=== PATIENT | male | born 1935 | race Caucasian/White ===

== ENCOUNTER 2017-03-07 18:37 | Inpatient (IN) | payer MEDICAID, MEDICARE ==
[2017-03-07 18:38] VITALS: BMI 26.1
--- NOTE | 2017-03-07 19:14 | C.PDOC ---
History Of Present Illness Patient presents to the ED with complaints of sharp, stabbing abdominal pain that began last night. Patient has a history of chronic constipation. Patient denies any other complaints at this time. Time Seen by Provider: 03/07/17 19:14 Chief Complaint (Nursing): Abdominal Pain History Per: Patient History/Exam Limitations: no limitations Onset/Duration Of Symptoms: Hrs Current Symptoms Are (Timing): Still Present Severity: Mild Pain Scale Rating Of: 4 Quality Of Discomfort: Sharp, Stabbing Associated Symptoms: denies: Fever, Chills, Nausea Past Medical History Reviewed: Historical Data, Nursing Documentation, Vital Signs Vital Signs: Last Vital Signs Temp 97.8 F 03/07/17 18:42 Pulse 76 03/07/17 18:42 Resp 20 03/07/17 18:42 BP 120/71 03/07/17 18:42 Pulse Ox 96 03/07/17 20:17 - Medical History PMH: Arthritis, Asthma, Benign Prostatic Hyperplasia, CAD, CHF, COPD, Diabetes, Emphysema, Gall Bladder Disease, Hiatal Hernia, HTN, Hypercholesterolemia, Hyperlipidemia, Pneumonia, Sleep Apnea, Chronic Pain (Left chest/abdomen) Surgical History: Cholecystectomy (open cholecystectomy with CBD exploration 2012), Coronary Stent, Hernia Repair Denies: Appendectomy, Pacemaker - [facility] Procedures ANESTH INJECT SYMP NERVE (05/12/13) C & S-INTEGUMENT (08/27/14) CENTRAL VENOUS CATHETER PLACEMENT WITH GUIDANCE (07/18/15) CHOLECYSTECTOMY (10/16/13) CLOSED ENDOSCOPIC BIOPSY OF LARGE INTESTINE (09/01/13) CLOSED [PERCUTANEOUS] [NEEDLE] BIOPSY OF LUNG (06/21/13) COMMON DUCT EXPLORATION (10/16/13) CONTINUOUS INVASIVE MECHANICAL VENTILATION <96 CONSEC HRS (11/05/14) CORONAR ARTERIOGR-2 CATH (09/05/02) CYSTOSCOPY NEC (07/14/13) DX ULTRASOUND-DIGESTIVE (08/21/12) ENDOSCOPIC BRONCHIAL BX (07/28/13) ENTERAL INFUSION OF CONCENTRATED NUT. SUBSTANCES (11/05/14) ESOPHAGOGASTRODUODENOSCOPY [EGD] W/CLOSED BIOPSY (10/06/13) EXCISION OF STOMACH, ENDO, DIAGN (08/23/16) FLUOROSCOPY OF SUPERIOR VENA CAVA, GUIDANCE (07/13/16) GASTROTOMY (07/29/06) INFLUENZA VACCINATION (11/05/14) INJECT/INFUSE ELECTROLYT (05/29/14) INJECT/INFUSE NEC (01/29/15) INSERT ENDOTRACHEAL TUBE (11/05/14) INSERT INTERCOSTAL CATH (09/01/13) INSERTION OF INFUSION DEV INTO R INNOM VEIN, PERC APPROACH (10/05/15) INSERTION OF INFUSION DEV INTO SUP VENA CAVA, PERC APPROACH (08/23/16) INTRODUCE OF OTH THERAP SUBST INTO RESP TRACT, VIA OPENING (12/18/16) INTRODUCE OTH ANTI-INFECT IN CENTRAL VEIN, PERC (10/05/15) LEFT HEART CARDIAC CATH (09/05/02) LT HEART ANGIOCARDIOGRAM (09/05/02) MAGNETIC RESONANCE IMAGING OF SPINAL CANAL (10/16/13) NEBULIZER THERAPY (09/12/14) NON-INVASIVE MECHANICAL VENTILATION (07/14/13) OTH LYSIS-PERITONEAL ADHES (10/16/13) OTHER ENDOSCOPY OF SM INTEST (10/12/14) OTHER SKIN & SUBQ I D (04/30/14) PACKED CELL TRANSFUSION (10/30/13) PANCREAT SPHINCTEROPLAS (10/16/13) PART GASTREC W JEJ ANAST (07/29/06) PERCUTAN NEEDLE BIOPSY OF PROSTATE (09/01/13) REPAIR OF INTESTINE NEC (10/16/13) SM-TO-SM BOWEL ANASTOM (07/29/06) THORACOSCOPIC LOBECTOMY OF LUNG (07/28/13) TRANSURETHRAL PROSTATECTOMY ([place]) (07/14/13) URETHRAL DILATION (09/01/13) VACCINATION NEC (11/05/14) VENOUS CATHETERIZATION NEC (11/05/14) Family History: States: Unknown Family Hx - Social History Hx Tobacco Use: Yes Hx Alcohol Use: No Hx Substance Use: No - Immunization History Hx Tetanus Toxoid Vaccination: Yes Hx Influenza Vaccination: Yes Hx Pneumococcal Vaccination: Yes Review Of Systems Constitutional: Negative for: Fever, Chills, Sweats Cardiovascular: Negative for: Chest Pain Respiratory: Negative for: Cough, Shortness of Breath Gastrointestinal: Positive for: Abdominal Pain. Negative for: Nausea Genitourinary: Negative for: Dysuria Musculoskeletal: Negative for: Back Pain Skin: Negative for: Rash, Lesions, Jaundice Neurological: Negative for: Weakness Psych: Negative for: Anxiety Physical Exam - Physical Exam Appears: Non-toxic Skin: Warm, Dry Oral Mucosa: Moist Neck: Normal ROM, Supple Chest: Symmetrical Cardiovascular: Rhythm Regular Respiratory: No Accessory Muscle Use, No Rales, No Rhonchi, No Stridor, No Wheezing Gastrointestinal/Abdominal: Bowel Sounds (decreased bowel sounds ), Soft, No Tenderness, Distention, No Guarding, No Rebound, Other (small umbillical surgical wound with small amount of drainage, treated with wet to dry dressing ) Back: No CVA Tenderness Extremity: Normal ROM, No Tenderness Extremity: Bilateral: Atraumatic, Normal Color And Temperature Neurological/Psych: Oriented x3, Normal Speech, Normal Cognition Gait: Steady ED Course And Treatment - Laboratory Results Result Diagrams: 03/07/17 19:46 03/07/17 19:46 O2 Sat by Pulse Oximetry: 96 Pulse Ox Interpretation: Normal Progress Note: blood work, ivf, Disposition Discussed With : Harriet Trujillo Comment: accepted the pt on his service and took over the care at 9:30 PM Doctor Will See Patient In The: Hospital Counseled Patient/Family Regarding: Studies Performed, Diagnosis - Disposition Disposition: HOSPITALIZED Disposition Time: 19:14 Condition: FAIR - Clinical Impression Clinical Impression: Abdominal bloating, Abdominal distension, Constipation, Nausea - Scribe Statement The provider has reviewed the documentation as recorded by the Scribe Shantel Savage All medical record entries made by the Scribe were at my direction and personally dictated by me. I have reviewed the chart and agree that the record accurately reflects my personal performance of the history, physical exam, medical decision making, and the department course for this patient. I have also personally directed, reviewed, and agree with the discharge instructions and disposition. Decision To Admit - Pt Status Changed To: Hospital Disposition Of: Inpatient - Admit Certification Admit to Inpatient:: After my assessment, the patient will require hospitalization for at least two midnights. This is because of the severity of symptoms shown, intensity of services needed, and/or the medical risk in this patient being treated as an outpatient. - InPatient: Physician Admission Certification:: After my assessment, the patient will require hospitalization for at least two midnights. This is because of the severity of symptoms shown, intensity of services needed, and/or the medical risk in this patient being treated as an outpatient. - . Bed Request Type: Regular Admitting Physician: Harriet Trujillo Patient Diagnosis: Abdominal bloating, Abdominal distension, Constipation, Nausea
[2017-03-07] MEDS ORDERED: Sodium Chloride 0.9% 1,000 ML IV ONE (19:16)
[2017-03-07 19:50] LABS: BASO % 0.7 % (0.0-2.0); EOS # 0.1 K/uL (0.0-0.7); EOS % 0.9 % (0.0-4.0); HEMATOCRIT 35.7 % (35.0-51.0); LYMPH # 1.5 K/uL (1.0-4.3); LYMPH % 21.1 % (20.0-40.0); MEAN CELL VOLUME 84.5 fL (80.0-94.0); MEAN CORPUSCULAR HEMOGLOBIN 26.9 pg (27.0-31.0); MEAN CORPUSCULAR HGB CONC 31.8 g/dL (33.0-37.0); MEAN PLATELET VOLUME 11.6 fL (7.2-11.7); MONO # 0.3 K/uL (0.0-0.8); MONO % 3.9 % (0.0-10.0); RED CELL DISTRIBUTION WIDTH 14.8 % (11.5-14.5)
[2017-03-07] MEDS ORDERED: Morphine 4 MG/ML VIAL ONE (19:53)
[2017-03-07 20:00] LABS: CHLORIDE 106 mmol/L (98-107); POTASSIUM 4.8 mmol/L (3.6-5.2); SODIUM 141 mmol/L (132-148)
[2017-03-07 20:02] LABS: BILIRUBIN,TOTAL 0.7 mg/dL (0.2-1.3); GFR AFRICAN-AMERICAN > 60
[2017-03-07 20:03] LABS: ALB/GLOB RATIO 1.3 (1.0-2.1); ALKALINE PHOSPHATASE 166 U/L (38-126); ALT/SGPT 12 U/L (21-72); AST/SGOT 16 U/L (17-59); BLOOD UREA NITROGEN 17 mg/dL (9-20); CALCIUM 8.7 mg/dl (8.6-10.4); CARBON DIOXIDE 21 mmol/L (22-30); GLUCOSE,RANDOM 119 mg/dL (75-110)
[2017-03-07 20:05] LABS: INR 1.1
[2017-03-07] MEDS: Dextrose 5%/0.45% NS 1,000 ML IV SCH (22:40)
[2017-03-08] MEDS: Albuterol-Ipratrop 3 mg / 0.5 (3 ml) UD INH SCH ×3 (07:19→20:39)
[2017-03-08] MEDS ORDERED: POLYETHYLENE GLYCOL 3350 17 GM/Dose PACKET PO ONE ×4 (08:53→22:33)
[2017-03-08] MEDS: Dextrose 5%/0.45% NS 1,000 ML IV SCH ×2 (09:05→18:55)
--- NOTE | 2017-03-08 09:48 | RAD ---
PROCEDURE: Radiographs of the chest and abdomen (obstructive series) HISTORY: Abdominal pain COMPARISON: CT abdomen and pelvis from 10/02/2016. TECHNIQUE: AP radiograph of the chest, with upright and supine radiographs of the abdomen. FINDINGS: CHEST: Lungs: The lungs are clear. Cardiovascular: Normal size heart. No pulmonary vascular congestion. Pleura: No pleural fluid. No pneumothorax. Other findings: There is an old fracture deformity in the left posterior the 6th rib. There are multiple surgical clips in the left perihilar region. ABDOMEN AND PELVIS: Bowel: There are gas-filled small bowel loops. There is no evidence of bowel dilatation. Free air: None. Bones: Unremarkable. Other findings: There are multiple surgical clips in the abdominal wall. IMPRESSION: Nonobstructive bowel-gas pattern.
[2017-03-08] MEDS ORDERED: HONEY TP SCH (10:00)
--- NOTE | 2017-03-08 11:02 | CP.PCM.PN ---
Subjective - Date & Time of Evaluation Date of Evaluation: 03/08/17 Time of Evaluation: 08:10 - Subjective Subjective: Medicine Note- Dr. Trujillo's service Patient was seen and examined at bedside. Patient reports he is having some abdominal pain, as well as right shoulder pain going down to his abdomen. No events overnight, per nursing. Objective - Vital Signs/Intake and Output Vital Signs (last 24 hours): Temp Pulse Resp BP Pulse Ox 98.0 F 65 20 149/70 98 03/08/17 07:20 03/08/17 07:20 03/08/17 07:20 03/08/17 07:20 03/08/17 07:20 - Medications Medications: Current Medications Albuterol/Ipratropium (Duoneb 3 Mg/0.5 Mg (3 Ml) Ud) 3 ml INH RQ6 [facility] Last Admin: 03/08/17 07:19 Dose: 3 ml Carvedilol (Coreg) 3.125 mg PO BID [facility] Last Admin: 03/08/17 09:56 Dose: 3.125 mg Clopidogrel Bisulfate (Plavix) 75 mg PO DAILY [facility] Last Admin: 03/08/17 09:56 Dose: 75 mg Docusate Sodium (Colace) 100 mg PO TID [facility] Last Admin: 03/08/17 09:56 Dose: 100 mg Famotidine (Pepcid) 20 mg IVP Q12 [facility] Last Admin: 03/08/17 10:45 Dose: 20 mg Heparin Sodium (Porcine) (Heparin) 5,000 units SC Q12 [facility] Last Admin: 03/08/17 09:56 Dose: 5,000 units Hydromorphone HCl (Dilaudid) 2 mg IVP Q4H PRN PRN Reason: Pain, moderate (4-7) Last Admin: 03/08/17 09:56 Dose: 2 mg Dextrose/Sodium Chloride (Dextrose 5%/0.45% Ns 1000 Ml) 1,000 mls @ 100 mls/hr IV .Q10H [facility] Last Admin: 03/08/17 09:05 Dose: Not Given Megestrol Acetate (Megace) 40 mg PO DAILY [facility] Last Admin: 03/08/17 09:56 Dose: 40 mg Metformin HCl (Glucophage) 500 mg PO BIDCC [facility] Last Admin: 03/08/17 10:45 Dose: 500 mg Rosuvastatin Calcium (Crestor) 5 mg PO HS [facility] Zolpidem Tartrate (Ambien) 5 mg PO HS [facility] - Labs Labs: PT 12.5 SECONDS (9.7-12.2) H 03/07/17 19:46 INR 1.1 03/07/17 19:46 APTT 55 SECONDS (21-34) H 03/07/17 19:46 - Constitutional Appears: Non-toxic, No Acute Distress - Head Exam Head Exam: ATRAUMATIC, NORMAL INSPECTION, NORMOCEPHALIC - Eye Exam Pupil Exam: NORMAL ACCOMODATION, PERRL - ENT Exam ENT Exam: Mucous Membranes Moist - Respiratory Exam Respiratory Exam: Clear to Ausculation Bilateral, NORMAL BREATHING PATTERN. absent: Prolonged Expiratory Phase, Rales, Rhonchi, Wheezes - Cardiovascular Exam Cardiovascular Exam: REGULAR RHYTHM, +S1, +S2 - GI/Abdominal Exam GI & Abdominal Exam: Soft, Tenderness (tender at wound site), Normal Bowel Sounds. absent: Diminished Bowel Sounds, Hypoactive Bowel Sounds Additional comments: abdominal wound still draining pus - Extremities Exam Extremities Exam: Normal Capillary Refill, Normal Inspection - Neurological Exam Neurological Exam: Alert, Awake, Oriented x3 - Psychiatric Exam Psychiatric exam: Normal Affect, Normal Mood - Skin Skin Exam: Dry, Intact, Normal Color, Warm Assessment and Plan - Assessment and Plan (Free Text) Assessment: (1) Abdominal Pain Assessment & Plan: Obstructive series- 03/07/17- nonobstructive bowel-gas pattern Dilaudid 2mg IVP Q4h Given dose of Miralax 17gm PO once Colace 100mg PO TID Lipase 465 (2) Anxiety Assessment & Plan: Xanax 0.5mg PO Q6h PRN Status: Acute (3) Constipation Assessment & Plan: Colace 100mg PO TID Status: Acute (4) CAD (coronary artery disease) Assessment & Plan: s/p 2 stents continue Plavix 75mg PO Daily continue Asa 81mg PO Daily Crestor 10mg PO HS Coreg 3.125mg PO BID Status: Chronic (5) COPD (chronic obstructive pulmonary disease) Assessment & Plan: Advair 250/50mcg INH Q12h Duoneb Q6h PRN Status: Chronic (6) Insomnia Assessment & Plan: Ambien 5mg PO HS Status: Acute (7) Prophylactic measure Assessment & Plan: Heparin 5000U SC Q12h Protonix 40mg PO Da
[2017-03-08 17:04] LABS: RBC URINE < 1 /hpf (0-3); URINE BILIRUBIN NEGATIVE (NEGATIVE); URINE BLOOD NEGATIVE (NEGATIVE); URINE COLOR Yellow (YELLOW); URINE GLUCOSE (UA) NORMAL (Normal); URINE KETONE NEGATIVE (NEGATIVE); URINE LEUKOCYTE ESTERASE NEG Leu/uL (Negative); URINE PROTEIN NEGATIVE (NEGATIVE); URINE UROBILINOGEN NORMAL mg/dL (0.2-1.0); WBC URINE < 1 /hpf (0-5)
[2017-03-09] MEDS: Albuterol-Ipratrop 3 mg / 0.5 (3 ml) UD INH SCH ×4 (01:10→19:41)
[2017-03-09 03:10] VITALS: RESP 20
[2017-03-09] MEDS: Dextrose 5%/0.45% NS 1,000 ML IV SCH ×2 (05:30→17:06)
[2017-03-09 08:26] LABS: BASO % 0.8 % (0.0-2.0); EOS # 0.1 K/uL (0.0-0.7); EOS % 2.4 % (0.0-4.0); LYMPH # 1.8 K/uL (1.0-4.3); MEAN CELL VOLUME 83.9 fL (80.0-94.0); MEAN PLATELET VOLUME 10.9 fL (7.2-11.7); MONO # 0.4 K/uL (0.0-0.8); WHITE BLOOD COUNT 5.6 K/uL (4.8-10.8)
[2017-03-09 08:32] LABS: CHLORIDE 108 mmol/L (98-107); SODIUM 143 mmol/L (132-148)
[2017-03-09 08:35] LABS: ALB/GLOB RATIO 1.3 (1.0-2.1); ALKALINE PHOSPHATASE 133 U/L (38-126); ALT/SGPT 12 U/L (21-72); AST/SGOT 15 U/L (17-59); BILIRUBIN,TOTAL 0.3 mg/dL (0.2-1.3); BLOOD UREA NITROGEN 13 mg/dL (9-20); CARBON DIOXIDE 22 mmol/L (22-30); GFR AFRICAN-AMERICAN > 60; GLUCOSE,RANDOM 130 mg/dL (75-110); TOTAL PROTEIN 6.3 g/dL (6.3-8.3)
[2017-03-09 08:36] LABS: CALCIUM 8.4 mg/dl (8.6-10.4)
[2017-03-09 08:45] LABS: HEMATOCRIT 33.2 % (35.0-51.0); LYMPH % 32.7 % (20.0-40.0); MEAN CORPUSCULAR HEMOGLOBIN 26.9 pg (27.0-31.0); MEAN CORPUSCULAR HGB CONC 32.1 g/dL (33.0-37.0); MONO % 7.2 % (0.0-10.0); NRBC % 0.2 % (0.0-2.0); RED CELL DISTRIBUTION WIDTH 15.1 % (11.5-14.5)
--- NOTE | 2017-03-09 10:10 | CP.PCM.PN ---
Subjective - Date & Time of Evaluation Date of Evaluation: 03/09/17 Time of Evaluation: 07:15 - Subjective Subjective: Medicine Note- Dr. Trujillo's service Patient was seen and examined at bedside. Patient reports he still has pain at the wound site. He says he is tolerating some PO, had a sandwich yesterday. He expresses some distress in regards to causing his family problems because of his abdominal wound and chronic pain. No events overnight. Objective - Vital Signs/Intake and Output Vital Signs (last 24 hours): Temp Pulse Resp BP Pulse Ox 98.0 F 71 20 126/57 L 98 03/09/17 08:09 03/09/17 08:09 03/09/17 08:09 03/09/17 08:09 03/09/17 08:09 Intake and Output: 03/09/17 03/09/17 06:59 18:59 Intake Total 900 Balance 900 - Medications Medications: Current Medications Albuterol/Ipratropium (Duoneb 3 Mg/0.5 Mg (3 Ml) Ud) 3 ml INH RQ6 [facility] Last Admin: 03/09/17 07:41 Dose: 3 ml Carvedilol (Coreg) 3.125 mg PO BID [facility] Last Admin: 03/09/17 10:01 Dose: 3.125 mg Clopidogrel Bisulfate (Plavix) 75 mg PO DAILY [facility] Last Admin: 03/09/17 10:02 Dose: 75 mg Docusate Sodium (Colace) 100 mg PO TID [facility] Last Admin: 03/09/17 10:01 Dose: 100 mg Famotidine (Pepcid) 20 mg PO BID [facility] Last Admin: 03/09/17 10:01 Dose: 20 mg Heparin Sodium (Porcine) (Heparin) 5,000 units SC Q12 [facility] Last Admin: 03/09/17 10:01 Dose: 5,000 units Hydromorphone HCl (Dilaudid) 2 mg IVP Q4H PRN PRN Reason: Pain, severe (8-10) Last Admin: 03/09/17 05:22 Dose: 2 mg Dextrose/Sodium Chloride (Dextrose 5%/0.45% Ns 1000 Ml) 1,000 mls @ 100 mls/hr IV .Q10H [facility] Last Admin: 03/09/17 05:30 Dose: 100 mls/hr Megestrol Acetate (Megace) 40 mg PO DAILY [facility] Last Admin: 03/09/17 10:01 Dose: 40 mg Metformin HCl (Glucophage) 500 mg PO BIDCC [facility] Last Admin: 03/09/17 08:41 Dose: 500 mg Rosuvastatin Calcium (Crestor) 5 mg PO HS [facility] Last Admin: 03/08/17 22:26 Dose: 5 mg Zolpidem Tartrate (Ambien) 5 mg PO [facility] Last Admin: 03/08/17 22:26 Dose: 5 mg - Labs Labs: 03/09/17 08:12 03/09/17 08:12 PT 12.5 SECONDS (9.7-12.2) H 03/07/17 19:46 INR 1.1 03/07/17 19:46 APTT 55 SECONDS (21-34) H 03/07/17 19:46 - Constitutional Appears: Non-toxic, No Acute Distress - Head Exam Head Exam: ATRAUMATIC, NORMAL INSPECTION, NORMOCEPHALIC - Eye Exam Pupil Exam: NORMAL ACCOMODATION, PERRL - Respiratory Exam Respiratory Exam: Clear to Ausculation Bilateral, NORMAL BREATHING PATTERN. absent: Prolonged Expiratory Phase, Rales, Rhonchi, Wheezes - Cardiovascular Exam Cardiovascular Exam: REGULAR RHYTHM, +S1, +S2 - GI/Abdominal Exam GI & Abdominal Exam: Soft, Tenderness, Normal Bowel Sounds. absent: Diminished Bowel Sounds Additional comments: abdominal wound still has purulent drainage - Extremities Exam Extremities Exam: Normal Capillary Refill, Normal Inspection - Neurological Exam Neurological Exam: Alert, Awake, Oriented x3 - Psychiatric Exam Psychiatric exam: Normal Affect, Normal Mood - Skin Skin Exam: Dry, Intact, Normal Color, Warm Assessment and Plan - Assessment and Plan (Free Text) Assessment: (1) Abdominal Pain Assessment & Plan: Obstructive series- 03/07/17- nonobstructive bowel-gas pattern Dilaudid 2mg IVP Q4h Given dose of Miralax 17gm PO once Colace 100mg PO TID Lipase 465, repeat Lipase 29 (2) Anxiety Assessment & Plan: Xanax 0.5mg PO Q6h PRN Status: Acute (3) Constipation Assessment & Plan: Colace 100mg PO TID Status: Acute (4) CAD (coronary artery disease) Assessment & Plan: s/p 2 stents continue Plavix 75mg PO Daily continue Asa 81mg PO Daily Crestor 10mg PO HS Coreg 3.125mg PO BID Status: Chronic (5) COPD (chronic obstructive pulmonary disease) Assessment & Plan: Advair 250/50mcg INH Q12h Duoneb Q6h PRN Status: Chronic (6) Insomnia Assessment & Plan: Ambien 5mg PO HS Status: Acute (7) Prophylactic measure Assessment & Plan: Heparin 5000U SC Q12h Protonix 40mg PO
[2017-03-10] MEDS: Dextrose 5%/0.45% NS 1,000 ML IV SCH ×2 (00:55→02:04)
[2017-03-10] MEDS: Albuterol-Ipratrop 3 mg / 0.5 (3 ml) UD INH SCH ×3 (01:20→13:15)
[2017-03-10 08:07] LABS: BASO # 0.1 K/uL (0.0-0.2); BASO % 0.8 % (0.0-2.0); EOS # 0.2 K/uL (0.0-0.7); EOS % 2.2 % (0.0-4.0); LYMPH # 1.8 K/uL (1.0-4.3); LYMPH % 27.2 % (20.0-40.0); MEAN CELL VOLUME 83.7 fL (80.0-94.0); MEAN CORPUSCULAR HEMOGLOBIN 27.2 pg (27.0-31.0); MEAN CORPUSCULAR HGB CONC 32.5 g/dL (33.0-37.0); MEAN PLATELET VOLUME 10.6 fL (7.2-11.7); MONO # 0.4 K/uL (0.0-0.8); MONO % 6.1 % (0.0-10.0); RED CELL DISTRIBUTION WIDTH 15.1 % (11.5-14.5); WHITE BLOOD COUNT 6.8 K/uL (4.8-10.8)
[2017-03-10 08:21] LABS: CHLORIDE 106 mmol/L (98-107)
[2017-03-10 08:22] LABS: POTASSIUM 4.2 mmol/L (3.6-5.2); SODIUM 143 mmol/L (132-148)
[2017-03-10 08:24] LABS: GFR AFRICAN-AMERICAN > 60
[2017-03-10 08:25] LABS: ALB/GLOB RATIO 1.3 (1.0-2.1); ALKALINE PHOSPHATASE 150 U/L (38-126); ALT/SGPT 14 U/L (21-72); AST/SGOT 16 U/L (17-59); BILIRUBIN,TOTAL 0.3 mg/dL (0.2-1.3); BLOOD UREA NITROGEN 11 mg/dL (9-20); CALCIUM 8.8 mg/dl (8.6-10.4); CARBON DIOXIDE 23 mmol/L (22-30); GLUCOSE,RANDOM 134 mg/dL (75-110); TOTAL PROTEIN 6.8 g/dL (6.3-8.3)
--- NOTE | 2017-03-10 08:49 | CP.PCM.PN ---
Subjective - Date & Time of Evaluation Date of Evaluation: 03/10/17 Time of Evaluation: 09:15 - Subjective Subjective: Medicine Note- Dr. Trujillo's service Patient was seen and examined at bedside. Patient reports he still has pain at the wound site. He says he had a small bowel movement yesterday, requests medication for constipation. No events overnight. Objective - Vital Signs/Intake and Output Vital Signs (last 24 hours): Temp Pulse Resp BP Pulse Ox 97.5 F L 82 20 138/69 99 03/10/17 00:00 03/10/17 00:00 03/10/17 00:00 03/10/17 00:00 03/10/17 00:00 Intake and Output: 03/10/17 03/10/17 06:59 18:59 Intake Total 920 Balance 920 - Medications Medications: Current Medications Albuterol/Ipratropium (Duoneb 3 Mg/0.5 Mg (3 Ml) Ud) 3 ml INH RQ6 [facility] Last Admin: 03/10/17 07:25 Dose: 3 ml Carvedilol (Coreg) 3.125 mg PO BID [facility] Last Admin: 03/09/17 18:04 Dose: 3.125 mg Clopidogrel Bisulfate (Plavix) 75 mg PO DAILY [facility] Last Admin: 03/09/17 10:02 Dose: 75 mg Docusate Sodium (Colace) 100 mg PO TID [facility] Last Admin: 03/09/17 18:04 Dose: 100 mg Famotidine (Pepcid) 20 mg PO BID [facility] Last Admin: 03/09/17 18:04 Dose: 20 mg Heparin Sodium (Porcine) (Heparin) 5,000 units SC Q12 [facility] Last Admin: 03/09/17 22:00 Dose: 5,000 units Hydromorphone HCl (Dilaudid) 2 mg IVP Q4H PRN PRN Reason: Pain, severe (8-10) Last Admin: 03/10/17 06:05 Dose: 2 mg Dextrose/Sodium Chloride (Dextrose 5%/0.45% Ns 1000 Ml) 1,000 mls @ 100 mls/hr IV .Q10H [facility] Last Admin: 03/10/17 02:04 Dose: 100 mls/hr Megestrol Acetate (Megace) 40 mg PO DAILY [facility] Last Admin: 03/09/17 10:01 Dose: 40 mg [facility] Last Admin: 03/09/17 17:02 Dose: 500 mg Rosuvastatin Calcium (Crestor) 5 mg PO [facility] Last Admin: 03/09/17 22:00 Dose: 5 mg Zolpidem Tartrate (Ambien) 5 mg PO [facility] Last Admin: 03/09/17 22:00 Dose: 5 mg - Labs Labs: 03/10/17 07:57 03/10/17 07:57 PT 12.5 SECONDS (9.7-12.2) H 03/07/17 19:46 INR 1.1 03/07/17 19:46 APTT 55 SECONDS (21-34) H 03/07/17 19:46 - Constitutional Appears: Non-toxic, No Acute Distress - Head Exam Head Exam: ATRAUMATIC, NORMAL INSPECTION, NORMOCEPHALIC - Eye Exam Pupil Exam: NORMAL ACCOMODATION, PERRL - ENT Exam ENT Exam: Mucous Membranes Moist - Respiratory Exam Respiratory Exam: Clear to Ausculation Bilateral, NORMAL BREATHING PATTERN. absent: Prolonged Expiratory Phase, Rales, Rhonchi, Wheezes - Cardiovascular Exam Cardiovascular Exam: REGULAR RHYTHM, +S1, +S2 - GI/Abdominal Exam GI & Abdominal Exam: Soft, Tenderness, Normal Bowel Sounds. absent: Diminished Bowel Sounds, Hypoactive Bowel Sounds Additional comments: purulent drainage from mid abdominal surgical site - Extremities Exam Extremities Exam: Normal Capillary Refill, Normal Inspection - Neurological Exam Neurological Exam: Alert, Awake, Oriented x3 - Psychiatric Exam Psychiatric exam: Normal Affect, Normal Mood - Skin Skin Exam: Dry, Intact, Normal Color, Warm Assessment and Plan - Assessment and Plan (Free Text) Assessment: (1) Abdominal Pain Assessment & Plan: Obstructive series- 03/07/17- nonobstructive bowel-gas pattern Dilaudid 2mg IVP Q4h Given dose of Lactulose 20mg once Colace 100mg PO TID Lipase 465, repeat Lipase 29 (2) Anxiety Assessment & Plan: Xanax 0.5mg PO Q6h PRN Status: Acute (3) Constipation Assessment & Plan: Colace 100mg PO TID Status: Acute (4) CAD (coronary artery disease) Assessment & Plan: s/p 2 stents continue Plavix 75mg PO Daily continue Asa 81mg PO Daily Crestor 10mg PO HS Coreg 3.125mg PO BID Status: Chronic (5) COPD (chronic obstructive pulmonary disease) Assessment & Plan: Advair 250/50mcg INH Q12h Duoneb Q6h PRN Status: Chronic (6) Insomnia Assessment & Plan: Ambien 5mg PO HS Status: Acute (7) Prophylactic measure Assessment & Plan: Heparin 5000U SC Q12h Protonix 40mg PO All medical management as per Dr. Trujillo Patient is to be discharged home today, as per Dr. Trujillo.
[2017-03-10 09:41] VITALS: BP 142/74; PULSE 69; TEMP 98.4; O2SAT 98
--- NOTE | 2017-03-17 06:59 | DS ---
The patient admitted to the hospital with chief complaint of abdominal pain, severe; nonhealing wound . The patient ____. Abdominal hernia with multiple ____. The patient started on IV antibiotic, natty n management, surgical consult. The patient discharged to be followed as outpatient and ____ abdomin al wound. Harriet Scherer MD cc: [id number] TT: 03/16/2017 12:21:41 tn
--- NOTE | 2017-04-12 08:24 | HP ---
The patient came to the hospital with abdominal pain, weakness, fatigue. The patient has history of chronic nonhealing wound, abdominal hernia. PHYSICAL EXAMINATION: GENERAL: The patient is awake, alert, oriented. VITAL SIGNS: Temperature 98, pulse ____. HEENT: Within normal limits. NECK: Supple. CHEST: Symmetrical. HEART: Regular. ABDOMEN: Soft. EXTREMITIES: No edema. ASSESSMENT: The patient for nonhealing wound, chronic abdominal pain. The patient to get bedrest, I V antibiotics, supportive care. Harriet Scherer MD cc: [id number] TT: 04/10/2017 08:32:12 jn
== END 2017-03-10 13:30 | disposition home or self-care (01) | DRG 452 ==
LOC: C.ER 18:37 → C.9E 21:46 → C.5T 23:23
PROVIDERS: ADMIT Internal Medicine Pulmonary Disease; ATTEND Internal Medicine Pulmonary Disease
DX: T81.89XA Other complications of procedures, not elsewhere classified, initial encounter (principal); J44.9 Chronic obstructive pulmonary disease, unspecified; K59.09 Other constipation; K46.9 Unspecified abdominal hernia without obstruction or gangrene; F41.9 Anxiety disorder, unspecified; G89.29 Other chronic pain; I25.10 Atherosclerotic heart disease of native coronary artery without angina pectoris; M25.511 Pain in right shoulder; Z95.5 Presence of coronary angioplasty implant and graft; G47.00 Insomnia, unspecified; J45.909 Unspecified asthma, uncomplicated; I10 Essential (primary) hypertension; Z63.9 Problem related to primary support group, unspecified

== ENCOUNTER 2017-05-21 09:48 | Emergency (ER) | payer MEDICARE, MEDICAID ==
[2017-05-21 09:49] VITALS: BMI 26.1
[2017-05-21 09:58] VITALS: TEMP 98.2; O2SAT 98
[2017-05-21] MEDS ORDERED: Sodium Chloride 0.9% 1,000 ML IV ONE (10:52)
--- NOTE | 2017-05-21 10:56 | C.PDOC ---
History Of Present Illness 82 y/o male presents to the ED with complaints of abdominal pain and constipation x5 days. Patient with chronic wound on abdomen. Patient is poor historian. Denies nausea, vomiting, fever, hematuria, or any other complaints. Pt denies taking any pain medication today. Time Seen by Provider: 05/21/17 10:40 Chief Complaint (Nursing): Abdominal Pain History Per: Patient History/Exam Limitations: other (poor historian) Onset/Duration Of Symptoms: Days Current Symptoms Are (Timing): Still Present Severity: Moderate Location Of Pain/Discomfort: Diffuse Radiation Of Pain To:: None Quality Of Discomfort: "Pain" Associated Symptoms: Constipation. denies: Fever, Chills, Nausea, Vomiting, Diarrhea, Urinary Symptoms Exacerbating Factors: None Alleviating Factors: None Recent travel outside of the [place]: No Past Medical History Reviewed: Historical Data, Nursing Documentation, Vital Signs Vital Signs: Last Vital Signs Temp 98.2 F 05/21/17 09:56 Pulse 69 05/21/17 11:55 Resp 18 05/21/17 13:00 BP 116/51 L 05/21/17 11:55 Pulse Ox 98 05/21/17 13:25 - Medical History PMH: Arthritis, Asthma, Benign Prostatic Hyperplasia, CAD, CHF, COPD, Diabetes, Emphysema, Gall Bladder Disease, Hiatal Hernia, HTN, Hypercholesterolemia, Hyperlipidemia, Pneumonia, Sleep Apnea, Chronic Pain (Left chest/abdomen) Surgical History: Cholecystectomy (open cholecystectomy with CBD exploration 2012), Coronary Stent, Hernia Repair - [facility] Procedures ANESTH INJECT SYMP NERVE (05/12/13) C & S-INTEGUMENT (08/27/14) CENTRAL VENOUS CATHETER PLACEMENT WITH GUIDANCE (07/18/15) CHOLECYSTECTOMY (10/16/13) CLOSED ENDOSCOPIC BIOPSY OF LARGE INTESTINE (09/01/13) CLOSED [PERCUTANEOUS] [NEEDLE] BIOPSY OF LUNG (06/21/13) COMMON DUCT EXPLORATION (10/16/13) CONTINUOUS INVASIVE MECHANICAL VENTILATION <96 CONSEC HRS (11/05/14) CORONAR ARTERIOGR-2 CATH (09/05/02) CYSTOSCOPY NEC (07/14/13) DX ULTRASOUND-DIGESTIVE (08/21/12) ENDOSCOPIC BRONCHIAL BX (07/28/13) ENTERAL INFUSION OF CONCENTRATED NUT. SUBSTANCES (11/05/14) ESOPHAGOGASTRODUODENOSCOPY [EGD] W/CLOSED BIOPSY (10/06/13) EXCISION OF STOMACH, ENDO, DIAGN (08/23/16) FLUOROSCOPY OF SUPERIOR VENA CAVA, GUIDANCE (07/13/16) GASTROTOMY (07/29/06) INFLUENZA VACCINATION (11/05/14) INJECT/INFUSE ELECTROLYT (05/29/14) INJECT/INFUSE NEC (01/29/15) INSERT ENDOTRACHEAL TUBE (11/05/14) INSERT INTERCOSTAL CATH (09/01/13) INSERTION OF INFUSION DEV INTO R INNOM VEIN, PERC APPROACH (10/05/15) INSERTION OF INFUSION DEV INTO SUP VENA CAVA, PERC APPROACH (08/23/16) INTRODUCE OF OTH THERAP SUBST INTO RESP TRACT, VIA OPENING (12/18/16) INTRODUCE OTH ANTI-INFECT IN CENTRAL VEIN, PERC (10/05/15) LEFT HEART CARDIAC CATH (09/05/02) LT HEART ANGIOCARDIOGRAM (09/05/02) MAGNETIC RESONANCE IMAGING OF SPINAL CANAL (10/16/13) NEBULIZER THERAPY (09/12/14) NON-INVASIVE MECHANICAL VENTILATION (07/14/13) OTH LYSIS-PERITONEAL ADHES (10/16/13) OTHER ENDOSCOPY OF SM INTEST (10/12/14) OTHER SKIN & SUBQ I D (04/30/14) PACKED CELL TRANSFUSION (10/30/13) PANCREAT SPHINCTEROPLAS (10/16/13) PART GASTREC W JEJ ANAST (07/29/06) PERCUTAN NEEDLE BIOPSY OF PROSTATE (09/01/13) REPAIR OF INTESTINE NEC (10/16/13) SM-TO-SM BOWEL ANASTOM (07/29/06) THORACOSCOPIC LOBECTOMY OF LUNG (07/28/13) TRANSURETHRAL PROSTATECTOMY ([place]) (07/14/13) URETHRAL DILATION (09/01/13) VACCINATION NEC (11/05/14) VENOUS CATHETERIZATION NEC (11/05/14) Family History: States: Unknown Family Hx - Social History Hx Tobacco Use: Yes Hx Alcohol Use: No Hx Substance Use: No - Immunization History Hx Tetanus Toxoid Vaccination: Yes Hx Influenza Vaccination: Yes Hx Pneumococcal Vaccination: Yes Review Of Systems Constitutional: Negative for: Fever, Chills Cardiovascular: Negative for: Chest Pain Gastrointestinal: Positive for: Abdominal Pain, Constipation. Negative for: Nausea, Vomiting, Diarrhea Genitourinary: Negative for: Dysuria, Hematuria Physical Exam - Physical Exam Appears: Non-toxic, No Acute Distress Skin: Warm, Dry, No Rash Head: Atraumatic, Normacephalic Eye(s): bilateral: Normal Inspection Neck: Normal, Normal ROM, Supple Chest: Symmetrical Cardiovascular: Rhythm Regular, No Murmur Respiratory: Normal Breath Sounds, No Rales, No Rhonchi, No Wheezing Gastrointestinal/Abdominal: Soft, Tenderness (diffuse, nonfocal), No Guarding, No Rebound, Other (surgical scars to abdomen. 2 chronic epigastric small wounds , pink, no purulent discharge or foul odor) Extremity: Normal ROM, No Pedal Edema Neurological/Psych: Oriented x3, Normal Speech ED Course And Treatment - Laboratory Results Result Diagrams: 05/21/17 11:30 05/21/17 11:30 Lab Interpretation: No Acute Changes ECG: Interpreted By Me, Viewed By Me ECG Rhythm: 1st Degree HB ECG Interpretation: No Acute Changes Interpretation Of ECst degree AV block, no changes from 12/18/16 Rate From EC (BPM) O2 Sat by Pulse Oximetry: 98 (room air) Pulse Ox Interpretation: Normal - Physician Consult Information Time Consulting Physician Contacted: 12:30 Physician Contacted: Harriet Trujillo Outcome Of Conversation: Discussed lab and xray findings. He states patient can be discharged and follow up in his office. Medical Decision Making Medical Decision Making: Plan: * EKG * labs * UA * IV fluids * XR obstructive series Xray No acute cardiopulmonary disease. Postop changes left irma thorax with mild volume loss left irma thorax and slight mediastinal shift from left-to- right. There is mild compensatory hyperinflation right lung. No evidence of abdominal obstruction however findings consistent constipation. Findings also suggest prior hernia repair. Clinic correlation recommended. Labs no acute changes from priors spoke with Dr Trujillo, agrees patient for discharge, patient to follow up in office. Disposition Counseled Patient/Family Regarding: Diagnosis, Need For Followup, Rx Given - Disposition Referrals: Harriet Trujillo MD [Staff Provider] - Disposition: HOME/ ROUTINE Disposition Time: 12:37 Condition: STABLE Additional Instructions: Please follow up with your doctor Ronnie in his office in few days Take medications as prescribed to help with constipation and pain medicine as needed Prescriptions: Docusate [Colace] 100 mg PO TID #30 cap Magnesium Citrate [Citrate of Mag] 300 ml PO ONCE #1 bottle oxyCODONE/Acetaminophen [Percocet 5/325 mg Tab] 1 tab PO Q8 #14 tab Instructions: Constipation (DC) - POA Present On Arrival: None - Clinical Impression Clinical Impression: Constipation, Abdominal pain - PA / APPLIANCE SERVICER / Resident Statement MD/DO has reviewed & agrees with the documentation as recorded. - Scribe Statement The provider has reviewed the documentation as recorded by the Brandon Sanchez All medical record entries made by the Parminderibanabel were at my direction and personally dictated by me. I have reviewed the chart and agree that the record accurately reflects my personal performance of the history, physical exam, medical decision making, and the department course for this patient. I have also personally directed, reviewed, and agree with the discharge instructions and disposition.
[2017-05-21 11:35] LABS: BASO % 0.7 % (0.0-2.0); EOS # 0.2 K/uL (0.0-0.7); EOS % 2.5 % (0.0-4.0); HEMATOCRIT 33.7 % (35.0-51.0); LYMPH # 1.9 K/uL (1.0-4.3); LYMPH % 28.1 % (20.0-40.0); MEAN CELL VOLUME 82.2 fL (80.0-94.0); MEAN CORPUSCULAR HEMOGLOBIN 26.2 pg (27.0-31.0); MEAN CORPUSCULAR HGB CONC 31.8 g/dL (33.0-37.0); MEAN PLATELET VOLUME 10.9 fL (7.2-11.7); MONO # 0.4 K/uL (0.0-0.8); MONO % 5.9 % (0.0-10.0); WHITE BLOOD COUNT 6.9 K/uL (4.8-10.8)
[2017-05-21] MEDS ORDERED: Sodium Chloride 0.9% 1,000 ML ONE (11:40)
[2017-05-21] MEDS ORDERED: Morphine 4 MG/ML VIAL ONE (11:40)
[2017-05-21 12:05] LABS: CHLORIDE 107 mmol/L (98-107)
[2017-05-21 12:06] LABS: POTASSIUM 4.7 mmol/L (3.6-5.2); SODIUM 142 mmol/L (132-148)
[2017-05-21 12:09] LABS: ALB/GLOB RATIO 1.2 (1.0-2.1); ALKALINE PHOSPHATASE 133 U/L (38-126); ALT/SGPT 12 U/L (21-72); AST/SGOT 20 U/L (17-59); BILIRUBIN,TOTAL 0.6 mg/dL (0.2-1.3); BLOOD UREA NITROGEN 22 mg/dL (9-20); CALCIUM 8.8 mg/dl (8.6-10.4); CARBON DIOXIDE 23 mmol/L (22-30); GFR AFRICAN-AMERICAN > 60; GLUCOSE,RANDOM 126 mg/dL (75-110); TOTAL PROTEIN 7.2 g/dL (6.3-8.3)
--- NOTE | 2017-05-21 12:10 | RAD ---
PROCEDURE: Radiographs of the chest and abdomen (obstructive series) HISTORY: abd pain COMPARISON: Comparison made with prior obstructive series dated 03/07/[address] scan abdomen pelvis 10/05/2016. TECHNIQUE: AP radiograph of the chest, with upright and supine radiographs of the abdomen. FINDINGS: CHEST: Postoperative changes again seen in the left irma thorax with multiple metallic clips left hilar -suprahilar region under thoracotomy and/or old healed fracture deformity of the left posterolateral 6th rib. There is volume loss left hemithorax with slight shift of the mediastinum from right to left and hyperinflation of the right lung likely compensatory. Suspect minor bibasilar atelectasis. ABDOMEN AND PELVIS: No evidence of free intraperitoneal air seen under the diaphragmatic surfaces. Multiple small rounded springlike densities overlying the abdomen upper pelvis consistent prior hernia repair. Large amount of stool seen throughout the colon consistent constipation well metallic ring-like densities seen over the abdomen and upper pelvis consistent with prior hernia repair clinical correlation recommended. No evidence to suggest acute mechanical bowel obstruction There is a localized dextroscoliosis centered at the thoracolumbar junction. Multilevel degenerative spondylosis of the thoracic and lumbar spine. IMPRESSION: No acute cardiopulmonary disease. Postop changes left irma thorax with mild volume loss left irma thorax and slight mediastinal shift from [id number]. There is mild compensatory hyperinflation right lung. No evidence of abdominal obstruction however findings consistent constipation. Findings also suggest prior hernia repair. Clinic correlation recommended.
[2017-05-21 12:16] VITALS: BP 116/51; PULSE 69
[2017-05-21 12:32] LABS: RBC URINE 1 /hpf (0-3); URINE BILIRUBIN NEGATIVE (NEGATIVE); URINE BLOOD NEGATIVE (NEGATIVE); URINE COLOR Yellow (YELLOW); URINE GLUCOSE (UA) NORMAL (Normal); URINE KETONE TRACE mg/dL (NEGATIVE); URINE LEUKOCYTE ESTERASE TRACE Leu/uL (Negative); URINE PROTEIN NEGATIVE (NEGATIVE); WBC URINE 1 /hpf (0-5)
[2017-05-21 13:16] VITALS: RESP 18
--- NOTE | 2017-05-24 14:10 | CARD ---
APPROVED REPORT EKG Measurement Heart [id number] <Conclusion> Sinus rhythm with 1st degree AV block Right bundle branch block Left anterior fascicular block Bifascicular block Left ventricular hypertrophy with repolarization abnormality Cannot rule out Septal infarct, age undetermined Abnormal ECG
== END 2017-05-21 13:16 | disposition home or self-care (01) ==
LOC: C.ER 09:48
DX: K59.00 Constipation, unspecified (principal); R10.9 Unspecified abdominal pain
CPT/HCPCS: 74022; 80053; 81001; 83690; 85025; 96374; 99285; J2270; J7040

== ENCOUNTER 2017-07-06 09:32 | Emergency (ER) | payer MEDICARE, MEDICAID ==
[2017-07-06 09:42] VITALS: BMI 25.4
[2017-07-06 09:48] VITALS: O2SAT 96
--- NOTE | 2017-07-06 10:32 | C.PDOC ---
History Of Present Illness 82 y/o M s/p abdominal hernia surgery 5 years ago with infected mesh p/w abdominal pain at surgical site x 5 days. Patient states he has had this pain many times before since the surgery and is on oxycontin at home but was instructed by his PMD to come to the ER should he have worsening pain. He also notes a purulent discharge from the site, which he states he has had intermittently since the surgery. He has discussed a repeat operation for his infected mesh but has been advised that a repeat surgery would be very dangerous for him. He reports subjective fever last night. Denies vomiting, diarrhea, dysuria. PMD Sharmaine/Ronnie Time Seen by Provider: 07/06/17 10:16 Chief Complaint (Nursing): Abdominal Pain Past Medical History Vital Signs: Last Vital Signs Temp 99 F 07/06/17 09:42 Pulse 96 H 07/06/17 09:42 Resp 20 07/06/17 09:42 BP 122/74 07/06/17 09:42 Pulse Ox 96 07/06/17 10:48 - Medical History PMH: Arthritis, Asthma, Benign Prostatic Hyperplasia, CAD, CHF, COPD, Diabetes, Emphysema, Gall Bladder Disease, Hiatal Hernia, HTN, Hypercholesterolemia, Hyperlipidemia, Pneumonia, Sleep Apnea, Chronic Pain (Left chest/abdomen) Denies: Anemia, Anxiety, Bipolar Disorder, Bronchitis, Cardia Arrhythmia, Crohn's Disease, Dementia, Depression, Diverticulitis, Fibromyalgia, Fractures, Gastrointestinal Ulcer, HIV, Hyperthyroidism, Hypothyroidism, Kidney Stones, Migraine, Mitral Valve Prolapse, Osteoporosis, Pancreatitis, Paranoia, Parkinson 's Disease, Peripheral Edema, Post Traumatic Stress Disorder, Chronic Kidney Disease, Schizophrenia, Seizures, Sickle Cell Disease, Sexually Transmitted Disease, TIA Surgical History: Cholecystectomy (open cholecystectomy with CBD exploration 2012), Coronary Stent, Hernia Repair Denies: Appendectomy, Pacemaker - [facility] Procedures ANESTH INJECT SYMP NERVE (05/12/13) C & S-INTEGUMENT (08/27/14) CENTRAL VENOUS CATHETER PLACEMENT WITH GUIDANCE (07/18/15) CHOLECYSTECTOMY (10/16/13) CLOSED ENDOSCOPIC BIOPSY OF LARGE INTESTINE (09/01/13) CLOSED [PERCUTANEOUS] [NEEDLE] BIOPSY OF LUNG (06/21/13) COMMON DUCT EXPLORATION (10/16/13) CONTINUOUS INVASIVE MECHANICAL VENTILATION <96 CONSEC HRS (11/05/14) CORONAR ARTERIOGR-2 CATH (09/05/02) CYSTOSCOPY NEC (07/14/13) DX ULTRASOUND-DIGESTIVE (08/21/12) ENDOSCOPIC BRONCHIAL BX (07/28/13) ENTERAL INFUSION OF CONCENTRATED NUT. SUBSTANCES (11/05/14) ESOPHAGOGASTRODUODENOSCOPY [EGD] W/CLOSED BIOPSY (10/06/13) EXCISION OF STOMACH, ENDO, DIAGN (08/23/16) FLUOROSCOPY OF SUPERIOR VENA CAVA, GUIDANCE (07/13/16) GASTROTOMY (07/29/06) INFLUENZA VACCINATION (11/05/14) INJECT/INFUSE ELECTROLYT (05/29/14) INJECT/INFUSE NEC (01/29/15) INSERT ENDOTRACHEAL TUBE (11/05/14) INSERT INTERCOSTAL CATH (09/01/13) INSERTION OF INFUSION DEV INTO R INNOM VEIN, PERC APPROACH (10/05/15) INSERTION OF INFUSION DEV INTO SUP VENA CAVA, PERC APPROACH (08/23/16) INTRODUCE OF OTH THERAP SUBST INTO RESP TRACT, VIA OPENING (12/18/16) INTRODUCE OTH ANTI-INFECT IN CENTRAL VEIN, PERC (10/05/15) LEFT HEART CARDIAC CATH (09/05/02) LT HEART ANGIOCARDIOGRAM (09/05/02) MAGNETIC RESONANCE IMAGING OF SPINAL CANAL (10/16/13) NEBULIZER THERAPY (09/12/14) NON-INVASIVE MECHANICAL VENTILATION (07/14/13) OTH LYSIS-PERITONEAL ADHES (10/16/13) OTHER ENDOSCOPY OF SM INTEST (10/12/14) OTHER SKIN & SUBQ I D (04/30/14) PACKED CELL TRANSFUSION (10/30/13) PANCREAT SPHINCTEROPLAS (10/16/13) PART GASTREC W JEJ ANAST (07/29/06) PERCUTAN NEEDLE BIOPSY OF PROSTATE (09/01/13) REPAIR OF INTESTINE NEC (10/16/13) SM-TO-SM BOWEL ANASTOM (07/29/06) THORACOSCOPIC LOBECTOMY OF LUNG (07/28/13) TRANSURETHRAL PROSTATECTOMY ([place]IP) (07/14/13) URETHRAL DILATION (09/01/13) VACCINATION NEC (11/05/14) VENOUS CATHETERIZATION NEC (11/05/14) Family History: States: Unknown Family Hx - Social History Hx Tobacco Use: Yes Hx Alcohol Use: No Hx Substance Use: No - Immunization History Hx Tetanus Toxoid Vaccination: Yes Hx Influenza Vaccination: Yes Hx Pneumococcal Vaccination: Yes Review Of Systems Except As Marked, All Systems Reviewed And Found Negative. Cardiovascular: Negative for: Chest Pain Respiratory: Negative for: Shortness of Breath Physical Exam - Physical Exam Additional Physical Exam Comments: Constitutional: No acute distress. Head: Normocephalic. Atraumatic. Eyes: PERRL. ENT: Moist mucous membranes. Neck: Supple. Cardiovascular: Regular rate. Radial pulse 2+ bilaterally. Chest: No tenderness. Respiratory: Clear to auscultation bilaterally. GI:Epigastric abdominal wound, open with purulent discharge. Abdomen soft, nontender, nondistended Back: No CVA tenderness. Musculoskeletal: No tenderness or swelling of extremities. Skin: No rash. Neurologic: Alert, no focal deficit. . ED Course And Treatment - Laboratory Results Result Diagrams: 07/06/17 11:31 07/06/17 11:31 O2 Sat by Pulse Oximetry: 96 (RA) Pulse Ox Interpretation: Normal Medical Decision Making Medical Decision Making: Labs unremarkable, no leukocytosis. Vitals normal. Discussed case with Dr. Trujillo who recommends discharge, f/u in office. Return to ER for worsening pain , vomiting, dyspnea, fever, increased discharge. Disposition Discussed With .: Harriet Trujillo - Disposition Referrals: Armando Schmid MD [Staff Provider] - Disposition: HOME/ ROUTINE Disposition Time: 12:11 Condition: STABLE Instructions: Surgical Site Infections (ED) Forms: [facility] (French) - Clinical Impression Clinical Impression: Chronic abdominal pain, Chronic abdominal wound infection - PA / NITROGLYCERIN SUPERVISOR / Resident Statement MD/DO has examined the patient and agrees with the treatment plan. - Scribe Statement The provider has reviewed the documentation as recorded by the Parminderibanabel Johnson All medical record entries made by the Parminderibanabel were at my direction and personally dictated by me. I have reviewed the chart and agree that the record accurately reflects my personal performance of the history, physical exam, medical decision making, and the department course for this patient. I have also personally directed, reviewed, and agree with the discharge instructions and disposition.
[2017-07-06] MEDS ORDERED: Morphine 4 MG/ML VIAL ONE (11:40)
[2017-07-06 11:44] LABS: BASO % 0.4 % (0.0-2.0); EOS # 0.1 K/uL (0.0-0.7); EOS % 0.8 % (0.0-4.0); HEMATOCRIT 32.8 % (35.0-51.0); LYMPH # 1.7 K/uL (1.0-4.3); LYMPH % 23.9 % (20.0-40.0); MEAN CELL VOLUME 83.4 fL (80.0-94.0); MEAN CORPUSCULAR HGB CONC 32.4 g/dL (33.0-37.0); MEAN PLATELET VOLUME 10.6 fL (7.2-11.7); MONO # 0.4 K/uL (0.0-0.8); MONO % 6.1 % (0.0-10.0); RED CELL DISTRIBUTION WIDTH 16.1 % (11.5-14.5)
[2017-07-06 11:51] LABS: CHLORIDE 103 mmol/L (98-107)
[2017-07-06 11:52] LABS: INR 1.1; SODIUM 140 mmol/L (132-148)
[2017-07-06 11:53] LABS: POTASSIUM 4.1 mmol/L (3.6-5.2)
[2017-07-06 11:55] LABS: ALB/GLOB RATIO 1.3 (1.0-2.1); ALKALINE PHOSPHATASE 155 U/L (38-126); ALT/SGPT 31 U/L (21-72); AST/SGOT 14 U/L (17-59); BILIRUBIN,TOTAL 0.5 mg/dL (0.2-1.3); BLOOD UREA NITROGEN 17 mg/dL (9-20); CARBON DIOXIDE 24 mmol/L (22-30); GFR AFRICAN-AMERICAN > 60; GLUCOSE,RANDOM 153 mg/dL (75-110)
[2017-07-06 11:56] LABS: CALCIUM 8.9 mg/dl (8.6-10.4)
[2017-07-06 12:53] VITALS: BP 111/79; PULSE 80; RESP 16; TEMP 98.9
== END 2017-07-06 12:53 | disposition home or self-care (01) ==
LOC: C.ER 09:32
DX: T81.4XXD Infection following a procedure, subsequent encounter (principal); S31.102D Unspecified open wound of abdominal wall, epigastric region without penetration into peritoneal cavity, subsequent encounter; B95.61 Methicillin susceptible Staphylococcus aureus infection as the cause of diseases classified elsewhere; Y83.8 Other surgical procedures as the cause of abnormal reaction of the patient, or of later complication, without mention of misadventure at the time of the procedure; G89.29 Other chronic pain
CPT/HCPCS: 80053; 85025; 85610; 85730; 86850; 86870; 86900; 87040; 87070; 96374; 99285; J2270

== ENCOUNTER 2018-01-06 19:19 | Observation (INO) | payer MEDICARE, MEDICAID ==
[2018-01-06 19:19] VITALS: BMI 26.1
[2018-01-06] MEDS ORDERED: Morphine 4 MG/ML VIAL IV ONE (21:10)
--- NOTE | 2018-01-06 21:11 | C.PDOC ---
History Of Present Illness 82 year old male presents to the ED c/o epigastric pain for the past 4 days. Patient reports he had ventral hernia repair as well as cholecystectomy that was done 4 years ago, and the surgical openings has not closed. Patient also reports he has lung CA surgery. Patient states he has regular bowel movements. Patient denies fever, nausea, vomit, diarrhea. Chief Complaint (Nursing): Abdominal Pain History Per: Patient History/Exam Limitations: no limitations Onset/Duration Of Symptoms: Days Current Symptoms Are (Timing): Still Present Location Of Pain/Discomfort: Epigastric Radiation Of Pain To:: None Quality Of Discomfort: "Pain" Associated Symptoms: Loss Of Appetite. denies: Fever, Nausea, Vomiting, Diarrhea Exacerbating Factors: None Alleviating Factors: None Recent travel outside of the [place]: No Additional History Per: Patient Past Medical History Reviewed: Historical Data, Nursing Documentation, Vital Signs Vital Signs: Last Vital Signs Temp 97.8 F 01/07/18 00:30 Pulse 68 01/07/18 00:30 Resp 20 01/07/18 00:30 BP 143/70 01/07/18 00:30 Pulse Ox 97 01/07/18 00:47 - Medical History PMH: Arthritis, Asthma, Benign Prostatic Hyperplasia, CAD, CHF, COPD, Diabetes, Emphysema, Gall Bladder Disease, Hiatal Hernia, HTN, Hypercholesterolemia, Hyperlipidemia, Pneumonia, Sleep Apnea, Chronic Pain (Left chest/abdomen) Denies: Anemia, Anxiety, Bipolar Disorder, Bronchitis, Cardia Arrhythmia, Crohn's Disease, Dementia, Depression, Diverticulitis, Fibromyalgia, Fractures, Gastrointestinal Ulcer, HIV, Hyperthyroidism, Hypothyroidism, Kidney Stones, Migraine, Mitral Valve Prolapse, Osteoporosis, Pancreatitis, Paranoia, Parkinson 's Disease, Peripheral Edema, Post Traumatic Stress Disorder, Chronic Kidney Disease, Schizophrenia, Seizures, Sickle Cell Disease, Sexually Transmitted Disease, TIA Surgical History: Cholecystectomy (open cholecystectomy with CBD exploration 2012), Coronary Stent, Hernia Repair Denies: Appendectomy, Pacemaker - [facility] Procedures ANESTH INJECT SYMP NERVE (05/12/13) C & S-INTEGUMENT (08/27/14) CENTRAL VENOUS CATHETER PLACEMENT WITH GUIDANCE (07/18/15) CHOLECYSTECTOMY (10/16/13) CLOSED ENDOSCOPIC BIOPSY OF LARGE INTESTINE (09/01/13) CLOSED [PERCUTANEOUS] [NEEDLE] BIOPSY OF LUNG (06/21/13) COMMON DUCT EXPLORATION (10/16/13) CONTINUOUS INVASIVE MECHANICAL VENTILATION <96 CONSEC HRS (11/05/14) CORONAR ARTERIOGR-2 CATH (09/05/02) CYSTOSCOPY NEC (07/14/13) DX ULTRASOUND-DIGESTIVE (08/21/12) ENDOSCOPIC BRONCHIAL BX (07/28/13) ENTERAL INFUSION OF CONCENTRATED NUT. SUBSTANCES (11/05/14) ESOPHAGOGASTRODUODENOSCOPY [EGD] W/CLOSED BIOPSY (10/06/13) EXCISION OF STOMACH, ENDO, DIAGN (08/23/16) FLUOROSCOPY OF SUPERIOR VENA CAVA, GUIDANCE (07/13/16) GASTROTOMY (07/29/06) INFLUENZA VACCINATION (11/05/14) INJECT/INFUSE ELECTROLYT (05/29/14) INJECT/INFUSE NEC (01/29/15) INSERT ENDOTRACHEAL TUBE (11/05/14) INSERT INTERCOSTAL CATH (09/01/13) INSERTION OF INFUSION DEV INTO R INNOM VEIN, PERC APPROACH (10/05/15) INSERTION OF INFUSION DEV INTO SUP VENA CAVA, PERC APPROACH (08/23/16) INTRODUCE OF OTH THERAP SUBST INTO RESP TRACT, VIA OPENING (12/18/16) INTRODUCE OTH ANTI-INFECT IN CENTRAL VEIN, PERC (10/05/15) LEFT HEART CARDIAC CATH (09/05/02) LT HEART ANGIOCARDIOGRAM (09/05/02) MAGNETIC RESONANCE IMAGING OF SPINAL CANAL (10/16/13) NEBULIZER THERAPY (09/12/14) NON-INVASIVE MECHANICAL VENTILATION (07/14/13) OTH LYSIS-PERITONEAL ADHES (10/16/13) OTHER ENDOSCOPY OF SM INTEST (10/12/14) OTHER SKIN & SUBQ I D (04/30/14) PACKED CELL TRANSFUSION (10/30/13) PANCREAT SPHINCTEROPLAS (10/16/13) PART GASTREC W JEJ ANAST (07/29/06) PERCUTAN NEEDLE BIOPSY OF PROSTATE (09/01/13) REPAIR OF INTESTINE NEC (10/16/13) SM-TO-SM BOWEL ANASTOM (07/29/06) THORACOSCOPIC LOBECTOMY OF LUNG (07/28/13) TRANSURETHRAL PROSTATECTOMY ([place]) (07/14/13) URETHRAL DILATION (09/01/13) VACCINATION NEC (11/05/14) VENOUS CATHETERIZATION NEC (11/05/14) Family History: States: Unknown Family Hx - Social History Hx Tobacco Use: Yes Hx Alcohol Use: No Hx Substance Use: No - Immunization History Hx Tetanus Toxoid Vaccination: Yes Hx Influenza Vaccination: Yes Hx Pneumococcal Vaccination: Yes Review Of Systems Constitutional: Negative for: Fever, Chills Cardiovascular: Negative for: Chest Pain, Palpitations Respiratory: Negative for: Cough, Shortness of Breath Gastrointestinal: Positive for: Abdominal Pain. Negative for: Nausea, Vomiting , Diarrhea, Constipation Genitourinary: Negative for: Dysuria Skin: Negative for: Rash Neurological: Negative for: Weakness, Numbness, Headache Physical Exam - Physical Exam Appears: Non-toxic, No Acute Distress Skin: Normal Color, Warm, Dry Head: Atraumatic, Normacephalic Eye(s): bilateral: Normal Inspection Nose: No Discharge, No Deformity Oral Mucosa: Moist Neck: Normal ROM, Supple Chest: Symmetrical Cardiovascular: Rhythm Regular, No Murmur Respiratory: Wheezing (B/L expiratory ) Gastrointestinal/Abdominal: Soft, Tenderness (diffuse epigastric), Distention, No Guarding, No Rebound, Other (chronic ulcer surgical scar, previous laparotomy healed scar, tympanic to percussion ) Extremity: Normal ROM, No Tenderness, No Deformity, No Swelling Neurological/Psych: Oriented x3, Normal Speech, Normal Cognition Gait: Steady ED Course And Treatment - Laboratory Results Result Diagrams: 01/06/18 21:18 01/06/18 21:18 O2 Sat by Pulse Oximetry: 97 (On RA) Pulse Ox Interpretation: Normal - CT Scan/US CT abd/pelvis Other Rad Studies (CT/US): Read By Radiologist, Radiology Report Reviewed CT/US Interpretation: Addendum created by Derek Rae MD on 01/06/2018 11:28 PM Eastern Time ([place] & [place]). Spleen: Mildly enlarged, stable. Initial Report created on 01/06/2018 11:15 PM Eastern Time ([place] & [place]). EXAM: CT Abdomen and Pelvis With Intravenous Contrast. CLINICAL HISTORY: 82 years old, male; Pain; Abdominal pain; Generalized; Additional info: Abd pain. TECHNIQUE: Axial computed tomography images of the abdomen and pelvis with intravenous contrast. All CT. scans at this facility use one or more dose reduction techniques, viz.: automated exposure control;. ma/kV adjustment per patient size (including targeted exams where dose is matched to indication; i.e. head) ; or iterative reconstruction technique. Coronal and sagittal reformatted images were created and reviewed. CONTRAST: 100 mL of visipaque 320 administered intravenously. COMPARISON: CT - ABD PELVIS PO CONTRAST ONLY 12-03 21:27. FINDINGS: Limitations: Motion artifact - mild. Lower thorax: Mild cardiomegaly. Minimal atelectasis/scarring.ABDOMEN: Liver: Small calcification. Gallbladder and bile ducts: Air within biliary tree, present on previous examination. Cholecystectomy. No significant ductal dilation. Pancreas: No ductal dilation. No mass. Spleen: No splenomegaly. Adrenals: 1.9 x 1.0 x 1.3 cm lesion within RIGHT adrenal gland, indeterminate by CT criteria but. stable. Kidneys and ureters: Probable LEFT renal cyst. No hydronephrosis. Stomach and bowel: Postsurgical changes of stomach. Postsurgical changes of small bowel. Probable underdistention of sigmoid colon/ rectum. No definite mural thickening. Few minimally. distended loops of small bowel, likely ileus. Appendix: Borderline enlarged appendix, 6-7 mm in diameter. No definite associated inflammatory. stranding. PELVIS: Bladder: Unremarkable. Reproductive: Unremarkable as visualized. ABDOMEN and PELVIS: Intraperitoneal space: No significant fluid collection. No free air. Bones/ joints: Mild degenerative changes of spine. No acute fracture. Soft tissues: Postsurgical changes of anterior abdominal wall. Vasculature: Moderate atherosclerotic disease. Mild ectasia of infrarenal aorta, up to 2.7 cm. Lymph nodes: No pathologically enlarged lymph nodes. IMPRESSION:1. Borderline enlarged distal appendix. No definite inflammation. Clinical correlation is needed. 2. Adrenal lesion, stable. No follow-up is necessary. 3. Incidental/ non-acute findings are described above. Medical Decision Making Medical Decision Making: Impression: Abdominal pain Plan: * CT abd/pelvis * Labs * Morphine 4 mg IV * UA Disposition - Disposition Disposition: HOSPITALIZED Disposition Time: 04:15 Condition: GOOD - Clinical Impression Clinical Impression: Abdominal discomfort, Abdominal pain - Scribe Statement The provider has reviewed the documentation as recorded by the Scribe Reji Simmons All medical record entries made by the Scribe were at my direction and personally dictated by me. I have reviewed the chart and agree that the record accurately reflects my personal performance of the history, physical exam, medical decision making, and the department course for this patient. I have also personally directed, reviewed, and agree with the discharge instructions and disposition.
[2018-01-06] MEDS ORDERED: Morphine 4 MG/ML VIAL ONE (21:14)
[2018-01-06 21:23] LABS: BASO % 0.7 % (0.0-2.0); EOS # 0.2 K/uL (0.0-0.7); EOS % 2.8 % (0.0-4.0); LYMPH # 1.6 K/uL (1.0-4.3); LYMPH % 24.9 % (20.0-40.0); MEAN CELL VOLUME 83.5 fL (80.0-94.0); MEAN CORPUSCULAR HEMOGLOBIN 27.3 pg (27.0-31.0); MEAN CORPUSCULAR HGB CONC 32.7 g/dL (33.0-37.0); MEAN PLATELET VOLUME 10.4 fL (7.2-11.7); MONO # 0.6 K/uL (0.0-0.8); MONO % 8.9 % (0.0-10.0); NEUT # 4.1 K/uL (1.8-7.0); NEUT % 62.7 % (50.0-75.0); RBC 4.03 Mil/uL (4.40-5.90); RED CELL DISTRIBUTION WIDTH 16.8 % (11.5-14.5); WHITE BLOOD COUNT 6.5 K/uL (4.8-10.8)
[2018-01-06 21:30] LABS: SQUAMOUS EPITHIAL 1 /hpf (0-5); URINE BILIRUBIN NEGATIVE (NEGATIVE); URINE BLOOD NEGATIVE (NEGATIVE); URINE CLARITY Clear (Clear); URINE COLOR Yellow (YELLOW); URINE GLUCOSE (UA) NORMAL (Normal); URINE LEUKOCYTE ESTERASE NEG Leu/uL (Negative); URINE NITRATE NEGATIVE (NEGATIVE); URINE PROTEIN NEGATIVE (NEGATIVE)
[2018-01-06] MEDS ORDERED: Iodixanol 320 MG/ML 100 ML BOTTLE IV ONE (21:30)
[2018-01-06 21:32] LABS: PROTHROMBIN TIME 11.6 SECONDS (9.7-12.2)
[2018-01-06 21:37] LABS: ALB/GLOB RATIO 1.1 (1.0-2.1); CALCIUM 8.7 mg/dl (8.6-10.4)
--- NOTE | 2018-01-06 23:15 | CT ---
EXAM: CT Abdomen and Pelvis With Intravenous Contrast CLINICAL HISTORY: 82 years old, male; Pain; Abdominal pain; Generalized; Additional info: Abd pain TECHNIQUE: Axial computed tomography images of the abdomen and pelvis with intravenous contrast. All CT scans at this facility use one or more dose reduction techniques, viz.: automated exposure control; ma/kV adjustment per patient size (including targeted exams where dose is matched to indication; i.e. head); or iterative reconstruction technique. Coronal and sagittal reformatted images were created and reviewed. CONTRAST: 100 mL of visipaque 320 administered intravenously. COMPARISON: CT - ABD PELVIS PO CONTRAST ONLY 2015-12-03 21:27 FINDINGS: Limitations: Motion artifact - mild. Lower thorax: Mild cardiomegaly. Minimal atelectasis/scarring. ABDOMEN: Liver: Small calcification. Gallbladder and bile ducts: Air within biliary tree, present on previous examination. Cholecystectomy. No significant ductal dilation. Pancreas: No ductal dilation. No mass. Spleen: No splenomegaly. Adrenals: 1.9 x 1.0 x 1.3 cm lesion within RIGHT adrenal gland, indeterminate by CT criteria but stable. Kidneys and ureters: Probable LEFT renal cyst. No hydronephrosis. Stomach and bowel: Postsurgical changes of stomach. Postsurgical changes of small bowel. Probable underdistention of sigmoid colon/rectum. No definite mural thickening. Few minimally distended loops of small bowel, likely ileus. Appendix: Borderline enlarged appendix, 6-7 mm in diameter. No definite associated inflammatory stranding. PELVIS: Bladder: Unremarkable. Reproductive: Unremarkable as visualized. ABDOMEN and PELVIS: Intraperitoneal space: No significant fluid collection. No free air. Bones/joints: Mild degenerative changes of spine. No acute fracture. Soft tissues: Postsurgical changes of anterior abdominal wall. Vasculature: Moderate atherosclerotic disease. Mild ectasia of infrarenal aorta, up to 2.7 cm. Lymph nodes: No pathologically enlarged lymph nodes. IMPRESSION: 1. Borderline enlarged distal appendix. No definite inflammation. Clinical correlation is needed. 2. Adrenal lesion, stable. No follow-up is necessary. 3. Incidental/non-acute findings are described above.
[2018-01-07] MEDS ORDERED: Sodium Chloride 0.9% 1,000 ML IV SCH (04:00)
[2018-01-07] MEDS ORDERED: Morphine 4 MG/ML VIAL ONE (04:07)
[2018-01-07] MEDS ORDERED: Morphine 4 MG/ML VIAL IM PRN (04:30)
--- NOTE | 2018-01-07 06:43 | CP.PCM.CON ---
History of Present Illness - History of Present Illness History of Present Illness: General Surgery Dr. Andrews 82 y/o M w/ PMHx of DM2, HLD, CAD, dementia presents to the ED c/o abd pain. Pt states pain has been constant x4yrs. Pain is currently unchanged from baseline, but pt states he has not had a check up in a while and wants to make sure he's not ill. Pt admits to continuous abd pain since he had his gallbladder removed 4yrs ago. Pt admits to taking Percocet and Oxycodone daily for pain. Pt reports chronic constipation and occasional rectal pain w/ BM. Pt denies F/C, N/V, diarrhea, CP, SOB. Pt has had multiple ED visits and hospital admissions for abd pain both at [facility] and [facility]. PMHx: see above, CHF, HTN, asthma, chronic abdominal wound infection, lung CA Meds: reviewed in chart NKDA PSHx: open cholecystectomy, ventral hernia repair with mesh, cardiac stent x2, left lung lobectomy SHx: former tobacco use, denies EtOH and drug use FHx: noncontributory Review of Systems - Review of Systems All systems: reviewed and no additional remarkable complaints except (see HPI) - Constitutional Constitutional: Headache (chronic) Past Patient History - Infectious Disease Hx of Infectious Diseases: None - Tetanus Immunizations Tetanus Immunization: Unknown - Past Medical History & Family History Past Medical History?: Yes - Past Social History Smoking Status: Light Smoker < 10 Cigarettes Daily - CARDIAC Hx Cardia Arrhythmia: No Hx Congestive Heart Failure: Yes Hx Hypercholesterolemia: Yes Hx Hypertension: Yes Hx Mitral Valve Prolapse: No Hx Pacemaker: No Hx Peripheral Edema: No - PULMONARY Hx Asthma: Yes Hx Bronchitis: No Hx Chronic Obstructive Pulmonary Disease (COPD): Yes Hx Emphysema: Yes Hx Pneumonia: Yes Hx Sleep Apnea: Yes - NEUROLOGICAL Hx Dementia: No Hx Migraine: No Hx Parkinson's Disease: No Hx Seizures: No Hx Transient Ischemic Attacks (TIA): No - HEENT Hx HEENT Problems: No Hx Blind: No Hx Cataracts: No Hx Deafness: No Hx Difficulty Chewing: No Hx Epistaxis: No Hx Glaucoma: No Hx Macular Degeneration: No - RENAL Hx Chronic Kidney Disease: No Hx Kidney Stones: No - ENDOCRINE/METABOLIC Hx Hyperthyroidism: No Hx Hypothyroidism: No - HEMATOLOGICAL/ONCOLOGICAL Hx Anemia: No Hx Human Immunodeficiency Virus (HIV): No Hx Sickle Cell Disease: No - INTEGUMENTARY Hx Dermatological Problems: No Hx Basil Cell: No Hx Eczema: No Hx Melanoma: No Hx Psoriasis: No Hx Squamous Cell: No - MUSCULOSKELETAL/RHEUMATOLOGICAL Hx Arthritis: Yes Hx Fractures: No Hx Osteoporosis: No - GASTROINTESTINAL Hx Crohn's Disease: No Hx Diverticulitis: No Hx Gall Bladder Disease: Yes Hx Pancreatitis: No - GENITOURINARY/GYNECOLOGICAL Hx Sexually Transmitted Disorders: No - PSYCHIATRIC Hx Anxiety: No Hx Bipolar Disorder: No Hx Depression: No Hx Paranoia: No Hx Post Traumatic Stress Disorder: No Hx Schizophrenia: No Hx Substance Use: No - SURGICAL HISTORY Hx Appendectomy: No Hx Cholecystectomy: Yes (open cholecystectomy with CBD exploration 2012) Hx Coronary Stent: Yes - ANESTHESIA Hx Anesthesia: Yes Hx Anesthesia Reactions: No Hx Malignant Hyperthermia: No Meds Allergies/Adverse Reactions: Allergies Allergy/AdvReac Type Severity Reaction Status Date / Time No Known Allergies Allergy Verified 08/24/17 11:58 - Medications Medications: Current Medications Docusate Sodium (Colace) 100 mg PO TID [facility] Last Admin: 01/07/18 05:37 Dose: 100 mg Sodium Chloride (Sodium Chloride 0.9%) 1,000 mls @ 100 mls/hr IV .Q10H [facility] Last Admin: 01/07/18 04:02 Dose: 100 mls/hr Morphine Sulfate (Morphine) 2 mg IM Q4 PRN PRN Reason: Pain, Mild (1-3) Physical Exam - Constitutional Appears: Non-toxic, No Acute Distress - Head Exam Head Exam: NORMAL INSPECTION - Eye Exam Eye Exam: Normal appearance - ENT Exam ENT Exam: Mucous Membranes Moist - Respiratory Exam Respiratory Exam: NORMAL BREATHING PATTERN. absent: Accessory Muscle Use, Respiratory Distress - GI/Abdominal Exam GI & Abdominal Exam: Soft. absent: Distended, Rebound, Tenderness Additional comments: open wound sub xyphoid w/ fibrinous exudate; no odor 3 small bullae surrounding open wound mesh palpable through skin - Extremities Exam Extremities exam: Positive for: normal inspection - Neurological Exam Neurological exam: Alert - Psychiatric Exam Psychiatric exam: Normal Affect, Normal Mood - Skin Skin Exam: Dry, Warm Results - Vital Signs Recent Vital Signs: Last Vital Signs Temp 97.8 F 01/07/18 00:30 Pulse 81 01/07/18 04:44 Resp 20 01/07/18 04:44 BP 141/70 02/16/18 04:44 Pulse Ox 98 01/07/18 04:44 - Labs Result Diagrams: 01/06/18 21:18 01/06/18 21:18 Labs: Laboratory Results - last 24 hr 01/06/18 01/06/18 01/06/18 21:18 21:18 21:18 WBC 6.5 RBC 4.03 L Hgb 11.0 L Hct 33.7 L MCV 83.5 MCH 27.3 MCHC 32.7 L RDW 16.8 H Plt Count 157 MPV 10.4 Neut % (Auto) 62.7 Lymph % (Auto) 24.9 Bradford % (Auto) 8.9 Eos % (Auto) 2.8 Baso % (Auto) 0.7 Neut # (Auto) 4.1 Lymph # (Auto) 1.6 Bradford # (Auto) 0.6 Eos # (Auto) 0.2 Baso # (Auto) 0.0 PT 11.6 INR 1.0 APTT 46 H Sodium Potassium Chloride Carbon Dioxide Anion Gap BUN Creatinine Est GFR ( Amer) Est GFR (Non-Af Amer) Random Glucose Calcium Total Bilirubin AST ALT Alkaline Phosphatase Total Protein Albumin Globulin Albumin/Globulin Ratio Lipase Urine Color Yellow Urine Clarity Clear Urine pH 5.0 Ur Specific Eagle 1.020 Urine Protein Negative Urine Glucose (UA) Normal Urine Ketones Negative Urine Blood Negative Urine Nitrate Negative Urine Bilirubin Negative Urine Urobilinogen 2.0 Ur Leukocyte Esterase Neg Urine WBC (Auto) 1 Urine RBC (Auto) 1 Ur Squamous Epith Cells 1 01/06/18 21:18 WBC RBC Hgb Hct MCV MCH MCHC RDW Plt Count MPV Neut % (Auto) Lymph % (Auto) Bradford % (Auto) Eos % (Auto) Baso % (Auto) Neut # (Auto) Lymph # (Auto) Bradford # (Auto) Eos # (Auto) Baso # (Auto) PT INR APTT Sodium 141 Potassium 4.5 Chloride 106 Carbon Dioxide 24 Anion Gap 16 BUN 27 H Creatinine 1.4 Est GFR ( Amer) 59 Est GFR (Non-Af Amer) 48 Random Glucose 97 Calcium 8.7 Total Bilirubin 0.5 AST 23 ALT 20 L D Alkaline Phosphatase 135 H Total Protein 7.5 Albumin 4.0 Globulin 3.5 Albumin/Globulin Ratio 1.1 Lipase 23 Urine Color Urine Clarity Urine pH Ur Specific Eagle Urine Protein Urine Glucose (UA) Urine Ketones Urine Blood Urine Nitrate Urine Bilirubin Urine Urobilinogen Ur Leukocyte Esterase Urine WBC (Auto) Urine RBC (Auto) Ur Squamous Epith Cells - Imaging and Cardiology CT scan - abdomen Status: Image reviewed by me, Report reviewed by me Abd Xray Status: Image reviewed by me, Report reviewed by me Assessment & Plan - Assessment and Plan (Free Text) Assessment: 82 y/o M w/ chronic abd pain, chronic abd wound, and opioid-induced constipation - stool softeners - monitor bowel fxn - pain management --> avoid opioids if possible - f/u wound Cx - GI/DVT PPx - encourage OOb to chair/Amb Will discuss w/ Dr. Darryl Cadet DO PGY2
[2018-01-07 08:14] VITALS: TEMP 98.4
--- NOTE | 2018-01-07 08:52 | RAD ---
PROCEDURE: Radiographs of the chest and abdomen (obstructive series) HISTORY: abd pain COMPARISON: No prior. TECHNIQUE: AP radiograph of the chest, with upright and supine radiographs of the abdomen. FINDINGS: CHEST: Lungs: Clear. Cardiovascular: Mild cardiomegaly. Elevation of left hilum likely due to left upper lobe volume loss. Numerous surgical clips indicate likely prior partial pneumonectomy. No congestive change. Pleura: No pleural fluid. No pneumothorax. Other findings: None. ABDOMEN AND PELVIS: Bowel: Unremarkable bowel gas pattern. No evidence of mechanical obstruction. Free air: None. Bones: Unremarkable. Other findings: Ventral abdominal mesh noted. IMPRESSION: No evidence of bowel obstruction. No acute infiltrate.
[2018-01-07 09:09] VITALS: BP 120/70; PULSE 69; RESP 16; O2SAT 96
[2018-01-07] MEDS ORDERED: Magnesium Citrate Oral SOL (300 ml) PO ONE ×2 (09:11→10:30)
--- NOTE | 2018-01-07 09:39 | CP.PCM.PN ---
Subjective - Date & Time of Evaluation Date of Evaluation: 01/07/18 Time of Evaluation: 07:40 - Subjective Subjective: PGY2 Medicine Note - Dr. Blaise Campoverde Patient seen and examined at bedside. He presented to the ED this morning with complaints of abd pain. He reports that since his hernia repair in 2012, he has experienced recurrent abdominal ulcers that would not fully heal. He came in because he noticed purulent discharge from his abdominal wounds (multiple ED visits at [facility] / [place] with similar complaints). Currently he reports mild tenderness surrounding the abdominal wounds. He also reports that his toenails are curling over his anterior toes and causing mild pain. Denies f/c, chest pain , n/v, d/c, or any additional complaints. ---- Patient is stable for discharge home per Dr. Blaise Campoverde. Patient should resume all medications as outlined in this document. Additionally, patient should take the new medications listed below (scripts provided). 1. Please make an appointment and follow up with your Primary Doctor within one week of discharge. He will review the results of your abdominal wound culture. 2. Please make an appointment with your network security engineer to address your Toe-nail overgrowth. 3. Please take Debrox ear drops in both ears, as instructed for your impacted ear wax. Patient should return to ED immediately if symptoms return or worsen. Instructions discussed with patient who understood and agreed. Newly prescribed medications: Debrox 1ml AU BID #1 bottle Cephalexin 500mg PO Q6H #28 Bactrim DS 800mg/160mg 1 tab PO BID #14 Objective - Vital Signs/Intake and Output Vital Signs (last 24 hours): Temp Pulse Resp BP Pulse Ox 98.4 F 69 16 120/70 96 01/07/18 07:20 01/07/18 09:06 01/07/18 09:06 01/07/18 09:06 01/07/18 09:06 - Medications Medications: Current Medications Bisacodyl (Dulcolax) 10 mg CO TID PRN PRN Reason: Constipation Docusate Sodium (Colace) 100 mg PO TID [facility] Last Admin: 01/07/18 05:37 Dose: 100 mg Enoxaparin Sodium (Lovenox) 40 mg SC DAILY [facility] Sodium Chloride (Sodium Chloride 0.9%) 1,000 mls @ 100 mls/hr IV .Q10H [facility] Last Admin: 01/07/18 04:02 Dose: 100 mls/hr Morphine Sulfate (Morphine) 2 mg IM Q4 PRN PRN Reason: Pain, Mild (1-3) - Labs Labs: 01/06/18 21:18 01/06/18 21:18 PT 11.6 SECONDS (9.7-12.2) 01/06/18 21:18 INR 1.0 01/06/18 21:18 APTT 46 SECONDS (21-34) H 01/06/18 21:18 - Additional Findings Additional findings: - Constitutional Appears: Non-toxic, No Acute Distress - Head Exam Head Exam: NORMAL INSPECTION - Eye Exam Eye Exam: Normal appearance - ENT Exam ENT Exam: Mucous Membranes Moist - Note: impacted cerumen b/l - Respiratory Exam Respiratory Exam: NORMAL BREATHING PATTERN. absent: Accessory Muscle Use, Respiratory Distress - GI/Abdominal Exam GI & Abdominal Exam: Soft. absent: Distended, Rebound, Tenderness Additional comments: Wound at sub xyphoid w/ fibrinous exudate (open wound); 3 small bullae surrounding wound; mesh is palpable through skin - Extremities Exam Extremities exam: Positive for: normal inspection note- toe nails curling over anterior toes. toe nails have not pierced the skin. - Neurological Exam Neurological exam: Alert - Psychiatric Exam Psychiatric exam: Normal Affect, Normal Mood - Skin Skin Exam: Dry, Warm Assessment and Plan - Assessment and Plan (Free Text) Assessment: Abdominal Wound Surgery consult, Dr. Andrews, f/u recs f/u wound culture encourage oob to chair Constipation Likely Secondary to opioid use Colace 100mg PO TID [facility] Dulcolax 10mg CO TID PRN NS 0.9 100cc/hr Heart healthy diet CAD (coronary artery disease) s/p 2 stents continue Plavix 75mg PO Daily continue Asa 81mg PO Daily Crestor 5mg PO HS Coreg 3.125mg PO BID Hx COPD (chronic obstructive pulmonary disease) Duoneb Q6h [facility] Patient does not currently take Advair 250/50mcg INH Q12h Insomnia Ambien 5mg PO HS Diabetes Metformin 500mg PO BID Prophylactic measure Lovenox 40mg SC qD Protonix 40mg PO Case discussed with attending - all management per Dr. Blaise Campoverde.
[2018-01-07] MEDS ORDERED: Pneumococcal 23-Valent Vaccine IM ONE (09:47)
[2018-01-07] MEDS ORDERED: Enoxaparin 40 mg Syringe SC SCH (10:00)
[2018-01-07] MEDS ORDERED: Albuterol-Ipratrop 3 mg / 0.5 (3 ml) UD INH PRN (11:09)
--- NOTE | 2018-01-07 11:12 | RAD ---
PROCEDURE: CHEST RADIOGRAPH, 1 VIEW HISTORY: wheezing COMPARISON: Chest radiograph dated 10/02/2016. FINDINGS: LUNGS: Left perihilar surgical clips redemonstrated. No focal consolidation PLEURA: Stable elevation of the left hemidiaphragm. No pneumothorax or pleural fluid seen. CARDIOVASCULAR: Atherosclerotic aortic calcifications. Cardiomediastinal silhouette unchanged. OSSEOUS STRUCTURES: Unchanged. VISUALIZED UPPER ABDOMEN: Normal. OTHER FINDINGS: None. IMPRESSION: No active disease.
[2018-01-07] MEDS ORDERED: Albuterol-Ipratrop 3 mg / 0.5 (3 ml) UD INH SCH (14:00)
[2018-01-07] MEDS ORDERED: Influenza Vaccine 60 mcg/0.5 mL SYR (4YR UP) IM ONE (15:08)
== END 2018-01-07 16:00 | disposition home or self-care (01) ==
LOC: C.ER 19:19 → C.9E 01-07 00:16 → C.5S 01-07 05:27
PROVIDERS: ADMIT Internal Medicine Nephrology; ATTEND Internal Medicine Nephrology
DX: T81.89XS Other complications of procedures, not elsewhere classified, sequela (principal); K59.03 Drug induced constipation; T40.2X5A Adverse effect of other opioids, initial encounter; G89.29 Other chronic pain; R10.13 Epigastric pain; Z85.118 Personal history of other malignant neoplasm of bronchus and lung; J43.9 Emphysema, unspecified; I50.9 Heart failure, unspecified; I11.0 Hypertensive heart disease with heart failure; I25.10 Atherosclerotic heart disease of native coronary artery without angina pectoris; G47.30 Sleep apnea, unspecified; E78.00 Pure hypercholesterolemia, unspecified; E11.9 Type 2 diabetes mellitus without complications; M19.90 Unspecified osteoarthritis, unspecified site; Z95.5 Presence of coronary angioplasty implant and graft; F03.90 Unspecified dementia, unspecified severity, without behavioral disturbance, psychotic disturbance, mood disturbance, and anxiety; Z79.891 Long term (current) use of opiate analgesic; Z87.891 Personal history of nicotine dependence; G47.00 Insomnia, unspecified; Z23 Encounter for immunization
CPT/HCPCS: 36415; 71045; 74022; 74177; 80053; 81001; 82948; 83690; 85025; 85610; 85730; 87070; 87181; 90674; 94640; 96372; 96374; 96375; 99285; G0008; G0378; J1650; J1885; J2270; J7040; Q9967

== ENCOUNTER 2018-03-14 11:54 | Observation (INO) | payer MEDICARE, MEDICAID ==
[2018-03-14 12:22] VITALS: BMI 27.3
[2018-03-14 13:27] LABS: BASO % 0.6 % (0.0-2.0); EOS # 0.1 K/uL (0.0-0.7); EOS % 0.9 % (0.0-4.0); HEMOGLOBIN 10.9 g/dL (12.0-18.0); LYMPH # 1.4 K/uL (1.0-4.3); MEAN CELL VOLUME 84.6 fL (80.0-94.0); MEAN CORPUSCULAR HEMOGLOBIN 27.9 pg (27.0-31.0); MEAN PLATELET VOLUME 10.5 fL (7.2-11.7); MONO # 0.3 K/uL (0.0-0.8); NEUT # 5.3 K/uL (1.8-7.0); NEUT % 74.5 % (50.0-75.0); NRBC % 0.1 % (0.0-2.0); RBC 3.91 Mil/uL (4.40-5.90); RED CELL DISTRIBUTION WIDTH 14.9 % (11.5-14.5); WHITE BLOOD COUNT 7.1 K/uL (4.8-10.8)
[2018-03-14 13:35] LABS: INR 1.2; PROTHROMBIN TIME 13.2 SECONDS (9.7-12.2)
--- NOTE | 2018-03-14 13:38 | RAD ---
HISTORY: COMPARISON: 01/07/2018 TECHNIQUE: Chest PA and lateral FINDINGS: LINES AND TUBES: None. LUNG AND PLEURA: The right lung is well inflated and clear. Are postsurgical changes in the left lung with low lung volume and multiple surgical clips in the hilum. HEART AND MEDIASTINUM: The heart is not enlarged. Atherosclerotic aortic arch calcifications are present. The hilar and mediastinal contours are within normal limits. SKELETAL STRUCTURES: There are old fracture deformities/ postsurgical changes in the left lateral ribs. VISUALIZED UPPER ABDOMEN: Normal. OTHER FINDINGS: There is chronic elevation of the left. IMPRESSION: No active pulmonary disease. Postsurgical changes in the left lung.
[2018-03-14 13:40] LABS: ALB/GLOB RATIO 1.2 (1.0-2.1); ALBUMIN 4.1 g/dL (3.5-5.0); ALT/SGPT 14 U/L (21-72); AST/SGOT 22 U/L (17-59); BLOOD UREA NITROGEN 20 mg/dL (9-20); CALCIUM 8.4 mg/dl (8.6-10.4); GFR AFRICAN-AMERICAN > 60; GFR NON-AFRICAN AMERICAN 53
[2018-03-14 13:47] LABS: B-TYPE NATRIURETIC PEPTIDE 1600 pg/mL (0-900)
--- NOTE | 2018-03-14 13:48 | C.PDOC ---
History Of Present Illness 83 y/o male, w/PMHx of lung cancer (2014), presents to the ER complaining of left sided chest pain which has been present for the past 1 week. Patient describes the pain as sharp. Patient denies having cough and SOB. Of note, patient is not currently undergoing chemotherapy or radiation. Time Seen by Provider: 03/14/18 12:49 Chief Complaint (Nursing): Chest Pain History Per: Patient History/Exam Limitations: no limitations Onset/Duration Of Symptoms: Days Current Symptoms Are (Timing): Still Present Severity: Moderate Quality: Sharp Past Medical History Reviewed: Historical Data, Nursing Documentation, Vital Signs Vital Signs: Last Vital Signs Temp 98.5 F 03/14/18 12:10 Pulse 64 03/14/18 17:57 Resp 20 03/14/18 17:57 BP 136/54 L 03/14/18 17:57 Pulse Ox 97 03/14/18 18:24 - Medical History PMH: Arthritis, Asthma, Benign Prostatic Hyperplasia, CAD, CHF, COPD, Diabetes, Emphysema, Gall Bladder Disease, Hiatal Hernia, HTN, Hypercholesterolemia, Hyperlipidemia, Pneumonia, Sleep Apnea, Chronic Pain (Left chest/abdomen) Denies: Anemia, Anxiety, Bipolar Disorder, Bronchitis, Cardia Arrhythmia, Crohn's Disease, Dementia, Depression, Diverticulitis, Fibromyalgia, Fractures, Gastrointestinal Ulcer, HIV, Hyperthyroidism, Hypothyroidism, Kidney Stones, Migraine, Mitral Valve Prolapse, Osteoporosis, Pancreatitis, Paranoia, Parkinson 's Disease, Peripheral Edema, Post Traumatic Stress Disorder, Chronic Kidney Disease, Schizophrenia, Seizures, Sickle Cell Disease, Sexually Transmitted Disease, TIA Surgical History: Cholecystectomy (open cholecystectomy with CBD exploration 2012), Coronary Stent, Hernia Repair Denies: Appendectomy, Pacemaker - [facility] Procedures ANESTH INJECT SYMP NERVE (05/12/13) C & S-INTEGUMENT (08/27/14) CENTRAL VENOUS CATHETER PLACEMENT WITH GUIDANCE (07/18/15) CHOLECYSTECTOMY (10/16/13) CLOSED ENDOSCOPIC BIOPSY OF LARGE INTESTINE (09/01/13) CLOSED [PERCUTANEOUS] [NEEDLE] BIOPSY OF LUNG (06/21/13) COMMON DUCT EXPLORATION (10/16/13) CONTINUOUS INVASIVE MECHANICAL VENTILATION <96 CONSEC HRS (11/05/14) CORONAR ARTERIOGR-2 CATH (09/05/02) CYSTOSCOPY NEC (07/14/13) DX ULTRASOUND-DIGESTIVE (08/21/12) ENDOSCOPIC BRONCHIAL BX (07/28/13) ENTERAL INFUSION OF CONCENTRATED NUT. SUBSTANCES (11/05/14) ESOPHAGOGASTRODUODENOSCOPY [EGD] W/CLOSED BIOPSY (10/06/13) EXCISION OF STOMACH, ENDO, DIAGN (08/23/16) FLUOROSCOPY OF SUPERIOR VENA CAVA, GUIDANCE (07/13/16) GASTROTOMY (07/29/06) INFLUENZA VACCINATION (11/05/14) INJECT/INFUSE ELECTROLYT (05/29/14) INJECT/INFUSE NEC (01/29/15) INSERT ENDOTRACHEAL TUBE (11/05/14) INSERT INTERCOSTAL CATH (09/01/13) INSERTION OF INFUSION DEV INTO R INNOM VEIN, PERC APPROACH (10/05/15) INSERTION OF INFUSION DEV INTO SUP VENA CAVA, PERC APPROACH (08/23/16) INTRODUCE OF OTH THERAP SUBST INTO RESP TRACT, VIA OPENING (12/18/16) INTRODUCE OTH ANTI-INFECT IN CENTRAL VEIN, PERC (10/05/15) LEFT HEART CARDIAC CATH (09/05/02) LT HEART ANGIOCARDIOGRAM (09/05/02) MAGNETIC RESONANCE IMAGING OF SPINAL CANAL (10/16/13) NEBULIZER THERAPY (09/12/14) NON-INVASIVE MECHANICAL VENTILATION (07/14/13) OTH LYSIS-PERITONEAL ADHES (10/16/13) OTHER ENDOSCOPY OF SM INTEST (10/12/14) OTHER SKIN & SUBQ I D (04/30/14) PACKED CELL TRANSFUSION (10/30/13) PANCREAT SPHINCTEROPLAS (10/16/13) PART GASTREC W JEJ ANAST (07/29/06) PERCUTAN NEEDLE BIOPSY OF PROSTATE (09/01/13) REPAIR OF INTESTINE NEC (10/16/13) SM-TO-SM BOWEL ANASTOM (07/29/06) THORACOSCOPIC LOBECTOMY OF LUNG (07/28/13) TRANSURETHRAL PROSTATECTOMY ([place]) (07/14/13) URETHRAL DILATION (09/01/13) VACCINATION NEC (11/05/14) VENOUS CATHETERIZATION NEC (11/05/14) Family History: States: No Known Family Hx - Social History Hx Tobacco Use: Yes Hx Alcohol Use: No Hx Substance Use: No - Immunization History Hx Tetanus Toxoid Vaccination: Yes Hx Influenza Vaccination: Yes Hx Pneumococcal Vaccination: Yes Review Of Systems Except As Marked, All Systems Reviewed And Found Negative. Cardiovascular: Positive for: Chest Pain Physical Exam - Physical Exam Appears: Non-toxic, No Acute Distress Skin: Normal Color, Warm, Dry Head: Atraumatic, Normacephalic Eye(s): bilateral: Normal Inspection Nose: Normal Oral Mucosa: Moist Neck: Supple Chest: Symmetrical Cardiovascular: Rhythm Regular Respiratory: Normal Breath Sounds, No Rales, No Rhonchi, No Wheezing Gastrointestinal/Abdominal: Normal Exam, Soft, No Tenderness, Other ((+) chronic abdominal wound present with drainage. ) Neurological/Psych: Oriented x3, Normal Speech ED Course And Treatment - Laboratory Results Result Diagrams: 03/14/18 13:16 03/14/18 13:16 ECG: Interpreted By Me, Viewed By Me ECG Rhythm: Sinus Rhythm Interpretation Of ECG: NSR with 1st degree AV Block, LVH, poor R wave progression, incomplete LBBB, and non -specific T -wave changes diffusely Rate From EC O2 Sat by Pulse Oximetry: 97 (RA) Pulse Ox Interpretation: Normal - Other Rad CXR X-Ray: Viewed By Me, Read By Radiologist Interpretation: HISTORY: COMPARISON: 01/07/2018. TECHNIQUE: Chest PA and lateral. FINDINGS: LINES AND TUBES: None. LUNG AND PLEURA: The right lung is well inflated and clear. Are postsurgical changes in the left lung with low lung volume and multiple surgical clips in the hilum. HEART AND MEDIASTINUM: The heart is not enlarged. Atherosclerotic aortic arch calcifications are present. The hilar and mediastinal contours are within normal limits. SKELETAL STRUCTURES: There are old fracture deformities/ postsurgical changes in the left lateral ribs. VISUALIZED UPPER ABDOMEN: Normal. OTHER FINDINGS: There is chronic elevation of the left. IMPRESSION: No active pulmonary disease. Postsurgical changes in the left lung. Medical Decision Making Medical Decision Making: Assessment: Atypical Chest Pain Plan: --Labs --CXR Updates: Case discussed with who is covering for Dr. Carol Garnett. has accepted admission. Patient has been admitted to telemetry observation for chest pain. Disposition Discussed With : Harriet Trujillo Counseled Patient/Family Regarding: Studies Performed, Diagnosis - Disposition Disposition: HOSPITALIZED Disposition Time: 16:55 Condition: FAIR - Clinical Impression Clinical Impression: Chest pain, Wound, open, abdominal wall, anterior - Scribe Statement The provider has reviewed the documentation as recorded by the Parminderibe Glo Conway Provider Attestation: All medical record entries made by the Scribe were at my direction and personally dictated by me. I have reviewed the chart and agree that the record accurately reflects my personal performance of the history, physical exam, medical decision making, and the department course for this patient. I have also personally directed, reviewed, and agree with the discharge instructions and disposition.
[2018-03-14] MEDS ORDERED: Oxycodone/Acetaminophen 5/325 mg Tab PO STA ×2 (14:41→19:18)
[2018-03-14] MEDS ORDERED: Oxycodone/Acetaminophen 5/325 mg Tab ONE ×2 (14:44→19:12)
[2018-03-14] MEDS ORDERED: Iodixanol 320 MG/ML 100 ML BOTTLE IV ONE (15:02)
--- NOTE | 2018-03-14 16:30 | CT ---
PROCEDURE: CT Chest with contrast (Pulmonary Angiogram) HISTORY: chest pain COMPARISON: 01/17/2013 TECHNIQUE: Axial computed tomography images were obtained of the chest in the pulmonary arterial phase of enhancement. Coronal and sagittal reformatted images were created and reviewed. Intravenous contrast dose: 150 mL Visipaque 320 Radiation dose: Total exam DLP = 562.97 mGy-cm. This CT exam was performed using one or more of the following dose reduction techniques: Automated exposure control, adjustment of the mA and/or kV according to patient size, and/or use of iterative reconstruction technique. FINDINGS: PULMONARY ARTERIES: Unremarkable. No pulmonary embolism. AORTA: No acute findings. No thoracic aortic aneurysm. LUNGS: Scattered small parenchymal and pleural-based nodules bilaterally, greatest 5 mm. No followup required. No infiltrate. Status post left upper lobectomy. PLEURAL SPACES: Pleural based fluid collection in the left upper lobe anteriorly, roughly 1.6 x 5.7 x 6.4 cm. Likely postoperative seroma. No pleural effusion. No pneumothorax. HEART: Cardiomegaly. LYMPH NODES: No lymphadenopathy. BONES, CHEST WALL: Minimal anterior wedge compression deformity of the T10, T11 and T12 vertebrae. Evidence of old left thoracotomy with postoperative deformity of the left and 6th ribs. OTHER FINDINGS: Mild intrahepatic biliary air, likely related to prior cholecystectomy and possible ampulla ostomy. Small hepatic calcification consistent with old granulomatous disease. Evidence of prior partial gastrectomy. IMPRESSION: No evidence of pulmonary embolism. Left upper lobectomy. Postoperative pleural-based fluid collection along left upper anterior chest wall. Scattered small nodules requiring no follow-up. No infiltrate. Cardiomegaly.
[2018-03-15 01:03] VITALS: RESP 20; TEMP 98
[2018-03-15] MEDS: Oxycodone/Acetaminophen 5/325 mg Tab PO PRN ×2 (02:44→09:26)
--- NOTE | 2018-03-15 07:19 | CP.PCM.PN ---
Subjective - Date & Time of Evaluation Date of Evaluation: 03/15/18 Time of Evaluation: 07:35 - Subjective Subjective: PGY 2 Medicine Progress Note- Dr. Trujillo's service 83 year old male with past medical history significant for diabetes mellitus, hyperlipidemia, coronary artery disease, lung cancer, chronic abdominal wound and arthritis presents with complaints of left sided chest pain and shoulder pain which he had been experiencing for the past seven days. Patient states that the pain radiated to his shoulder region intermittently. He states that he took medicine for the pain relief. He was not able to clearly indicate which medication that was. Patient states that he is still experiencing the left sided shoulder pain. He specifically denies chest pain, palpitations, dyspnea, headaches or paresthesias at this time. (History was supplemented with prior hospital records) PMHx- as noted above PSHx: open cholecystectomy, ventral hernia repair with mesh, cardiac stent x2, left lung lobectomy, left axillary procedure Fam Hx: noncontributory Meds: Percocet, Metformin, Ambien, Colace, Plavix, Coreg, Debrox, Duonebs Social Hx: former tobacco use, denies EtOH and drug use Allergies- NKDA Objective - Vital Signs/Intake and Output Vital Signs (last 24 hours): Temp Pulse Resp BP Pulse Ox 98.0 F 64 20 130/71 97 03/14/18 23:55 03/14/18 23:55 03/14/18 23:55 03/14/18 23:55 03/15/18 04:07 Intake and Output: 03/15/18 03/15/18 06:59 18:59 Intake Total 100 Balance 100 - Medications Medications: Current Medications Aspirin (Aspirin Chewable) 81 mg PO DAILY [facility] Bacitracin (Bacitracin) 1 ea TOP BID [facility] Clopidogrel Bisulfate (Plavix) 75 mg PO DAILY [facility] Oxycodone/Acetaminophen (Percocet 5/325 Mg Tab) 2 tab PO Q4H PRN PRN Reason: Pain, severe (8-10) Stop: 03/17/18 19:14 Last Admin: 03/15/18 02:44 Dose: 2 tab - Labs Labs: 03/14/18 13:16 03/14/18 13:16 PT 13.2 SECONDS (9.7-12.2) H 03/14/18 13:16 INR 1.2 03/14/18 13:16 APTT 42 SECONDS (21-34) H 03/14/18 13:16 - Constitutional Appears: Non-toxic, No Acute Distress - Head Exam Head Exam: ATRAUMATIC, NORMAL INSPECTION - Eye Exam Eye Exam: EOMI, Normal appearance, PERRL Pupil Exam: NORMAL ACCOMODATION - ENT Exam ENT Exam: Mucous Membranes Moist - Neck Exam Neck Exam: Full ROM - Respiratory Exam Respiratory Exam: NORMAL BREATHING PATTERN - Cardiovascular Exam Cardiovascular Exam: REGULAR RHYTHM, +S1, +S2 Additional comments: no tenderness - GI/Abdominal Exam GI & Abdominal Exam: Soft, Normal Bowel Sounds. absent: Tenderness Additional comments: abdominal wound- dressed- clean, dry, intact Wound has some purulent discharge- non erythematous. chronic - Extremities Exam Extremities Exam: Full ROM, Pedal Edema (1+ pitting edema) - Back Exam Back Exam: Full ROM, NORMAL INSPECTION - Neurological Exam Neurological Exam: Alert, Awake, Oriented x3 - Psychiatric Exam Psychiatric exam: Normal Affect, Normal Mood - Skin Skin Exam: Dry, Normal Color, Warm Assessment and Plan (1) Chest pain Assessment & Plan: D-Dimer Elevated Chest CT negative for PE EKG does not demonstrate new changes when compared to EKG from 2016 F/U Echo Hold Patient's beta bruno at this time due to low HR MARBIN 1 and 2 negative. [employer], Dr. Crabtree consulted- Recommendations for conservative medical therapy given history of comorbidities Status: Acute (2) CAD (coronary artery disease) Assessment & Plan: History of prior stent placement On Plavix daily Cont to monitor EKG does not demonstrate new changes when compared to EKG from 2016 Echo -F/U report Status: Chronic (3) Diabetes mellitus Assessment & Plan: Accuchecks Last Hgb A 1c was 7.1 in 2016 F/u repeat Hgb a1c Insulin sliding scale at this time. Status: Chronic (4) Hyperkalemia Assessment & Plan: F/U repeat CMP from this morning. Repeat level within normal parameters. Will monitor Status: Acute (5) Arthritis Assessment & Plan: Home medicine Percocet for pain control PRN PT recommendations - Patient stable for home Status: Chronic (6) Wound, open, abdominal wall, anterior Assessment & Plan: Chronic Continue to care for and dress Patient to follow up with primary medical doctor Status: Acute (7) Prophylactic measure Assessment & Plan: SCDs Heparin SC Q12 GI Prophylaxis not currently indicated Dispo: To go home. Patient's acute clinical presentation resolved. Patient has no new underlying changes in EKG . Patient to follow up with [employer]r within the next two weeks. DC Instructions Patient to follow up with primary Medical Doctor within the next week. Patient to follow up with [employer]r within the next two weeks for continuing care. Patient to resume home medications. If symptoms return, go to the emergency room. Instructions explained to patient who is aware. Discussed with attending. Management and planning per attending. Status: Acute
[2018-03-15 07:59] VITALS: BP 144/70; O2SAT 96
[2018-03-15] MEDS ORDERED: Perflutren Lipid Microsphere 1.5 ML SUS IV ONE (08:49)
[2018-03-15] MEDS ORDERED: Bacitracin 500 Units/gm Oint Foilpak UD TOP SCH (10:00)
--- NOTE | 2018-03-15 10:14 | CP.PCM.CON ---
Past Patient History - Infectious Disease Hx of Infectious Diseases: None - Tetanus Immunizations Tetanus Immunization: Unknown - Past Medical History & Family History Past Medical History?: Yes - Past Social History Smoking Status: Never Smoked - CARDIAC Hx Cardia Arrhythmia: No Hx Congestive Heart Failure: Yes Hx Hypercholesterolemia: Yes Hx Hypertension: Yes Hx Mitral Valve Prolapse: No Hx Pacemaker: No Hx Peripheral Edema: No - PULMONARY Hx Asthma: Yes Hx Bronchitis: No Hx Chronic Obstructive Pulmonary Disease (COPD): Yes Hx Emphysema: Yes Hx Pneumonia: Yes Hx Sleep Apnea: Yes - NEUROLOGICAL Hx Dementia: No Hx Migraine: No Hx Parkinson's Disease: No Hx Seizures: No Hx Transient Ischemic Attacks (TIA): No - HEENT Hx HEENT Problems: No Hx Blind: No Hx Cataracts: No Hx Deafness: No Hx Difficulty Chewing: No Hx Epistaxis: No Hx Glaucoma: No Hx Macular Degeneration: No - RENAL Hx Chronic Kidney Disease: No Hx Kidney Stones: No - ENDOCRINE/METABOLIC Hx Hyperthyroidism: No Hx Hypothyroidism: No - HEMATOLOGICAL/ONCOLOGICAL Hx Anemia: No Hx Human Immunodeficiency Virus (HIV): No Hx Sickle Cell Disease: No - INTEGUMENTARY Hx Dermatological Problems: No Hx Basil Cell: No Hx Eczema: No Hx Melanoma: No Hx Psoriasis: No Hx Squamous Cell: No - MUSCULOSKELETAL/RHEUMATOLOGICAL Hx Arthritis: Yes Hx Fractures: No Hx Osteoporosis: No - GASTROINTESTINAL Hx Crohn's Disease: No Hx Diverticulitis: No Hx Gall Bladder Disease: Yes Hx Pancreatitis: No - GENITOURINARY/GYNECOLOGICAL Hx Sexually Transmitted Disorders: No - PSYCHIATRIC Hx Anxiety: No Hx Bipolar Disorder: No Hx Depression: No Hx Paranoia: No Hx Post Traumatic Stress Disorder: No Hx Schizophrenia: No Hx Substance Use: No - SURGICAL HISTORY Hx Appendectomy: No Hx Cholecystectomy: Yes (open cholecystectomy with CBD exploration 2012) Hx Coronary Stent: Yes - ANESTHESIA Hx Anesthesia: Yes Hx Anesthesia Reactions: No Hx Malignant Hyperthermia: No Meds Allergies/Adverse Reactions: Allergies Allergy/AdvReac Type Severity Reaction Status Date / Time No Known Allergies Allergy Verified 08/24/17 11:58 - Medications Medications: Current Medications Aspirin (Aspirin Chewable) 81 mg PO DAILY [facility] Last Admin: 03/15/18 09:25 Dose: 81 mg Bacitracin (Bacitracin) 1 ea TOP BID [facility] Last Admin: 03/15/18 09:25 Dose: 1 ea Clopidogrel Bisulfate (Plavix) 75 mg PO DAILY [facility] Last Admin: 03/15/18 09:25 Dose: 75 mg Heparin Sodium (Porcine) (Heparin) 5,000 units SC Q12 [facility] Last Admin: 03/15/18 09:25 Dose: 5,000 units Insulin Aspart (Novolog) 0 unit SC ACHS [facility] PRN Reason: Protocol Oxycodone/Acetaminophen (Percocet 5/325 Mg Tab) 2 tab PO Q4H PRN PRN Reason: Pain, severe (8-10) Stop: 03/17/18 19:14 Last Admin: 03/15/18 09:26 Dose: 2 tab Results - Vital Signs Recent Vital Signs: Last Vital Signs Temp 98.0 F 03/15/18 07:40 Pulse 64 03/15/18 08:00 Resp 20 03/15/18 07:40 BP 144/70 03/15/18 07:40 Pulse Ox 96 03/15/18 07:40 - Labs Result Diagrams: 03/14/18 13:16 03/14/18 13:16 Labs: Laboratory Results - last 24 hr 03/14/18 03/14/18 03/14/18 13:16 13:16 13:16 WBC 7.1 RBC 3.91 L Hgb 10.9 L Hct 33.1 L MCV 84.6 MCH 27.9 MCHC 33.0 RDW 14.9 H Plt Count 163 MPV 10.5 Neut % (Auto) 74.5 Lymph % (Auto) 20.0 [place] % (Auto) 4.0 Eos % (Auto) 0.9 Baso % (Auto) 0.6 Neut # (Auto) 5.3 Lymph # (Auto) 1.4 [place] # (Auto) 0.3 Eos # (Auto) 0.1 Baso # (Auto) 0.0 PT 13.2 H INR 1.2 APTT 42 H D-Dimer, Quantitative 674 H Sodium 141 Potassium 5.4 H Chloride 103 Carbon Dioxide 23 Anion Gap 20 BUN 20 Creatinine 1.3 Est GFR ( Amer) > 60 Est GFR (Non-Af Amer) 53 Random Glucose 167 H Calcium 8.4 L Total Bilirubin 0.5 AST 22 ALT 14 L D Alkaline Phosphatase 172 H D Troponin I < 0.0120 NT-Pro-B Natriuret Pep 1600 H Total Protein 7.6 Albumin 4.1 Globulin 3.4 Albumin/Globulin Ratio 1.2
--- NOTE | 2018-03-15 10:14 | CP.PCM.CON ---
History of Present Illness - History of Present Illness History of Present Illness: patient seen/examined. echo reviewed. Mild anterior wall motion abnormality. Likely has underlying CAD as evidenced by EKG. no active angina. recommend conservative medical therapy given multiple comorbidities. Past Patient History - Infectious Disease Hx of Infectious Diseases: None - Tetanus Immunizations Tetanus Immunization: Unknown - Past Medical History & Family History Past Medical History?: Yes - Past Social History Smoking Status: Never Smoked - CARDIAC Hx Cardia Arrhythmia: No Hx Congestive Heart Failure: Yes Hx Hypercholesterolemia: Yes Hx Hypertension: Yes Hx Mitral Valve Prolapse: No Hx Pacemaker: No Hx Peripheral Edema: No - PULMONARY Hx Asthma: Yes Hx Bronchitis: No Hx Chronic Obstructive Pulmonary Disease (COPD): Yes Hx Emphysema: Yes Hx Pneumonia: Yes Hx Sleep Apnea: Yes - NEUROLOGICAL Hx Dementia: No Hx Migraine: No Hx Parkinson's Disease: No Hx Seizures: No Hx Transient Ischemic Attacks (TIA): No - HEENT Hx HEENT Problems: No Hx Blind: No Hx Cataracts: No Hx Deafness: No Hx Difficulty Chewing: No Hx Epistaxis: No Hx Glaucoma: No Hx Macular Degeneration: No - RENAL Hx Chronic Kidney Disease: No Hx Kidney Stones: No - ENDOCRINE/METABOLIC Hx Hyperthyroidism: No Hx Hypothyroidism: No - HEMATOLOGICAL/ONCOLOGICAL Hx Anemia: No Hx Human Immunodeficiency Virus (HIV): No Hx Sickle Cell Disease: No - INTEGUMENTARY Hx Dermatological Problems: No Hx Basil Cell: No Hx Eczema: No Hx Melanoma: No Hx Psoriasis: No Hx Squamous Cell: No - MUSCULOSKELETAL/RHEUMATOLOGICAL Hx Arthritis: Yes Hx Fractures: No Hx Osteoporosis: No - GASTROINTESTINAL Hx Crohn's Disease: No Hx Diverticulitis: No Hx Gall Bladder Disease: Yes Hx Pancreatitis: No - GENITOURINARY/GYNECOLOGICAL Hx Sexually Transmitted Disorders: No - PSYCHIATRIC Hx Anxiety: No Hx Bipolar Disorder: No Hx Depression: No Hx Paranoia: No Hx Post Traumatic Stress Disorder: No Hx Schizophrenia: No Hx Substance Use: No - SURGICAL HISTORY Hx Appendectomy: No Hx Cholecystectomy: Yes (open cholecystectomy with CBD exploration 2012) Hx Coronary Stent: Yes - ANESTHESIA Hx Anesthesia: Yes Hx Anesthesia Reactions: No Hx Malignant Hyperthermia: No Meds Allergies/Adverse Reactions: Allergies Allergy/AdvReac Type Severity Reaction Status Date / Time No Known Allergies Allergy Verified 08/24/17 11:58 - Medications Medications: Current Medications Aspirin (Aspirin Chewable) 81 mg PO DAILY [facility] Last Admin: 03/15/18 09:25 Dose: 81 mg Bacitracin (Bacitracin) 1 ea TOP BID [facility] Last Admin: 03/15/18 09:25 Dose: 1 ea Clopidogrel Bisulfate (Plavix) 75 mg PO DAILY [facility] Last Admin: 03/15/18 09:25 Dose: 75 mg Heparin Sodium (Porcine) (Heparin) 5,000 units SC Q12 [facility] Last Admin: 03/15/18 09:25 Dose: 5,000 units Insulin Aspart (Novolog) 0 unit SC ACHS [facility] PRN Reason: Protocol Oxycodone/Acetaminophen (Percocet 5/325 Mg Tab) 2 tab PO Q4H PRN PRN Reason: Pain, severe (8-10) Stop: 03/17/18 19:14 Last Admin: 03/15/18 09:26 Dose: 2 tab Results - Vital Signs Recent Vital Signs: Last Vital Signs Temp 98.0 F 03/15/18 07:40 Pulse 64 03/15/18 08:00 Resp 20 03/15/18 07:40 BP 144/70 03/15/18 07:40 Pulse Ox 96 03/15/18 07:40 - Labs Result Diagrams: 03/14/18 13:16 03/14/18 13:16 Labs: Laboratory Results - last 24 hr 03/14/18 03/14/18 03/14/18 13:16 13:16 13:16 WBC 7.1 RBC 3.91 L Hgb 10.9 L Hct 33.1 L MCV 84.6 MCH 27.9 MCHC 33.0 RDW 14.9 H Plt Count 163 MPV 10.5 Neut % (Auto) 74.5 Lymph % (Auto) 20.0 [place] % (Auto) 4.0 Eos % (Auto) 0.9 Baso % (Auto) 0.6 Neut # (Auto) 5.3 Lymph # (Auto) 1.4 [place] # (Auto) 0.3 Eos # (Auto) 0.1 Baso # (Auto) 0.0 PT 13.2 H INR 1.2 APTT 42 H D-Dimer, Quantitative 674 H Sodium 141 Potassium 5.4 H Chloride 103 Carbon Dioxide 23 Anion Gap 20 BUN 20 Creatinine 1.3 Est GFR ( Amer) > 60 Est GFR (Non-Af Amer) 53 Random Glucose 167 H Calcium 8.4 L Total Bilirubin 0.5 AST 22 ALT 14 L D Alkaline Phosphatase 172 H D Troponin I < 0.0120 NT-Pro-B Natriuret Pep 1600 H Total Protein 7.6 Albumin 4.1 Globulin 3.4 Albumin/Globulin Ratio 1.2
[2018-03-15] MEDS ORDERED: (Novolog) Insulin Aspart, Recombinant 100 u/ml 10 ml vial SC SCH ×2 (11:30)
[2018-03-15 11:52] LABS: BASO % 0.4 % (0.0-2.0); EOS # 0.1 K/uL (0.0-0.7); LYMPH # 1.1 K/uL (1.0-4.3); LYMPH % 19.7 % (20.0-40.0); MEAN CELL VOLUME 84.4 fL (80.0-94.0); MEAN CORPUSCULAR HEMOGLOBIN 27.8 pg (27.0-31.0); MEAN PLATELET VOLUME 10.8 fL (7.2-11.7); MONO # 0.3 K/uL (0.0-0.8); MONO % 4.9 % (0.0-10.0); NEUT # 4.3 K/uL (1.8-7.0); NRBC % 0.1 % (0.0-2.0); RBC 3.96 Mil/uL (4.40-5.90); RED CELL DISTRIBUTION WIDTH 14.7 % (11.5-14.5); WHITE BLOOD COUNT 5.8 K/uL (4.8-10.8)
[2018-03-15 12:06] LABS: ALB/GLOB RATIO 1.1 (1.0-2.1); ALBUMIN 3.9 g/dL (3.5-5.0); ALT/SGPT 13 U/L (21-72); AST/SGOT 23 U/L (17-59); BLOOD UREA NITROGEN 20 mg/dL (9-20); CALCIUM 8.4 mg/dl (8.6-10.4); GFR AFRICAN-AMERICAN > 60; GFR NON-AFRICAN AMERICAN > 60; HDL CHOLESTEROL 29 mg/dL (30-70)
[2018-03-15 12:17] LABS: CK-MB 1.03 ng/mL (0.0-3.38); LDL CHOLESTEROL 50 mg/dL (0-129)
[2018-03-15 14:22] VITALS: PULSE 84
--- NOTE | 2018-03-15 21:39 | CARD ---
APPROVED REPORT EXAM: Two-dimensional echocardiogram with contrast. Other Information Quality : GoodRhythm : INDICATION Dyspnea Cardiac Disease: CAD COPD Echo Enhancing Agent Indication: Rule out thrombus Agent/Amount Used: Definity 2D DIMENSIONS IVSd1.2 (0.7-1.1cm)LVDd4.2 (3.9-5.9cm) PWd1.2 (0.7-1.1cm)LVDs3.3 (2.5-4.0cm) FS (%) 20.0 %LVEF (%)41.3 (>50%) M-Mode DIMENSIONS Left Atrium (MM)4.25 (2.5-4.0cm)Aortic Root4.01 (2.2-3.7cm) Aortic Cusp Exc.1.97 (1.5-2.0cm) Aortic Valve AI P 1/2 [id number] Mitral Valve MV E Kwcbzhqk07.8cm/sMV A Swilyaek87.5cm/sE/A ratio0.9 TDI E/Lateral E'0.0E/Medial E'0.0 Tricuspid Valve TR Peak [id number]/sTR Peak Gr.27mmHg LEFT VENTRICLE The left ventricle is normal size. There is mild concentric left ventricular hypertrophy. The left ventricular function is mildly reduced. The left ventricular ejection fraction is about 45%. The apical septal. apicial and inferoapcia hearn are akinetic. Transmitral Doppler flow pattern is Grade I-abnormal relaxation pattern. No left ventricle thrombus noted on this study. There is no ventricular septal defect visualized. There is no left ventricular aneurysm. There is no mass noted in the left ventricle. RIGHT VENTRICLE The right ventricle is normal size. There is normal right ventricular wall thickness. The right ventricular systolic function is normal. ATRIA The left atrium size is normal. The right atrium size is normal. The interatrial septum is intact with no evidence for an atrial septal defect. AORTIC VALVE The aortic valve is normal in structure and function. Mild aortic regurgitation is present. There is no aortic valvular stenosis. There is no aortic valvular vegetation. MITRAL VALVE The mitral valve is normal in structure and function. There is no evidence of mitral valve prolapse. There is no mitral valve stenosis. There is mild mitral valve regurgitation noted. TRICUSPID VALVE The tricuspid valve is normal in structure and function. There is no tricuspid valve regurgitation noted. There is mild tricuspid valve prolapse or vegetation. There is no tricuspid valve stenosis. PULMONIC VALVE The pulmonary valve is normal in structure and function. There is no pulmonic valvular regurgitation. There is no pulmonic valvular stenosis. GREAT VESSELS The aortic root is normal in size. The ascending aorta is normal in size. The pulmonary artery is normal. The IVC is normal in size and collapses >50% with inspiration. PERICARDIAL EFFUSION The pericardium appears normal. There is no pleural effusion. <Conclusion> IV contrast. Mildy reduced overall LV systolic function. The apical septal. apicial and inferoapical hearn are akinetic. There is mild concentric left ventricular hypertrophy. The apical septal. apicial and inferoapcia hearn are akinetic. Mild aortic regurgitation.
--- NOTE | 2018-03-15 21:54 | CARD ---
APPROVED REPORT EKG Measurement Heart [id number] [id number] <Conclusion> Sinus rhythm with 1st degree AV block Left axis deviation RSR' or QR pattern in V1 suggests right ventricular conduction delay Left ventricular hypertrophy with QRS widening and repolarization abnormality Inferior infarct, age undetermined Anterolateral infarct, age undetermined Abnormal ECG
--- NOTE | 2018-03-16 07:47 | HP ---
HISTORY OF PRESENT ILLNESS: The patient is admitted to the hospital with chief complaint of abdominal pain, chest pain. Chest pain is typical. The patient has a long history of a septic abdominal wound. The patient came to the hospital and advised admission. The patient takes Percocet, aspirin. PHYSICAL EXAMINATION: GENERAL: The patient is awake, alert, and oriented. VITAL SIGNS: Temperature 98, pulse 90. HEENT: Within normal limits. NECK: Supple. CHEST: Symmetrical. HEART: Regular. ABDOMEN: Soft. EXTREMITIES: No edema. IMPRESSION: The patient suffers from chest pain. The patient is advised supportive care. Harriet Trujillo MD
--- NOTE | 2018-03-16 23:59 | CARD ---
APPROVED REPORT EKG Measurement Heart [id number] <Conclusion> Sinus rhythm with 1st degree AV block Left axis deviation Left ventricular hypertrophy with QRS widening Inferior infarct, age undetermined Possible Anterolateral infarct, age undetermined Abnormal ECG
== END 2018-03-15 14:14 | disposition home or self-care (01) ==
LOC: C.ER 11:54 → C.9E 16:54 → C.6T 19:07
PROVIDERS: ADMIT Internal Medicine Pulmonary Disease; ATTEND Internal Medicine Pulmonary Disease
DX: I25.10 Atherosclerotic heart disease of native coronary artery without angina pectoris (principal); E11.9 Type 2 diabetes mellitus without complications; E78.00 Pure hypercholesterolemia, unspecified; I11.0 Hypertensive heart disease with heart failure; I50.9 Heart failure, unspecified; G47.30 Sleep apnea, unspecified; N40.0 Benign prostatic hyperplasia without lower urinary tract symptoms; Z85.118 Personal history of other malignant neoplasm of bronchus and lung; J44.9 Chronic obstructive pulmonary disease, unspecified; F17.200 Nicotine dependence, unspecified, uncomplicated; Z95.5 Presence of coronary angioplasty implant and graft; E87.5 Hyperkalemia; M19.90 Unspecified osteoarthritis, unspecified site; Z79.4 Long term (current) use of insulin; S31.109A Unspecified open wound of abdominal wall, unspecified quadrant without penetration into peritoneal cavity, initial encounter; X58.XXXA Exposure to other specified factors, initial encounter
CPT/HCPCS: 36415; 71046; 71275; 80053; 80061; 83036; 83880; 84484; 85025; 85378; 85610; 85730; 87070; 93005; 93306; 97116; 97162; 99285; G0378; G8978; G8979; J1644; Q9967

== ENCOUNTER 2018-05-14 12:25 | Inpatient (IN) | payer MEDICARE, MEDICAID ==
[2018-05-14 12:25] VITALS: BMI 27.3
[2018-05-14 13:03] LABS: BASO % 0.6 % (0.0-2.0); EOS # 0.2 K/uL (0.0-0.7); EOS % 2.2 % (0.0-4.0); HEMOGLOBIN 11.2 g/dL (12.0-18.0); LYMPH # 2.4 K/uL (1.0-4.3); LYMPH % 30.2 % (20.0-40.0); MEAN CELL VOLUME 84.8 fL (80.0-94.0); MEAN CORPUSCULAR HEMOGLOBIN 27.9 pg (27.0-31.0); MEAN CORPUSCULAR HGB CONC 32.9 g/dL (33.0-37.0); MEAN PLATELET VOLUME 10.9 fL (7.2-11.7); MONO # 0.5 K/uL (0.0-0.8); MONO % 6.2 % (0.0-10.0); NEUT # 4.9 K/uL (1.8-7.0); NEUT % 60.8 % (50.0-75.0); RBC 4.03 Mil/uL (4.40-5.90); RED CELL DISTRIBUTION WIDTH 15.2 % (11.5-14.5)
[2018-05-14] MEDS ORDERED: Glucagon Recombinant 1 mg Inj IV STA (13:05)
[2018-05-14] MEDS ORDERED: Glucagon Recombinant 1 mg Inj ONE (13:08)
--- NOTE | 2018-05-14 13:11 | C.PDOC ---
History Of Present Illness 83 y/o male, whose PMH includes CAD, CHF, COPD, diabetes, lung cancer, gall bladder disease, HTN, hypercholesterolemia, and hyperlipidemia, who presents to the emergency department complaining of shortness of breath since this morning. Patient denies chest pain, headache, fever, chills, cough, back pain, nausea, vomiting, diarrhea, abdominal pain, lower extremity pain/swelling, recent travel , recent surgery, recent prolonged immobilization, hematochezia, melena, dizziness or lightheadedness. Time Seen by Provider: 05/14/18 12:40 Chief Complaint (Nursing): Shortness Of Breath History Per: Patient History/Exam Limitations: no limitations Onset/Duration Of Symptoms: Hrs Current Symptoms Are (Timing): Still Present Current Respiratory Medications: None Associated Symptoms: denies: Chest Pain, Dizziness Recent travel outside of the [place]: No Past Medical History Reviewed: Historical Data, Nursing Documentation, Vital Signs Vital Signs: Last Vital Signs Temp 97.9 F 05/15/18 12:00 Pulse 68 05/15/18 17:04 Resp 16 05/15/18 17:04 BP 112/55 L 05/15/18 17:04 Pulse Ox 97 05/15/18 17:04 - Medical History PMH: Arthritis, Asthma, Benign Prostatic Hyperplasia, CAD, CHF, COPD, Diabetes, Emphysema, Gall Bladder Disease, Hiatal Hernia, HTN, Hypercholesterolemia, Hyperlipidemia, Pneumonia, Sleep Apnea, Chronic Pain (Left chest/abdomen) Denies: Anemia, Anxiety, Bipolar Disorder, Bronchitis, Cardia Arrhythmia, Crohn's Disease, Dementia, Depression, Diverticulitis, Fibromyalgia, Fractures, Gastrointestinal Ulcer, HIV, Hyperthyroidism, Hypothyroidism, Kidney Stones, Migraine, Mitral Valve Prolapse, Osteoporosis, Pancreatitis, Paranoia, Parkinson 's Disease, Peripheral Edema, Post Traumatic Stress Disorder, Chronic Kidney Disease, Schizophrenia, Seizures, Sickle Cell Disease, Sexually Transmitted Disease, TIA Surgical History: Cholecystectomy (open cholecystectomy with CBD exploration 2012), Coronary Stent, Hernia Repair Denies: Appendectomy, Pacemaker - [facility] Procedures ANESTH INJECT SYMP NERVE (05/12/13) C & S-INTEGUMENT (08/27/14) CENTRAL VENOUS CATHETER PLACEMENT WITH GUIDANCE (07/18/15) CHOLECYSTECTOMY (10/16/13) CLOSED ENDOSCOPIC BIOPSY OF LARGE INTESTINE (09/01/13) CLOSED [PERCUTANEOUS] [NEEDLE] BIOPSY OF LUNG (06/21/13) COMMON DUCT EXPLORATION (10/16/13) CONTINUOUS INVASIVE MECHANICAL VENTILATION <96 CONSEC HRS (11/05/14) CORONAR ARTERIOGR-2 CATH (09/05/02) CYSTOSCOPY NEC (07/14/13) DX ULTRASOUND-DIGESTIVE (08/21/12) ENDOSCOPIC BRONCHIAL BX (07/28/13) ENTERAL INFUSION OF CONCENTRATED NUT. SUBSTANCES (11/05/14) ESOPHAGOGASTRODUODENOSCOPY [EGD] W/CLOSED BIOPSY (10/06/13) EXCISION OF STOMACH, ENDO, DIAGN (08/23/16) FLUOROSCOPY OF SUPERIOR VENA CAVA, GUIDANCE (07/13/16) GASTROTOMY (07/29/06) INFLUENZA VACCINATION (11/05/14) INJECT/INFUSE ELECTROLYT (05/29/14) INJECT/INFUSE NEC (01/29/15) INSERT ENDOTRACHEAL TUBE (11/05/14) INSERT INTERCOSTAL CATH (09/01/13) INSERTION OF INFUSION DEV INTO R INNOM VEIN, PERC APPROACH (10/05/15) INSERTION OF INFUSION DEV INTO SUP VENA CAVA, PERC APPROACH (08/23/16) INTRODUCE OF OTH THERAP SUBST INTO RESP TRACT, VIA OPENING (12/18/16) INTRODUCE OTH ANTI-INFECT IN CENTRAL VEIN, PERC (10/05/15) LEFT HEART CARDIAC CATH (09/05/02) LT HEART ANGIOCARDIOGRAM (09/05/02) MAGNETIC RESONANCE IMAGING OF SPINAL CANAL (10/16/13) NEBULIZER THERAPY (09/12/14) NON-INVASIVE MECHANICAL VENTILATION (07/14/13) OTH LYSIS-PERITONEAL ADHES (10/16/13) OTHER ENDOSCOPY OF SM INTEST (10/12/14) OTHER SKIN & SUBQ I D (04/30/14) PACKED CELL TRANSFUSION (10/30/13) PANCREAT SPHINCTEROPLAS (10/16/13) PART GASTREC W JEJ ANAST (07/29/06) PERCUTAN NEEDLE BIOPSY OF PROSTATE (09/01/13) REPAIR OF INTESTINE NEC (10/16/13) SM-TO-SM BOWEL ANASTOM (07/29/06) THORACOSCOPIC LOBECTOMY OF LUNG (07/28/13) TRANSURETHRAL PROSTATECTOMY ([place]) (07/14/13) URETHRAL DILATION (09/01/13) VACCINATION NEC (11/05/14) VENOUS CATHETERIZATION NEC (11/05/14) Family History: States: Unknown Family Hx - Social History Hx Tobacco Use: Yes Hx Alcohol Use: No Hx Substance Use: No - Immunization History Hx Tetanus Toxoid Vaccination: Yes Hx Influenza Vaccination: Yes Hx Pneumococcal Vaccination: Yes Review Of Systems Constitutional: Negative for: Fever Cardiovascular: Negative for: Chest Pain Respiratory: Positive for: Shortness of Breath Gastrointestinal: Negative for: Vomiting, Abdominal Pain Genitourinary: Negative for: Dysuria, Frequency Skin: Negative for: Rash Neurological: Negative for: Numbness Physical Exam - Physical Exam Appears: Well, Non-toxic, No Acute Distress Skin: Normal Color, Warm, Dry Head: Atraumatic, Normacephalic Eye(s): bilateral: Normal Inspection, PERRL, EOMI Cardiovascular: Rhythm Regular, No Murmur Respiratory: Normal Breath Sounds, No Decreased Breath Sounds, No Rales, No Rhonchi, No Wheezing Gastrointestinal/Abdominal: Normal Exam, Bowel Sounds (active), Soft, No Tenderness, No Mass, No Distention, No Guarding, No Rebound Rectal: Other (healed wound on epigastric region from cholecystectomy ) Extremity: Normal ROM Neurological/Psych: Oriented x3, Normal Speech, Normal Motor ED Course And Treatment - Laboratory Results Result Diagrams: 05/15/18 06:41 05/15/18 06:35 ECG: Interpreted By Me ECG Rhythm: 3rd Degree HB O2 Sat by Pulse Oximetry: 2 Pulse Ox Interpretation: Abnormal Medical Decision Making Medical Decision Making: Impression: 83 y/o male with healed wound on epigastric region from cholecystectomy c/o shortness of breath Plan: -- EKG -- CXR -- Labs -- Atropine and Glucagon -- Reassess and disposition Progress Notes: On ordered EKG, it shows 3rd degree AV block. Case discussed with Dr. Franco, cardiology, who referred patient to Dr. Campoverde, ICU for pacemaker. Currently at bedside and patient will be admitted to ICU. Disposition - Disposition Disposition: HOSPITALIZED Disposition Time: 13:16 Condition: SERIOUS - Clinical Impression Clinical Impression: AV block, 3rd degree, Dyspnea - Scribe Statement The provider has reviewed the documentation as recorded by the Scribe Scribe Attestation: Karlee Hammer MD Scribe Attestation: All medical record entries made by the Scribe were at my direction and personally dictated by me. I have reviewed the chart and agree that the record accurately reflects my personal performance of the history, physical exam, medical decision making, and the department course for this patient. I have also personally directed, reviewed, and agree with the discharge instructions and disposition. Decision To Admit - Pt Status Changed To: Hospital Disposition Of: Inpatient - Admit Certification Admit to Inpatient:: After my assessment, the patient will require hospitalization for at least two midnights. This is because of the severity of symptoms shown, intensity of services needed, and/or the medical risk in this patient being treated as an outpatient. - InPatient: Physician Admission Certification: I certify that this patient requires 2 or more midnights of care for the following reason:: After my assessment, the patient will require hospitalization for at least two midnights. This is because of the severity of symptoms shown, intensity of services needed, and/or the medical risk in this patient being treated as an outpatient. - . Bed Request Type: ICU Patient Diagnosis: AV block, 3rd degree
[2018-05-14 13:13] LABS: INR 1.1; PROTHROMBIN TIME 12.1 SECONDS (9.7-12.2)
[2018-05-14 13:43] LABS: ALB/GLOB RATIO 1.3 (1.0-2.1); ALBUMIN 4.2 g/dL (3.5-5.0); ALT/SGPT 25 U/L (21-72); AST/SGOT 22 U/L (17-59); BLOOD UREA NITROGEN 24 mg/dL (9-20); CALCIUM 8.6 mg/dl (8.6-10.4); GFR AFRICAN-AMERICAN 47; GFR NON-AFRICAN AMERICAN 39
[2018-05-14] MEDS ORDERED: Sodium Chloride 0.9% 1,000 ML IV ONE (13:54)
[2018-05-14 13:57] LABS: CK-MB 1.33 ng/mL (0.0-3.38)
--- NOTE | 2018-05-14 15:19 | PCM.PROC ---
Procedures Attestation:: I certify that I have explained the specified Operation(s) or Procedure(s), risks, benefits and reasonable alternatives to the Patient and/or other person responsible. The opportunity was given to ask questions and all questions answered - Central Line Placement Right Internal Jugular Aseptic technique was employed throughout the procedure: Full sterile barriers ( mask, hair cover, sterile gown, sterile gloves), Full body sterile drape, Chloraprep Antiseptic: 30 second prep for IJ or SC sites CVP Time Out Performed: Yes Pt. Placed on Pulse Ox Monitor: Yes Central Line Prep: Chlorhexidine-Alcohol Combination Local Anesthesia Used: Lidocaine 1% Amount of Anesthesia Used (mls): 5 Ultrasound Used for Placement: Yes Central Line Lumen Inserted: single Central Line Length: 16 cm Post Procedure: Sutured in Place, Good Blood Return, All Ports Aspirated, Flushed, Capped, Sterile Dressing Applied Secured by: Suture Post procedure dressing: Clear vapor permeable, Chlorhexidine disc (Biopatch) Post Procedure X-Ray: Yes Patient Tolerated Procedure: Well Immediate Complications: None Additional Comments: Right internal jugular venous sheath (5 paraguayan) placed under ultrasound guidance. Venous blood return from all ports. Pacing wire: after placement of venous sheath, 5 paraguayan pacing wire inserted . At 15 cm baloon inflated and pacing wire advanced to 35 cm at which point capture obtained. balloon deflated. Patient's BP imporved to 130s systolic and HR remained at 80.
--- NOTE | 2018-05-14 15:22 | CP.PCM.CON ---
History of Present Illness - History of Present Illness History of Present Illness: 83 y/o male with pmx CAD, CHF, COPD, diabetes, lung cancer, gall bladder disease , HTN, hypercholesterolemia, and hyperlipidemia, recent abdominal surgery at [facility] presents to [facility] with c/o shortness x 1 day. Patient denies chest pain, headache, fever, chills, cough, back pain, nausea, vomiting, diarrhea, abdominal pain, lower extremity pain/swelling, recent travel , recent surgery, recent prolonged immobilization, hematochezia, melena, dizziness or lightheadedness. Pmx as aboe Psurg: history as above allergies: denies social history: h/o smoking Review of Systems - Review of Systems Review of Systems: as per HPI Past Patient History - Infectious Disease Hx of Infectious Diseases: None - Tetanus Immunizations Tetanus Immunization: Unknown - Past Medical History & Family History Past Medical History?: Yes - Past Social History Smoking Status: Former Smoker - CARDIAC Hx Cardia Arrhythmia: No Hx Congestive Heart Failure: Yes Hx Hypercholesterolemia: Yes Hx Hypertension: Yes Hx Mitral Valve Prolapse: No Hx Pacemaker: No Hx Peripheral Edema: No - PULMONARY Hx Asthma: Yes Hx Bronchitis: No Hx Chronic Obstructive Pulmonary Disease (COPD): Yes Hx Emphysema: Yes Hx Pneumonia: Yes Hx Sleep Apnea: Yes - NEUROLOGICAL Hx Dementia: No Hx Migraine: No Hx Parkinson's Disease: No Hx Seizures: No Hx Transient Ischemic Attacks (TIA): No - HEENT Hx HEENT Problems: No Hx Blind: No Hx Cataracts: No Hx Deafness: No Hx Difficulty Chewing: No Hx Epistaxis: No Hx Glaucoma: No Hx Macular Degeneration: No - RENAL Hx Chronic Kidney Disease: No Hx Kidney Stones: No - ENDOCRINE/METABOLIC Hx Hyperthyroidism: No Hx Hypothyroidism: No - HEMATOLOGICAL/ONCOLOGICAL Hx Anemia: No Hx Human Immunodeficiency Virus (HIV): No Hx Sickle Cell Disease: No - INTEGUMENTARY Hx Dermatological Problems: No Hx Basil Cell: No Hx Eczema: No Hx Melanoma: No Hx Psoriasis: No Hx Squamous Cell: No - MUSCULOSKELETAL/RHEUMATOLOGICAL Hx Arthritis: Yes Hx Fractures: No Hx Osteoporosis: No - GASTROINTESTINAL Hx Crohn's Disease: No Hx Diverticulitis: No Hx Gall Bladder Disease: Yes Hx Pancreatitis: No - GENITOURINARY/GYNECOLOGICAL Hx Sexually Transmitted Disorders: No - PSYCHIATRIC Hx Anxiety: No Hx Bipolar Disorder: No Hx Depression: No Hx Paranoia: No Hx Post Traumatic Stress Disorder: No Hx Schizophrenia: No Hx Substance Use: No - SURGICAL HISTORY Hx Appendectomy: No Hx Cholecystectomy: Yes (open cholecystectomy with CBD exploration 2012) Hx Coronary Stent: Yes - ANESTHESIA Hx Anesthesia: Yes Hx Anesthesia Reactions: No Hx Malignant Hyperthermia: No Meds Allergies/Adverse Reactions: Allergies Allergy/AdvReac Type Severity Reaction Status Date / Time No Known Allergies Allergy Verified 08/24/17 11:58 - Medications Medications: Current Medications Lactated Ringer's (Lactated Ringer's) 1,000 mls @ 50 mls/hr IV .Q20H [facility] Physical Exam - Head Exam Head Exam: ATRAUMATIC Additional comments: right sided facial droop - Eye Exam Eye Exam: EOMI, Normal appearance Pupil Exam: NORMAL ACCOMODATION - ENT Exam ENT Exam: Mucous Membranes Moist - Neck Exam Neck exam: Positive for: Normal Inspection Additional comments: no jvd - Respiratory Exam Respiratory Exam: Clear to Auscultation Bilateral, NORMAL BREATHING PATTERN - Cardiovascular Exam Cardiovascular Exam: Bradycardia, +S1, +S2, Systolic Murmur - GI/Abdominal Exam GI & Abdominal Exam: Normal Bowel Sounds, Soft Additional comments: scarring multiple - Neurological Exam Neurological exam: Alert, Oriented x3 - Skin Skin Exam: Normal Color Results - Vital Signs Recent Vital Signs: Last Vital Signs Temp 97.8 F 05/14/18 12:34 Pulse 80 05/14/18 13:45 Resp 18 05/14/18 13:45 BP 95/54 L 05/14/18 13:45 Pulse Ox 99 05/14/18 13:45 - Labs Result Diagrams: 05/14/18 13:00 05/14/18 13:00 Labs: Laboratory Results - last 24 hr 05/14/18 05/14/18 05/14/18 12:37 13:00 13:00 WBC 8.0 RBC 4.03 L Hgb 11.2 L Hct 34.2 L MCV 84.8 MCH 27.9 MCHC 32.9 L RDW 15.2 H Plt Count 198 MPV 10.9 Neut % (Auto) 60.8 Lymph % (Auto) 30.2 [place] % (Auto) 6.2 Eos % (Auto) 2.2 Baso % (Auto) 0.6 Neut # (Auto) 4.9 Lymph # (Auto) 2.4 [place] # (Auto) 0.5 Eos # (Auto) 0.2 Baso # (Auto) 0.0 PT 12.1 INR 1.1 APTT 50 H D-Dimer, Quantitative 661 H Sodium Potassium Chloride Carbon Dioxide Anion Gap BUN Creatinine Est GFR ( Amer) Est GFR (Non-Af Amer) POC Glucose (mg/dL) 310 H Random Glucose Calcium Total Bilirubin AST ALT Alkaline Phosphatase Total Creatine Kinase CK-MB (Mass) Troponin I Total Protein Albumin Globulin Albumin/Globulin Ratio TSH 3rd Generation Blood Type Antibody Screen Antibody Identification 05/14/18 05/14/18 13:00 13:45 WBC RBC Hgb Hct MCV MCH MCHC RDW Plt Count MPV Neut % (Auto) Lymph % (Auto) [place] % (Auto) Eos % (Auto) Baso % (Auto) Neut # (Auto) Lymph # (Auto) [place] # (Auto) Eos # (Auto) Baso # (Auto) PT INR APTT D-Dimer, Quantitative Sodium 141 Potassium 4.6 Chloride 108 H Carbon Dioxide 20 L Anion Gap 18 BUN 24 H Creatinine 1.7 H Est GFR ( Amer) 47 Est GFR (Non-Af Amer) 39 POC Glucose (mg/dL) Random Glucose 288 H Calcium 8.6 Total Bilirubin 0.4 AST 22 ALT 25 Alkaline Phosphatase 161 H Total Creatine Kinase 103 CK-MB (Mass) 1.33 Troponin I < 0.0120 Total Protein 7.3 Albumin 4.2 Globulin 3.1 Albumin/Globulin Ratio 1.3 TSH 3rd Generation 2.31 Blood Type A NEGATIVE Antibody Screen Positive Antibody Identification Anti K Assessment & Plan - Assessment and Plan (Free Text) Assessment: -SOB 2nd Heart block and poor CI: emergent trancutaneous pacing wire placed, obtain TSH, RPR and EPS consult -h/o CAD: will benfit from asa, statin, no avnoblocker, ro ACS, check topr q8hrs -NPO -JOSE: check UA/US abdomen/avoid nephrotoxic drugs, nephrology eval -dvt ppx heparin SQ -PUD ppx protonix. Patient remains hemodynamically stable while being paced. Ep to placement of PPM. cc time 45 minutes, excluding any time spent on procedures. - Date & Time Date: 05/14/18 Time: 15:27
[2018-05-14] MEDS ORDERED: Lactated Ringer's 1,000 ML IV SCH (15:30)
[2018-05-14] MEDS ORDERED: (Novolog) Insulin Aspart, Recombinant 100 u/ml 10 ml vial SC SCH (15:45)
--- NOTE | 2018-05-14 16:29 | US ---
HISTORY: JOSE COMPARISON: None. TECHNIQUE: Grayscale imaging was performed. FINDINGS: LIVER: Measures 20.0 cm. There is diffuse increased echogenicity of the liver parenchyma. No mass. No intrahepatic bile duct dilatation. GALLBLADDER: Surgically absent. There is air in the biliary tract near asha hepatis which is likely post surgical in etiology. COMMON BILE DUCT: Measures 7.0 mm. No stones. No dilatation. PANCREAS: Unremarkable as visualized. No mass. No ductal dilatation. RIGHT KIDNEY: Measures 11.0cm. Normal echogenicity. No calculus, mass, or hydronephrosis. LEFT KIDNEY: Measures 9.8cm. Normal echogenicity. No calculus, mass, or hydronephrosis. There is a 1.5 x 1.5 x 1.7 cm cyst in the upper pole. SPLEEN: Enlarged and measures 14.7 cm. No mass. AORTA: No aneurysmal dilatation. IVC: Unremarkable. OTHER FINDINGS: None. IMPRESSION: Mild hepatomegaly. Diffuse increased echogenicity in the liver may reflect hepatic steatosis however parenchymal infectious/ inflammatory etiologies cannot be entirely excluded. Clinical and laboratory correlation is advised. Mild splenomegaly.
[2018-05-14] MEDS ORDERED: DOPamine 400mg/250ml D5W 400 MG/250 ML BAG IV PRN ×2 (16:38→17:26)
--- NOTE | 2018-05-14 17:15 | RAD ---
HISTORY: Shortness of breath COMPARISON: 03/14/2018. FINDINGS: LUNGS: The right lung is hyperinflated. No focal consolidation. There are stable postsurgical changes in the left lung with low lung volume. There are multiple surgical clips in the left hilum. PLEURA: No significant pleural effusion identified, no pneumothorax apparent. CARDIOVASCULAR: The cardiomediastinal silhouette is stable. OSSEOUS STRUCTURES: Stable. VISUALIZED UPPER ABDOMEN: Normal. OTHER FINDINGS: There is chronic elevation of the left. IMPRESSION: No acute findings. Stable postsurgical changes in the left lung
[2018-05-14] MEDS: Lactated Ringer's 1,000 ML IV SCH (17:30)
[2018-05-14] MEDS ORDERED: Magnesium Citrate Oral SOL (300 ml) PO ONE (19:32)
[2018-05-14 20:47] LABS: BARBITURATES, UR NEGATIVE (NEGATIVE); PHENCYCLIDINE, UR NEGATIVE (NEGATIVE)
[2018-05-14 20:57] LABS: SQUAMOUS EPITHIAL < 1 /hpf (0-5); URINE BACTERIA RARE (<OCC); URINE BILIRUBIN NEGATIVE (NEGATIVE); URINE BLOOD NEGATIVE (NEGATIVE); URINE CLARITY Clear (Clear); URINE COLOR Yellow (YELLOW); URINE GLUCOSE (UA) NORMAL (Normal); URINE LEUKOCYTE ESTERASE NEG Leu/uL (Negative); URINE PROTEIN 1+ mg/dL (NEGATIVE); URINE UROBILINOGEN NORMAL mg/dL (0.2-1.0)
[2018-05-14] MEDS: Piperacill/Tazo 3.375gm in Dex 3.375 GM/50 ML BAG IVPB SCH (21:12)
[2018-05-14 21:16] LABS: BENZODIAZEPINES, UR POSITIVE (NEGATIVE); OPIATES, UR POSITIVE (NEGATIVE)
--- NOTE | 2018-05-14 22:07 | CP.PCM.CON ---
History of Present Illness - History of Present Illness History of Present Illness: Reason For Consultation: Heart Block 83 y/o male, whose PMH includes CAD, CHF, COPD, diabetes, lung cancer, gall bladder disease, HTN, hypercholesterolemia, and hyperlipidemia, who presents to the emergency department complaining of shortness of breath since this morning. Patient denies chest pain, headache, fever, chills, cough, back pain, nausea, vomiting, diarrhea, abdominal pain, lower extremity pain/swelling, recent travel , recent surgery, recent prolonged immobilization, hematochezia, melena, dizziness or lightheadedness. Chief Complaint (Nursing): Shortness Of Breath History Per: Patient History/Exam Limitations: no limitations Onset/Duration Of Symptoms: Hrs Current Symptoms Are (Timing): Still Present Current Respiratory Medications: None Associated Symptoms: denies: Chest Pain, Dizziness Recent travel outside of the [place]: No Past Medical History Reviewed: Historical Data, Nursing Documentation, Vital Signs Vital Signs: Last Vital Signs Temp 97.8 F 05/14/18 12:34 Pulse 33 L 05/14/18 12:34 Resp 20 05/14/18 12:52 BP Pulse Ox 2 L 05/14/18 13:20 - Medical History PMH: Arthritis, Asthma, Benign Prostatic Hyperplasia, CAD, CHF, COPD, Diabetes, Emphysema, Gall Bladder Disease, Hiatal Hernia, HTN, Hypercholesterolemia, Hyperlipidemia, Pneumonia, Sleep Apnea, Chronic Pain (Left chest/abdomen) Denies: Anemia, Anxiety, Bipolar Disorder, Bronchitis, Cardia Arrhythmia, Crohn's Disease, Dementia, Depression, Diverticulitis, Fibromyalgia, Fractures, Gastrointestinal Ulcer, HIV, Hyperthyroidism, Hypothyroidism, Kidney Stones, Migraine, Mitral Valve Prolapse, Osteoporosis, Pancreatitis, Paranoia, Parkinson 's Disease, Peripheral Edema, Post Traumatic Stress Disorder, Chronic Kidney Disease, Schizophrenia, Seizures, Sickle Cell Disease, Sexually Transmitted Disease, TIA Surgical History: Cholecystectomy (open cholecystectomy with CBD exploration 2012), Coronary Stent, Hernia Repair Denies: Appendectomy, Pacemaker - [facility] Procedures ANESTH INJECT SYMP NERVE (05/12/13) C & S-INTEGUMENT (08/27/14) CENTRAL VENOUS CATHETER PLACEMENT WITH GUIDANCE (07/18/15) CHOLECYSTECTOMY (10/16/13) CLOSED ENDOSCOPIC BIOPSY OF LARGE INTESTINE (09/01/13) CLOSED [PERCUTANEOUS] [NEEDLE] BIOPSY OF LUNG (06/21/13) COMMON DUCT EXPLORATION (10/16/13) CONTINUOUS INVASIVE MECHANICAL VENTILATION <96 CONSEC HRS (11/05/14) CORONAR ARTERIOGR-2 CATH (09/05/02) CYSTOSCOPY NEC (07/14/13) DX ULTRASOUND-DIGESTIVE (08/21/12) ENDOSCOPIC BRONCHIAL BX (07/28/13) ENTERAL INFUSION OF CONCENTRATED NUT. SUBSTANCES (11/05/14) ESOPHAGOGASTRODUODENOSCOPY [EGD] W/CLOSED BIOPSY (10/06/13) EXCISION OF STOMACH, ENDO, DIAGN (08/23/16) FLUOROSCOPY OF SUPERIOR VENA CAVA, GUIDANCE (07/13/16) GASTROTOMY (07/29/06) INFLUENZA VACCINATION (11/05/14) INJECT/INFUSE ELECTROLYT (05/29/14) INJECT/INFUSE NEC (01/29/15) INSERT ENDOTRACHEAL TUBE (11/05/14) INSERT INTERCOSTAL CATH (09/01/13) INSERTION OF INFUSION DEV INTO R INNOM VEIN, PERC APPROACH (10/05/15) INSERTION OF INFUSION DEV INTO SUP VENA CAVA, PERC APPROACH (08/23/16) INTRODUCE OF OTH THERAP SUBST INTO RESP TRACT, VIA OPENING (12/18/16) INTRODUCE OTH ANTI-INFECT IN CENTRAL VEIN, PERC (10/05/15) LEFT HEART CARDIAC CATH (09/05/02) LT HEART ANGIOCARDIOGRAM (09/05/02) MAGNETIC RESONANCE IMAGING OF SPINAL CANAL (10/16/13) NEBULIZER THERAPY (09/12/14) NON-INVASIVE MECHANICAL VENTILATION (07/14/13) OTH LYSIS-PERITONEAL ADHES (10/16/13) OTHER ENDOSCOPY OF SM INTEST (10/12/14) OTHER SKIN & SUBQ I D (04/30/14) PACKED CELL TRANSFUSION (10/30/13) PANCREAT SPHINCTEROPLAS (10/16/13) PART GASTREC W JEJ ANAST (07/29/06) PERCUTAN NEEDLE BIOPSY OF PROSTATE (09/01/13) REPAIR OF INTESTINE NEC (10/16/13) SM-TO-SM BOWEL ANASTOM (07/29/06) THORACOSCOPIC LOBECTOMY OF LUNG (07/28/13) TRANSURETHRAL PROSTATECTOMY ([place]) (07/14/13) URETHRAL DILATION (09/01/13) VACCINATION NEC (11/05/14) VENOUS CATHETERIZATION NEC (11/05/14) Family History: States: Unknown Family Hx - Social History Hx Tobacco Use: Yes Hx Alcohol Use: No Hx Substance Use: No - Immunization History Hx Tetanus Toxoid Vaccination: Yes Hx Influenza Vaccination: Yes Hx Pneumococcal Vaccination: Yes Review Of Systems Constitutional: Negative for: Fever Cardiovascular: Negative for: Chest Pain Respiratory: Positive for: Shortness of Breath Gastrointestinal: Negative for: Vomiting, Abdominal Pain Genitourinary: Negative for: Dysuria, Frequency Skin: Negative for: Rash Neurological: Negative for: Numbness Physical Exam - Physical Exam Appears: Well, Non-toxic, No Acute Distress Skin: Normal Color, Warm, Dry Head: Atraumatic, Normacephalic Eye(s): bilateral: Normal Inspection, PERRL, EOMI Cardiovascular: Rhythm Regular, No Murmur Respiratory: Normal Breath Sounds, No Decreased Breath Sounds, No Rales, No Rhonchi, No Wheezing Gastrointestinal/Abdominal: Normal Exam, Bowel Sounds (active), Soft, No Tenderness, No Mass, No Distention, No Guarding, No Rebound Rectal: Other (healed wound on epigastric region from cholecystectomy ) Extremity: Normal ROM Neurological/Psych: Oriented x3, Normal Speech, Normal Motor Past Patient History - Infectious Disease Hx of Infectious Diseases: None - Tetanus Immunizations Tetanus Immunization: Unknown - Past Medical History & Family History Past Medical History?: Yes - Past Social History Smoking Status: Former Smoker - CARDIAC Hx Cardia Arrhythmia: No Hx Congestive Heart Failure: Yes Hx Hypercholesterolemia: Yes Hx Hypertension: Yes Hx Mitral Valve Prolapse: No Hx Pacemaker: No Hx Peripheral Edema: No - PULMONARY Hx Asthma: Yes Hx Bronchitis: No Hx Chronic Obstructive Pulmonary Disease (COPD): Yes Hx Emphysema: Yes Hx Pneumonia: Yes Hx Sleep Apnea: Yes - NEUROLOGICAL Hx Dementia: No Hx Migraine: No Hx Parkinson's Disease: No Hx Seizures: No Hx Transient Ischemic Attacks (TIA): No - HEENT Hx HEENT Problems: No Hx Blind: No Hx Cataracts: No Hx Deafness: No Hx Difficulty Chewing: No Hx Epistaxis: No Hx Glaucoma: No Hx Macular Degeneration: No - RENAL Hx Chronic Kidney Disease: No Hx Kidney Stones: No - ENDOCRINE/METABOLIC Hx Hyperthyroidism: No Hx Hypothyroidism: No - HEMATOLOGICAL/ONCOLOGICAL Hx Anemia: No Hx Human Immunodeficiency Virus (HIV): No Hx Sickle Cell Disease: No - INTEGUMENTARY Hx Dermatological Problems: No Hx Basil Cell: No Hx Eczema: No Hx Melanoma: No Hx Psoriasis: No Hx Squamous Cell: No - MUSCULOSKELETAL/RHEUMATOLOGICAL Hx Arthritis: Yes Hx Fractures: No Hx Osteoporosis: No - GASTROINTESTINAL Hx Crohn's Disease: No Hx Diverticulitis: No Hx Gall Bladder Disease: Yes Hx Pancreatitis: No - GENITOURINARY/GYNECOLOGICAL Hx Sexually Transmitted Disorders: No - PSYCHIATRIC Hx Anxiety: No Hx Bipolar Disorder: No Hx Depression: No Hx Paranoia: No Hx Post Traumatic Stress Disorder: No Hx Schizophrenia: No Hx Substance Use: No - SURGICAL HISTORY Hx Appendectomy: No Hx Cholecystectomy: Yes (open cholecystectomy with CBD exploration 2012) Hx Coronary Stent: Yes - ANESTHESIA Hx Anesthesia: Yes Hx Anesthesia Reactions: No Hx Malignant Hyperthermia: No Meds Allergies/Adverse Reactions: Allergies Allergy/AdvReac Type Severity Reaction Status Date / Time No Known Allergies Allergy Verified 08/24/17 11:58 - Medications Medications: Current Medications Aspirin (Aspirin Chewable) 81 mg PO DAILY [facility] Bisacodyl (Dulcolax) 10 mg [place] HS PRN PRN Reason: Constipation Last Admin: 05/14/18 18:30 Dose: 10 mg Clopidogrel Bisulfate (Plavix) 75 mg PO DAILY [facility] Docusate Sodium (Colace) 100 mg PO TID [facility] Last Admin: 05/14/18 17:47 Dose: 100 mg Heparin Sodium (Porcine) (Heparin) 5,000 units SC Q12 [facility] Dopamine HCl/Dextrose (Dopamine 400mg/250ml D5w) 400 mg in 250 mls @ 6.124 mls/ hr IV .Q24H PRN; Protocol; 2 MCG/KG/MIN PRN Reason: Titrate to keep SBP above 100 Last Titration: 05/14/18 17:46 Dose: 6 mcg/kg/min, 18.371 mls/hr Lactated Ringer's (Lactated Ringer's) 1,000 mls @ 80 mls/hr IV .[id number] [facility] Last Admin: 05/14/18 17:30 Dose: 80 mls/hr Piperacillin Sod/Tazobactam Sod (Zosyn 3.375 Gm Iv Premix) 3.375 gm in 50 mls @ 100 mls/hr IVPB Q8H [facility] PRN Reason: Protocol Insulin Aspart (Novolog) 1 unit SC ACHS [facility] PRN Reason: Protocol Lactulose (Enulose) 20 gm PO HS PRN PRN Reason: Constipation Last Admin: 05/14/18 17:28 Dose: 20 gm Lorazepam (Ativan) 1 mg IVP Q6H PRN PRN Reason: Anxiety Metoclopramide HCl (Reglan) 10 mg IVP Q8H PRN PRN Reason: Nausea/Vomiting Oxycodone HCl (Oxycodone Immediate Release Tab) 30 mg PO Q4H PRN PRN Reason: Pain, severe (8-10) Sennosides (Senokot Tab) 8.6 mg PO DAILY [facility] Results - Vital Signs Recent Vital Signs: Last Vital Signs Temp 97.7 F 05/14/18 14:30 Pulse 81 05/14/18 19:47 Resp 10 L 05/14/18 19:47 BP 78/48 L 05/14/18 19:47 Pulse Ox 100 05/14/18 19:13 - Labs Result Diagrams: 05/14/18 13:00 05/14/18 13:00 Labs: Laboratory Results - last 24 hr 05/14/18 05/14/18 05/14/18 12:37 13:00 13:00 WBC 8.0 RBC 4.03 L Hgb 11.2 L Hct 34.2 L MCV 84.8 MCH 27.9 MCHC 32.9 L RDW 15.2 H Plt Count 198 MPV 10.9 Neut % (Auto) 60.8 Lymph % (Auto) 30.2 Quay % (Auto) 6.2 Eos % (Auto) 2.2 Baso % (Auto) 0.6 Neut # (Auto) 4.9 Lymph # (Auto) 2.4 Quay # (Auto) 0.5 Eos # (Auto) 0.2 Baso # (Auto) 0.0 PT 12.1 INR 1.1 APTT 50 H D-Dimer, Quantitative 661 H Sodium Potassium Chloride Carbon Dioxide Anion Gap BUN Creatinine Est GFR ( Amer) Est GFR (Non-Af Amer) POC Glucose (mg/dL) 310 H Random Glucose Lactic Acid Calcium Total Bilirubin AST ALT Alkaline Phosphatase Total Creatine Kinase CK-MB (Mass) Troponin I NT-Pro-B Natriuret Pep Total Protein Albumin Globulin Albumin/Globulin Ratio TSH 3rd Generation Urine Color Urine Clarity Urine pH Ur Specific [place] Urine Protein Urine Glucose (UA) Urine Ketones Urine Blood Urine Nitrate Urine Bilirubin Urine Urobilinogen Ur Leukocyte Esterase Urine WBC (Auto) Urine RBC (Auto) Ur Squamous Epith Cells Urine Bacteria Urine Opiates Screen Urine Methadone Screen Ur Barbiturates Screen Ur Phencyclidine Scrn Ur Amphetamines Screen U Benzodiazepines Scrn U Oth Cocaine Metabols U Cannabinoids Screen RPR Blood Type Antibody Screen Antibody Identification 05/14/18 05/14/18 05/14/18 13:00 13:02 13:24 WBC RBC Hgb Hct MCV MCH MCHC RDW Plt Count MPV Neut % (Auto) Lymph % (Auto) Quay % (Auto) Eos % (Auto) Baso % (Auto) Neut # (Auto) Lymph # (Auto) [place]ay # (Auto) Eos # (Auto) Baso # (Auto) PT INR APTT D-Dimer, Quantitative Sodium 141 Potassium 4.6 Chloride 108 H Carbon Dioxide 20 L Anion Gap 18 BUN 24 H Creatinine 1.7 H Est GFR ( Amer) 47 Est GFR (Non-Af Amer) 39 POC Glucose (mg/dL) Random Glucose 288 H Lactic Acid Calcium 8.6 Total Bilirubin 0.4 AST 22 ALT 25 Alkaline Phosphatase 161 H Total Creatine Kinase 103 CK-MB (Mass) 1.33 Troponin I < 0.0120 NT-Pro-B Natriuret Pep 427 Total Protein 7.3 Albumin 4.2 Globulin 3.1 Albumin/Globulin Ratio 1.3 TSH 3rd Generation 2.31 Urine Color Urine Clarity Urine pH Ur Specific [place] Urine Protein Urine Glucose (UA) Urine Ketones Urine Blood Urine Nitrate Urine Bilirubin Urine Urobilinogen Ur Leukocyte Esterase Urine WBC (Auto) Urine RBC (Auto) Ur Squamous Epith Cells Urine Bacteria Urine Opiates Screen Urine Methadone Screen Ur Barbiturates Screen Ur Phencyclidine Scrn Ur Amphetamines Screen U Benzodiazepines Scrn U Oth Cocaine Metabols U Cannabinoids Screen RPR Nonreactive Blood Type Antibody Screen Antibody Identification 05/14/18 05/14/18 05/14/18 13:45 15:43 16:12 WBC RBC Hgb Hct MCV MCH MCHC RDW Plt Count MPV Neut % (Auto) Lymph % (Auto) Quay % (Auto) Eos % (Auto) Baso % (Auto) Neut # (Auto) Lymph # (Auto) Quay # (Auto) Eos # (Auto) Baso # (Auto) PT INR APTT D-Dimer, Quantitative Sodium Potassium Chloride Carbon Dioxide Anion Gap BUN Creatinine Est GFR ( Amer) Est GFR (Non-Af Amer) POC Glucose (mg/dL) 201 H Random Glucose Lactic Acid Calcium Total Bilirubin AST ALT Alkaline Phosphatase Total Creatine Kinase CK-MB (Mass) Troponin I 0.0170 NT-Pro-B Natriuret Pep Total Protein Albumin Globulin Albumin/Globulin Ratio TSH 3rd Generation Urine Color Urine Clarity Urine pH Ur Specific [place] Urine Protein Urine Glucose (UA) Urine Ketones Urine Blood Urine Nitrate Urine Bilirubin Urine Urobilinogen Ur Leukocyte Esterase Urine WBC (Auto) Urine RBC (Auto) Ur Squamous Epith Cells Urine Bacteria Urine Opiates Screen Urine Methadone Screen Ur Barbiturates Screen Ur Phencyclidine Scrn Ur Amphetamines Screen U Benzodiazepines Scrn U Oth Cocaine Metabols U Cannabinoids Screen RPR Blood Type A NEGATIVE Antibody Screen Positive Antibody Identification Anti K 05/14/18 05/14/18 05/14/18 17:45 20:23 20:23 WBC RBC Hgb Hct MCV MCH MCHC RDW Plt Count MPV Neut % (Auto) Lymph % (Auto) Quay % (Auto) Eos % (Auto) Baso % (Auto) Neut # (Auto) Lymph # (Auto) [place] # (Auto) Eos # (Auto) Baso # (Auto) PT INR APTT D-Dimer, Quantitative Sodium Potassium Chloride Carbon Dioxide Anion Gap BUN Creatinine Est GFR ( Amer) Est GFR (Non-Af Amer) POC Glucose (mg/dL) Random Glucose Lactic Acid 1.2 Calcium Total Bilirubin AST ALT Alkaline Phosphatase Total Creatine Kinase CK-MB (Mass) Troponin I NT-Pro-B Natriuret Pep Total Protein Albumin Globulin Albumin/Globulin Ratio TSH 3rd Generation Urine Color Yellow Urine Clarity Clear Urine pH 5.0 Ur Specific [place] 1.012 Urine Protein 1+ H Urine Glucose (UA) Normal Urine Ketones Negative Urine Blood Negative Urine Nitrate Negative Urine Bilirubin Negative Urine Urobilinogen Normal Ur Leukocyte Esterase Neg Urine WBC (Auto) 1 Urine RBC (Auto) 1 Ur Squamous Epith Cells < 1 Urine Bacteria Rare Urine Opiates Screen Positive H Urine Methadone Screen Negative Ur Barbiturates Screen Negative Ur Phencyclidine Scrn Negative Ur Amphetamines Screen Negative U Benzodiazepines Scrn Positive U Oth Cocaine Metabols Negative U Cannabinoids Screen Negative RPR Blood Type Antibody Screen Antibody Identification 05/14/18 21:06 WBC RBC Hgb Hct MCV MCH MCHC RDW Plt Count MPV Neut % (Auto) Lymph % (Auto) [place] % (Auto) Eos % (Auto) Baso % (Auto) Neut # (Auto) Lymph # (Auto) [place] # (Auto) Eos # (Auto) Baso # (Auto) PT INR APTT D-Dimer, Quantitative Sodium Potassium Chloride Carbon Dioxide Anion Gap BUN Creatinine Est GFR ( Amer) Est GFR (Non-Af Amer) POC Glucose (mg/dL) 171 H Random Glucose Lactic Acid Calcium Total Bilirubin AST ALT Alkaline Phosphatase Total Creatine Kinase CK-MB (Mass) Troponin I NT-Pro-B Natriuret Pep Total Protein Albumin Globulin Albumin/Globulin Ratio TSH 3rd Generation Urine Color Urine Clarity Urine pH Ur Specific [place] Urine Protein Urine Glucose (UA) Urine Ketones Urine Blood Urine Nitrate Urine Bilirubin Urine Urobilinogen Ur Leukocyte Esterase Urine WBC (Auto) Urine RBC (Auto) Ur Squamous Epith Cells Urine Bacteria Urine Opiates Screen Urine Methadone Screen Ur Barbiturates Screen Ur Phencyclidine Scrn Ur Amphetamines Screen U Benzodiazepines Scrn U Oth Cocaine Metabols U Cannabinoids Screen RPR Blood Type Antibody Screen Antibody Identification Assessment & Plan - Assessment and Plan (Free Text) Assessment: 83 Male admitted 3rd degree AV block TVP inserted by ICU attending For PPM on [facility] on Wednesday EP Consult: Dr. Flores Hypotension on Dopamine and IV fluid Acute on Chronic CKD Prior ECHO: EF 45% Hx of Lung Ca
[2018-05-14] MEDS: (Novolog) Insulin Aspart, Recombinant 100 u/ml 10 ml vial SC SCH (22:49)
[2018-05-15] MEDS: Piperacill/Tazo 3.375gm in Dex 3.375 GM/50 ML BAG IVPB SCH ×3 (04:45→20:45)
[2018-05-15 06:48] LABS: BASO % 0.4 % (0.0-2.0); EOS % 0.6 % (0.0-4.0); HEMOGLOBIN 11.8 g/dL (12.0-18.0); LYMPH # 1.9 K/uL (1.0-4.3); LYMPH % 23.2 % (20.0-40.0); MEAN CELL VOLUME 83.2 fL (80.0-94.0); MEAN CORPUSCULAR HEMOGLOBIN 27.4 pg (27.0-31.0); MEAN PLATELET VOLUME 10.6 fL (7.2-11.7); MONO # 0.4 K/uL (0.0-0.8); MONO % 5.1 % (0.0-10.0); NEUT # 5.9 K/uL (1.8-7.0); NEUT % 70.7 % (50.0-75.0); NRBC % 0.1 % (0.0-2.0); RBC 4.31 Mil/uL (4.40-5.90); RED CELL DISTRIBUTION WIDTH 14.9 % (11.5-14.5); WHITE BLOOD COUNT 8.3 K/uL (4.8-10.8)
[2018-05-15 07:20] LABS: ALB/GLOB RATIO 1.3 (1.0-2.1); ALT/SGPT 26 U/L (21-72); AST/SGOT 20 U/L (17-59); BLOOD UREA NITROGEN 24 mg/dL (9-20); CALCIUM 8.6 mg/dl (8.6-10.4); GFR AFRICAN-AMERICAN > 60; GFR NON-AFRICAN AMERICAN 58
[2018-05-15] MEDS: (Novolog) Insulin Aspart, Recombinant 100 u/ml 10 ml vial SC SCH ×4 (08:04→21:47)
[2018-05-15] MEDS: Lactated Ringer's 1,000 ML IV SCH ×3 (10:56→23:35)
[2018-05-15] MEDS ORDERED: Thrombin Topical 5,000 Int Units Spray Kit ONE (11:58)
--- NOTE | 2018-05-15 11:58 | CP.PCM.PN ---
Subjective - Date & Time of Evaluation Date of Evaluation: 05/15/18 Time of Evaluation: 11:56 - Subjective Subjective: PAtient had bowel movement overnight. PAtient denies any SOB, denies any chest pain, deneis any dizziness Objective - Vital Signs/Intake and Output Vital Signs (last 24 hours): Temp Pulse Resp BP Pulse Ox 97.4 F L 80 17 89/65 L 99 05/15/18 08:00 05/15/18 11:01 05/15/18 11:01 05/15/18 11:01 05/15/18 11:01 Intake and Output: 05/15/18 05/15/18 06:59 18:59 Intake Total 1697.3 240 Output Total 125 575 Balance 1572.3 -335 - Medications Medications: Current Medications Aspirin (Aspirin Chewable) 81 mg PO DAILY [facility] Bisacodyl (Dulcolax) 10 mg [place] HS PRN PRN Reason: Constipation Last Admin: 05/14/18 18:30 Dose: 10 mg Clopidogrel Bisulfate (Plavix) 75 mg PO DAILY [facility] Docusate Sodium (Colace) 100 mg PO TID [facility] Last Admin: 05/14/18 17:47 Dose: 100 mg Heparin Sodium (Porcine) (Heparin) 5,000 units SC Q12 [facility] Last Admin: 05/14/18 22:51 Dose: 5,000 units Dopamine HCl/Dextrose (Dopamine 400mg/250ml D5w) 400 mg in 250 mls @ 6.124 mls/ hr IV .Q24H PRN; Protocol; 2 MCG/KG/MIN PRN Reason: Titrate to keep SBP above 100 Last Titration: 05/15/18 06:00 Dose: Infused Lactated Ringer's (Lactated Ringer's) 1,000 mls @ 80 mls/hr IV .[id number] [facility] Last Admin: 05/15/18 10:56 Dose: 80 mls/hr Piperacillin Sod/Tazobactam Sod (Zosyn 3.375 Gm Iv Premix) 3.375 gm in 50 mls @ 100 mls/hr IVPB Q8H [facility] PRN Reason: Protocol Last Admin: 05/15/18 04:45 Dose: 100 mls/hr Insulin Aspart (Novolog) 1 unit SC ACHS [facility] PRN Reason: Protocol Last Admin: 05/15/18 08:04 Dose: 1 units Lactulose (Enulose) 20 gm PO HS PRN PRN Reason: Constipation Last Admin: 05/14/18 17:28 Dose: 20 gm Lorazepam (Ativan) 1 mg IVP Q6H PRN PRN Reason: Anxiety Last Admin: 05/15/18 08:01 Dose: 1 mg Metoclopramide HCl (Reglan) 10 mg IVP Q8H PRN PRN Reason: Nausea/Vomiting Oxycodone HCl (Oxycodone Immediate Release Tab) 30 mg PO Q4H PRN PRN Reason: Pain, severe (8-10) Sennosides (Senokot Tab) 8.6 mg PO DAILY [facility] - Labs Labs: 05/15/18 06:41 05/15/18 06:35 PT 12.1 SECONDS (9.7-12.2) 05/14/18 13:00 INR 1.1 05/14/18 13:00 APTT 50 SECONDS (21-34) H 05/14/18 13:00 - Constitutional Appears: Well, No Acute Distress - Head Exam Head Exam: ATRAUMATIC - Eye Exam Eye Exam: EOMI - ENT Exam ENT Exam: Mucous Membranes Moist - Neck Exam Neck Exam: Full ROM - Respiratory Exam Respiratory Exam: Clear to Ausculation Bilateral, NORMAL BREATHING PATTERN. absent: Rales, Rhonchi, Wheezes, Respiratory Distress, Stridor - Cardiovascular Exam Cardiovascular Exam: +S1, +S2, Murmur - GI/Abdominal Exam GI & Abdominal Exam: Normal Bowel Sounds - Neurological Exam Neurological Exam: Alert, Awake, Oriented x3 Assessment and Plan - Assessment and Plan (Free Text) Assessment: -SOB 2nd Heart block and poor CI: resolved with trancutaneous pacing, EP consult possible PPM today -h/o CAD:continue asa, statin, no avnoblocker, cardiology input appreciated -NPO -JOSE: resolved with IVF -dvt ppx heparin SQ -PUD ppx protonix. Patient remains hemodynamically stable while being paced.
[2018-05-15] MEDS ORDERED: Bacitracin 50,000 UNIT in Sodium Chloride 0.9% Irrig 1,000 ML IR SCH (12:00)
--- NOTE | 2018-05-15 12:17 | CP.PCM.CON ---
History of Present Illness - History of Present Illness History of Present Illness: Re: Complete heart block Chart imaging telemetry reviewed Patient/family interviewed and examined 83 year old admitted with shortness of breath and a complete heart block. A temporary trans-venous pacemaker was implanted. He denied syncope chest pain palpitations; he does have an extensive cardiac history and follows up with physicians in [facility] review: abdominal pain for the last 3 years following a cholecystectomy Exam Afebrile Normal venous pressures Pacemaker trans-venous in the right Internal Jugular: unremarkable ?PMI Soft heart sounds; no murmurs Abdomen: soft: midline dressing; wound clean; no exudate Ext: no edema DP +=+ EKG: sinus, complete heart block Tele: sinus, paced rhythm with Labs: reviewed Past Patient History - Infectious Disease Hx of Infectious Diseases: None - Tetanus Immunizations Tetanus Immunization: Unknown - Past Medical History & Family History Past Medical History?: Yes - Past Social History Smoking Status: Former Smoker - CARDIAC Hx Cardia Arrhythmia: No Hx Congestive Heart Failure: Yes Hx Hypercholesterolemia: Yes Hx Hypertension: Yes Hx Mitral Valve Prolapse: No Hx Pacemaker: No Hx Peripheral Edema: No - PULMONARY Hx Asthma: Yes Hx Bronchitis: No Hx Chronic Obstructive Pulmonary Disease (COPD): Yes Hx Emphysema: Yes Hx Pneumonia: Yes Hx Sleep Apnea: Yes - NEUROLOGICAL Hx Dementia: No Hx Migraine: No Hx Parkinson's Disease: No Hx Seizures: No Hx Transient Ischemic Attacks (TIA): No - HEENT Hx HEENT Problems: No Hx Blind: No Hx Cataracts: No Hx Deafness: No Hx Difficulty Chewing: No Hx Epistaxis: No Hx Glaucoma: No Hx Macular Degeneration: No - RENAL Hx Chronic Kidney Disease: No Hx Kidney Stones: No - ENDOCRINE/METABOLIC Hx Hyperthyroidism: No Hx Hypothyroidism: No - HEMATOLOGICAL/ONCOLOGICAL Hx Anemia: No Hx Human Immunodeficiency Virus (HIV): No Hx Sickle Cell Disease: No - INTEGUMENTARY Hx Dermatological Problems: No Hx Basil Cell: No Hx Eczema: No Hx Melanoma: No Hx Psoriasis: No Hx Squamous Cell: No - MUSCULOSKELETAL/RHEUMATOLOGICAL Hx Arthritis: Yes Hx Fractures: No Hx Osteoporosis: No - GASTROINTESTINAL Hx Crohn's Disease: No Hx Diverticulitis: No Hx Gall Bladder Disease: Yes Hx Pancreatitis: No - GENITOURINARY/GYNECOLOGICAL Hx Sexually Transmitted Disorders: No - PSYCHIATRIC Hx Anxiety: No Hx Bipolar Disorder: No Hx Depression: No Hx Paranoia: No Hx Post Traumatic Stress Disorder: No Hx Schizophrenia: No Hx Substance Use: No - SURGICAL HISTORY Hx Appendectomy: No Hx Cholecystectomy: Yes (open cholecystectomy with CBD exploration 2012) Hx Coronary Stent: Yes - ANESTHESIA Hx Anesthesia: Yes Hx Anesthesia Reactions: No Hx Malignant Hyperthermia: No Meds Allergies/Adverse Reactions: Allergies Allergy/AdvReac Type Severity Reaction Status Date / Time No Known Allergies Allergy Verified 08/24/17 11:58 - Medications Medications: Current Medications Aspirin (Aspirin Chewable) 81 mg PO DAILY [facility] Bisacodyl (Dulcolax) 10 mg GA HS PRN PRN Reason: Constipation Last Admin: 05/14/18 18:30 Dose: 10 mg Clopidogrel Bisulfate (Plavix) 75 mg PO DAILY [facility] Docusate Sodium (Colace) 100 mg PO TID [facility] Last Admin: 05/15/18 11:58 Dose: Not Given Heparin Sodium (Porcine) (Heparin) 5,000 units SC Q12 [facility] Last Admin: 05/15/18 12:00 Dose: Not Given Dopamine HCl/Dextrose (Dopamine 400mg/250ml D5w) 400 mg in 250 mls @ 6.124 mls/ hr IV .Q24H PRN; Protocol; 2 MCG/KG/MIN PRN Reason: Titrate to keep SBP above 100 Last Titration: 05/15/18 06:00 Dose: Infused Lactated Ringer's (Lactated Ringer's) 1,000 mls @ 80 mls/hr IV .[id number] [facility] Last Admin: 05/15/18 10:56 Dose: 80 mls/hr Piperacillin Sod/Tazobactam Sod (Zosyn 3.375 Gm Iv Premix) 3.375 gm in 50 mls @ 100 mls/hr IVPB Q8H [facility] PRN Reason: Protocol Last Admin: 05/15/18 11:55 Dose: 100 mls/hr Bacitracin 50,000 unit/ Sodium (Chloride) 1,000 mls @ 1,000 mls/hr IR .Q1H [facility] PRN Reason: Protocol Stop: 05/15/18 12:59 Insulin Aspart (Novolog) 1 unit SC ACHS [facility] PRN Reason: Protocol Last Admin: 05/15/18 11:57 Dose: Not Given Lactulose (Enulose) 20 gm PO HS PRN PRN Reason: Constipation Last Admin: 05/14/18 17:28 Dose: 20 gm Lorazepam (Ativan) 1 mg IVP Q6H PRN PRN Reason: Anxiety Last Admin: 05/15/18 08:01 Dose: 1 mg Metoclopramide HCl (Reglan) 10 mg IVP Q8H PRN PRN Reason: Nausea/Vomiting Oxycodone HCl (Oxycodone Immediate Release Tab) 30 mg PO Q4H PRN PRN Reason: Pain, severe (8-10) Sennosides (Senokot Tab) 8.6 mg PO DAILY [facility] Results - Vital Signs Recent Vital Signs: Last Vital Signs Temp 97.4 F L 05/15/18 08:00 Pulse 80 05/15/18 11:01 Resp 17 05/15/18 11:01 BP 89/65 L 05/15/18 11:01 Pulse Ox 99 05/15/18 11:01 - Labs Result Diagrams: 05/15/18 06:41 05/15/18 06:35 Labs: Laboratory Results - last 24 hr 05/14/18 05/14/18 05/14/18 12:37 13:00 13:00 WBC 8.0 RBC 4.03 L Hgb 11.2 L Hct 34.2 L MCV 84.8 MCH 27.9 MCHC 32.9 L RDW 15.2 H Plt Count 198 MPV 10.9 Neut % (Auto) 60.8 Lymph % (Auto) 30.2 Crane % (Auto) 6.2 Eos % (Auto) 2.2 Baso % (Auto) 0.6 Neut # (Auto) 4.9 Lymph # (Auto) 2.4 Crane # (Auto) 0.5 Eos # (Auto) 0.2 Baso # (Auto) 0.0 PT 12.1 INR 1.1 APTT 50 H D-Dimer, Quantitative 661 H Sodium Potassium Chloride Carbon Dioxide Anion Gap BUN Creatinine Est GFR ( Amer) Est GFR (Non-Af Amer) POC Glucose (mg/dL) 310 H Random Glucose Lactic Acid Calcium Phosphorus Magnesium Total Bilirubin AST ALT Alkaline Phosphatase Total Creatine Kinase CK-MB (Mass) Troponin I NT-Pro-B Natriuret Pep Total Protein Albumin Globulin Albumin/Globulin Ratio TSH 3rd Generation Urine Color Urine Clarity Urine pH Ur Specific [place] Urine Protein Urine Glucose (UA) Urine Ketones Urine Blood Urine Nitrate Urine Bilirubin Urine Urobilinogen Ur Leukocyte Esterase Urine WBC (Auto) Urine RBC (Auto) Ur Squamous Epith Cells Urine Bacteria Urine Opiates Screen Urine Methadone Screen Ur Barbiturates Screen Ur Phencyclidine Scrn Ur Amphetamines Screen U Benzodiazepines Scrn U Oth Cocaine Metabols U Cannabinoids Screen RPR Blood Type Antibody Screen Antibody Identification 05/14/18 05/14/18 05/14/18 13:00 13:02 13:24 WBC RBC Hgb Hct MCV MCH MCHC RDW Plt Count MPV Neut % (Auto) Lymph % (Auto) Crane % (Auto) Eos % (Auto) Baso % (Auto) Neut # (Auto) Lymph # (Auto) Crane # (Auto) Eos # (Auto) Baso # (Auto) PT INR APTT D-Dimer, Quantitative Sodium 141 Potassium 4.6 Chloride 108 H Carbon Dioxide 20 L Anion Gap 18 BUN 24 H Creatinine 1.7 H Est GFR ( Amer) 47 Est GFR (Non-Af Amer) 39 POC Glucose (mg/dL) Random Glucose 288 H Lactic Acid Calcium 8.6 Phosphorus Magnesium Total Bilirubin 0.4 AST 22 ALT 25 Alkaline Phosphatase 161 H Total Creatine Kinase 103 CK-MB (Mass) 1.33 Troponin I < 0.0120 NT-Pro-B Natriuret Pep 427 Total Protein 7.3 Albumin 4.2 Globulin 3.1 Albumin/Globulin Ratio 1.3 TSH 3rd Generation 2.31 Urine Color Urine Clarity Urine pH Ur Specific [place] Urine Protein Urine Glucose (UA) Urine Ketones Urine Blood Urine Nitrate Urine Bilirubin Urine Urobilinogen Ur Leukocyte Esterase Urine WBC (Auto) Urine RBC (Auto) Ur Squamous Epith Cells Urine Bacteria Urine Opiates Screen Urine Methadone Screen Ur Barbiturates Screen Ur Phencyclidine Scrn Ur Amphetamines Screen U Benzodiazepines Scrn U Oth Cocaine Metabols U Cannabinoids Screen RPR Nonreactive Blood Type Antibody Screen Antibody Identification 05/14/18 05/14/18 05/14/18 13:45 15:43 16:12 WBC RBC Hgb Hct MCV MCH MCHC RDW Plt Count MPV Neut % (Auto) Lymph % (Auto) Crane % (Auto) Eos % (Auto) Baso % (Auto) Neut # (Auto) Lymph # (Auto) Crane # (Auto) Eos # (Auto) Baso # (Auto) PT INR APTT D-Dimer, Quantitative Sodium Potassium Chloride Carbon Dioxide Anion Gap BUN Creatinine Est GFR ( Amer) Est GFR (Non-Af Amer) POC Glucose (mg/dL) 201 H Random Glucose Lactic Acid Calcium Phosphorus Magnesium Total Bilirubin AST ALT Alkaline Phosphatase Total Creatine Kinase CK-MB (Mass) Troponin I 0.0170 NT-Pro-B Natriuret Pep Total Protein Albumin Globulin Albumin/Globulin Ratio TSH 3rd Generation Urine Color Urine Clarity Urine pH Ur Specific [place] Urine Protein Urine Glucose (UA) Urine Ketones Urine Blood Urine Nitrate Urine Bilirubin Urine Urobilinogen Ur Leukocyte Esterase Urine WBC (Auto) Urine RBC (Auto) Ur Squamous Epith Cells Urine Bacteria Urine Opiates Screen Urine Methadone Screen Ur Barbiturates Screen Ur Phencyclidine Scrn Ur Amphetamines Screen U Benzodiazepines Scrn U Oth Cocaine Metabols U Cannabinoids Screen RPR Blood Type A NEGATIVE Antibody Screen Positive Antibody Identification Anti K 05/14/18 05/14/18 05/14/18 17:45 20:23 20:23 WBC RBC Hgb Hct MCV MCH MCHC RDW Plt Count MPV Neut % (Auto) Lymph % (Auto) Crane % (Auto) Eos % (Auto) Baso % (Auto) Neut # (Auto) Lymph # (Auto) Crane # (Auto) Eos # (Auto) Baso # (Auto) PT INR APTT D-Dimer, Quantitative Sodium Potassium Chloride Carbon Dioxide Anion Gap BUN Creatinine Est GFR ( Amer) Est GFR (Non-Af Amer) POC Glucose (mg/dL) Random Glucose Lactic Acid 1.2 Calcium Phosphorus Magnesium Total Bilirubin AST ALT Alkaline Phosphatase Total Creatine Kinase CK-MB (Mass) Troponin I NT-Pro-B Natriuret Pep Total Protein Albumin Globulin Albumin/Globulin Ratio TSH 3rd Generation Urine Color Yellow Urine Clarity Clear Urine pH 5.0 Ur Specific [place] 1.012 Urine Protein 1+ H Urine Glucose (UA) Normal Urine Ketones Negative Urine Blood Negative Urine Nitrate Negative Urine Bilirubin Negative Urine Urobilinogen Normal Ur Leukocyte Esterase Neg Urine WBC (Auto) 1 Urine RBC (Auto) 1 Ur Squamous Epith Cells < 1 Urine Bacteria Rare Urine Opiates Screen Positive H Urine Methadone Screen Negative Ur Barbiturates Screen Negative Ur Phencyclidine Scrn Negative Ur Amphetamines Screen Negative U Benzodiazepines Scrn Positive U Oth Cocaine Metabols Negative U Cannabinoids Screen Negative RPR Blood Type Antibody Screen Antibody Identification 05/14/18 05/15/18 05/15/18 21:06 06:35 06:35 WBC RBC Hgb Hct MCV MCH MCHC RDW Plt Count MPV Neut % (Auto) Lymph % (Auto) Crane % (Auto) Eos % (Auto) Baso % (Auto) Neut # (Auto) Lymph # (Auto) Crane # (Auto) Eos # (Auto) Baso # (Auto) PT INR APTT D-Dimer, Quantitative Sodium Potassium Chloride Carbon Dioxide Anion Gap BUN Creatinine Est GFR ( Amer) Est GFR (Non-Af Amer) POC Glucose (mg/dL) 171 H Random Glucose Lactic Acid 1.8 Calcium Phosphorus Magnesium Total Bilirubin AST ALT Alkaline Phosphatase Total Creatine Kinase CK-MB (Mass) Troponin I 0.0490 NT-Pro-B Natriuret Pep Total Protein Albumin Globulin Albumin/Globulin Ratio TSH 3rd Generation Urine Color Urine Clarity Urine pH Ur Specific [place] Urine Protein Urine Glucose (UA) Urine Ketones Urine Blood Urine Nitrate Urine Bilirubin Urine Urobilinogen Ur Leukocyte Esterase Urine WBC (Auto) Urine RBC (Auto) Ur Squamous Epith Cells Urine Bacteria Urine Opiates Screen Urine Methadone Screen Ur Barbiturates Screen Ur Phencyclidine Scrn Ur Amphetamines Screen U Benzodiazepines Scrn U Oth Cocaine Metabols U Cannabinoids Screen RPR Blood Type Antibody Screen Antibody Identification 05/15/18 05/15/18 05/15/18 06:35 06:41 07:26 WBC 8.3 RBC 4.31 L Hgb 11.8 L Hct 35.9 MCV 83.2 MCH 27.4 MCHC 33.0 RDW 14.9 H Plt Count 165 MPV 10.6 Neut % (Auto) 70.7 Lymph % (Auto) 23.2 Crane % (Auto) 5.1 Eos % (Auto) 0.6 Baso % (Auto) 0.4 Neut # (Auto) 5.9 Lymph # (Auto) 1.9 Crane # (Auto) 0.4 Eos # (Auto) 0.0 Baso # (Auto) 0.0 PT INR APTT D-Dimer, Quantitative Sodium 145 Potassium 5.0 Chloride 107 Carbon Dioxide 26 Anion Gap 17 BUN 24 H Creatinine 1.2 Est GFR ( Amer) > 60 Est GFR (Non-Af Amer) 58 POC Glucose (mg/dL) 179 H Random Glucose 187 H Lactic Acid Calcium 8.6 Phosphorus 3.0 Magnesium 2.5 H Total Bilirubin 0.6 AST 20 ALT 26 Alkaline Phosphatase 150 H Total Creatine Kinase CK-MB (Mass) Troponin I NT-Pro-B Natriuret Pep Total Protein 6.9 Albumin 4.0 Globulin 2.9 Albumin/Globulin Ratio 1.3 TSH 3rd Generation Urine Color Urine Clarity Urine pH Ur Specific [place] Urine Protein Urine Glucose (UA) Urine Ketones Urine Blood Urine Nitrate Urine Bilirubin Urine Urobilinogen Ur Leukocyte Esterase Urine WBC (Auto) Urine RBC (Auto) Ur Squamous Epith Cells Urine Bacteria Urine Opiates Screen Urine Methadone Screen Ur Barbiturates Screen Ur Phencyclidine Scrn Ur Amphetamines Screen U Benzodiazepines Scrn U Oth Cocaine Metabols U Cannabinoids Screen RPR Blood Type Antibody Screen Antibody Identification 05/15/18 11:12 WBC RBC Hgb Hct MCV MCH MCHC RDW Plt Count MPV Neut % (Auto) Lymph % (Auto) Crane % (Auto) Eos % (Auto) Baso % (Auto) Neut # (Auto) Lymph # (Auto) Crane # (Auto) Eos # (Auto) Baso # (Auto) PT INR APTT D-Dimer, Quantitative Sodium Potassium Chloride Carbon Dioxide Anion Gap BUN Creatinine Est GFR ( Amer) Est GFR (Non-Af Amer) POC Glucose (mg/dL) 165 H Random Glucose Lactic Acid Calcium Phosphorus Magnesium Total Bilirubin AST ALT Alkaline Phosphatase Total Creatine Kinase CK-MB (Mass) Troponin I NT-Pro-B Natriuret Pep Total Protein Albumin Globulin Albumin/Globulin Ratio TSH 3rd Generation Urine Color Urine Clarity Urine pH Ur Specific [place] Urine Protein Urine Glucose (UA) Urine Ketones Urine Blood Urine Nitrate Urine Bilirubin Urine Urobilinogen Ur Leukocyte Esterase Urine WBC (Auto) Urine RBC (Auto) Ur Squamous Epith Cells Urine Bacteria Urine Opiates Screen Urine Methadone Screen Ur Barbiturates Screen Ur Phencyclidine Scrn Ur Amphetamines Screen U Benzodiazepines Scrn U Oth Cocaine Metabols U Cannabinoids Screen RPR Blood Type Antibody Screen Antibody Identification Assessment & Plan - Assessment and Plan (Free Text) Assessment: Mr. Milian has a complete heart block persistent for the last 24 hours on the background of multiple vascular risk factors and established vascular disease He is a candidate for a permanent pacemaker; options prognosis procedures and risks were discussed with the patient and his family; they verbalized understanding and assented The abdominal wound is a concern; however is chronic and there are no signs of active infection Plan: Permanent pacemaker implant
[2018-05-15] MEDS ORDERED: Lidocaine Hydrochloride 20 ML INJ ONE (12:18)
[2018-05-15] MEDS ORDERED: HEPARIN-NS 5,000 UNITS/500 ML 5,000 UNIT/500 ML BAG IV ONE (12:25)
[2018-05-15] MEDS ORDERED: Midazolam 2 MG/2 ML VIAL ONE (13:05)
[2018-05-15] MEDS ORDERED: Iohexol 240 (50 ml) ONE (13:24)
--- NOTE | 2018-05-15 14:52 | PCM.OP ---
Operative Report - Operative Report Date of Surgery/Procedure: 05/15/18 Time of Surgery/Procedure: 14:50 Surgeon: maggi ALFONSO Anesthesia/Sedation: MAC Pre-Operative Diagnosis: Complete heart block Post-Operative Diagnosis: Complete heart block Indication for Surgery: Complete heart block Operative Findings: Complete heart block with back up pacing via a transvenous pacemaker Procedure/Operation Description: The patient was brought to the OR after informed consent; oxygen saturation rhythm blood pressure were continuously monitored; Defibrillator pads were placed.Iv antibiotics were administred. The left pectoral region was cleansed and prepped in the usual fashion; next the left subclavian vein was accessed twice under fluorsocopy and two six faroese sheaths were placed. Next a 3 cm incision was made 3 cm inferior to the left clavicel over the pectoral muscle; next a pocket was created and hemostasis was ensured. A 52 cm pacing lead was then introduced and situated on the right ventricular apex and screwed in; pace sense parameters were acceptable and stable; the sheath was peeled. A 45 cm pacing lead was then introduced and situated on the right atrial appendage and screwed in; pace sense parameters were acceptable and stable; the sheath was peeled. Next the leads were sutured to the pectoral muscle; the pocket was cleansed witThe pocket was flushed with antibiotics. The new pacemaker generator was then introduced in the field connected to the pacing leads and placed in the pocket; pace sense parameters were unchanged and acceptable; next the pocket was closed in layers. The pocket was closed in layers with 2 O vicryl and skn stples; telfa and dresing was applied; a sling was placed and the patient sent back to his room in a stable condition with orders for antibiotics x 3 doses. and a chest X-ray. The temporary transvenous pacemaker was removed under fluoroscopy and the sheath then discontinued with transient local pressure Estimated Blood Loss: 5 cc Complications: None Discharge & Condition: Stable
[2018-05-15] MEDS: oxyCODONE 30 mg Immediate Release Tab PO PRN (19:31)
--- NOTE | 2018-05-15 21:57 | CP.PCM.PN ---
Subjective - Date & Time of Evaluation Date of Evaluation: 05/15/18 Time of Evaluation: 19:00 - Subjective Subjective: Patient seen and evaluated S/P PPM Uneventful No cardiac issues at present Objective - Vital Signs/Intake and Output Vital Signs (last 24 hours): Temp Pulse Resp BP Pulse Ox 98.6 F 69 13 116/58 L 100 05/15/18 16:00 05/15/18 19:00 05/15/18 19:00 05/15/18 18:03 05/15/18 19:00 Intake and Output: 05/15/18 05/16/18 18:59 06:59 Intake Total 1390 290 Output Total 1250 450 Balance 140 -160 - Medications Medications: Current Medications Aspirin (Aspirin Chewable) 81 mg PO DAILY [facility] Last Admin: 05/15/18 10:00 Dose: Not Given Bisacodyl (Dulcolax) 10 mg HI HS PRN PRN Reason: Constipation Last Admin: 05/14/18 18:30 Dose: 10 mg Clopidogrel Bisulfate (Plavix) 75 mg PO DAILY [facility] Last Admin: 05/15/18 10:00 Dose: Not Given Docusate Sodium (Colace) 100 mg PO TID [facility] Last Admin: 05/15/18 17:22 Dose: 100 mg Heparin Sodium (Porcine) (Heparin) 5,000 units SC Q12 [facility] Last Admin: 05/15/18 21:35 Dose: 5,000 units Dopamine HCl/Dextrose (Dopamine 400mg/250ml D5w) 400 mg in 250 mls @ 6.124 mls/ hr IV .Q24H PRN; Protocol; 2 MCG/KG/MIN PRN Reason: Titrate to keep SBP above 100 Last Titration: 05/15/18 06:00 Dose: Infused Lactated Ringer's (Lactated Ringer's) 1,000 mls @ 80 mls/hr IV .[id number] [facility] Last Admin: 05/15/18 19:01 Dose: Not Given Piperacillin Sod/Tazobactam Sod (Zosyn 3.375 Gm Iv Premix) 3.375 gm in 50 mls @ 100 mls/hr IVPB Q8H [facility] PRN Reason: Protocol Last Admin: 05/15/18 20:45 Dose: 100 mls/hr Insulin Aspart (Novolog) 1 unit SC ACHS [facility] PRN Reason: Protocol Last Admin: 05/15/18 21:47 Dose: Not Given Lactulose (Enulose) 20 gm PO HS PRN PRN Reason: Constipation Last Admin: 05/14/18 17:28 Dose: 20 gm Lorazepam (Ativan) 1 mg IVP Q6H PRN PRN Reason: Anxiety Last Admin: 05/15/18 08:01 Dose: 1 mg Metoclopramide HCl (Reglan) 10 mg IVP Q8H PRN PRN Reason: Nausea/Vomiting Oxycodone HCl (Oxycodone Immediate Release Tab) 30 mg PO Q4H PRN PRN Reason: Pain, severe (8-10) Last Admin: 05/15/18 19:31 Dose: 30 mg Sennosides (Senokot Tab) 8.6 mg PO DAILY [facility] Last Admin: 05/15/18 10:00 Dose: Not Given - Labs Labs: 05/15/18 06:41 05/15/18 06:35 PT 12.1 SECONDS (9.7-12.2) 05/14/18 13:00 INR 1.1 05/14/18 13:00 APTT 50 SECONDS (21-34) H 05/14/18 13:00
[2018-05-16 00:42] VITALS: RESP 64
[2018-05-16] MEDS: oxyCODONE 30 mg Immediate Release Tab PO PRN ×2 (01:38→07:25)
[2018-05-16] MEDS: Piperacill/Tazo 3.375gm in Dex 3.375 GM/50 ML BAG IVPB SCH (04:45)
[2018-05-16 06:38] VITALS: TEMP 98.7; O2SAT 97
[2018-05-16] MEDS: (Novolog) Insulin Aspart, Recombinant 100 u/ml 10 ml vial SC SCH (07:30)
--- NOTE | 2018-05-16 08:58 | CP.PCM.PN ---
Subjective - Date & Time of Evaluation Date of Evaluation: 05/16/18 Time of Evaluation: 07:00 - Subjective Subjective: PGY 3 medicine progress note for Dr. Trujillo: Patient was seen and evaluated at bedside. Patient has no complaints at this time. No pain at the pacemaker insertion site. Patient denies chest pain, sob, palpitations, fever/chills. Stable for DC home. He is eating well and has had 3 bowel movements. Objective - Vital Signs/Intake and Output Vital Signs (last 24 hours): Temp Pulse Resp BP Pulse Ox 98.7 F 69 64 H 141/65 97 05/16/18 04:00 05/15/18 19:00 05/16/18 04:00 05/16/18 04:00 05/16/18 04:00 Intake and Output: 05/16/18 05/16/18 06:59 18:59 Intake Total 1010 Output Total 1350 Balance -340 - Medications Medications: Current Medications Aspirin (Aspirin Chewable) 81 mg PO DAILY [facility] Last Admin: 05/15/18 10:00 Dose: Not Given Bisacodyl (Dulcolax) 10 mg ID HS PRN PRN Reason: Constipation Last Admin: 05/14/18 18:30 Dose: 10 mg Clopidogrel Bisulfate (Plavix) 75 mg PO DAILY [facility] Last Admin: 05/15/18 10:00 Dose: Not Given Docusate Sodium (Colace) 100 mg PO TID [facility] Last Admin: 05/15/18 17:22 Dose: 100 mg Heparin Sodium (Porcine) (Heparin) 5,000 units SC Q12 [facility] Last Admin: 05/15/18 21:35 Dose: 5,000 units Dopamine HCl/Dextrose (Dopamine 400mg/250ml D5w) 400 mg in 250 mls @ 6.124 mls/ hr IV .Q24H PRN; Protocol; 2 MCG/KG/MIN PRN Reason: Titrate to keep SBP above 100 Last Titration: 05/15/18 06:00 Dose: Infused Lactated Ringer's (Lactated Ringer's) 1,000 mls @ 80 mls/hr IV .[id number] [facility] Last Admin: 05/15/18 23:35 Dose: 80 mls/hr Piperacillin Sod/Tazobactam Sod (Zosyn 3.375 Gm Iv Premix) 3.375 gm in 50 mls @ 100 mls/hr IVPB Q8H [facility] PRN Reason: Protocol Last Admin: 05/16/18 04:45 Dose: 100 mls/hr Insulin Aspart (Novolog) 1 unit SC ACHS [facility] PRN Reason: Protocol Last Admin: 05/15/18 21:47 Dose: Not Given Lactulose (Enulose) 20 gm PO HS PRN PRN Reason: Constipation Last Admin: 05/14/18 17:28 Dose: 20 gm Lorazepam (Ativan) 1 mg IVP Q6H PRN PRN Reason: Anxiety Last Admin: 05/15/18 21:58 Dose: 1 mg Metoclopramide HCl (Reglan) 10 mg IVP Q8H PRN PRN Reason: Nausea/Vomiting Oxycodone HCl (Oxycodone Immediate Release Tab) 30 mg PO Q4H PRN PRN Reason: Pain, severe (8-10) Last Admin: 05/16/18 07:25 Dose: 30 mg Sennosides (Senokot Tab) 8.6 mg PO DAILY [facility] Last Admin: 05/15/18 10:00 Dose: Not Given - Labs Labs: 05/15/18 06:41 05/15/18 06:35 PT 12.1 SECONDS (9.7-12.2) 05/14/18 13:00 INR 1.1 05/14/18 13:00 APTT 50 SECONDS (21-34) H 05/14/18 13:00 - Constitutional Appears: Non-toxic, No Acute Distress - Head Exam Head Exam: ATRAUMATIC, NORMAL INSPECTION - Eye Exam Eye Exam: Normal appearance - Respiratory Exam Respiratory Exam: Clear to Ausculation Bilateral, NORMAL BREATHING PATTERN - Cardiovascular Exam Cardiovascular Exam: REGULAR RHYTHM, +S1, +S2, Murmur Additional comments: pacemaker placement site, clean non tender, no erythema - GI/Abdominal Exam GI & Abdominal Exam: Soft, Normal Bowel Sounds. absent: Distended, Firm, Guarding, Tenderness Additional comments: abdominal wound dressing c/d/i - Back Exam Back Exam: NORMAL INSPECTION - Neurological Exam Neurological Exam: Alert, Awake, CN II-XII Intact, Normal Gait, Oriented x3 Neuro motor strength exam: Left Upper Extremity: 5, Right Upper Extremity: 5, Left Lower Extremity: 5, Right Lower Extremity: 5 - Psychiatric Exam Psychiatric exam: Normal Affect, Normal Mood Assessment and Plan - Assessment and Plan (Free Text) Assessment: Third degree heart block Pacemaker inserted 05/15/18 TVP inserted by ICU attending right after admission Cardiology consulted: Dr. Franco and Dr. Flores - rec appreciated Zosyn 3.375 gm IVPB Q8 hours Hypotension Improved Triple lumen was inserted Patient was on dopamine CAD (coronary artery disease) History of prior stent placement ASA 81mg PO daily Plavix 75mg PO daily Cont to monitor EKG does not demonstrate new changes when compared to EKG from 2016 Echo -F/U report Constipation Had 3 BM over the last 24 hours Dulcolax 10mg ID HS prn Colace 100mg PO TID Lactulose 20gm PO HS prn Senokot 8.6mh PO daily Diabetes mellitus Accuchecks Insulin sliding scale Reglan 10mg IVP Q 8 hours prn Arthritis Home medicine Percocet for pain control PRN PT recommendations - Patient stable for home Wound, open, abdominal wall, anterior Chronic Continue to care for and dress Patient to follow up with primary medical doctor On Zosyn Anxiety Ativan 1mg IVP Q6 hours prn CKD Stable Prophylactic measure SCDs Heparin SC Q12 GI Prophylaxis not currently indicated Patient is stable for discharge home. Patient is to follow up with his primary care Dr. Schmid within one week of discharge for post hospital care. He is to resume all of his home medications. Patient is also to follow up with Dr. Flores , cardiology, within one week of discharge for follow up of the pacemaker placement. All instructions explained to the patient and he agrees. All orders and medical management per Dr. Trujillo. Paige Cabello D.O. PGY3
[2018-05-16 10:09] LABS: BASO % 0.6 % (0.0-2.0); EOS # 0.1 K/uL (0.0-0.7); EOS % 0.8 % (0.0-4.0); HEMOGLOBIN 10.8 g/dL (12.0-18.0); LYMPH % 24.7 % (20.0-40.0); MEAN CELL VOLUME 82.9 fL (80.0-94.0); MEAN CORPUSCULAR HEMOGLOBIN 27.6 pg (27.0-31.0); MEAN CORPUSCULAR HGB CONC 33.3 g/dL (33.0-37.0); MONO # 0.4 K/uL (0.0-0.8); MONO % 5.1 % (0.0-10.0); NEUT # 5.5 K/uL (1.8-7.0); NEUT % 68.8 % (50.0-75.0); RBC 3.91 Mil/uL (4.40-5.90); RED CELL DISTRIBUTION WIDTH 15.1 % (11.5-14.5)
[2018-05-16 10:22] LABS: ALB/GLOB RATIO 1.3 (1.0-2.1); ALT/SGPT 22 U/L (21-72); AST/SGOT 24 U/L (17-59); BLOOD UREA NITROGEN 17 mg/dL (9-20); CALCIUM 8.8 mg/dl (8.6-10.4); GFR AFRICAN-AMERICAN > 60; GFR NON-AFRICAN AMERICAN 58
--- NOTE | 2018-05-16 10:44 | RAD ---
PROCEDURE: Intraoperative Fluoroscopy. HISTORY: THIRD DEGREE HEARTBLOCK FINDINGS: Fluoroscopic assistance was provided for pacemaker insertion. Please refer to the operative report from HARINDER Bolaños, , MD [facility].
[2018-05-16 11:38] VITALS: PULSE 64
[2018-05-16 11:40] VITALS: BP 143/73
--- NOTE | 2018-05-17 07:59 | HP ---
HISTORY OF PRESENT ILLNESS: Mr. Milian is an 83-year-old male, admitted to the hospital with a chief complaint of weakness, dizziness. The patient complete heart block, advised admission to the hospital. The patient has history of a abdominal hernia with chronic infection, history of chronic pain syndrome, and anxiety. PHYSICAL EXAMINATION: GENERAL: The patient is awake, alert, and oriented. VITAL SIGNS: Temperature 98, pulse of 56, blood pressure 120/80. HEENT: Within normal limits. NECK: Supple. CHEST: Symmetrical. HEART: Regular. ABDOMEN: Soft. EXTREMITIES: No edema. IMPRESSION: Patient suffers from complete heart block. The patient has pacemaker insertion. Harriet Trujillo MD
--- NOTE | 2018-05-17 10:38 | DS ---
The patient was seen in the hospital with dizziness, found to be complete heart block. The patient had pacemaker. No complications. Discharged to follow up as outpatient. Harriet Trujillo MD
== END 2018-05-16 12:45 | disposition home or self-care (01) | DRG 243 ==
LOC: C.ER 12:25 → C.9E 13:16 → C.9I 13:51
PROVIDERS: ADMIT Internal Medicine Pulmonary Disease; ATTEND Internal Medicine Pulmonary Disease
PROC: 5A1223Z Performance of Cardiac Pacing, Continuous (ICD-10-PCS; 2018-05-14)
PROC: 05HM33Z Insertion of Infusion Device into Right Internal Jugular Vein, Percutaneous Approach (ICD-10-PCS; 2018-05-14)
PROC: B543ZZA Ultrasonography of Right Jugular Veins, Guidance (ICD-10-PCS; 2018-05-14)
PROC: 02H63JZ Insertion of Pacemaker Lead into Right Atrium, Percutaneous Approach (ICD-10-PCS; 2018-05-15)
PROC: 02HK3JZ Insertion of Pacemaker Lead into Right Ventricle, Percutaneous Approach (ICD-10-PCS; 2018-05-15)
PROC: 0JH606Z Insertion of Pacemaker, Dual Chamber into Chest Subcutaneous Tissue and Fascia, Open Approach (ICD-10-PCS; principal; 2018-05-15 12:30)
DX: I44.2 Atrioventricular block, complete (principal); I13.0 Hypertensive heart and chronic kidney disease with heart failure and stage 1 through stage 4 chronic kidney disease, or unspecified chronic kidney disease; N17.9 Acute kidney failure, unspecified; E11.22 Type 2 diabetes mellitus with diabetic chronic kidney disease; E78.00 Pure hypercholesterolemia, unspecified; E78.5 Hyperlipidemia, unspecified; F41.9 Anxiety disorder, unspecified; G47.30 Sleep apnea, unspecified; G89.4 Chronic pain syndrome; I25.10 Atherosclerotic heart disease of native coronary artery without angina pectoris; I50.9 Heart failure, unspecified; J43.9 Emphysema, unspecified; K59.00 Constipation, unspecified; M19.90 Unspecified osteoarthritis, unspecified site; N18.9 Chronic kidney disease, unspecified; N40.0 Benign prostatic hyperplasia without lower urinary tract symptoms; Z79.82 Long term (current) use of aspirin; Z85.118 Personal history of other malignant neoplasm of bronchus and lung; Z87.01 Personal history of pneumonia (recurrent); Z87.891 Personal history of nicotine dependence; Z90.49 Acquired absence of other specified parts of digestive tract; Z95.5 Presence of coronary angioplasty implant and graft

== ENCOUNTER 2018-06-25 07:31 | Inpatient (IN) | payer MEDICARE, MEDICAID ==
[2018-06-25 07:31] VITALS: BMI 27.3
[2018-06-25] MEDS ORDERED: Aspirin 325 mg EC Tablets PO STA (07:52)
--- NOTE | 2018-06-25 07:57 | C.PDOC ---
History Of Present Illness 83 year old male with PMHx of heart disease and pace maker placement one month ago presents to the ED complaining of left sided chest pressure that began upon awakening this morning at 0600. Patient denies any nausea, SOB, weakness, or any other symptoms. Time Seen by Provider: 06/25/18 07:37 Chief Complaint (Nursing): Chest Pain History Per: Patient History/Exam Limitations: no limitations Onset/Duration Of Symptoms: Hrs Current Symptoms Are (Timing): Still Present Quality: Tightness Associated Symptoms: denies: Nausea, Dyspnea Past Medical History Reviewed: Historical Data, Nursing Documentation, Vital Signs Vital Signs: Last Vital Signs Temp 98.0 F 06/25/18 15:20 Pulse 74 06/25/18 15:20 Resp 20 06/25/18 15:20 BP 150/83 06/25/18 15:20 Pulse Ox 98 06/25/18 15:20 - Medical History PMH: Arthritis, Asthma, Benign Prostatic Hyperplasia, CAD, CHF, COPD, Diabetes, Emphysema, Gall Bladder Disease, Hiatal Hernia, HTN, Hypercholesterolemia, Hyperlipidemia, Pneumonia, Sleep Apnea, Chronic Pain (Left chest/abdomen) Denies: Anemia, Anxiety, Bipolar Disorder, Bronchitis, Cardia Arrhythmia, Crohn's Disease, Dementia, Depression, Diverticulitis, Fibromyalgia, Fractures, Gastrointestinal Ulcer, HIV, Hyperthyroidism, Hypothyroidism, Kidney Stones, Migraine, Mitral Valve Prolapse, Osteoporosis, Pancreatitis, Paranoia, Parkinson 's Disease, Peripheral Edema, Post Traumatic Stress Disorder, Chronic Kidney Disease, Schizophrenia, Seizures, Sickle Cell Disease, Sexually Transmitted Disease, TIA Surgical History: Cholecystectomy (open cholecystectomy with CBD exploration 2012), Coronary Stent, Hernia Repair Denies: Appendectomy, Pacemaker - [facility] Procedures ANESTH INJECT SYMP NERVE (05/12/13) C & S-INTEGUMENT (08/27/14) CENTRAL VENOUS CATHETER PLACEMENT WITH GUIDANCE (07/18/15) CHOLECYSTECTOMY (10/16/13) CLOSED ENDOSCOPIC BIOPSY OF LARGE INTESTINE (09/01/13) CLOSED [PERCUTANEOUS] [NEEDLE] BIOPSY OF LUNG (06/21/13) COMMON DUCT EXPLORATION (10/16/13) CONTINUOUS INVASIVE MECHANICAL VENTILATION <96 CONSEC HRS (11/05/14) CORONAR ARTERIOGR-2 CATH (09/05/02) CYSTOSCOPY NEC (07/14/13) DX ULTRASOUND-DIGESTIVE (09/30/12) ENDOSCOPIC BRONCHIAL BX (07/28/13) ENTERAL INFUSION OF CONCENTRATED NUT. SUBSTANCES (11/05/14) ESOPHAGOGASTRODUODENOSCOPY [EGD] W/CLOSED BIOPSY (10/06/13) EXCISION OF STOMACH, ENDO, DIAGN (08/23/16) FLUOROSCOPY OF SUPERIOR VENA CAVA, GUIDANCE (07/13/16) GASTROTOMY (07/29/06) INFLUENZA VACCINATION (11/05/14) INJECT/INFUSE ELECTROLYT (05/29/14) INJECT/INFUSE NEC (01/29/15) INSERT ENDOTRACHEAL TUBE (11/05/14) INSERT INFUSION DEV IN R INT JUGULAR VEIN, PERC (05/14/18) INSERT INTERCOSTAL CATH (09/01/13) INSERT PACE. DUAL CHARITY IN CHEST SUBCU/FASCIA, OPEN (05/14/18) INSERTION OF INFUSION DEV INTO R INNOM VEIN, PERC APPROACH (10/05/15) INSERTION OF INFUSION DEV INTO SUP VENA CAVA, PERC APPROACH (08/23/16) INSERTION OF PACEMAKER LEAD INTO R VENTRICLE, PERC APPROACH (05/14/18) INSERTION OF PACEMAKER LEAD INTO RIGHT ATRIUM, PERC APPROACH (05/14/18) INTRODUCE OF OTH THERAP SUBST INTO RESP TRACT, VIA OPENING (12/18/16) INTRODUCE OTH ANTI-INFECT IN CENTRAL VEIN, PERC (10/05/15) LEFT HEART CARDIAC CATH (09/05/02) LT HEART ANGIOCARDIOGRAM (09/05/02) MAGNETIC RESONANCE IMAGING OF SPINAL CANAL (10/16/13) NEBULIZER THERAPY (09/12/14) NON-INVASIVE MECHANICAL VENTILATION (07/14/13) OTH LYSIS-PERITONEAL ADHES (10/16/13) OTHER ENDOSCOPY OF SM INTEST (10/12/14) OTHER SKIN & SUBQ I D (04/30/14) PACKED CELL TRANSFUSION (10/30/13) PANCREAT SPHINCTEROPLAS (10/16/13) PART GASTREC W JEJ ANAST (07/29/06) PERCUTAN NEEDLE BIOPSY OF PROSTATE (09/01/13) PERFORMANCE OF CARDIAC PACING, CONTINUOUS (05/14/18) REPAIR OF INTESTINE NEC (10/16/13) SM-TO-SM BOWEL ANASTOM (07/29/06) THORACOSCOPIC LOBECTOMY OF LUNG (07/28/13) TRANSURETHRAL PROSTATECTOMY (TULIP) (08/23/13) ULTRASONOGRAPHY OF RIGHT JUGULAR VEINS, GUIDANCE (05/14/18) URETHRAL DILATION (09/01/13) VACCINATION NEC (11/05/14) VENOUS CATHETERIZATION NEC (11/05/14) Family History: States: No Known Family Hx - Social History Hx Tobacco Use: Yes Hx Alcohol Use: No Hx Substance Use: No - Immunization History Hx Tetanus Toxoid Vaccination: Yes Hx Influenza Vaccination: Yes Hx Pneumococcal Vaccination: Yes Review Of Systems Except As Marked, All Systems Reviewed And Found Negative. Cardiovascular: Positive for: Other (Chest pressure ) Physical Exam - Physical Exam Appears: Non-toxic, No Acute Distress Skin: Normal Color, Warm, Dry, No Rash Head: Atraumatic, Normacephalic Eye(s): bilateral: Normal Inspection Nose: Normal Oral Mucosa: Moist Chest: Symmetrical Cardiovascular: Rhythm Regular, Other (Pacemaker site clean, dry, intact ) Respiratory: Normal Breath Sounds, No Rales, No Rhonchi, No Wheezing Gastrointestinal/Abdominal: Soft, No Tenderness, Other (Chronic abdominal ulcer +MRSA ) Extremity: Normal ROM Extremity: Bilateral: Atraumatic, Normal Color And Temperature, Normal ROM Neurological/Psych: Oriented x3, Normal Speech Gait: Steady ED Course And Treatment - Laboratory Results Result Diagrams: 06/25/18 08:08 06/25/18 08:08 ECG: Interpreted By Me, Viewed By Me ECG Rhythm: V Paced Rate From EC O2 Sat by Pulse Oximetry: 97 - Other Rad CXR X-Ray: Viewed By Me, Read By Radiologist Interpretation: Accession No. : [id number]. Patient Name / ID : JAYDE LOCKE O / [id number]. Exam Date : 06/25/2018 07:51:52 ( Approved ). Study Comment : Sex / Age : M / 83Y. Creator : Chepe Groves MD. Dictator : Chepe Groves MD. Executive Assistant : Electrical Maintenance Mechanic : Chepe Groves MD. Approver2 : Report Date : 06/25/2018 09:47:11. My Comment : . Date of service: 06/25/2018. PROCEDURE: CHEST RADIOGRAPH, 1 VIEW. HISTORY: SOB. COMPARISON: Portable chest 05/14/2018. FINDINGS: Permanent cardiac pacer now endplates appearing bipolar with 2 leads entering into the region of the heart. Generator is noted at the left pectoralis region. LUNGS: Volume loss left hemithorax reiterated with postop changes again seen the left hilum. No acute infiltrate bilaterally. PLEURA: No pneumothorax or pleural fluid seen. CARDIOVASCULAR: Cardiomediastinal silhouette appears stable. No pulmonary vascular congestion. OSSEOUS STRUCTURES: No significant abnormalities. VISUALIZED UPPER ABDOMEN: Elevated left hemidiaphragm reiterated. OTHER FINDINGS: None. IMPRESSION: Postop changes left lung reiterated with volume loss and left hemidiaphragm elevation reiterated. No acute infiltrate pleural effusion or pneumothorax bilaterally. Medical Decision Making Medical Decision Making: Impression: Chest pain Plan - EKG - Labs - CXR - Aspirin 325mg PO discussed with Dr. Jessika Garnett and will admit to tele observation. Disposition Discussed With : Carol Garnett Doctor Will See Patient In The: Hospital Counseled Patient/Family Regarding: Studies Performed, Diagnosis - Disposition Disposition: HOSPITALIZED Disposition Time: 08:49 Condition: FAIR - POA Core Measure Indicators: Chest Pain - Clinical Impression Clinical Impression: Chest discomfort - Scribe Statement The provider has reviewed the documentation as recorded by the Scribe Hermelinda Talamantes All medical record entries made by the Parminderibe were at my direction and personally dictated by me. I have reviewed the chart and agree that the record accurately reflects my personal performance of the history, physical exam, medical decision making, and the department course for this patient. I have also personally directed, reviewed, and agree with the discharge instructions and disposition.
[2018-06-25 08:10] LABS: BASO # 0.1 K/uL (0.0-0.2); BASO % 0.7 % (0.0-2.0); EOS # 0.1 K/uL (0.0-0.7); EOS % 1.3 % (0.0-4.0); HEMOGLOBIN 10.7 g/dL (12.0-18.0); LYMPH # 1.1 K/uL (1.0-4.3); MEAN CELL VOLUME 84.5 fL (80.0-94.0); MEAN CORPUSCULAR HEMOGLOBIN 28.2 pg (27.0-31.0); MEAN CORPUSCULAR HGB CONC 33.4 g/dL (33.0-37.0); MEAN PLATELET VOLUME 9.9 fL (7.2-11.7); MONO # 0.4 K/uL (0.0-0.8); MONO % 5.1 % (0.0-10.0); NEUT # 5.5 K/uL (1.8-7.0); NEUT % 77.9 % (50.0-75.0); NRBC % 0.1 % (0.0-2.0); RBC 3.8 Mil/uL (4.40-5.90); RED CELL DISTRIBUTION WIDTH 15.4 % (11.5-14.5)
[2018-06-25 08:24] LABS: ALB/GLOB RATIO 1.5 (1.0-2.1); ALBUMIN 4.6 g/dL (3.5-5.0); CALCIUM 9.1 mg/dl (8.6-10.4); GFR AFRICAN-AMERICAN > 60; GFR NON-AFRICAN AMERICAN 58
[2018-06-25 08:26] LABS: ALT/SGPT 19 U/L (21-72); AST/SGOT 24 U/L (17-59); BLOOD UREA NITROGEN 20 mg/dL (9-20)
[2018-06-25 08:36] LABS: B-TYPE NATRIURETIC PEPTIDE 1440 pg/mL (0-900)
[2018-06-25] MEDS ORDERED: Aspirin 325 mg EC Tablets PO ONE (09:12)
[2018-06-25] MEDS ORDERED: Morphine 4 MG/ML VIAL IV STA (09:38)
--- NOTE | 2018-06-25 09:49 | RAD ---
Date of service: 06/25/2018 PROCEDURE: CHEST RADIOGRAPH, 1 VIEW HISTORY: SOB COMPARISON: Portable chest 05/14/2018. FINDINGS: Permanent cardiac pacer now endplates appearing bipolar with 2 leads entering into the region of the heart. Generator is noted at the left pectoralis region. LUNGS: Volume loss left hemithorax reiterated with postop changes again seen the left hilum. No acute infiltrate bilaterally. PLEURA: No pneumothorax or pleural fluid seen. CARDIOVASCULAR: Cardiomediastinal silhouette appears stable. No pulmonary vascular congestion. OSSEOUS STRUCTURES: No significant abnormalities. VISUALIZED UPPER ABDOMEN: Elevated left hemidiaphragm reiterated. OTHER FINDINGS: None. IMPRESSION: Postop changes left lung reiterated with volume loss and left hemidiaphragm elevation reiterated. No acute infiltrate pleural effusion or pneumothorax bilaterally.
--- NOTE | 2018-06-25 11:59 | CP.PCM.HP ---
History of Present Illness - History of Present Illness History of Present Illness: pt walke up felt l side chest pain pressure sob came to ed hx of cad chf Present on Admission - Present on Admission Any Indicators Present on Admission: No Review of Systems - Review of Systems Systems not reviewed;Unavailable: Acuity of Condition - Constitutional Constitutional: Fatigue, Sleep Apnea - EENT Eyes: As Per HPI Ears: As Per HPI Nose/Mouth/Throat: As Per HPI - Cardiovascular Cardiovascular: Chest Pain at Rest, Dyspnea - Respiratory Respiratory: Dyspnea, Dyspnea on Exertion - Gastrointestinal Gastrointestinal: Abdominal Pain, Constipation - Genitourinary Genitourinary: As Per HPI - Reproductive: Male Reproductive:Male: As Per HPI - Musculoskeletal Musculoskeletal: As Per HPI - Integumentary Integumentary: As Per HPI - Neurological Neurological: As Per HPI - Psychiatric Psychiatric: Anxiety - Endocrine Endocrine: As Per HPI - Hematologic/Lymphatic Hematologic: As Per HPI Past Patient History - Infectious Disease Hx of Infectious Diseases: None - Tetanus Immunizations Tetanus Immunization: Unknown - Past Medical History & Family History Past Medical History?: Yes - Past Social History Smoking Status: Former Smoker - CARDIAC Hx Cardia Arrhythmia: No Hx Congestive Heart Failure: Yes Hx Hypercholesterolemia: Yes Hx Hypertension: Yes Hx Mitral Valve Prolapse: No Hx Pacemaker: No Hx Peripheral Edema: No - PULMONARY Hx Asthma: Yes Hx Bronchitis: No Hx Chronic Obstructive Pulmonary Disease (COPD): Yes Hx Emphysema: Yes Hx Pneumonia: Yes Hx Sleep Apnea: Yes - NEUROLOGICAL Hx Dementia: No Hx Migraine: No Hx Parkinson's Disease: No Hx Seizures: No Hx Transient Ischemic Attacks (TIA): No - HEENT Hx HEENT Problems: No Hx Blind: No Hx Cataracts: No Hx Deafness: No Hx Difficulty Chewing: No Hx Epistaxis: No Hx Glaucoma: No Hx Macular Degeneration: No - RENAL Hx Chronic Kidney Disease: No Hx Kidney Stones: No - ENDOCRINE/METABOLIC Hx Hyperthyroidism: No Hx Hypothyroidism: No - HEMATOLOGICAL/ONCOLOGICAL Hx Anemia: No Hx Human Immunodeficiency Virus (HIV): No Hx Sickle Cell Disease: No - INTEGUMENTARY Hx Dermatological Problems: Yes Other/Comment: UPPER MID ABD WOUND - MRSA POSITIVE - MUSCULOSKELETAL/RHEUMATOLOGICAL Hx Arthritis: Yes Hx Fractures: No Hx Osteoporosis: No - GASTROINTESTINAL Hx Crohn's Disease: No Hx Diverticulitis: No Hx Gall Bladder Disease: Yes Hx Pancreatitis: No - GENITOURINARY/GYNECOLOGICAL Hx Sexually Transmitted Disorders: No - PSYCHIATRIC Hx Anxiety: No Hx Bipolar Disorder: No Hx Depression: No Hx Paranoia: No Hx Post Traumatic Stress Disorder: No Hx Schizophrenia: No Hx Substance Use: No - SURGICAL HISTORY Hx Appendectomy: No Hx Cholecystectomy: Yes (open cholecystectomy with CBD exploration 2012) Hx Coronary Stent: Yes - ANESTHESIA Hx Anesthesia: Yes Hx Anesthesia Reactions: No Hx Malignant Hyperthermia: No Meds Allergies/Adverse Reactions: Allergies Allergy/AdvReac Type Severity Reaction Status Date / Time No Known Allergies Allergy Verified 06/25/18 07:42 Physical Exam - Constitutional Appears: In Acute Distress - Head Exam Head Exam: NORMOCEPHALIC - Eye Exam Eye Exam: Normal appearance Pupil Exam: NORMAL ACCOMODATION - ENT Exam Additional comments: dec hearing - Neck Exam Neck exam: Positive for: Full Rom - Respiratory Exam Respiratory Exam: Decreased Breath Sounds - Cardiovascular Exam Cardiovascular Exam: REGULAR RHYTHM - GI/Abdominal Exam GI & Abdominal Exam: Tenderness Additional comments: infected abd wound - Rectal Exam Rectal Exam: Deferred - Exam Exam: NORMAL INSPECTION Results - Vital Signs Recent Vital Signs: Last Vital Signs Temp 98.7 F 06/25/18 11:00 Pulse 84 06/25/18 11:00 Resp 20 06/25/18 11:00 BP 156/64 H 06/25/18 11:00 Pulse Ox 97 06/25/18 11:36 - Labs Result Diagrams: 06/25/18 08:08 06/25/18 08:08 Labs: Laboratory Results - last 24 hr 06/25/18 06/25/18 08:08 08:08 WBC 7.0 RBC 3.80 L Hgb 10.7 L Hct 32.1 L MCV 84.5 MCH 28.2 MCHC 33.4 RDW 15.4 H Plt Count 157 MPV 9.9 Neut % (Auto) 77.9 H Lymph % (Auto) 15.0 L Davis % (Auto) 5.1 Eos % (Auto) 1.3 Baso % (Auto) 0.7 Neut # (Auto) 5.5 Lymph # (Auto) 1.1 Davis # (Auto) 0.4 Eos # (Auto) 0.1 Baso # (Auto) 0.1 Sodium 143 Potassium 5.3 H Chloride 108 H Carbon Dioxide 23 Anion Gap 18 BUN 20 Creatinine 1.2 Est GFR ( Amer) > 60 Est GFR (Non-Af Amer) 58 Random Glucose 177 H Calcium 9.1 Total Bilirubin 0.7 AST 24 ALT 19 L Alkaline Phosphatase 147 H Troponin I < 0.0120 NT-Pro-B Natriuret Pep 1440 H Total Protein 7.7 Albumin 4.6 Globulin 3.1 Albumin/Globulin Ratio 1.5 Assessment & Plan - Assessment and Plan (Free Text) Assessment: ac chest pain cad chf anexiety abd pain infected abd wound Plan: admit abd as per orders - Date & Time Date: 06/25/18 Time: 12:02
[2018-06-25] MEDS: Enoxaparin 40 mg Syringe SC SCH (13:23)
[2018-06-25] MEDS: oxyCODONE 30 mg Immediate Release Tab PO PRN (13:48)
--- NOTE | 2018-06-25 15:22 | CP.PCM.CON ---
History of Present Illness - History of Present Illness History of Present Illness: General surgery consult note for Dr. Marquez-Cathy Hassan, PGY-2 Pt S & E at bedside at 1319 83M w/PSH sig for ex-lap w/cholecystectomy w/IOC, CBD exploration w/ sphincteroplasty (2012/) consulted for infected abdominal wound (Chronic) . Pt reports onset of upper abdominal pain on day of admission. Pain is severe , radiates to right chest wall, constant. Pt reports recurrent episodes of abdominal pain ever since surgery in 2012. Is on chronic pain meds- 30mg of Oxycodone 3x daily. Pt reports decreased appetite due to pain, subjective fevers, neck pain (s/p pacemaker placement), Right ear pain. Denies N &V, chills, changes in bowel or bladder habits, other complaints. Per EMR- pt seen multiple times for the same. Pt reports seeing Dr. Marquez in the office approximatley 5 mos ago with recommendation for mesh removal- pt refused surgery at that time. PMH: CAD s/p stents, Hard of hearing, CHF, HLD, HTN, COPD, emphysema, hx PNA, OA , arthritis, complete heart block s/p PPM, gastritis, hiatal hernia, gastroparesis, diverticulosis, hx lung CA, hx urinary retention PSH: celiac plexus ablation (2012), VATS w/upper lobectomy (2012), ex-lap w/ cholecystectomy w/IOC, CBD exploration w/sphincteroplasty (2012), Billroth II, Pacemaker (2018) All: NKDA SH: Hx tobacco use, denies ETOH, denies illicit drug use Review of Systems - Review of Systems All systems: reviewed and no additional remarkable complaints except - Constitutional Constitutional: Fever. absent: Chills - EENT Eyes: absent: Change in Vision Ears: Ear Pain (Right). absent: Dizziness Nose/Mouth/Throat: Neck Pain (after pacemaker placed). absent: Sore Throat - Cardiovascular Cardiovascular: absent: Chest Pain, Palpitations - Respiratory Respiratory: absent: Cough - Gastrointestinal Gastrointestinal: Abdominal Pain. absent: Change in Bowel Habits, Constipation , Diarrhea, Hematemesis, Hematochezia, Nausea, Vomiting - Genitourinary Genitourinary: Difficulty Urinating (history of). absent: Change in Urinary Stream - Musculoskeletal Musculoskeletal: Neck Pain. absent: Back Pain - Integumentary Integumentary: Rash, Wounds (chronic epigastric) - Psychiatric Psychiatric: Change in Appetite (decreased) Past Patient History - Infectious Disease Hx of Infectious Diseases: None - Tetanus Immunizations Tetanus Immunization: Unknown - Past Medical History & Family History Past Medical History?: Yes - Past Social History Smoking Status: Former Smoker - CARDIAC Hx Cardia Arrhythmia: No Hx Congestive Heart Failure: Yes Hx Hypercholesterolemia: Yes Hx Hypertension: Yes Hx Mitral Valve Prolapse: No Hx Pacemaker: No Hx Peripheral Edema: No - PULMONARY Hx Asthma: Yes Hx Bronchitis: No Hx Chronic Obstructive Pulmonary Disease (COPD): Yes Hx Emphysema: Yes Hx Pneumonia: Yes Hx Sleep Apnea: Yes - NEUROLOGICAL Hx Dementia: No Hx Migraine: No Hx Parkinson's Disease: No Hx Seizures: No Hx Transient Ischemic Attacks (TIA): No - HEENT Hx HEENT Problems: No Hx Blind: No Hx Cataracts: No Hx Deafness: No Hx Difficulty Chewing: No Hx Epistaxis: No Hx Glaucoma: No Hx Macular Degeneration: No - RENAL Hx Chronic Kidney Disease: No Hx Kidney Stones: No - ENDOCRINE/METABOLIC Hx Hyperthyroidism: No Hx Hypothyroidism: No - HEMATOLOGICAL/ONCOLOGICAL Hx Anemia: No Hx Human Immunodeficiency Virus (HIV): No Hx Sickle Cell Disease: No - INTEGUMENTARY Hx Dermatological Problems: Yes Other/Comment: UPPER MID ABD WOUND - MRSA POSITIVE - MUSCULOSKELETAL/RHEUMATOLOGICAL Hx Falls: No - GASTROINTESTINAL Hx Crohn's Disease: No Hx Diverticulitis: No Hx Gall Bladder Disease: Yes Hx Pancreatitis: No - GENITOURINARY/GYNECOLOGICAL Hx Sexually Transmitted Disorders: No - PSYCHIATRIC Hx Anxiety: No Hx Bipolar Disorder: No Hx Depression: No Hx Paranoia: No Hx Post Traumatic Stress Disorder: No Hx Schizophrenia: No Hx Substance Use: No - SURGICAL HISTORY Hx Appendectomy: No Hx Cholecystectomy: Yes (open cholecystectomy with CBD exploration 2012) Hx Coronary Stent: Yes - ANESTHESIA Hx Anesthesia: Yes Hx Anesthesia Reactions: No Hx Malignant Hyperthermia: No Meds Allergies/Adverse Reactions: Allergies Allergy/AdvReac Type Severity Reaction Status Date / Time No Known Allergies Allergy Verified 06/25/18 07:42 - Medications Medications: Current Medications Alprazolam (Xanax) 0.5 mg PO TID PRN PRN Reason: Anxiety Aspirin (Ecotrin) 81 mg PO DAILY [facility] Enoxaparin Sodium (Lovenox) 40 mg SC DAILY [facility] Last Admin: 06/25/18 13:23 Dose: 40 mg Metformin HCl (Glucophage) 500 mg PO BIDCC [facility] Oxycodone HCl (Oxycodone Immediate Release Tab) 30 mg PO Q4 PRN PRN Reason: Pain, moderate (4-7) Last Admin: 06/25/18 13:48 Dose: 30 mg Rosuvastatin Calcium (Crestor) 10 mg PO HS SHADIA Zolpidem Tartrate (Ambien) 5 mg PO HS [facility] Physical Exam - Constitutional Appears: Non-toxic, No Acute Distress - Head Exam Head Exam: ATRAUMATIC, NORMAL INSPECTION, NORMOCEPHALIC - Eye Exam Eye Exam: EOMI, Normal appearance - ENT Exam ENT Exam: Mucous Membranes Moist, Normal Exam - Neck Exam Neck exam: Positive for: Full Rom, Normal Inspection - Respiratory Exam Respiratory Exam: Clear to Auscultation Bilateral, NORMAL BREATHING PATTERN. absent: Chest Wall Tenderness Additional comments: Pacemaker over left chest wall - Cardiovascular Exam Cardiovascular Exam: REGULAR RHYTHM, +S1, +S2 - GI/Abdominal Exam GI & Abdominal Exam: Guarding, Soft. absent: Distended, Firm, Hernia, Tenderness Additional comments: visible mesh with purulent drainage over epigastric area, minimal surrounding erythema, non tender to palpation - Extremities Exam Extremities exam: Positive for: normal inspection - Neurological Exam Neurological exam: Alert, CN II-XII Intact, Oriented x3 - Psychiatric Exam Psychiatric exam: Normal Affect, Normal Mood - Skin Skin Exam: Dry, Warm Results - Vital Signs Recent Vital Signs: Last Vital Signs Temp 98.7 F 06/25/18 11:00 Pulse 84 06/25/18 11:00 Resp 20 06/25/18 11:00 BP 156/64 H 06/25/18 11:00 Pulse Ox 97 06/25/18 11:36 - Labs Result Diagrams: 06/25/18 08:08 06/25/18 08:08 Labs: Laboratory Results - last 24 hr 06/25/18 06/25/18 06/25/18 08:08 08:08 12:15 WBC 7.0 RBC 3.80 L Hgb 10.7 L Hct 32.1 L MCV 84.5 MCH 28.2 MCHC 33.4 RDW 15.4 H Plt Count 157 MPV 9.9 Neut % (Auto) 77.9 H Lymph % (Auto) 15.0 L Crosby % (Auto) 5.1 Eos % (Auto) 1.3 Baso % (Auto) 0.7 Neut # (Auto) 5.5 Lymph # (Auto) 1.1 Crosby # (Auto) 0.4 Eos # (Auto) 0.1 Baso # (Auto) 0.1 Sodium 143 Potassium 5.3 H Chloride 108 H Carbon Dioxide 23 Anion Gap 18 BUN 20 Creatinine 1.2 Est GFR ( Amer) > 60 Est GFR (Non-Af Amer) 58 POC Glucose (mg/dL) 157 H Random Glucose 177 H Calcium 9.1 Total Bilirubin 0.7 AST 24 ALT 19 L Alkaline Phosphatase 147 H Troponin I < 0.0120 NT-Pro-B Natriuret Pep 1440 H Total Protein 7.7 Albumin 4.6 Globulin 3.1 Albumin/Globulin Ratio 1.5 Assessment & Plan - Assessment and Plan (Free Text) Assessment: 83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 Pt currently refusing, states he wants to speak with his prior to making any decisions Further mgmt as per primary team CHARY attending Sonya, PGY-2 - Date & Time Date: 06/25/18 Time: 15:42
[2018-06-25 18:05] LABS: CK-MB 1.11 ng/mL (0.0-3.38)
--- NOTE | 2018-06-25 21:52 | CP.PCM.CON ---
History of Present Illness - History of Present Illness History of Present Illness: 83 y/o male, whose PMH includes CAD, CHF, COPD, diabetes, lung cancer, gall bladder disease, HTN, hypercholesterolemia, and hyperlipidemia, who presents to the emergency department complaining chest pain and body pains - Medical History PMH: Arthritis, Asthma, Benign Prostatic Hyperplasia, CAD, CHF, COPD, Diabetes, Emphysema, Gall Bladder Disease, Hiatal Hernia, HTN, Hypercholesterolemia, Hyperlipidemia, Pneumonia, Sleep Apnea, Chronic Pain (Left chest/abdomen) Denies: Anemia, Anxiety, Bipolar Disorder, Bronchitis, Cardia Arrhythmia, Crohn's Disease, Dementia, Depression, Diverticulitis, Fibromyalgia, Fractures, Gastrointestinal Ulcer, HIV, Hyperthyroidism, Hypothyroidism, Kidney Stones, Migraine, Mitral Valve Prolapse, Osteoporosis, Pancreatitis, Paranoia, Parkinson 's Disease, Peripheral Edema, Post Traumatic Stress Disorder, Chronic Kidney Disease, Schizophrenia, Seizures, Sickle Cell Disease, Sexually Transmitted Disease, TIA Surgical History: Cholecystectomy (open cholecystectomy with CBD exploration 2012), Coronary Stent, Hernia Repair Denies: Appendectomy, Pacemaker - [facility] Procedures ANESTH INJECT SYMP NERVE (05/12/13) C & S-INTEGUMENT (08/27/14) CENTRAL VENOUS CATHETER PLACEMENT WITH GUIDANCE (07/18/15) CHOLECYSTECTOMY (10/16/13) CLOSED ENDOSCOPIC BIOPSY OF LARGE INTESTINE (09/01/13) CLOSED [PERCUTANEOUS] [NEEDLE] BIOPSY OF LUNG (06/21/13) COMMON DUCT EXPLORATION (10/16/13) CONTINUOUS INVASIVE MECHANICAL VENTILATION <96 CONSEC HRS (11/05/14) CORONAR ARTERIOGR-2 CATH (09/05/02) CYSTOSCOPY NEC (07/14/13) DX ULTRASOUND-DIGESTIVE (08/21/12) ENDOSCOPIC BRONCHIAL BX (07/28/13) ENTERAL INFUSION OF CONCENTRATED NUT. SUBSTANCES (11/05/14) ESOPHAGOGASTRODUODENOSCOPY [EGD] W/CLOSED BIOPSY (10/06/13) EXCISION OF STOMACH, ENDO, DIAGN (08/23/16) FLUOROSCOPY OF SUPERIOR VENA CAVA, GUIDANCE (07/13/16) GASTROTOMY (07/29/06) INFLUENZA VACCINATION (11/05/14) INJECT/INFUSE ELECTROLYT (05/29/14) INJECT/INFUSE NEC (01/29/15) INSERT ENDOTRACHEAL TUBE (11/05/14) INSERT INTERCOSTAL CATH (09/01/13) INSERTION OF INFUSION DEV INTO R INNOM VEIN, PERC APPROACH (10/05/15) INSERTION OF INFUSION DEV INTO SUP VENA CAVA, PERC APPROACH (08/23/16) INTRODUCE OF OTH THERAP SUBST INTO RESP TRACT, VIA OPENING (12/18/16) INTRODUCE OTH ANTI-INFECT IN CENTRAL VEIN, PERC (10/05/15) LEFT HEART CARDIAC CATH (09/05/02) LT HEART ANGIOCARDIOGRAM (09/05/02) MAGNETIC RESONANCE IMAGING OF SPINAL CANAL (10/16/13) NEBULIZER THERAPY (09/12/14) NON-INVASIVE MECHANICAL VENTILATION (07/14/13) OTH LYSIS-PERITONEAL ADHES (10/16/13) OTHER ENDOSCOPY OF SM INTEST (10/12/14) OTHER SKIN & SUBQ I D (04/30/14) PACKED CELL TRANSFUSION (10/30/13) PANCREAT SPHINCTEROPLAS (10/16/13) PART GASTREC W JEJ ANAST (07/29/06) PERCUTAN NEEDLE BIOPSY OF PROSTATE (09/01/13) REPAIR OF INTESTINE NEC (10/16/13) SM-TO-SM BOWEL ANASTOM (07/29/06) THORACOSCOPIC LOBECTOMY OF LUNG (07/28/13) TRANSURETHRAL PROSTATECTOMY ([place]) (07/14/13) URETHRAL DILATION (09/01/13) VACCINATION NEC (11/05/14) VENOUS CATHETERIZATION NEC (11/05/14) Family History: States: Unknown Family Hx - Social History Hx Tobacco Use: Yes Hx Alcohol Use: No Hx Substance Use: No - Immunization History Hx Tetanus Toxoid Vaccination: Yes Hx Influenza Vaccination: Yes Hx Pneumococcal Vaccination: Yes Review Of Systems Constitutional: Negative for: Fever Cardiovascular: Chest Pain Respiratory: negative for: Shortness of Breath Gastrointestinal: Negative for: Vomiting, Abdominal Pain Genitourinary: Negative for: Dysuria, Frequency Skin: Negative for: Rash Neurological: Negative for: Numbness Physical Exam - Physical Exam Appears: Well, Non-toxic, No Acute Distress Skin: Normal Color, Warm, Dry Head: Atraumatic, Normacephalic Eye(s): bilateral: Normal Inspection, PERRL, EOMI Cardiovascular: Rhythm Regular, No Murmur Respiratory: Normal Breath Sounds, No Decreased Breath Sounds, No Rales, No Rhonchi, No Wheezing Gastrointestinal/Abdominal: Normal Exam, Bowel Sounds (active), Soft, No Tenderness, No Mass, No Distention, No Guarding, No Rebound Rectal: Other (healed wound on epigastric region from cholecystectomy ) Extremity: Normal ROM Neurological/Psych: Oriented x3, Normal Speech, Normal Motor Past Patient History - Infectious Disease Hx of Infectious Diseases: None - Tetanus Immunizations Tetanus Immunization: Unknown - Past Medical History & Family History Past Medical History?: Yes - Past Social History Smoking Status: Former Smoker - CARDIAC Hx Cardia Arrhythmia: No Hx Congestive Heart Failure: Yes Hx Hypercholesterolemia: Yes Hx Hypertension: Yes Hx Mitral Valve Prolapse: No Hx Pacemaker: No Hx Peripheral Edema: No - PULMONARY Hx Asthma: Yes Hx Bronchitis: No Hx Chronic Obstructive Pulmonary Disease (COPD): Yes Hx Emphysema: Yes Hx Pneumonia: Yes Hx Sleep Apnea: Yes - NEUROLOGICAL Hx Dementia: No Hx Migraine: No Hx Parkinson's Disease: No Hx Seizures: No Hx Transient Ischemic Attacks (TIA): No - HEENT Hx HEENT Problems: No Hx Blind: No Hx Cataracts: No Hx Deafness: No Hx Difficulty Chewing: No Hx Epistaxis: No Hx Glaucoma: No Hx Macular Degeneration: No - RENAL Hx Chronic Kidney Disease: No Hx Kidney Stones: No - ENDOCRINE/METABOLIC Hx Hyperthyroidism: No Hx Hypothyroidism: No - HEMATOLOGICAL/ONCOLOGICAL Hx Anemia: No Hx Human Immunodeficiency Virus (HIV): No Hx Sickle Cell Disease: No - INTEGUMENTARY Hx Dermatological Problems: Yes Other/Comment: UPPER MID ABD WOUND - MRSA POSITIVE - MUSCULOSKELETAL/RHEUMATOLOGICAL Hx Arthritis: Yes Hx Fractures: No Hx Osteoporosis: No - GASTROINTESTINAL Hx Crohn's Disease: No Hx Diverticulitis: No Hx Gall Bladder Disease: Yes Hx Pancreatitis: No - GENITOURINARY/GYNECOLOGICAL Hx Sexually Transmitted Disorders: No - PSYCHIATRIC Hx Anxiety: No Hx Bipolar Disorder: No Hx Depression: No Hx Paranoia: No Hx Post Traumatic Stress Disorder: No Hx Schizophrenia: No Hx Substance Use: No - SURGICAL HISTORY Hx Appendectomy: No Hx Cholecystectomy: Yes (open cholecystectomy with CBD exploration 2012) Hx Coronary Stent: Yes - ANESTHESIA Hx Anesthesia: Yes Hx Anesthesia Reactions: No Hx Malignant Hyperthermia: No Meds Allergies/Adverse Reactions: Allergies Allergy/AdvReac Type Severity Reaction Status Date / Time No Known Allergies Allergy Verified 06/25/18 07:42 - Medications Medications: Current Medications Alprazolam (Xanax) 0.5 mg PO TID PRN PRN Reason: Anxiety Last Admin: 06/25/18 18:40 Dose: 0.5 mg Aspirin (Ecotrin) 81 mg PO DAILY [facility] Enoxaparin Sodium (Lovenox) 40 mg SC DAILY [facility] Last Admin: 06/25/18 13:23 Dose: 40 mg Metformin HCl (Glucophage) 500 mg PO BIDCC [facility] Last Admin: 06/25/18 17:48 Dose: 500 mg Oxycodone HCl (Oxycodone Immediate Release Tab) 30 mg PO Q4 PRN PRN Reason: Pain, moderate (4-7) Last Admin: 06/25/18 13:48 Dose: 30 mg Rosuvastatin Calcium (Crestor) 10 mg PO [facility] Last Admin: 06/25/18 21:26 Dose: 10 mg Zolpidem Tartrate (Ambien) 5 mg PO [facility] Last Admin: 06/25/18 21:26 Dose: 5 mg Results - Vital Signs Recent Vital Signs: Last Vital Signs Temp 98.0 F 06/25/18 15:20 Pulse 74 06/25/18 15:20 Resp 20 06/25/18 15:20 BP 150/83 06/25/18 15:20 Pulse Ox 97 06/25/18 18:32 - Labs Result Diagrams: 06/26/18 08:07 06/25/18 08:08 Labs: Laboratory Results - last 24 hr 06/25/18 06/25/18 06/25/18 08:08 08:08 12:15 WBC 7.0 RBC 3.80 L Hgb 10.7 L Hct 32.1 L MCV 84.5 MCH 28.2 MCHC 33.4 RDW 15.4 H Plt Count 157 MPV 9.9 Neut % (Auto) 77.9 H Lymph % (Auto) 15.0 L [place] % (Auto) 5.1 Eos % (Auto) 1.3 Baso % (Auto) 0.7 Neut # (Auto) 5.5 Lymph # (Auto) 1.1 [place] # (Auto) 0.4 Eos # (Auto) 0.1 Baso # (Auto) 0.1 Sodium 143 Potassium 5.3 H Chloride 108 H Carbon Dioxide 23 Anion Gap 18 BUN 20 Creatinine 1.2 Est GFR ( Amer) > 60 Est GFR (Non-Af Amer) 58 POC Glucose (mg/dL) 157 H Random Glucose 177 H Calcium 9.1 Total Bilirubin 0.7 AST 24 ALT 19 L Alkaline Phosphatase 147 H Total Creatine Kinase CK-MB (Mass) Troponin I < 0.0120 NT-Pro-B Natriuret Pep 1440 H Total Protein 7.7 Albumin 4.6 Globulin 3.1 Albumin/Globulin Ratio 1.5 06/25/18 06/25/18 15:42 17:16 WBC RBC Hgb Hct MCV MCH MCHC RDW Plt Count MPV Neut % (Auto) Lymph % (Auto) [place] % (Auto) Eos % (Auto) Baso % (Auto) Neut # (Auto) Lymph # (Auto) [place] # (Auto) Eos # (Auto) Baso # (Auto) Sodium Potassium Chloride Carbon Dioxide Anion Gap BUN Creatinine Est GFR ( Amer) Est GFR (Non-Af Amer) POC Glucose (mg/dL) 146 H Random Glucose Calcium Total Bilirubin AST ALT Alkaline Phosphatase Total Creatine Kinase 91 CK-MB (Mass) 1.11 Troponin I < 0.0120 NT-Pro-B Natriuret Pep Total Protein Albumin Globulin Albumin/Globulin Ratio Assessment & Plan - Assessment and Plan (Free Text) Assessment: Likely has underlying CAD as evidenced by EKG. no active angina. reproducible chest pain Chronic pain syndrome Recommend conservative medical therapy given multiple comorbidities. Recommend PPM f/u by Dr. Flores as out patient
[2018-06-25 22:41] VITALS: RESP 20
[2018-06-26] MEDS: oxyCODONE 30 mg Immediate Release Tab PO PRN ×6 (01:00→22:05)
[2018-06-26 01:32] LABS: CK-MB 1.01 ng/mL (0.0-3.38)
[2018-06-26 08:24] LABS: BASO % 0.6 % (0.0-2.0); EOS # 0.1 K/uL (0.0-0.7); EOS % 1.4 % (0.0-4.0); HEMOGLOBIN 10.9 g/dL (12.0-18.0); LYMPH # 1.7 K/uL (1.0-4.3); LYMPH % 23.2 % (20.0-40.0); MEAN CELL VOLUME 84.1 fL (80.0-94.0); MEAN CORPUSCULAR HEMOGLOBIN 28.3 pg (27.0-31.0); MEAN CORPUSCULAR HGB CONC 33.7 g/dL (33.0-37.0); MONO # 0.4 K/uL (0.0-0.8); NEUT # 5.1 K/uL (1.8-7.0); NEUT % 68.8 % (50.0-75.0); RBC 3.85 Mil/uL (4.40-5.90); RED CELL DISTRIBUTION WIDTH 15.3 % (11.5-14.5); WHITE BLOOD COUNT 7.4 K/uL (4.8-10.8)
[2018-06-26 09:16] LABS: FREE T4 0.99 ng/dL (0.78-2.19)
[2018-06-26] MEDS: Enoxaparin 40 mg Syringe SC SCH (09:19)
--- NOTE | 2018-06-26 09:22 | CP.PCM.PN ---
Subjective - Date & Time of Evaluation Date of Evaluation: 06/26/18 Time of Evaluation: 09:19 - Subjective Subjective: c/o of chest pain abd pain sob Objective - Vital Signs/Intake and Output Vital Signs (last 24 hours): Temp Pulse Resp BP Pulse Ox 98.0 F 72 20 138/77 96 06/26/18 08:22 06/26/18 08:22 06/26/18 08:22 06/26/18 08:22 06/26/18 08:22 - Medications Medications: Current Medications Alprazolam (Xanax) 0.5 mg PO TID PRN PRN Reason: Anxiety Last Admin: 06/25/18 18:40 Dose: 0.5 mg Aspirin (Ecotrin) 81 mg PO DAILY [facility] Enoxaparin Sodium (Lovenox) 40 mg SC DAILY [facility] Last Admin: 06/25/18 13:23 Dose: 40 mg [facility] Last Admin: 06/25/18 17:48 Dose: 500 mg Oxycodone HCl (Oxycodone Immediate Release Tab) 30 mg PO Q4 PRN PRN Reason: Pain, moderate (4-7) Last Admin: 06/26/18 08:03 Dose: 30 mg Rosuvastatin Calcium (Crestor) 10 mg PO [facility] Last Admin: 06/25/18 21:26 Dose: 10 mg Zolpidem Tartrate (Ambien) 5 mg PO [facility] Last Admin: 06/25/18 21:26 Dose: 5 mg - Labs Labs: 06/26/18 08:07 06/25/18 08:08 - Constitutional Appears: In Acute Distress - Head Exam Head Exam: ATRAUMATIC - Eye Exam Eye Exam: Normal appearance Pupil Exam: NORMAL ACCOMODATION - ENT Exam ENT Exam: Mucous Membranes Moist Additional comments: dec heraing - Neck Exam Neck Exam: Full ROM - Respiratory Exam Respiratory Exam: Decreased Breath Sounds - Cardiovascular Exam Cardiovascular Exam: REGULAR RHYTHM - GI/Abdominal Exam GI & Abdominal Exam: Normal Bowel Sounds Additional comments: abd wound infection - Exam Exam: NORMAL INSPECTION - Extremities Exam Extremities Exam: Full ROM - Back Exam Back Exam: vertebral tenderness - Neurological Exam Neurological Exam: Awake, Oriented x3 - Psychiatric Exam Psychiatric exam: Normal Mood - Skin Skin Exam: Normal Color, Pallor Assessment and Plan - Assessment and Plan (Free Text) Assessment: chf ac chest pain abd pain infected abd wound mesh Plan: cont as per orders
--- NOTE | 2018-06-26 14:04 | CP.PCM.PN ---
Subjective - Date & Time of Evaluation Date of Evaluation: 06/26/18 Time of Evaluation: 07:40 - Subjective Subjective: General Surgery progress note for Dr. Bowden Patient seen and examined this am at bedside. no acute events overnight per nursing. patient continues to complain of ear pain, leg pain, abdominal pain and pain over his pacemaker site. patient has difficulty conducting conversation as he is consistently making noises and grunting. He denies f/c/n/ v. he continues to states that he is not ready to have the mesh removed and would like to talk to his . he is able to ambulate about the room and to his bathroom without difficulty. Objective - Vital Signs/Intake and Output Vital Signs (last 24 hours): Temp Pulse Resp BP Pulse Ox 98.0 F 72 20 138/77 96 06/26/18 08:22 06/26/18 08:22 06/26/18 08:22 06/26/18 08:22 06/26/18 08:22 - Medications Medications: Current Medications Alprazolam (Xanax) 0.5 mg PO TID PRN PRN Reason: Anxiety Last Admin: 06/25/18 18:40 Dose: 0.5 mg Aspirin (Ecotrin) 81 mg PO DAILY [facility] Last Admin: 06/26/18 09:19 Dose: 81 mg Enoxaparin Sodium (Lovenox) 40 mg SC DAILY [facility] Last Admin: 06/26/18 09:19 Dose: 40 mg Metformin HCl (Glucophage) 500 mg PO BIDCC [facility] Last Admin: 06/26/18 08:19 Dose: 500 mg Oxycodone HCl (Oxycodone Immediate Release Tab) 30 mg PO Q4 PRN PRN Reason: Pain, moderate (4-7) Last Admin: 06/26/18 12:42 Dose: 30 mg Rosuvastatin Calcium (Crestor) 10 mg PO [facility] Last Admin: 06/25/18 21:26 Dose: 10 mg Zolpidem Tartrate (Ambien) 5 mg PO [facility] Last Admin: 06/25/18 21:26 Dose: 5 mg - Labs Labs: 06/26/18 08:07 06/25/18 08:08 - Constitutional Appears: Non-toxic, No Acute Distress, Unkempt, Chronically Ill - Head Exam Head Exam: ATRAUMATIC, NORMOCEPHALIC - ENT Exam ENT Exam: Mucous Membranes Moist - Respiratory Exam Respiratory Exam: NORMAL BREATHING PATTERN - Cardiovascular Exam Cardiovascular Exam: +S1, +S2 - GI/Abdominal Exam GI & Abdominal Exam: Soft, Tenderness Additional comments: abdominal exam is limited d/t patient's constant valsalva maneuvers and grunting , 5 cm x 3 cm area of skin erosion with granulation tissue and mesh protruding, several small areas 1cm x 1cm on either side of the central wound also have purulent drainage and surrounding erythema - Neurological Exam Neurological Exam: Alert, Awake, Oriented x3 - Psychiatric Exam Psychiatric exam: Agitated, Normal Mood - Skin Skin Exam: Dry, Intact, Normal Color, Warm Assessment and Plan - Assessment and Plan (Free Text) Assessment: 83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 Bowden all further recs per him Sofya Lieberman, PGY 1
--- NOTE | 2018-06-26 16:33 | CP.PCM.PN ---
Subjective - Date & Time of Evaluation Date of Evaluation: 06/26/18 Time of Evaluation: 16:33 - Subjective Subjective: Patient seen and examined Chest pain and generalized body pains Physical Exam - Physical Exam Appears: Well, Non-toxic, No Acute Distress Skin: Normal Color, Warm, Dry Head: Atraumatic, Normacephalic Eye(s): bilateral: Normal Inspection, PERRL, EOMI Cardiovascular: Rhythm Regular, No Murmur Respiratory: Normal Breath Sounds, No Decreased Breath Sounds, No Rales, No Rhonchi, No Wheezing Gastrointestinal/Abdominal: Normal Exam, Bowel Sounds (active), Soft, No Tenderness, No Mass, No Distention, No Guarding, No Rebound Extremity: Normal ROM Neurological/Psych: Oriented x3, Normal Speech, Normal Motor Objective - Vital Signs/Intake and Output Vital Signs (last 24 hours): Temp Pulse Resp BP Pulse Ox 97.6 F 64 20 107/67 98 06/26/18 15:23 06/26/18 15:23 06/26/18 15:23 06/26/18 15:23 06/26/18 15:23 - Medications Medications: Current Medications Alprazolam (Xanax) 0.5 mg PO TID PRN PRN Reason: Anxiety Last Admin: 06/26/18 14:35 Dose: 0.5 mg Aspirin (Ecotrin) 81 mg PO DAILY [facility] Last Admin: 06/26/18 09:19 Dose: 81 mg Enoxaparin Sodium (Lovenox) 40 mg SC DAILY [facility] Last Admin: 06/26/18 09:19 Dose: 40 mg [facility] Last Admin: 06/26/18 08:19 Dose: 500 mg Oxycodone HCl (Oxycodone Immediate Release Tab) 30 mg PO Q4 PRN PRN Reason: Pain, moderate (4-7) Last Admin: 06/26/18 12:42 Dose: 30 mg Rosuvastatin Calcium (Crestor) 10 mg PO [facility] Last Admin: 06/25/18 21:26 Dose: 10 mg Zolpidem Tartrate (Ambien) 5 mg PO [facility] Last Admin: 06/25/18 21:26 Dose: 5 mg - Labs Labs: 06/26/18 08:07 06/25/18 08:08 Assessment and Plan - Assessment and Plan (Free Text) Assessment: Likely has underlying CAD as evidenced by EKG. no active angina. reproducible chest pain Chronic pain syndrome Recommend conservative medical therapy given multiple comorbidities. Recommend PPM f/u by Dr. Flores as out patient
[2018-06-27] MEDS: oxyCODONE 30 mg Immediate Release Tab PO PRN ×5 (06:03→23:01)
[2018-06-27] MEDS: Enoxaparin 40 mg Syringe SC SCH (10:10)
--- NOTE | 2018-06-27 12:14 | CARD ---
APPROVED REPORT Date of service: 06/25/2018 EKG Measurement Heart [id number] <Conclusion> Dual-chamber pacemaker, atrial sensed and ventricularly paced Appropriate left bundle branch block pattern, no further remarks made Abnormal ECG
--- NOTE | 2018-06-27 15:53 | CP.PCM.PN ---
<Bree London - Last Filed: 06/27/18 15:56> Subjective - Date & Time of Evaluation Date of Evaluation: 06/27/18 Time of Evaluation: 15:52 - Subjective Subjective: Cardiology Progress Note - Dr Franco Patient seen and examined at bedside. States that he is having some pain over pacemaker site. Pain is improving. Also reports having abdominal pain. Denies palpitations or dyspnea. Objective - Vital Signs/Intake and Output Vital Signs (last 24 hours): Temp Pulse Resp BP Pulse Ox 98.1 F 69 20 144/71 97 06/27/18 07:00 06/27/18 07:00 06/27/18 07:00 06/27/18 07:00 06/27/18 07:00 - Medications Medications: Current Medications Alprazolam (Xanax) 0.5 mg PO TID PRN PRN Reason: Anxiety Last Admin: 06/27/18 08:22 Dose: 0.5 mg Aspirin (Ecotrin) 81 mg PO DAILY [facility] Last Admin: 06/27/18 10:10 Dose: 81 mg Enoxaparin Sodium (Lovenox) 40 mg SC DAILY [facility] Last Admin: 06/27/18 10:10 Dose: 40 mg [facility]) [facility] Last Admin: 06/27/18 08:22 Dose: 500 mg Oxycodone HCl (Oxycodone Immediate Release Tab) 30 mg PO Q4 PRN PRN Reason: Pain, moderate (4-7) Last Admin: 06/27/18 14:13 Dose: 30 mg Rosuvastatin Calcium (Crestor) 10 mg PO [facility] Last Admin: 06/26/18 22:05 Dose: 10 mg Zolpidem Tartrate (Ambien) 5 mg PO [facility] Last Admin: 06/27/18 00:57 Dose: 5 mg - Labs Labs: 06/26/18 08:07 06/25/18 08:08 - Additional Findings Additional findings: Appears: Well, Non-toxic, No Acute Distress Skin: Normal Color, Warm, Dry Head: Atraumatic, Normacephalic Eye(s): bilateral: Normal Inspection, PERRL, EOMI Cardiovascular: Rhythm Regular, No Murmur, +pacemaker Respiratory: Normal Breath Sounds, No Decreased Breath Sounds, No Rales, No Rhonchi, No Wheezing Gastrointestinal/Abdominal: Normal Exam, Bowel Sounds (active), Soft, abdominal dressing c/d/i, No Mass, No Distention, No Guarding, No Rebound Extremity: Normal ROM Neurological/Psych: Oriented x3, Normal Speech, Normal Motor Assessment and Plan - Assessment and Plan (Free Text) Assessment: Likely has underlying CAD as evidenced by EKG. No active angina. Reproducible chest pain Chronic pain syndrome Recommend conservative medical therapy given multiple comorbidities. Recommend PPM f/u by Dr. Flores as out patient Plan discussed with Dr Salvador London DO PGY-2 <Chepe Franco - Last Filed: 06/27/18 18:53> Objective - Vital Signs/Intake and Output Vital Signs (last 24 hours): Temp Pulse Resp BP Pulse Ox 98.5 F 77 20 117/66 97 06/27/18 15:00 06/27/18 16:36 06/27/18 15:00 06/27/18 15:00 06/27/18 15:00 Intake and Output: 06/27/18 06/27/18 06:59 18:59 Intake Total 930 Balance 930 - Medications Medications: Current Medications Alprazolam (Xanax) 0.5 mg PO TID PRN PRN Reason: Anxiety Last Admin: 06/27/18 17:02 Dose: 0.5 mg Aspirin (Ecotrin) 81 mg PO DAILY [facility] Last Admin: 06/27/18 10:10 Dose: 81 mg Enoxaparin Sodium (Lovenox) 40 mg SC DAILY [facility] Last Admin: 06/27/18 10:10 Dose: 40 mg [facility]formin [facility] ([facility]ophage) [facility] Last Admin: 06/27/18 17:02 Dose: 500 mg Oxycodone HCl (Oxycodone Immediate Release Tab) 30 mg PO Q4 PRN PRN Reason: Pain, moderate (4-7) Last Admin: 06/27/18 14:13 Dose: 30 mg Rosuvastatin Calcium (Crestor) 10 mg PO [facility] Last Admin: 06/26/18 22:05 Dose: 10 mg Zolpidem Tartrate (Ambien) 5 mg PO [facility] Last Admin: 06/27/18 00:57 Dose: 5 mg - Labs Labs: 06/26/18 08:07 06/25/18 08:08 Assessment and Plan - Assessment and Plan (Free Text) Assessment: Patient seen and evaluated personally by me Plan of care d/w the medical office receptionist assistant and as documented
--- NOTE | 2018-06-27 16:41 | CP.PCM.PN ---
Subjective - Date & Time of Evaluation Date of Evaluation: 06/27/18 Time of Evaluation: 16:39 - Subjective Subjective: Surgery: Dr. Marquez Pt seen and examined. Resting comfortably in bed. Pt states that he would like to have surgery. Objective - Vital Signs/Intake and Output Vital Signs (last 24 hours): Temp Pulse Resp BP Pulse Ox 98.5 F 71 20 117/66 97 06/27/18 15:00 06/27/18 15:00 06/27/18 15:00 06/27/18 15:00 06/27/18 15:00 Intake and Output: 06/27/18 06/27/18 06:59 18:59 Intake Total 930 Balance 930 - Medications Medications: Current Medications Alprazolam (Xanax) 0.5 mg PO TID PRN PRN Reason: Anxiety Last Admin: 06/27/18 08:22 Dose: 0.5 mg Aspirin (Ecotrin) 81 mg PO DAILY [facility] Last Admin: 06/27/18 10:10 Dose: 81 mg Enoxaparin Sodium (Lovenox) 40 mg SC DAILY [facility] Last Admin: 06/27/18 10:10 Dose: 40 mg Metformin HCl (Glucophage) 500 mg PO BIDCC [facility] Last Admin: 06/27/18 08:22 Dose: 500 mg Oxycodone HCl (Oxycodone Immediate Release Tab) 30 mg PO Q4 PRN PRN Reason: Pain, moderate (4-7) Last Admin: 06/27/18 14:13 Dose: 30 mg Rosuvastatin Calcium (Crestor) 10 mg PO [facility] Last Admin: 06/26/18 22:05 Dose: 10 mg Zolpidem Tartrate (Ambien) 5 mg PO [facility] Last Admin: 06/27/18 00:57 Dose: 5 mg - Labs Labs: 06/26/18 08:07 06/25/18 08:08 - Constitutional Appears: Non-toxic, No Acute Distress - Head Exam Head Exam: ATRAUMATIC, NORMOCEPHALIC - Eye Exam Eye Exam: EOMI - ENT Exam ENT Exam: Mucous Membranes Moist - Neck Exam Neck Exam: Full ROM - Respiratory Exam Respiratory Exam: NORMAL BREATHING PATTERN. absent: Accessory Muscle Use, Respiratory Distress - GI/Abdominal Exam GI & Abdominal Exam: Soft. absent: Distended, Firm, Guarding, Rigid, Rebound Additional comments: mesh has eroded through skin and is visible - Neurological Exam Neurological Exam: Alert, Awake, Oriented x3 - Psychiatric Exam Psychiatric exam: Normal Affect, Normal Mood Assessment and Plan - Assessment and Plan (Free Text) Assessment: 83M w. mesh erosion -Will plan for OR on friday 06/29 -Will need medical clearance -d/w attending [facility] PGY4
--- NOTE | 2018-06-27 18:43 | CP.PCM.PN ---
Subjective - Date & Time of Evaluation Date of Evaluation: 06/27/18 Time of Evaluation: 18:41 - Subjective Subjective: pt comfortable today agree for plan dof surgery will discuss with dr armstrong for clearance Objective - Vital Signs/Intake and Output Vital Signs (last 24 hours): Temp Pulse Resp BP Pulse Ox 98.5 F 77 20 117/66 97 06/27/18 15:00 06/27/18 16:36 06/27/18 15:00 06/27/18 15:00 06/27/18 15:00 Intake and Output: 06/27/18 06/27/18 06:59 18:59 Intake Total 930 Balance 930 - Medications Medications: Current Medications Alprazolam (Xanax) 0.5 mg PO TID PRN PRN Reason: Anxiety Last Admin: 06/27/18 17:02 Dose: 0.5 mg Aspirin (Ecotrin) 81 mg PO DAILY [facility] Last Admin: 06/27/18 10:10 Dose: 81 mg Enoxaparin Sodium (Lovenox) 40 mg SC DAILY [facility] Last Admin: 06/27/18 10:10 Dose: 40 mg [facility] Last Admin: 06/27/18 17:02 Dose: 500 mg Oxycodone HCl (Oxycodone Immediate Release Tab) 30 mg PO Q4 PRN PRN Reason: Pain, moderate (4-7) Last Admin: 06/27/18 14:13 Dose: 30 mg Rosuvastatin Calcium (Crestor) 10 mg PO [facility] Last Admin: 06/26/18 22:05 Dose: 10 mg Zolpidem Tartrate (Ambien) 5 mg PO [facility] Last Admin: 06/27/18 00:57 Dose: 5 mg - Labs Labs: 06/26/18 08:07 06/25/18 08:08 - Constitutional Appears: Non-toxic - Head Exam Head Exam: NORMAL INSPECTION - Eye Exam Eye Exam: Normal appearance Pupil Exam: NORMAL ACCOMODATION - ENT Exam ENT Exam: Mucous Membranes Moist - Neck Exam Neck Exam: Normal Inspection - Respiratory Exam Respiratory Exam: Clear to Ausculation Bilateral - Cardiovascular Exam Cardiovascular Exam: REGULAR RHYTHM - GI/Abdominal Exam GI & Abdominal Exam: Tenderness, Normal Bowel Sounds - Extremities Exam Extremities Exam: Full ROM, Normal Capillary Refill - Back Exam Back Exam: NORMAL INSPECTION - Neurological Exam Neurological Exam: Alert, Normal Gait, Oriented x3 - Psychiatric Exam Psychiatric exam: Normal Mood - Skin Skin Exam: Normal Color Assessment and Plan - Assessment and Plan (Free Text) Assessment: abd pain infected meshg need surgery hx chf chest pain Plan: await clearansce
[2018-06-28] MEDS: oxyCODONE 30 mg Immediate Release Tab PO PRN ×5 (03:18→21:41)
--- NOTE | 2018-06-28 05:52 | CON ---
Copied To: Hadley Chakraborty MD Attending MD: Hadley Chakraborty MD DATE: 06/27/2018 REASON FOR CONSULTATION: Ear pain. REQUESTING PHYSICIAN: MD Bashir HISTORY: This is an 83-year-old male with a one-week history of right ear pain, on and off, mild to moderate in intensity for one week. He has also hearing loss on the left, constant, severe for years after operation. PAST MEDICAL HISTORY: As noted in the chart by me. MEDICATIONS: As noted in the chart by me. ALLERGIES: NOTED IN THE CHART BY ME. PHYSICAL EXAMINATION: HEAD: Atraumatic, normocephalic. FACE: Good facial movements bilaterally. CONSTITUTIONAL: Well fed, well nourished. COMMUNICATION: Communicates well and appropriately. EXTERNAL NOSE AND EARS: No masses. No lesions. No erythema. No edema. INTERNAL EARS: Right ear intact, no fluid behind it. Left ear, wax impacted. TMs cannot be visualized. INTERNAL NOSE: Deviated septum. No masses, no lesions, no erythema, no edema. OROPHARYNX AND ORAL CAVITY: No masses. No lesions. No erythema. No edema. LIPS AND GUMS: No masses. No lesions. No erythema. No edema. NECK: Supple. Thyroid: No thyromegaly, no goiter. LYMPH NODES: No lymphadenopathy of the neck. There is pain on the right TMJ upon palpation. ASSESSMENT: 1. Temporomandibular joint. 2. Ear pain. 3. Hearing loss. 4. Ear wax. 5. Deviated septum. PLAN: Warm compress to the right TMJ, the patient to follow up in the office for ear cleaning. Hadley Chakraborty MD
[2018-06-28] MEDS: Enoxaparin 40 mg Syringe SC SCH (10:04)
--- NOTE | 2018-06-28 10:55 | CP.PCM.PN ---
<Bree London - Last Filed: 06/28/18 17:46> Subjective - Date & Time of Evaluation Date of Evaluation: 06/28/18 Time of Evaluation: 10:54 - Subjective Subjective: Cardiology Progress Note - Dr Franco Patient seen and examined at bedside. Per nursing no acute events overnight. Patient is still complaining of generalized body pains. States that he is tired and wants to sleep. Offers no other complaints at this time. Denies chest pain or dyspnea. Objective - Vital Signs/Intake and Output Vital Signs (last 24 hours): Temp Pulse Resp BP Pulse Ox 98.2 F 67 20 127/72 97 06/28/18 07:00 06/28/18 07:47 06/28/18 07:00 06/28/18 07:00 06/28/18 07:00 Intake and Output: 06/28/18 06/28/18 06:59 18:59 Intake Total 500 Balance 500 - Medications Medications: Current Medications Alprazolam (Xanax) 0.5 mg PO TID PRN PRN Reason: Anxiety Last Admin: 06/27/18 17:02 Dose: 0.5 mg Aspirin (Ecotrin) 81 mg PO DAILY [facility] Last Admin: 06/28/18 10:04 Dose: 81 mg Docusate Sodium (Colace) 100 mg PO BID [facility] Last Admin: 06/28/18 10:04 Dose: 100 mg Enoxaparin Sodium (Lovenox) 40 mg SC DAILY [facility] Last Admin: 06/28/18 10:04 Dose: 40 mg Metformin HCl (Glucophage) 500 mg PO [facility] Last Admin: 06/28/18 08:53 Dose: 500 mg Oxycodone HCl (Oxycodone Immediate Release Tab) 30 mg PO Q4 PRN PRN Reason: Pain, moderate (4-7) Last Admin: 06/28/18 07:15 Dose: 30 mg Rosuvastatin Calcium (Crestor) 10 mg PO [facility] Last Admin: 06/27/18 22:57 Dose: 10 mg Zolpidem Tartrate (Ambien) 5 mg PO [facility] Last Admin: 06/27/18 22:57 Dose: 5 mg - Labs Labs: 06/26/18 08:07 06/25/18 08:08 - Constitutional Appears: Well, No Acute Distress - Head Exam Head Exam: ATRAUMATIC, NORMAL INSPECTION, NORMOCEPHALIC - Eye Exam Eye Exam: EOMI, Normal appearance - ENT Exam ENT Exam: Mucous Membranes Moist - Neck Exam Neck Exam: Full ROM - Respiratory Exam Respiratory Exam: Clear to Ausculation Bilateral, NORMAL BREATHING PATTERN. absent: Rhonchi, Wheezes - Cardiovascular Exam Cardiovascular Exam: REGULAR RHYTHM, +S1, +S2 Additional comments: + pacemaker - GI/Abdominal Exam GI & Abdominal Exam: Soft, Normal Bowel Sounds Additional comments: Abdominal dressing c/d/i - Extremities Exam Extremities Exam: absent: Calf Tenderness - Neurological Exam Neurological Exam: Alert, Awake, Oriented x3 - Psychiatric Exam Psychiatric exam: Normal Affect, Normal Mood - Skin Skin Exam: Dry, Normal Color, Warm Assessment and Plan - Assessment and Plan (Free Text) Assessment: General surgery requesting medical clearance for the OR Previous echo 02/2018 showed EF 41%, mild systolic dysfunction, mild concentric LVH, mild AR, apical septal, inferoapical wall akinetic Will order nuclear stress test Plan discussed with Dr Salvador London DO PGY-2 <Chepe Franco - Last Filed: 06/28/18 21:28> Objective - Vital Signs/Intake and Output Vital Signs (last 24 hours): Temp Pulse Resp BP Pulse Ox 98.4 F 80 20 131/74 97 06/28/18 15:00 06/28/18 16:48 06/28/18 15:00 06/28/18 15:00 06/28/18 15:00 - Medications Medications: Current Medications Alprazolam (Xanax) 0.5 mg PO TID PRN PRN Reason: Anxiety Last Admin: 06/28/18 20:32 Dose: 0.5 mg Aspirin (Ecotrin) 81 mg PO DAILY [facility] Last Admin: 06/28/18 10:04 Dose: 81 mg Docusate Sodium (Colace) 100 mg PO BID [facility] Last Admin: 06/28/18 17:09 Dose: 100 mg Enoxaparin Sodium (Lovenox) 40 mg SC DAILY [facility] Last Admin: 06/28/18 10:04 Dose: 40 mg Metformin HCl (Glucophage) 500 mg PO [facility] Last Admin: 06/28/18 17:09 Dose: 500 mg Oxycodone HCl (Oxycodone Immediate Release Tab) 30 mg PO Q4 PRN PRN Reason: Pain, moderate (4-7) Last Admin: 06/28/18 17:09 Dose: 30 mg Rosuvastatin Calcium (Crestor) 10 mg PO [facility] Last Admin: 06/27/18 22:57 Dose: 10 mg Zolpidem Tartrate (Ambien) 5 mg PO [facility] Last Admin: 06/27/18 22:57 Dose: 5 mg - Labs Labs: 06/28/18 11:54 06/28/18 11:54 Assessment and Plan - Assessment and Plan (Free Text) Assessment: Patient seen and evaluated pesronally by me. Plan of care d/w the medical aides teacher and as documented
[2018-06-28 12:03] LABS: BASO % 0.4 % (0.0-2.0); EOS # 0.1 K/uL (0.0-0.7); EOS % 1.1 % (0.0-4.0); HEMOGLOBIN 11.5 g/dL (12.0-18.0); LYMPH # 1.8 K/uL (1.0-4.3); LYMPH % 20.4 % (20.0-40.0); MEAN CELL VOLUME 83.7 fL (80.0-94.0); MEAN CORPUSCULAR HEMOGLOBIN 28.5 pg (27.0-31.0); MEAN CORPUSCULAR HGB CONC 34.1 g/dL (33.0-37.0); MEAN PLATELET VOLUME 10.6 fL (7.2-11.7); MONO # 0.5 K/uL (0.0-0.8); NEUT # 6.4 K/uL (1.8-7.0); NEUT % 72.1 % (50.0-75.0); NRBC % 0.1 % (0.0-2.0); RBC 4.04 Mil/uL (4.40-5.90); RED CELL DISTRIBUTION WIDTH 15.5 % (11.5-14.5); WHITE BLOOD COUNT 8.9 K/uL (4.8-10.8)
[2018-06-28 12:36] LABS: BLOOD UREA NITROGEN 25 mg/dL (9-20); CALCIUM 9.5 mg/dl (8.6-10.4); GFR AFRICAN-AMERICAN > 60; GFR NON-AFRICAN AMERICAN 58
--- NOTE | 2018-06-28 13:07 | CP.PCM.PN ---
Subjective - Date & Time of Evaluation Date of Evaluation: 06/28/18 Time of Evaluation: 06:30 - Subjective Subjective: General Surgery Progress note for Dr. Marquez Patient seen and examined this am at bedside. No acute events overnight per nursing. Patient continues to complain of generalized pain. Patient denies f/c /n/v and chest pain. Objective - Vital Signs/Intake and Output Vital Signs (last 24 hours): Temp Pulse Resp BP Pulse Ox 98.2 F 67 20 127/72 97 06/28/18 07:00 06/28/18 07:47 06/28/18 07:00 06/28/18 07:00 06/28/18 07:00 Intake and Output: 06/28/18 06/28/18 06:59 18:59 Intake Total 500 Balance 500 - Medications Medications: Current Medications Alprazolam (Xanax) 0.5 mg PO TID PRN PRN Reason: Anxiety Last Admin: 06/27/18 17:02 Dose: 0.5 mg Aspirin (Ecotrin) 81 mg PO DAILY [facility] Last Admin: 06/28/18 10:04 Dose: 81 mg Docusate Sodium (Colace) 100 mg PO BID [facility] Last Admin: 06/28/18 10:04 Dose: 100 mg Enoxaparin Sodium (Lovenox) 40 mg SC DAILY [facility] Last Admin: 06/28/18 10:04 Dose: [facility] mg [facility] Last Admin: 06/28/18 08:53 Dose: 500 mg Oxycodone HCl (Oxycodone Immediate Release Tab) 30 mg PO Q4 PRN PRN Reason: Pain, moderate (4-7) Last Admin: 06/28/18 11:15 Dose: 30 mg Rosuvastatin Calcium (Crestor) 10 mg PO [facility] Last Admin: 06/27/18 22:57 Dose: 10 mg Zolpidem Tartrate (Ambien) 5 mg PO [facility] Last Admin: 06/27/18 22:57 Dose: 5 mg - Labs Labs: 06/28/18 11:54 06/28/18 11:54 - Constitutional Appears: Well, Non-toxic, No Acute Distress - Head Exam Head Exam: ATRAUMATIC, NORMOCEPHALIC - ENT Exam ENT Exam: Mucous Membranes Moist - Respiratory Exam Respiratory Exam: NORMAL BREATHING PATTERN - Cardiovascular Exam Cardiovascular Exam: +S1, +S2 - GI/Abdominal Exam GI & Abdominal Exam: Soft, Tenderness Additional comments: tender over midline mesh erosion points. central mesh erosion is approximately 8 cm x 4 cm with several lateral smaller lesions approximately 1 cm in size - Neurological Exam Neurological Exam: Alert, Awake, Oriented x3 - Psychiatric Exam Psychiatric exam: Normal Affect, Normal Mood - Skin Skin Exam: Dry, Normal Color, Warm Additional comments: see discription of central mesh erosion in abdominal exam Assessment and Plan - Assessment and Plan (Free Text) Assessment: 83 yr old male with abdominal mesh erosion Plan: - OR for mesh removal when stress test completed and patient cleared by cardio - will f/u stress test and echo - Preoperative labs ordered - Will discuss plan with Dr. Marquez, all further recs per him Sofya Lieberman, PGY 1
[2018-06-28] MEDS ORDERED: Oxycodone/Acetaminophen 5/325 mg Tab PO ONE (14:20)
[2018-06-28 22:55] LABS: INR 1.2
[2018-06-29] MEDS: oxyCODONE 30 mg Immediate Release Tab PO PRN ×5 (03:41→21:55)
[2018-06-29] MEDS: Enoxaparin 40 mg Syringe SC SCH ×2 (10:51→11:45)
--- NOTE | 2018-06-29 11:33 | CP.PCM.PN ---
Subjective - Date & Time of Evaluation Date of Evaluation: 06/29/18 Time of Evaluation: 11:30 - Subjective Subjective: pt c/o of pain abd chest on and off Objective - Vital Signs/Intake and Output Vital Signs (last 24 hours): Temp Pulse Resp BP Pulse Ox 97.8 F 75 20 150/71 100 06/29/18 07:00 06/29/18 08:05 06/29/18 07:00 06/29/18 07:00 06/29/18 07:00 Intake and Output: 06/29/18 06/29/18 06:59 18:59 Intake Total 500 Balance 500 - Medications Medications: Current Medications Alprazolam (Xanax) 0.5 mg PO TID PRN PRN Reason: Anxiety Last Admin: 06/28/18 20:32 Dose: 0.5 mg Aspirin (Ecotrin) 81 mg PO DAILY [facility] Last Admin: 06/29/18 10:51 Dose: Not Given Docusate Sodium (Colace) 100 mg PO BID [facility] Last Admin: 06/29/18 10:51 Dose: Not Given Enoxaparin Sodium (Lovenox) 40 mg SC DAILY [facility] Last Admin: 06/29/18 10:51 Dose: Not Given [facility] Last Admin: 06/29/18 07:40 Dose: 500 mg Oxycodone HCl (Oxycodone Immediate Release Tab) 30 mg PO Q4 PRN PRN Reason: Pain, moderate (4-7) Last Admin: 06/29/18 07:40 Dose: 30 mg Rosuvastatin Calcium (Crestor) 10 mg PO [facility] Last Admin: 06/28/18 21:41 Dose: 10 mg Zolpidem Tartrate (Ambien) 5 mg PO [facility] Last Admin: 06/28/18 21:41 Dose: 5 mg - Labs Labs: 06/28/18 11:54 06/28/18 11:54 PT 13.0 SECONDS (9.7-12.2) H 06/28/18 22:30 INR 1.2 06/28/18 22:30 APTT 38 SECONDS (21-34) H 06/28/18 22:30 - Constitutional Appears: Non-toxic - Head Exam Head Exam: NORMAL INSPECTION - Eye Exam Eye Exam: Normal appearance Pupil Exam: NORMAL ACCOMODATION - ENT Exam ENT Exam: Normal Exam - Neck Exam Neck Exam: Full ROM - Respiratory Exam Respiratory Exam: NORMAL BREATHING PATTERN - Cardiovascular Exam Cardiovascular Exam: REGULAR RHYTHM - GI/Abdominal Exam GI & Abdominal Exam: Tenderness - Extremities Exam Extremities Exam: Normal Inspection - Back Exam Back Exam: NORMAL INSPECTION - Neurological Exam Neurological Exam: Oriented x3 - Psychiatric Exam Psychiatric exam: Normal Affect - Skin Skin Exam: Normal Color Assessment and Plan - Assessment and Plan (Free Text) Assessment: chest pain cad chf s/p abd surgery Plan: discused with all surgical consultation don befor advised no surgery spoke to [facility] govern will cancell surgery continu cardiac care and woubd care
--- NOTE | 2018-06-29 11:53 | CP.PCM.PN ---
<Bree London - Last Filed: 06/29/18 17:54> Subjective - Date & Time of Evaluation Date of Evaluation: 06/29/18 Time of Evaluation: 11:52 - Subjective Subjective: Cardiology Progress Note - Dr Franco Patient seen and examined at bedside. Per nursing no acute events overnight. Patient went for stress test this morning. Denies any acute complaints. Objective - Vital Signs/Intake and Output Vital Signs (last 24 hours): Temp Pulse Resp BP Pulse Ox 97.8 F 75 20 150/71 100 06/29/18 07:00 06/29/18 08:05 06/29/18 07:00 06/29/18 07:00 06/29/18 07:00 Intake and Output: 06/29/18 06/29/18 06:59 18:59 Intake Total 500 Balance 500 - Medications Medications: Current Medications Alprazolam (Xanax) 0.5 mg PO TID PRN PRN Reason: Anxiety Last Admin: 06/28/18 20:32 Dose: 0.5 mg Aspirin (Ecotrin) 81 mg PO DAILY [facility] Last Admin: 06/29/18 11:44 Dose: 81 mg Docusate Sodium (Colace) 100 mg PO BID [facility] Last Admin: 06/29/18 11:44 Dose: 100 mg Enoxaparin Sodium (Lovenox) 40 mg SC DAILY [facility] Last Admin: 06/29/18 11:45 Dose: 40 mg [facility] Last Admin: 06/29/18 07:40 Dose: 500 mg Oxycodone HCl (Oxycodone Immediate Release Tab) 30 mg PO Q4 PRN PRN Reason: Pain, moderate (4-7) Last Admin: 06/29/18 11:44 Dose: 30 mg Rosuvastatin Calcium (Crestor) 10 mg PO HS [facility] Last Admin: 06/28/18 21:41 Dose: 10 mg Zolpidem Tartrate (Ambien) 5 mg PO HS [facility] Last Admin: 06/28/18 21:41 Dose: 5 mg - Labs Labs: 06/28/18 11:54 06/28/18 11:54 PT 13.0 SECONDS (9.7-12.2) H 06/28/18 22:30 INR 1.2 06/28/18 22:30 APTT 38 SECONDS (21-34) H 06/28/18 22:30 - Additional Findings Additional findings: - Constitutional Appears: Well, No Acute Distress - Head Exam Head Exam: ATRAUMATIC, NORMAL INSPECTION, NORMOCEPHALIC - Eye Exam Eye Exam: EOMI, Normal appearance - ENT Exam ENT Exam: Mucous Membranes Moist - Neck Exam Neck Exam: Full ROM - Respiratory Exam Respiratory Exam: Clear to Ausculation Bilateral, NORMAL BREATHING PATTERN. absent: Rhonchi, Wheezes - Cardiovascular Exam Cardiovascular Exam: REGULAR RHYTHM, +S1, +S2 Additional comments: + pacemaker - GI/Abdominal Exam GI & Abdominal Exam: Soft, Normal Bowel Sounds Additional comments: Abdominal dressing c/d/i - Extremities Exam Extremities Exam: absent: Calf Tenderness - Neurological Exam Neurological Exam: Alert, Awake, Oriented x3 - Psychiatric Exam Psychiatric exam: Normal Affect, Normal Mood - Skin Skin Exam: Dry, Normal Color, Warm Assessment and Plan - Assessment and Plan (Free Text) Assessment: General surgery requesting medical clearance for the OR Previous echo 02/2018 showed EF 41%, mild systolic dysfunction, mild concentric LVH, mild AR, apical septal, inferoapical wall akinetic Awaiting Nuclear stress test report Plan discussed with Dr Salvador London DO PGY-2 <Chepe Franco - Last Filed: 06/29/18 20:02> Objective - Vital Signs/Intake and Output Vital Signs (last 24 hours): Temp Pulse Resp BP Pulse Ox 98.0 F 67 20 129/73 98 06/29/18 15:00 06/29/18 16:00 06/29/18 15:00 06/29/18 15:00 06/29/18 15:00 - Medications Medications: Current Medications Alprazolam (Xanax) 0.5 mg PO TID PRN PRN Reason: Anxiety Last Admin: 06/29/18 18:03 Dose: 0.5 mg Aspirin (Ecotrin) 81 mg PO DAILY [facility] Last Admin: 06/29/18 11:44 Dose: 81 mg Docusate Sodium (Colace) 100 mg PO BID [facility] Last Admin: 06/29/18 18:03 Dose: 100 mg Enoxaparin Sodium (Lovenox) 40 mg SC DAILY [facility] Last Admin: 06/29/18 11:45 Dose: 40 mg Metformin [facility] ([facility]ucophage) [facility] Last Admin: 06/29/18 18:03 Dose: 500 mg Oxycodone HCl (Oxycodone Immediate Release Tab) 30 mg PO Q4 PRN PRN Reason: Pain, moderate (4-7) Last Admin: 06/29/18 16:41 Dose: 30 mg Rosuvastatin Calcium (Crestor) 10 mg PO HS [facility] Last Admin: 06/28/18 21:41 Dose: 10 mg Zolpidem Tartrate (Ambien) 5 mg PO HS [facility] Last Admin: 06/28/18 21:41 Dose: 5 mg - Labs Labs: 06/28/18 11:54 06/28/18 11:54 PT 13.0 SECONDS (9.7-12.2) H 06/28/18 22:30 INR 1.2 06/28/18 22:30 APTT 38 SECONDS (21-34) H 06/28/18 22:30 Assessment and Plan - Assessment and Plan (Free Text) Assessment: 83 Male with hx CHB s/p PPM Isch CMP with EF 40-50% Stress test: No stress induced ischemia Assessed as moderate to high risk for cardiac events for abdominal surgery under general anaesthesia If benefit outweighs the risk please proceed with the surgery Patient already optimized with cardiac meds Will follow Thank you
--- NOTE | 2018-06-29 14:17 | CARD ---
APPROVED REPORT Date of service: 06/29/2018 EXAM: LIMITED Two-dimensional and M-mode echocardiogram with Doppler and color Doppler. Other Information Quality : GoodRhythm : INDICATION Pre-Op LV Function:Systolic 2D DIMENSIONS IVSd1.1 (0.7-1.1cm)LVDd4.2 (3.9-5.9cm) PWd1.1 (0.7-1.1cm)LVDs3.0 (2.5-4.0cm) FS (%) 27.8 %LVEF (%)45.0 (>50%) M-Mode DIMENSIONS IVSd1.14 (0.7-1.1cm)LVDd5.13 (4.0-5.6cm) PWd1.01 (0.7-1.1cm)FS (%) 22 % LVDs4.00 (2.0-3.8cm)LVEF (%)45 (>50%) Mitral Valve E/A ratio0.0 TDI E/Lateral E'0.0E/Medial E'0.0 LEFT VENTRICLE The left ventricle is normal size. There is normal left ventricular wall thickness. The systolic function is mildly to moderately impaired. Aneurysmal [place] RIGHT VENTRICLE The right ventricle is normal size. There is normal right ventricular wall thickness. The right ventricular systolic function is normal. There is a pacemaker lead in the right ventricle. ATRIA The left atrium size is normal. The right atrium size is normal. AORTIC VALVE The aortic valve is mildly thickened. MITRAL VALVE The mitral valve is normal in structure. GREAT VESSELS The aortic root is normal in size. PERICARDIAL EFFUSION Pericardium appears moderately thickened. <Conclusion> The left ventricle is normal size. There is normal left ventricular wall thickness. The systolic function is mildly to moderately impaired. Aneurysmal [place]
--- NOTE | 2018-06-29 14:52 | CARD ---
APPROVED REPORT Date of service: 06/29/2018 Protocol: PHARMACOLOGICAL STRESS Test Type: LEXISCAN Test Indications: CHEST PAIN Medications: LIST SCAN Medical History: CHEST PAIN Target HR: 136 bpm Resting EC% PACED BEATS Resting Heart Rate: 71 bpm Resting Blood Pressure: 128/70mmHg submaximum (85%): 116 bpm TEST SUMMARY [id number]/70.0. INFUSIONDOSE 100:300.00.01.071/.0. [id number]/60.0. PROCEDURE Pharmacologic stress testing was performed using 0.4mg per 5ml of regadenoson given intravenously over 7-10 seconds. POST EXERCISE Reason for Termination: Protocol Completed Target HR: No Max HR: 71 bpm 65% of Maximum Predicted HR: 136 bpm Exercise duration: 00:30 min:sec, 0 Stage Exercise capacity: 1.0METs Max Blood Pressure: 128/70mmHg Blood Pressure response to exercise: normal resting BP - appropriate response Heart Rate response to exercise: appropriate Chest Pain: No, none Angina index: 0 Arrhythmia: No, none ST Change: No, none Deviation: 0 mm INTERPRETATION Stress EKG Conclusion: NEGATIVE LEXISCAN STRESS TEST NORMAL BP RESPONSE TO LEXISCAN VPB NUCLEAR STUDIES TO BE READ SEPARATELY EXAM: Myocardial Perfusion STRESS/REST Imaging Protocol The imaging protocol used to acquire images was Stress Tc-99m/rest Tc-99m 1 day Stress Spect myocardial perfusion imaging was performed in supine position 45 minutes following the injection of 13.2 mCi of Tc-99 Myoview. Gated Rest Spect was performed 55 minutes after intravenous 30.0 mci Tc-99 Myoview injection. The images were gated to evaluate regional wall motion and calculate ventricular ejection fraction.Images were reconstructed using backfilter projection method in short horizontal and verticle long axis. Spect slices were generated. RESTING DATA VAM385.58fqHG4.30L/min ESV58.00mlMyocardial Lwtn392.00g Av. Heart Rate67.00bpm EF58.00% STRESS DATA HGZ649.15kiHQ4.40L/min ESV65.00mlMyocardial Bhmr649.00g EF55.00% Regional WT score at stress:0.00 Regional WM score at stress:0.00 Summed WT score at stress:27.00 Av. Heart Rate68.00bpmSummed WM score at stress:16.00 LV Perf. Quant 17 Seg. SSS9.00 17 Seg. SRS8.00 17 Seg. SDS2.00 Stress Defect Extent (% LAD)29.40Rest Defect Extent (% LAD)22.50Rev. Defect Extent (% LAD)13.10 Stress Defect Extent (% LCX)12.50Rest Defect Extent (% LCX)15.00Rev. Defect Extent (% LCX)0.00 Stress Defect Extent (% RCA)13.30Rest Defect Extent (% RCA)21.10Rev. Defect Extent (% RCA)0.00 Stress Defect Extent (% AMBER)23.50Rest Defect Extent (% AMBER)23.90Rev. Defect Extent (% AMBER)5.00 Other Information Quality:Good Left Ventricle LV Function:Left ventricle systolic function is low normal. The Ejection Fraction is 50-55%. Conclusion 1. Moderate sized fixed apical defect likely old SC. No stress induced sichemia. Low Normal EF
--- NOTE | 2018-06-29 18:41 | CP.PCM.PN ---
Subjective - Date & Time of Evaluation Date of Evaluation: 06/29/18 Time of Evaluation: 11:00 - Subjective Subjective: patient seen and examined this am at bedside. he continue to c/o ear pain and generalized body aches. he otherwise denies f/c/n/v, changes in stool, and abdominal pain not associated with the mesh erosion site. Patient and his indicate that Dr. Garnett told them that Dr. Schmid stated surgery was not opportune at this time. Objective - Vital Signs/Intake and Output Vital Signs (last 24 hours): Temp Pulse Resp BP Pulse Ox 98.0 F 69 20 129/73 98 06/29/18 15:00 06/29/18 15:00 06/29/18 15:00 06/29/18 15:00 06/29/18 15:00 Intake and Output: 06/29/18 06/29/18 06:59 18:59 Intake Total 500 Balance 500 - Medications Medications: Current Medications Alprazolam (Xanax) 0.5 mg PO TID PRN PRN Reason: Anxiety Last Admin: 06/29/18 18:03 Dose: 0.5 mg Aspirin (Ecotrin) 81 mg PO DAILY [facility] Last Admin: 06/29/18 11:44 Dose: 81 mg Docusate Sodium (Colace) 100 mg PO BID [facility] Last Admin: 06/29/18 18:03 Dose: 100 mg Enoxaparin Sodium (Lovenox) 40 mg SC DAILY [facility] Last Admin: 06/29/18 11:45 Dose: 40 mg [facility] Last Admin: 06/29/18 18:03 Dose: 500 mg Oxycodone HCl (Oxycodone Immediate Release Tab) 30 mg PO Q4 PRN PRN Reason: Pain, moderate (4-7) Last Admin: 06/29/18 16:41 Dose: 30 mg Rosuvastatin Calcium (Crestor) 10 mg PO [facility] Last Admin: 06/28/18 21:41 Dose: 10 mg Zolpidem Tartrate (Ambien) 5 mg PO HS [facility] Last Admin: 06/28/18 21:41 Dose: 5 mg - Labs Labs: 06/28/18 11:54 06/28/18 11:54 PT 13.0 SECONDS (9.7-12.2) H 06/28/18 22:30 INR 1.2 06/28/18 22:30 APTT 38 SECONDS (21-34) H 06/28/18 22:30 - Constitutional Appears: Well, Non-toxic, No Acute Distress - Head Exam Head Exam: ATRAUMATIC, NORMOCEPHALIC - ENT Exam ENT Exam: Mucous Membranes Moist - Respiratory Exam Respiratory Exam: NORMAL BREATHING PATTERN - Cardiovascular Exam Cardiovascular Exam: +S1, +S2 Additional comments: pace maker present - GI/Abdominal Exam GI & Abdominal Exam: Soft, Tenderness. absent: Distended, Firm, Guarding, Rigid , Rebound Additional comments: Tender over midline mesh erosion points. central mesh erosion is approximately 6 cm x 4 cm with several lateral smaller lesions approximately 1 cm in size, areas of erosion have surrounding erythema and induration - Neurological Exam Neurological Exam: Alert, Awake, Oriented x3 - Psychiatric Exam Psychiatric exam: Normal Affect, Normal Mood - Skin Additional comments: midline mesh erosion; central mesh erosion is approximately 6 cm x 4 cm with several lateral smaller lesions approximately 1 cm in size, areas of erosion have surrounding erythema and induration, purulent drainage noted on dressing, no foul odor Assessment and Plan - Assessment and Plan (Free Text) Assessment: 83 yr old male with midline abdominal mesh erosion Plan: - no surgery planned at this time as patient is refusing surgical intervention - Discussed with patient all risks of not undergoing the surgery, patient's pmd does not recommend surgery at this time due to patient's comorbidities, patient and family agree - discussed plan with Dr. Kelly, all further recs per him Sofya Lieberman, PGY 1
[2018-06-30] MEDS: oxyCODONE 30 mg Immediate Release Tab PO PRN ×3 (03:16→12:13)
[2018-06-30 07:56] VITALS: BP 126/76; PULSE 72; TEMP 98.1; O2SAT 98
[2018-06-30] MEDS: Enoxaparin 40 mg Syringe SC SCH (09:38)
--- NOTE | 2018-06-30 15:21 | CP.PCM.PN ---
Subjective - Date & Time of Evaluation Date of Evaluation: 06/30/18 Time of Evaluation: 15:21 - Subjective Subjective: PATIENT WAS ADMITTED FOR CHEST PAIN AND BAD PAIN DENIES CHEST PAIN / NAUSEA OR VOMITING NO SIGN OF DISTRESS NOTED Objective - Vital Signs/Intake and Output Vital Signs (last 24 hours): Temp Pulse Resp BP Pulse Ox 98.1 F 72 20 126/76 98 06/30/18 07:55 06/30/18 07:55 06/30/18 07:55 06/30/18 07:55 06/30/18 07:55 - Medications Medications: Current Medications Alprazolam (Xanax) 0.5 mg PO TID PRN PRN Reason: Anxiety Last Admin: 06/30/18 08:52 Dose: 0.5 mg Aspirin (Ecotrin) 81 mg PO DAILY [facility] Last Admin: 06/30/18 09:39 Dose: 81 mg Docusate Sodium (Colace) 100 mg PO BID [facility] Last Admin: 06/30/18 09:39 Dose: 100 mg Enoxaparin Sodium (Lovenox) 40 mg SC DAILY [facility] Last Admin: 06/30/18 09:38 Dose: 40 mg [facility] Last Admin: 06/30/18 08:52 Dose: 500 mg Oxycodone HCl (Oxycodone Immediate Release Tab) 30 mg PO Q4 PRN PRN Reason: Pain, moderate (4-7) Last Admin: 06/30/18 12:13 Dose: 30 mg Rosuvastatin Calcium (Crestor) 10 mg PO [facility] Last Admin: 06/29/18 21:55 Dose: 10 mg Zolpidem Tartrate (Ambien) 5 mg PO [facility] Last Admin: 06/29/18 21:55 Dose: 5 mg - Labs Labs: 06/28/18 11:54 06/28/18 11:54 PT 13.0 SECONDS (9.7-12.2) H 06/28/18 22:30 INR 1.2 06/28/18 22:30 APTT 38 SECONDS (21-34) H 06/28/18 22:30 Assessment and Plan - Assessment and Plan (Free Text) Assessment: Patient seen and examined at bedside. States that he is having some pain over pacemaker site. Pain is improving. Also reports having abdominal pain. Denies palpitations or dyspnea. DISCUSS WITH DR MARY Recommend conservative medical therapy given multiple comorbidities./Recommend PPM f/u by Dr. Flores as out patient DISCUSS WITH DR LIVE PATIENT PMD AND REFUSE SX THEREFORE PATIENT DID NOT CONSENT AND REFUSE TX DISCUSS WITH DR HERNANDEZ WHO CLEAR FOR DC FOLLOW UP WITH YOUR ADJUSTER [facility] ( DR FLORES) OUT PATIENT IN HIS OFFICE FOR THE PPM RE-EVAL---CALL FOR APPOINTMENT FOLLOW UP WITH DR ORLANDO IN HER OFFICE 1-2 WEEK ---CALL FOR APPOINTMENT FOLLOW UP WITH DR TANG IN HIS OFFICE FOR EAR CLEANING ----CALL FOR APPOINTMENT ALSO APPLY WARM COMPRESS [facility] CONTINUE HOME MEDICATION ORDER ACTIVITY TOLERATED CALL DR ORLANDO OR GO TO THE EMERGENCY ROOM IF SYMPTOMS RETURN OR WORSENING DISCUSS WITH PATIENT AND PATIENT'S WHO AGREE AND VERBALIZED UNDERSTANDING
--- NOTE | 2018-07-09 08:53 | DS ---
Copied To: Carol Garnett MD Attending MD: Carol Garnett MD HISTORY OF PRESENT ILLNESS: He was seen in the emergency room on 06/25/2018, and he presented with chest pain and short of breath. He has also placed pacemaker a few weeks before admission. PHYSICAL EXAMINATION: VITAL SIGNS: Blood pressure 150/83 on admission. He was afebrile. PAST MEDICAL HISTORY: Ascites, asthma, benign prostatic hypertrophy, coronary artery disease, congestive heart failure, COPD, diabetes, emphysema, gallbladder disease, hiatus hernia, hypercholesterolemia, pneumonia, sleep apnea. On admission, his hemoglobin was 10.7, hematocrit 32.1, slight anemia. His sugar was 177. His kidney was okay. He had an EKG. He has chest x-ray. He was started on aspirin, and he has been monitored for cardiologic consults and EKGs. He was seen by Dr. Chepe Franco; and he was on multiple medications, alprazolam, aspirin, metformin, oxycodone, Crestor, and Ambien at night. He was seen also by Dr. Marquez because he has abdominal wound from previous mesh is uncovered, and he had wound care, and I think he was started on antibiotics, hence continued to be in control. He was having followup care with Cardiology as well as myself. He was feeling better. He was able to breathe better. He denied any more chest pain. He continued on his medications he was very stable, and there was no more chest pain, and he was discharged to his doctor care, Dr. Garcia on 06/30/2018, and he was given all his prescriptions and to follow up with his imaging. FINAL DIAGNOSES: Chest pain, coronary artery disease, congestive heart failure, abdominal wound secondary to previous mesh, anemia. Carol Garnett MD
== END 2018-06-30 15:45 | disposition home or self-care (01) | DRG 303 ==
LOC: C.ER 07:31 → C.9E 08:48 → OBSVTOIN 08:48 → C.5S 10:13
PROVIDERS: ADMIT Internal Medicine; ATTEND Internal Medicine
DX: I25.10 Atherosclerotic heart disease of native coronary artery without angina pectoris (principal); T85.898A Other specified complication of other internal prosthetic devices, implants and grafts, initial encounter; E11.43 Type 2 diabetes mellitus with diabetic autonomic (poly)neuropathy; E78.5 Hyperlipidemia, unspecified; G47.30 Sleep apnea, unspecified; G89.4 Chronic pain syndrome; H91.92 Unspecified hearing loss, left ear; I11.0 Hypertensive heart disease with heart failure; I25.2 Old myocardial infarction; J44.9 Chronic obstructive pulmonary disease, unspecified; J34.2 Deviated nasal septum; J43.9 Emphysema, unspecified; I50.9 Heart failure, unspecified; N40.0 Benign prostatic hyperplasia without lower urinary tract symptoms; Z87.891 Personal history of nicotine dependence; Z95.0 Presence of cardiac pacemaker; Z95.5 Presence of coronary angioplasty implant and graft; Z85.118 Personal history of other malignant neoplasm of bronchus and lung

== ENCOUNTER 2018-11-25 10:42 | Inpatient (IN) | payer MEDICARE, MEDICAID ==
[2018-11-25 10:42] VITALS: BMI 27.3
[2018-11-25] MEDS ORDERED: Sodium Chloride 0.9% 1,000 ML IV STA (11:33)
[2018-11-25] MEDS ORDERED: Iohexol 240 (50 ml) PO STA (11:33)
--- NOTE | 2018-11-25 11:33 | C.PDOC ---
History Of Present Illness Patient is a 83 year old male who presents to the ED for evaluation of abdominal pain present for 2 days and a nonhealing surgical incision from a cholecystectomy 5 years ago. Patient's simulation technician notes that patient has had an associated subjective fever, body ache, and constipation. He took Ibuprofen for his fever. He states that the pain is so bad that "he wants to ." Patient denies any chills, nausea, vomiting, SOB, or CP. Cholecystectomy Surgeon ( Dr. Marquez) Time Seen by Provider: 11/25/18 11:09 Chief Complaint (Nursing): Abdominal Pain History Per: Patient, Family History/Exam Limitations: no limitations Onset/Duration Of Symptoms: Days (Abdominal pain for 2 days. Nonhealing surgical incision for 5 years. ) Location Of Pain/Discomfort: Epigastric Quality Of Discomfort: "Pain" Associated Symptoms: Fever, Constipation, Other (body aches ). denies: Chills, Nausea, Vomiting Recent travel outside of the [place]: No Additional History Per: Patient, Family Past Medical History Reviewed: Historical Data, Nursing Documentation, Vital Signs Vital Signs: Last Vital Signs Temp 98.1 F 11/25/18 10:56 Pulse 67 11/25/18 10:56 Resp 18 11/25/18 10:56 BP 149/71 11/25/18 10:56 Pulse Ox 98 11/25/18 10:56 - Medical History PMH: Arthritis, Asthma, Benign Prostatic Hyperplasia, CAD, CHF, COPD, Diabetes, Emphysema, Gall Bladder Disease, Hiatal Hernia, HTN, Hypercholesterolemia, Hyperlipidemia, Pneumonia, Sleep Apnea, Chronic Pain (Left chest/abdomen) Denies: Anemia, Anxiety, Bipolar Disorder, Bronchitis, Cardia Arrhythmia, Crohn's Disease, Dementia, Depression, Diverticulitis, Fibromyalgia, Fractures, Gastrointestinal Ulcer, HIV, Hyperthyroidism, Hypothyroidism, Kidney Stones, Migraine, Mitral Valve Prolapse, Osteoporosis, Pancreatitis, Paranoia, Parkinson's Disease, Peripheral Edema, Post Traumatic Stress Disorder, Chronic Kidney Disease, Schizophrenia, Seizures, Sickle Cell Disease, Sexually Transmitted Disease, TIA Surgical History: Cholecystectomy (open cholecystectomy with CBD exploration 2012), Coronary Stent, Hernia Repair, Pacemaker Denies: Appendectomy - [facility] Procedures ANESTH INJECT SYMP NERVE (05/12/13) C & S-INTEGUMENT (08/27/14) CENTRAL VENOUS CATHETER PLACEMENT WITH GUIDANCE (07/18/15) CHOLECYSTECTOMY (10/16/13) CLOSED ENDOSCOPIC BIOPSY OF LARGE INTESTINE (09/01/13) CLOSED [PERCUTANEOUS] [NEEDLE] BIOPSY OF LUNG (06/21/13) COMMON DUCT EXPLORATION (10/16/13) CONTINUOUS INVASIVE MECHANICAL VENTILATION <96 CONSEC HRS (11/05/14) CORONAR ARTERIOGR-2 CATH (09/05/02) CYSTOSCOPY NEC (07/14/13) DX ULTRASOUND-DIGESTIVE (08/21/12) ENDOSCOPIC BRONCHIAL BX (07/28/13) ENTERAL INFUSION OF CONCENTRATED NUT. SUBSTANCES (11/05/14) ESOPHAGOGASTRODUODENOSCOPY [EGD] W/CLOSED BIOPSY (10/06/13) EXCISION OF STOMACH, ENDO, DIAGN (08/23/16) FLUOROSCOPY OF SUPERIOR VENA CAVA, GUIDANCE (07/13/16) GASTROTOMY (07/29/06) INFLUENZA VACCINATION (11/05/14) INJECT/INFUSE ELECTROLYT (05/29/14) INJECT/INFUSE NEC (01/29/15) INSERT ENDOTRACHEAL TUBE (11/05/14) INSERT INFUSION DEV IN R INT JUGULAR VEIN, PERC (05/14/18) INSERT INTERCOSTAL CATH (09/01/13) INSERT PACE. DUAL CHARITY IN CHEST SUBCU/FASCIA, OPEN (05/14/18) INSERTION OF INFUSION DEV INTO R INNOM VEIN, PERC APPROACH (10/05/15) INSERTION OF INFUSION DEV INTO SUP VENA CAVA, PERC APPROACH (08/23/16) INSERTION OF PACEMAKER LEAD INTO R VENTRICLE, PERC APPROACH (05/14/18) INSERTION OF PACEMAKER LEAD INTO RIGHT ATRIUM, PERC APPROACH (05/14/18) INTRODUCE OF OTH THERAP SUBST INTO RESP TRACT, VIA OPENING (12/18/16) INTRODUCE OTH ANTI-INFECT IN CENTRAL VEIN, PERC (10/05/15) LEFT HEART CARDIAC CATH (09/05/02) LT HEART ANGIOCARDIOGRAM (09/05/02) MAGNETIC RESONANCE IMAGING OF SPINAL CANAL (10/16/13) NEBULIZER THERAPY (09/12/14) NON-INVASIVE MECHANICAL VENTILATION (07/14/13) OTH LYSIS-PERITONEAL ADHES (10/16/13) OTHER ENDOSCOPY OF SM INTEST (10/12/14) OTHER SKIN & SUBQ I D (04/30/14) PACKED CELL TRANSFUSION (10/30/13) PANCREAT SPHINCTEROPLAS (10/16/13) PART GASTREC W JEJ ANAST (07/29/06) PERCUTAN NEEDLE BIOPSY OF PROSTATE (09/01/13) PERFORMANCE OF CARDIAC PACING, CONTINUOUS (05/14/18) REPAIR OF INTESTINE NEC (10/16/13) SM-TO-SM BOWEL ANASTOM (07/29/06) THORACOSCOPIC LOBECTOMY OF LUNG (07/28/13) TRANSURETHRAL PROSTATECTOMY (TULIP) (07/14/13) ULTRASONOGRAPHY OF RIGHT JUGULAR VEINS, GUIDANCE (05/14/18) URETHRAL DILATION (09/01/13) VACCINATION NEC (11/05/14) VENOUS CATHETERIZATION NEC (11/05/14) Family History: States: Unknown Family Hx - Social History Hx Tobacco Use: Yes Hx Alcohol Use: No Hx Substance Use: No - Immunization History Hx Tetanus Toxoid Vaccination: Yes Hx Influenza Vaccination: Yes Hx Pneumococcal Vaccination: Yes Review Of Systems Constitutional: Positive for: Fever, Other (body ache). Negative for: Chills Cardiovascular: Negative for: Chest Pain Respiratory: Negative for: Shortness of Breath Gastrointestinal: Positive for: Abdominal Pain (mid epigastric ). Negative for: Nausea, Vomiting, Diarrhea Physical Exam - Physical Exam Appears: In Acute Distress Skin: Normal Color, Warm, Dry Head: Atraumatic, Normacephalic Eye(s): bilateral: Normal Inspection Oral Mucosa: Moist Neck: Supple Chest: Symmetrical Cardiovascular: Rhythm Regular Respiratory: Normal Breath Sounds Gastrointestinal/Abdominal: Tenderness (mid epigastric ), Other (central ulcerating wound 2x4cm with 3 adjacent ulcerating 1x1cm wounds ) Neurological/Psych: Oriented x3 ED Course And Treatment - Laboratory Results Result Diagrams: 11/25/18 12:29 11/25/18 12:29 ECG: Interpreted By Me, Viewed By Me ECG Rhythm: L BBB Interpretation Of ECG: No changes from June 2018 EKG Rate From EC O2 Sat by Pulse Oximetry: 98 (on RA) Pulse Ox Interpretation: Normal - Other Rad CXR X-Ray: Viewed By Me, Read By Radiologist Interpretation: FINDINGS: LUNGS: The right lung is well inflated and clear. There is redemonstration of low lung volume on the left with multiple surgical clips overlying the hilum and elevation of the left hemidiaphragm. There is persistent diffuse haziness in the left lung. PLEURA: No pneumothorax or pleural effusion. CARDIOVASCULAR: The cardiomediastinal silhouette is stable. The heart is normal in size. There is stable position of left-sided permanent pacing device. OSSEOUS STRUCTURES: Within normal limits for the patient's age. VISUALIZED UPPER ABDOMEN: Normal. OTHER FINDINGS: None. IMPRESSION: No active pulmonary disease. Stable postoperative changes in the left lung with low lung volume. - CT Scan/US CT A/P Other Rad Studies (CT/US): Read By Radiologist, Radiology Report Reviewed CT/US Interpretation: FINDINGS: LUNGS: The right lung is well inflated and clear. There is redemonstration of low lung volume on the left with multiple surgical clips overlying the hilum and elevation of the left hemidiaphragm. There is persistent diffuse haziness in the left lung. PLEURA: No pneumothorax or pleural effusion. CARDIOVASCULAR: The cardiomediastinal silhouette is stable. The heart is normal in size. There is stable position of left-sided permanent pacing device. OSSEOUS STRUCTURES: Within normal limits for the patient's age. VISUALIZED UPPER ABDOMEN: Normal. OTHER FINDINGS: None. IMP RESSION: No active pulmonary disease. Progress Note: Bloodwork, EKG, CAT A/P, CXR, Flu Swab, and Urinalysis ordered. Morphine 2 mg IVP, Omnipaque 50 ml PO, and IV Fluids administered. 16:[address] Willis (surgeon compressor station engineer), who recommeneds patient be adm itted under medical service; he will evaluate patient tomorrow. Case discussed with Dr. Garnett who agreed to admit patient. Spoke with surgical services coordinator who will come evaluate patient in ER and place NG tube. Fleet enema ordered. IV Zosyn ordered. Plan for admission and further treatment discussed with patient who is agreeable. Disposition - Disposition Disposition: HOSPITALIZED Disposition Time: 16:51 Condition: FAIR - Clinical Impression Clinical Impression: Abdominal pain, Open abdominal wall wound, Small bowel obstruction, Const ipation - PA / CLINICAL WRITER / Resident Statement MD/DO has reviewed & agrees with the documentation as recorded. - Scribe Statement The provider has reviewed the documentation as recorded by the Brandon Toledo All medical record entries made by the Brandon were at my direction and personally dictated by me. I have reviewed the chart and agree that the record accurately reflects my personal performance of the history, physical exam, me dical decision making, and the department course for this patient. I have also personally directed, reviewed, and agree with the discharge instructions and disposition. Decision To Admit - Pt Status Changed To: Hospital Disposition Of: Inpatient - Admit Certification Admit to Inpatient:: After my assessment, the patient will require hospitalization for at least two midnights. This is because of the severity of symptoms shown, intensity of services needed, and/or the medical risk in this patient being treated as an outpatient. - InPatient: Physician Admission Certification:: pt may need surgical treatment, will need IV antibiotics - . Bed Request Type: Regular Admitting Physician: Carol Garnett Patient Diagnosis: Abdominal pain, Open abdominal wall wound, Small bowel obstruction, Constipation
[2018-11-25 12:34] LABS: BASO % 0.6 % (0.0-2.0); EOS % 0.1 % (0.0-4.0); HEMOGLOBIN 10.6 g/dL (12.0-18.0); LYMPH % 14.1 % (20.0-40.0); MEAN CELL VOLUME 83.7 fL (80.0-94.0); MEAN CORPUSCULAR HEMOGLOBIN 27.6 pg (27.0-31.0); MEAN PLATELET VOLUME 10.8 fL (7.2-11.7); MONO # 0.2 K/uL (0.0-0.8); MONO % 3.4 % (0.0-10.0); NEUT # 5.8 K/uL (1.8-7.0); NEUT % 81.8 % (50.0-75.0); RBC 3.84 Mil/uL (4.40-5.90); RED CELL DISTRIBUTION WIDTH 16.2 % (11.5-14.5); WHITE BLOOD COUNT 7.1 K/uL (4.8-10.8)
[2018-11-25 12:42] LABS: INR 1.2; PROTHROMBIN TIME 13.3 SECONDS (9.7-12.2)
[2018-11-25] MEDS ORDERED: Iohexol 240 (50 ml) ONE (12:44)
[2018-11-25] MEDS ORDERED: Sodium Chloride 0.9% 1,000 ML ONE ×2 (12:44→19:38)
[2018-11-25 12:45] LABS: ALB/GLOB RATIO 1.3 (1.0-2.1); ALBUMIN 4.6 g/dL (3.5-5.0); ALT/SGPT 22 U/L (21-72); AMYLASE 76 U/L (30-110); AST/SGOT 26 U/L (17-59); BLOOD UREA NITROGEN 22 mg/dL (9-20); CALCIUM 8.9 mg/dl (8.6-10.4); GFR NON-AFRICAN AMERICAN 58; LIPASE 39 U/L (23-300)
[2018-11-25 12:59] LABS: CK-MB 3.51 ng/mL (0.0-3.38)
--- NOTE | 2018-11-25 13:18 | RAD ---
Date of service: 11/25/2018 PROCEDURE: CHEST RADIOGRAPH, 1 VIEW HISTORY: fever, generalized pain COMPARISON: 06/25/2018. FINDINGS: LUNGS: The right lung is well inflated and clear. There is redemonstration of low lung volume on the left with multiple surgical clips overlying the hilum and elevation of the left hemidiaphragm. There is persistent diffuse haziness in the left lung. PLEURA: No pneumothorax or pleural effusion. CARDIOVASCULAR: The cardiomediastinal silhouette is stable. The heart is normal in size. There is stable position of left-sided permanent pacing device. OSSEOUS STRUCTURES: Within normal limits for the patient's age. VISUALIZED UPPER ABDOMEN: Normal. OTHER FINDINGS: None. IMPRESSION: No active pulmonary disease. Stable postoperative changes in the left lung with low lung volume.
[2018-11-25 14:16] LABS: SQUAMOUS EPITHIAL < 1 /hpf (0-5); URINE BILIRUBIN NEGATIVE (NEGATIVE); URINE BLOOD 1+ (NEGATIVE); URINE CLARITY Clear (Clear); URINE COLOR Yellow (YELLOW); URINE GLUCOSE (UA) NORMAL (Normal); URINE LEUKOCYTE ESTERASE NEG Leu/uL (Negative); URINE PROTEIN NEGATIVE (NEGATIVE); URINE UROBILINOGEN NORMAL mg/dL (0.2-1.0)
--- NOTE | 2018-11-25 16:05 | CT ---
Date of service: 11/25/2018 PROCEDURE: CT Abdomen without intravenous contrast HISTORY: Abdominal pain COMPARISON: 01/06/2018. TECHNIQUE: Axial images of the abdomen from lung bases to iliac crest without intravenous contrast enhancement. Coronal and sagittal reformats generated. Oral contrast was administered. Radiation dose: Total exam DLP = 864.32 mGy-cm. This CT exam was performed using one or more of the following dose reduction techniques: Automated exposure control, adjustment of the mA and/or kV according to patient size, and/or use of iterative reconstruction technique. FINDINGS: LOWER THORAX: Unremarkable. LIVER: The liver is normal in size. Small nonspecific calcifications in the right hepatic lobe. There pneumobilia in the left hepatic lobe likely related to splinter ostomy. GALLBLADDER AND BILE DUCTS: Surgically absent. Air in the common bile duct likely related to splinter ostomy. PANCREAS: Normal in size. SPLEEN: The spleen is normal in size. ADRENALS: There is a stable 2.1 cm nodule in the right adrenal gland. No nodule in the left adrenal gland. KIDNEYS AND URETERS: The kidneys are normal in size. There is nonspecific perinephric fat stranding. There are simple cysts in the left kidney. There is mild right hydronephrosis and mild fullness in the left collecting system. VASCULATURE: No aortic aneurysm. There are advanced aortic atherosclerotic calcifications present. BOWEL: There are postsurgical changes of partial gastrectomy and gastrojejunostomy. There is mild dilatation of proximal and mid small bowel loops. The distal small bowel loops are decompressed. There is fecalization of distal small bowel contents. There is large amount of stool in the colon with fecal stasis in the rectum. APPENDIX: The appendix is mildly distended and fluid-filled measures 7 mm in transverse diameter. No evidence of inflammatory changes surrounding the appendix. No micro perforation or abscess. PERITONEUM: No free fluid. No free air. LYMPH NODES: No enlarged lymph nodes. BONES: No acute fracture. OTHER FINDINGS: There is a soft tissue defect in the supraumbilical midline ventral wall. IMPRESSION: 1. Mild dilatation of fluid-filled appendix without surrounding inflammatory changes is agreeable coal and similar in appearance to the previous examination. 2. Status post partial gastrectomy and gastrojejunostomy. Mild dilatation of the proximal and mid small bowel loops with decompressed distal small bowel loops may represent developing small bowel obstruction. 3. Constipation and fecalization of distal small bowel contents consistent with chronic stasis.
[2018-11-25] MEDS ORDERED: Piperacillin/Tazobact 3.375 gm 100 ML IVPB STA (16:45)
[2018-11-25] MEDS ORDERED: Piperacillin/Tazobact 3.375 gm 100 ML IVPB ONE (17:07)
--- NOTE | 2018-11-25 19:07 | CP.PCM.CON ---
<Roge Koch - Last Filed: 11/25/18 21:17> History of Present Illness - History of Present Illness History of Present Illness: Surgery Consult note. Dr. Lira 83yo M with PMHx of CAD, CHF, HLD, HTN, COPD, Emphysema, OA, Complete heart block, gastritis, hiatal hernia, gastroparesis, diverticulosis, hx lung CA, here for evaluation of diffuse abdominal pain, right foot pain and left neck pain. 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 Patient admits to chronic opioid use (oxycodone 30mg daily). Currently, patient states that he is constipated for the past 2 days however, he has been having flatus. Denies any nausea or vomiting. Denies any fevers or chills. He had an open CBD exploration with sphincteroplasty and ventral hernia repair with mesh performed by Dr. Guadalupe in 2012. He states that he has had a midline abdominal wound infection since. In the ED, CT Abd/pelvis was performed with evidence of a possible SBO and constipation. Surgery was consulted PMHx: CAD, CHF, HLD, HTN, COPD, Emphysema, OA, Complete heart block, gastritis, hiatal hernia, gastroparesis, diverticulosis, hx lung CA PSHx: Coronay stents, celiac plexus ablation (2012), VATS w/upper lobectomy (2012), ex-lap w/cholecystectomy w/IOC, CBD exploration w/sphincteroplasty (2012 w/Anayeli), Billroth II, Pacemaker (2018) Family Hx: non-contributory Social Hx: Admits to prior Tobacco use; Denies ETOH use; Denies illicit drug use. NKDA Review of Systems - Review of Systems All systems: reviewed and no additional remarkable complaints except - Constitutional Constitutional: absent: Chills, Fever - Cardiovascular Cardiovascular: absent: Chest Pain, Diaphoresis, Dyspnea - Respiratory Respiratory: absent: Cough, Dyspnea - Gastrointestinal Gastrointestinal: Abdominal Pain, Constipation. absent: Diarrhea, Nausea, Vomiting - Genitourinary Genitourinary: absent: Difficulty Urinating, Dysuria - Musculoskeletal Additional comments: right foot pain Past Patient History - Infectious Disease Hx of Infectious Diseases: None - Tetanus Immunizations Tetanus Immunization: Unknown - Past Medical History & Family History Past Medical History?: Yes - Past Social History Smoking Status: Former Smoker Alcohol: None Drugs: Denies - CARDIAC Hx Cardia Arrhythmia: No Hx Congestive Heart Failure: Yes Hx Hypercholesterolemia: Yes Hx Hypertension: Yes Hx Mitral Valve Prolapse: No Hx Pacemaker: Yes Hx Peripheral Edema: No - PULMONARY Hx Asthma: Yes Hx Bronchitis: No Hx Chronic Obstructive Pulmonary Disease (COPD): Yes Hx Emphysema: Yes Hx Pneumonia: Yes Hx Sleep Apnea: Yes - NEUROLOGICAL Hx Dementia: No Hx Migraine: No Hx Parkinson's Disease: No Hx Seizures: No Hx Transient Ischemic Attacks (TIA): No - HEENT Hx HEENT Problems: No Hx Blind: No Hx Cataracts: No Hx Deafness: No Hx Difficulty Chewing: No Hx Epistaxis: No Hx Glaucoma: No Hx Macular Degeneration: No - RENAL Hx Chronic Kidney Disease: No Hx Kidney Stones: No - ENDOCRINE/METABOLIC Hx Hyperthyroidism: No Hx Hypothyroidism: No - HEMATOLOGICAL/ONCOLOGICAL Hx Anemia: No Hx Human Immunodeficiency Virus (HIV): No Hx Sickle Cell Disease: No - INTEGUMENTARY Other/Comment: mid abd open wound 2cm round wound bed red with yellowish thick purulent drainage, 3 small red dry round wounds 1 on right of wound and 2 on left of wound 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 - MUSCULOSKELETAL/RHEUMATOLOGICAL Hx Arthritis: Yes Hx Fractures: No Hx Osteoporosis: No - GASTROINTESTINAL Hx Crohn's Disease: No Hx Diverticulitis: No Hx Gall Bladder Disease: Yes Hx Pancreatitis: No - GENITOURINARY/GYNECOLOGICAL Hx Sexually Transmitted Disorders: No - PSYCHIATRIC Hx Anxiety: No Hx Bipolar Disorder: No Hx Depression: No Hx Paranoia: No Hx Post Traumatic Stress Disorder: No Hx Schizophrenia: No Hx Substance Use: No - SURGICAL HISTORY Hx Appendectomy: No Hx Cholecystectomy: Yes (open cholecystectomy with CBD exploration 2012) Hx Coronary Stent: Yes - ANESTHESIA Hx Anesthesia: Yes Hx Anesthesia Reactions: No Hx Malignant Hyperthermia: No Meds Allergies/Adverse Reactions: Allergies Allergy/AdvReac Type Severity Reaction Status Date / Time No Known Allergies Allergy Verified 06/25/18 07:42 - Medications Medications: Current Medications Sodium Chloride (Sodium Chloride 0.9%) 1,000 mls @ 70 mls/hr IV .[id number] SHADIA Morphine Sulfate (Morphine) 2 mg IVP Q4 PRN PRN Reason: Pain, moderate (4-7) Ondansetron HCl (Zofran Inj) 4 mg IVP Q6H PRN PRN Reason: Nausea/Vomiting Physical Exam - Constitutional Appears: Chronically Ill - Head Exam Head Exam: ATRAUMATIC, NORMAL INSPECTION, NORMOCEPHALIC - Eye Exam Eye Exam: EOMI, Normal appearance. absent: Scleral icterus - ENT Exam ENT Exam: Mucous Membranes Moist - Respiratory Exam Respiratory Exam: NORMAL BREATHING PATTERN. absent: Accessory Muscle Use, Respiratory Distress - Cardiovascular Exam Cardiovascular Exam: absent: JVD - GI/Abdominal Exam GI & Abdominal Exam: Soft. absent: Distended Additional comments: midline incision with infected mesh noted with surrounding erythema and some purulent discharge. voluntary guarding soft diffusely tender over chest, abdomen, and bilateral lower extremity - Neurological Exam Neurological exam: Alert, Oriented x3 Results - Vital Signs Recent Vital Signs: Last Vital Signs Temp 98.2 F 11/25/18 16:17 Pulse 64 11/25/18 16:17 Resp 16 11/25/18 16:17 BP 132/62 11/25/18 16:17 Pulse Ox 98 11/25/18 18:14 - Labs Result Diagrams: 11/25/18 12:29 11/25/18 12:29 Labs: Laboratory Results - last 24 hr 11/25/18 11/25/18 11/25/18 11:53 12:29 12:29 WBC 7.1 RBC 3.84 L Hgb 10.6 L Hct 32.1 L MCV 83.7 MCH 27.6 MCHC 33.0 RDW 16.2 H Plt Count 193 MPV 10.8 Neut % (Auto) 81.8 H Lymph % (Auto) 14.1 L [place] % (Auto) 3.4 Eos % (Auto) 0.1 Baso % (Auto) 0.6 Neut # (Auto) 5.8 Lymph # (Auto) 1.0 [place] # (Auto) 0.2 Eos # (Auto) 0.0 Baso # (Auto) 0.0 PT 13.3 H INR 1.2 APTT 55 H Sodium Potassium Chloride Carbon Dioxide Anion Gap BUN Creatinine Est GFR ( Amer) Est GFR (Non-Af Amer) Random Glucose Calcium Magnesium Total Bilirubin AST ALT Alkaline Phosphatase Total Creatine Kinase CK-MB (Mass) Troponin I Total Protein Albumin Globulin Albumin/Globulin Ratio Amylase Lipase Urine Color Urine Clarity Urine pH Ur Specific [place] Urine Protein Urine Glucose (UA) Urine Ketones Urine Blood Urine Nitrate Urine Bilirubin Urine Urobilinogen Ur Leukocyte Esterase Urine WBC (Auto) Urine RBC (Auto) Ur Squamous Epith Cells Influenza Typ A,B (EIA) Negative for flu a/b 11/25/18 11/25/18 12:29 13:45 WBC RBC Hgb Hct MCV MCH MCHC RDW Plt Count MPV Neut % (Auto) Lymph % (Auto) [place] % (Auto) Eos % (Auto) Baso % (Auto) Neut # (Auto) Lymph # (Auto) [place] # (Auto) Eos # (Auto) Baso # (Auto) PT INR APTT Sodium 139 Potassium 4.8 Chloride 107 Carbon Dioxide 23 Anion Gap 14 BUN 22 H Creatinine 1.2 Est GFR ( Amer) > 60 Est GFR (Non-Af Amer) 58 Random Glucose 142 H Calcium 8.9 Magnesium 2.1 Total Bilirubin 0.6 AST 26 ALT 22 Alkaline Phosphatase 200 H D Total Creatine Kinase 212 H CK-MB (Mass) 3.51 H Troponin I 0.0130 Total Protein 8.1 Albumin 4.6 Globulin 3.5 Albumin/Globulin Ratio 1.3 Amylase 76 Lipase 39 Urine Color Yellow Urine Clarity Clear Urine pH 5.0 Ur Specific [place] 1.013 Urine Protein Negative Urine Glucose (UA) Normal Urine Ketones Negative Urine Blood 1+ H Urine Nitrate Negative Urine Bilirubin Negative Urine Urobilinogen Normal Ur Leukocyte Esterase Neg Urine WBC (Auto) < 1 Urine RBC (Auto) 1 Ur Squamous Epith Cells < 1 Influenza Typ A,B (EIA) Assessment & Plan - Assessment and Plan (Free Text) Assessment: 83yo M with chronic midline abdominal infected wound with mesh, constipation likely secondary to heavy opiod use, possible small bowel obstruction. - No leukocytosis - vitals stable Plan: - NPO - IVF - IV abx for now - NGT placed, continue to low continuous suction - Monitor Strict Is and Os - f/u AM labs Further recs as per Dr. Soraya Koch PGY2 Surgery <Gavino Lira - Last Filed: 12/08/18 20:12> Results - Vital Signs Recent Vital Signs: Last Vital Signs Temp 97.3 F L 12/07/18 16:02 Pulse 68 12/07/18 16:02 Resp 20 12/07/18 16:02 BP 116/70 12/07/18 16:02 Pulse Ox 99 12/07/18 16:02 - Labs Result Diagrams: 12/05/18 11:29 12/05/18 11:29 Attending/Attestation - Attestation I have personally seen and examined this patient.: Yes I have fully participated in the care of the patient.: Yes I have reviewed all pertinent clinical information: Yes Notes (Text): Pt was seen and examined at bedside Agree with above note and assessment Pt with Infected exposed mesh since last 5 years Abdomen: Soft, NT, ND, Exposed infected mesh Labs and radiology reviewed Ass: Infected abdominal wound with infected exposed mesh Plan: IV antibiotics Local wound care Cardiology clearance for possible debridement of wound c.w current mx Plan d.w pt in detail Risk and benefit explained in detail.
[2018-11-25] MEDS: Sodium Chloride 0.9% 1,000 ML IV SCH (19:30)
--- NOTE | 2018-11-25 21:09 | RAD ---
HISTORY: NGT placement COMPARISON: Chest x-ray performed 11/25/18 at 1152 hr TECHNIQUE: Chest, one view. FINDINGS: The patient's chin obscures evaluation of the lung apices. Faintly visualized nasogastric tube appears to extend beyond the hemidiaphragm. LUNGS: Haziness noted within the left hemithorax. Persistent patchy infiltrate in the left hilar/infrahilar region. Please note that chest x-ray has limited sensitivity for the detection of pulmonary masses. PLEURA: Probable small left pleural effusion. No definite pneumothorax . CARDIOVASCULAR: Dual lead left-sided pacemaker. Cardiomegaly. Ectatic aorta. Atherosclerotic calcifications. OSSEOUS STRUCTURES: Degenerative changes. VISUALIZED UPPER ABDOMEN: Unremarkable. OTHER FINDINGS: None. IMPRESSION: Haziness noted within the left hemithorax. Persistent patchy infiltrate in the left hilar/infrahilar region. Probable small left pleural effusion. Cardiomegaly. Dual lead left-sided pacemaker. Faintly visualized nasogastric tube appears to extend beyond the hemidiaphragm; recommend repeat study centered upon the lower chest/upper abdomen for confirmation.
[2018-11-26] MEDS ORDERED: Morphine 4 MG/ML VIAL IV ONE (02:44)
[2018-11-26] MEDS: Piperacill/Tazo 3.375gm in Dex 3.375 GM/50 ML BAG IVPB SCH ×3 (03:00→17:09)
[2018-11-26 08:33] LABS: BASO % 0.4 % (0.0-2.0); EOS % 0.1 % (0.0-4.0); HEMOGLOBIN 10.6 g/dL (12.0-18.0); LYMPH # 1.3 K/uL (1.0-4.3); LYMPH % 16.1 % (20.0-40.0); MEAN CELL VOLUME 84.9 fL (80.0-94.0); MEAN CORPUSCULAR HEMOGLOBIN 27.8 pg (27.0-31.0); MEAN CORPUSCULAR HGB CONC 32.8 g/dL (33.0-37.0); MEAN PLATELET VOLUME 10.9 fL (7.2-11.7); MONO # 0.4 K/uL (0.0-0.8); MONO % 5.5 % (0.0-10.0); NEUT # 6.2 K/uL (1.8-7.0); NEUT % 77.9 % (50.0-75.0); RBC 3.81 Mil/uL (4.40-5.90); RED CELL DISTRIBUTION WIDTH 16.4 % (11.5-14.5); WHITE BLOOD COUNT 7.9 K/uL (4.8-10.8)
--- NOTE | 2018-11-26 08:42 | RAD ---
HISTORY: confirm NGT placement COMPARISON: Chest x-ray performed 11/25/18 TECHNIQUE: Chest, one view. FINDINGS: Examination limited by patient obliquity. Please note right lateral chest excluded from view. Nasogastric tube extends expected location of the stomach. LUNGS: Left hemithorax haziness in persistent patchy opacities in the left hilar/infrahilar region. PLEURA: No significant pleural effusion identified. No definite pneumothorax . CARDIOVASCULAR: Dual lead left-sided pacemaker. Cardiomegaly. Dense atherosclerotic calcifications of an ectatic aorta. OSSEOUS STRUCTURES: Degenerative changes. VISUALIZED UPPER ABDOMEN: Unremarkable. OTHER FINDINGS: None. IMPRESSION: Nasogastric tube extends to the expected location of the stomach. Remainder of findings as above.
[2018-11-26 08:50] LABS: ALB/GLOB RATIO 1.4 (1.0-2.1); ALBUMIN 4.2 g/dL (3.5-5.0); ALT/SGPT 24 U/L (21-72); AST/SGOT 26 U/L (17-59); BLOOD UREA NITROGEN 20 mg/dL (9-20); CALCIUM 8.7 mg/dl (8.6-10.4); GFR NON-AFRICAN AMERICAN > 60
[2018-11-26] MEDS: Sodium Chloride 0.9% 1,000 ML IV SCH ×2 (09:22→23:30)
--- NOTE | 2018-11-26 11:57 | CP.PCM.PN ---
<ZeeRoge carson - Last Filed: 11/26/18 11:54> Subjective - Date & Time of Evaluation Date of Evaluation: 11/26/18 Time of Evaluation: 07:15 - Subjective Subjective: Surgery Progress note. Dr. Lira Pt seen and examined at bedside. Patient accidentally pulled out his NGT overnight. Denies any nausea or vomiting. Still c/o diffuse body aches, abdomen being the least of his concerns. Patient had a large BP after an enema last night. Does report passing gas. Denies N/V/D. No F/C. No new complaints. Objective - Vital Signs/Intake and Output Vital Signs (last 24 hours): Temp Pulse Resp BP Pulse Ox 97.9 F 65 18 157/69 H 98 11/26/18 08:00 11/26/18 08:00 11/26/18 08:00 11/26/18 08:00 11/26/18 08:00 Intake and Output: 11/26/18 11/26/18 06:59 18:59 Intake Total 445 Output Total 950 Balance -505 - Medications Medications: Current Medications Heparin Sodium (Porcine) (Heparin) 5,000 units SC Q12 SHADIA Last Admin: 11/26/18 09:52 Dose: 5,000 units Sodium Chloride (Sodium Chloride 0.9%) 1,000 mls @ 70 mls/hr IV .[id number] [facility] Last Admin: 11/26/18 09:22 Dose: 70 mls/hr Piperacillin Sod/Tazobactam Sod (Zosyn 3.375 Gm Iv Premix) 3.375 gm in 50 mls @ 100 mls/hr IVPB Q8H SHADIA; Protocol Last Admin: 11/26/18 09:52 Dose: 100 mls/hr Influenza Virus Vaccine (Flucelvax Quad 1197-6174 Syr) 60 mcg IM .ONCE ONE Stop: 11/27/18 10:01 Morphine Sulfate (Morphine) 2 mg IVP Q4 PRN PRN Reason: Pain, moderate (4-7) Last Admin: 11/26/18 09:17 Dose: 2 mg Ondansetron HCl (Zofran Inj) 4 mg IVP Q6H PRN PRN Reason: Nausea/Vomiting - Labs Labs: 11/26/18 08:24 11/26/18 08:24 PT 13.3 SECONDS (9.7-12.2) H 11/25/18 12:29 INR 1.2 11/25/18 12:29 APTT 55 SECONDS (21-34) H 11/25/18 12:29 - Constitutional Appears: Well, Non-toxic, No Acute Distress - Head Exam Head Exam: ATRAUMATIC, NORMAL INSPECTION, NORMOCEPHALIC - Eye Exam Eye Exam: EOMI, Normal appearance. absent: Scleral icterus - ENT Exam ENT Exam: Mucous Membranes Moist - Respiratory Exam Respiratory Exam: NORMAL BREATHING PATTERN. absent: Accessory Muscle Use, Respiratory Distress - Cardiovascular Exam Cardiovascular Exam: absent: JVD - GI/Abdominal Exam GI & Abdominal Exam: Soft. absent: Distended, Guarding, Rigid, Rebound Additional comments: chronic open midline infected wound with exposed mesh noted. surrounding erythema and purulent discharge present. Mild tenderness to palpation. - Extremities Exam Extremities Exam: Normal Inspection. absent: Calf Tenderness - Neurological Exam Neurological Exam: Alert, Awake, Oriented x3 - Skin Skin Exam: Normal Color, Warm Assessment and Plan - Assessment and Plan (Free Text) Assessment: 83yo M with chronic midline abdominal infected abdominal wound with infected mesh. Constipation (resolved) likely secondary to heavy opiod use. Low suspicion for small bowel obstruction Plan: - Patient recommended to follow up with his primary surgeon upon discharge for chronic midline abdominal wound - local wound care as needed - No plans to replace NGT for decompression unless patient gets nauseous or has episodes of vomiting - continue stool softeners. Consider decreasing out-patient chronic excessive opioid use. - No acute general surgery intervention at this time. Further recs as per Dr. Soraya Koch PGY2 surgery <Gavino Lira - Last Filed: 12/08/18 20:14> Objective - Vital Signs/Intake and Output Vital Signs (last 24 hours): Temp Pulse Resp BP Pulse Ox 97.3 F L 68 20 116/70 99 12/07/18 16:02 12/07/18 16:02 12/07/18 16:02 12/07/18 16:02 12/07/18 16:02 - Labs Labs: 12/05/18 11:29 12/05/18 11:29 PT 13.3 SECONDS (9.7-12.2) H 11/25/18 12:29 INR 1.2 11/25/18 12:29 APTT 55 SECONDS (21-34) H 11/25/18 12:29 Attending/Attestation - Attestation I have personally seen and examined this patient.: Yes I have fully participated in the care of the patient.: Yes I have reviewed all pertinent clinical information, including history, physical exam and plan: Yes Notes (Text): Pt was seen and examined at bedside Agree with above note and assessment Pt with Infected exposed mesh of abdomen c.w IV antibiotics DC plan Awaiting PMD decision for next step as out pt f.u Plan d.w pt in detail Risk and benefit explained in detail.
--- NOTE | 2018-11-26 13:35 | CP.PCM.HP ---
History of Present Illness - History of Present Illness History of Present Illness: pt came for constipation difficulty moving his abd pain fifficulty passing urin infected surgical wound acking body fever at home Present on Admission - Present on Admission Any Indicators Present on Admission: No Review of Systems - Review of Systems Systems not reviewed;Unavailable: Acuity of Condition - Constitutional Constitutional: Fatigue, Fever, Weakness - EENT Eyes: As Per HPI Ears: As Per HPI Nose/Mouth/Throat: As Per HPI - Cardiovascular Additional comments: has pace maker - Respiratory Respiratory: Dyspnea on Exertion - Gastrointestinal Gastrointestinal: Abdominal Pain, Change in Bowel Habits, Constipation - Genitourinary Genitourinary: Difficulty Urinating - Reproductive: Male Reproductive:Male: As Per HPI - Musculoskeletal Musculoskeletal: Arthralgias - Integumentary Integumentary: Non-Healing Lesions, Skin Ulcer Additional comments: skin abdominal wound infection - Neurological Neurological: As Per HPI - Psychiatric Psychiatric: As Per HPI - Endocrine Endocrine: As Per HPI - Hematologic/Lymphatic Additional comments: aneamia Past Patient History - Infectious Disease Hx of Infectious Diseases: None - Tetanus Immunizations Tetanus Immunization: Unknown - Past Medical History & Family History Past Medical History?: Yes - Past Social History Smoking Status: Former Smoker - CARDIAC Hx Cardiac Disorders: Yes Hx Cardia Arrhythmia: No Hx Congestive Heart Failure: Yes Hx Hypercholesterolemia: Yes Hx Hypertension: Yes Hx Mitral Valve Prolapse: No Hx Pacemaker: Yes Hx Peripheral Edema: No - PULMONARY Hx Respiratory Disorders: Yes Hx Asthma: Yes Hx Bronchitis: No Hx Chronic Obstructive Pulmonary Disease (COPD): Yes Hx Emphysema: Yes Hx Pneumonia: Yes Hx Sleep Apnea: Yes - NEUROLOGICAL Hx Neurological Disorder: No Hx Dementia: No Hx Migraine: No Hx Parkinson's Disease: No Hx Seizures: No Hx Transient Ischemic Attacks (TIA): No - HEENT Hx HEENT Problems: No Hx Blind: No Hx Cataracts: No Hx Deafness: No Hx Difficulty Chewing: No Hx Epistaxis: No Hx Glaucoma: No Hx Macular Degeneration: No - RENAL Hx Chronic Kidney Disease: No Hx Kidney Stones: No - ENDOCRINE/METABOLIC Hx Endocrine Disorders: No Hx Hyperthyroidism: No Hx Hypothyroidism: No - HEMATOLOGICAL/ONCOLOGICAL Hx Blood Disorders: No Hx Anemia: No Hx Human Immunodeficiency Virus (HIV): No Hx Sickle Cell Disease: No - INTEGUMENTARY Hx Dermatological Problems: Yes Other/Comment: mid abd open wound 2cm round wound bed red with yellowish thick purulent drainage, 3 small red dry round wounds 1 on right of wound and 2 on lef t of wound amanda no dng - MUSCULOSKELETAL/RHEUMATOLOGICAL Hx Musculoskeletal Disorders: Yes Hx Arthritis: Yes Hx Falls: No Hx Fractures: No Hx Osteoporosis: No - GASTROINTESTINAL Hx Gastrointestinal Disorders: Yes Hx Crohn's Disease: No Hx Diverticulitis: No Hx Gall Bladder Disease: Yes Hx Pancreatitis: No - GENITOURINARY/GYNECOLOGICAL Hx Genitourinary Disorders: No Hx Sexually Transmitted Disorders: No - PSYCHIATRIC Hx Psychophysiologic Disorder: No Hx Anxiety: No Hx Bipolar Disorder: No Hx Depression: No Hx Paranoia: No Hx Post Traumatic Stress Disorder: No Hx Schizophrenia: No Hx Substance Use: No - SURGICAL HISTORY Hx Surgeries: Yes Hx Appendectomy: No Hx Cholecystectomy: Yes (open cholecystectomy with CBD exploration 2012) Hx Coronary Stent: Yes - ANESTHESIA Hx Anesthesia: Yes Hx Anesthesia Reactions: No Hx Malignant Hyperthermia: No Meds Allergies/Adverse Reactions: Allergies Allergy/AdvReac Type Severity Reaction Status Date / Time No Known Allergies Allergy Verified 06/25/18 07:42 Physical Exam - Constitutional Appears: In Acute Distress - Head Exam Head Exam: ATRAUMATIC - Eye Exam Eye Exam: Normal appearance Pupil Exam: NORMAL ACCOMODATION - ENT Exam ENT Exam: Mucous Membranes Moist - Neck Exam Neck exam: Positive for: Normal Inspection - Respiratory Exam Respiratory Exam: Clear to Auscultation Bilateral - Cardiovascular Exam Cardiovascular Exam: REGULAR RHYTHM, +S1, +S2, +S4 - GI/Abdominal Exam GI & Abdominal Exam: Distended, Tenderness Additional comments: abdominal skin wound infected - Rectal Exam Rectal Exam: NORMAL INSPECTION - Exam Exam: NORMAL INSPECTION - Extremities Exam Extremities exam: Positive for: normal inspection - Back Exam Back exam: NORMAL INSPECTION - Neurological Exam Neurological exam: Alert, Oriented x3 - Psychiatric Exam Psychiatric exam: Normal Affect - Skin Skin Exam: Normal Color Results - Vital Signs Recent Vital Signs: Last Vital Signs Temp 97.9 F 11/26/18 08:00 Pulse 65 11/26/18 08:00 Resp 18 11/26/18 08:00 BP 157/69 H 11/26/18 08:00 Pulse Ox 98 11/26/18 08:00 - Labs Result Diagrams: 11/26/18 08:24 11/26/18 08:24 Labs: Laboratory Results - last 24 hr 11/25/18 11/26/18 11/26/18 13:45 07:12 08:24 WBC 7.9 RBC 3.81 L Hgb 10.6 L Hct 32.4 L MCV 84.9 MCH 27.8 MCHC 32.8 L RDW 16.4 H Plt Count 145 MPV 10.9 Neut % (Auto) 77.9 H Lymph % (Auto) 16.1 L [place] % (Auto) 5.5 Eos % (Auto) 0.1 Baso % (Auto) 0.4 Neut # (Auto) 6.2 Lymph # (Auto) 1.3 [place] # (Auto) 0.4 Eos # (Auto) 0.0 Baso # (Auto) 0.0 Sodium Potassium Chloride Carbon Dioxide Anion Gap BUN Creatinine Est GFR ( Amer) Est GFR (Non-Af Amer) POC Glucose (mg/dL) 133 H Random Glucose Calcium Phosphorus Magnesium Total Bilirubin AST ALT Alkaline Phosphatase Total Protein Albumin Globulin Albumin/Globulin Ratio Urine Color Yellow Urine Clarity Clear Urine pH 5.0 Ur Specific [place] 1.013 Urine Protein Negative Urine Glucose (UA) Normal Urine Ketones Negative Urine Blood 1+ H Urine Nitrate Negative Urine Bilirubin Negative Urine Urobilinogen Normal Ur Leukocyte Esterase Neg Urine WBC (Auto) < 1 Urine RBC (Auto) 1 Ur Squamous Epith Cells < 1 11/26/18 11/26/18 08:24 11:22 WBC RBC Hgb Hct MCV MCH MCHC RDW Plt Count MPV Neut % (Auto) Lymph % (Auto) [place] % (Auto) Eos % (Auto) Baso % (Auto) Neut # (Auto) Lymph # (Auto) [place] # (Auto) Eos # (Auto) Baso # (Auto) Sodium 143 Potassium 4.1 Chloride 110 H Carbon Dioxide 21 L Anion Gap 15 BUN 20 Creatinine 1.1 Est GFR ( Amer) > 60 Est GFR (Non-Af Amer) > 60 POC Glucose (mg/dL) 129 H Random Glucose 133 H Calcium 8.7 Phosphorus 3.9 Magnesium 2.3 Total Bilirubin 0.7 AST 26 ALT 24 Alkaline Phosphatase 178 H Total Protein 7.2 Albumin 4.2 Globulin 3.0 Albumin/Globulin Ratio 1.4 Urine Color Urine Clarity Urine pH Ur Specific [place] Urine Protein Urine Glucose (UA) Urine Ketones Urine Blood Urine Nitrate Urine Bilirubin Urine Urobilinogen Ur Leukocyte Esterase Urine WBC (Auto) Urine RBC (Auto) Ur Squamous Epith Cells Assessment & Plan - Assessment and Plan (Free Text) Assessment: acute abd pain constipation infected abd wound s/p surgery ys agobph aneamia pace maker chf Plan: as per orders - Date & Time Date: 11/26/18 Time: 13:40
[2018-11-27] MEDS: Sodium Chloride 0.9% 1,000 ML IV SCH ×2 (02:00→13:10)
[2018-11-27] MEDS: Piperacill/Tazo 3.375gm in Dex 3.375 GM/50 ML BAG IVPB SCH ×3 (02:15→17:08)
[2018-11-27 09:41] LABS: BASO % 0.2 % (0.0-2.0); EOS % 0.1 % (0.0-4.0); HEMOGLOBIN 10.3 g/dL (12.0-18.0); LYMPH # 1.7 K/uL (1.0-4.3); LYMPH % 14.9 % (20.0-40.0); MEAN CELL VOLUME 84.4 fL (80.0-94.0); MEAN CORPUSCULAR HEMOGLOBIN 27.5 pg (27.0-31.0); MEAN CORPUSCULAR HGB CONC 32.6 g/dL (33.0-37.0); MEAN PLATELET VOLUME 10.9 fL (7.2-11.7); MONO # 0.5 K/uL (0.0-0.8); MONO % 4.5 % (0.0-10.0); NEUT # 9.1 K/uL (1.8-7.0); NEUT % 80.3 % (50.0-75.0); NRBC % 0.1 % (0.0-2.0); RBC 3.75 Mil/uL (4.40-5.90); RED CELL DISTRIBUTION WIDTH 16.1 % (11.5-14.5); WHITE BLOOD COUNT 11.3 K/uL (4.8-10.8)
[2018-11-27] MEDS ORDERED: Influenza Vaccine 60 mcg/0.5 mL SYR (4YR UP) IM ONE (10:00)
[2018-11-27 10:27] LABS: ALB/GLOB RATIO 1.3 (1.0-2.1); ALBUMIN 3.6 g/dL (3.5-5.0); ALT/SGPT 21 U/L (21-72); AST/SGOT 39 U/L (17-59); BLOOD UREA NITROGEN 23 mg/dL (9-20); GFR NON-AFRICAN AMERICAN > 60
--- NOTE | 2018-11-27 11:21 | CP.PCM.PN ---
Subjective - Date & Time of Evaluation Date of Evaluation: 11/27/18 Time of Evaluation: 11:19 - Subjective Subjective: pt inection and wall positive mrsa infection Objective - Vital Signs/Intake and Output Vital Signs (last 24 hours): Temp Pulse Resp BP Pulse Ox 98.0 F 60 20 140/65 93 L 11/27/18 08:39 11/27/18 08:39 11/27/18 08:39 11/27/18 08:39 11/27/18 08:39 Intake and Output: 11/27/18 11/27/18 06:59 18:59 Intake Total 840 Balance 840 - Medications Medications: Current Medications Carvedilol (Coreg) 3.125 mg PO BID [facility] Last Admin: 11/27/18 09:28 Dose: 3.125 mg Docusate Sodium (Colace) 100 mg PO BID [facility] Last Admin: 11/27/18 09:28 Dose: 100 mg Heparin Sodium (Porcine) (Heparin) 5,000 units SC Q12 [facility] Last Admin: 11/27/18 09:28 Dose: 5,000 units Sodium Chloride (Sodium Chloride 0.9%) 1,000 mls @ 70 mls/hr IV .[id number] [facility] Last Admin: 11/27/18 02:00 Dose: 70 mls/hr Piperacillin Sod/Tazobactam Sod (Zosyn 3.375 Gm Iv Premix) 3.375 gm in 50 mls @ 100 mls/hr IVPB Q8H [facility], [facility]; Protocol Last Admin: 11/27/18 09:41 Dose: 100 mls/hr Vancomycin HCl 1,000 mg/ (Sodium Chloride) 250 mls @ 166.6 mls/hr IVPB Q12H [facility]; Protocol Last Admin: 11/27/18 07:24 Dose: 166.6 mls/hr Morphine Sulfate (Morphine) 2 mg IVP Q4 PRN PRN Reason: Pain, moderate (4-7) Last Admin: 11/27/18 08:22 Dose: 2 mg Ondansetron HCl (Zofran Inj) 4 mg IVP Q6H PRN PRN Reason: Nausea/Vomiting Last Admin: 11/27/18 05:00 Dose: 4 mg - Labs Labs: 11/27/18 09:31 11/27/18 09:31 PT 13.3 SECONDS (9.7-12.2) H 11/25/18 12:29 INR 1.2 11/25/18 12:29 APTT 55 SECONDS (21-34) H 11/25/18 12:29 - Constitutional Appears: In Acute Distress - Head Exam Head Exam: NORMAL INSPECTION - Eye Exam Eye Exam: Normal appearance - ENT Exam ENT Exam: Normal Exam - Neck Exam Neck Exam: Full ROM - Respiratory Exam Respiratory Exam: NORMAL BREATHING PATTERN - Cardiovascular Exam Cardiovascular Exam: REGULAR RHYTHM - GI/Abdominal Exam Additional comments: abd wallinfection - Extremities Exam Extremities Exam: Normal Inspection - Back Exam Back Exam: NORMAL INSPECTION - Neurological Exam Neurological Exam: Awake, Oriented x3 - Psychiatric Exam Psychiatric exam: Normal Affect - Skin Skin Exam: Normal Color Assessment and Plan - Assessment and Plan (Free Text) Assessment: infected abdomial wall wound MARSAs/p pace maker chf Plan: iv antibiotics and surgery will be on
--- NOTE | 2018-11-27 17:00 | CP.PCM.CON ---
History of Present Illness - History of Present Illness History of Present Illness: 83 y/o male, whose PMH includes CAD, CHF, COPD, diabetes, lung cancer, gall bladder disease, HTN, hypercholesterolemia, and hyperlipidemia Presents with epigastric abdominal wound which may require surgical intervention. PMH: Arthritis, Asthma, Benign Prostatic Hyperplasia, CAD, CHF, COPD, Diabetes, Emphysema, Gall Bladder Disease, Hiatal Hernia, HTN, Hypercholesterolemia, Hyperlipidemia, Pneumonia, Sleep Apnea, Chronic Pain (Left chest/abdomen) Surgical History: Cholecystectomy (open cholecystectomy with CBD exploration 2012), Coronary Stent, Hernia Repair Denies: Appendectomy, Pacemaker Currently denies any CP, SOB, fevers, chills, N/V Past Patient History - Infectious Disease Hx of Infectious Diseases: None - Tetanus Immunizations Tetanus Immunization: Unknown - Past Medical History & Family History Past Medical History?: Yes - Past Social History Smoking Status: Former Smoker - CARDIAC Hx Cardiac Disorders: Yes Hx Cardia Arrhythmia: No Hx Congestive Heart Failure: Yes Hx Hypercholesterolemia: Yes Hx Hypertension: Yes Hx Mitral Valve Prolapse: No Hx Pacemaker: Yes Hx Peripheral Edema: No - PULMONARY Hx Respiratory Disorders: Yes Hx Asthma: Yes Hx Bronchitis: No Hx Chronic Obstructive Pulmonary Disease (COPD): Yes Hx Emphysema: Yes Hx Pneumonia: Yes Hx Sleep Apnea: Yes - NEUROLOGICAL Hx Neurological Disorder: No Hx Dementia: No Hx Migraine: No Hx Parkinson's Disease: No Hx Seizures: No Hx Transient Ischemic Attacks (TIA): No - HEENT Hx HEENT Problems: No Hx Blind: No Hx Cataracts: No Hx Deafness: No Hx Difficulty Chewing: No Hx Epistaxis: No Hx Glaucoma: No Hx Macular Degeneration: No - RENAL Hx Chronic Kidney Disease: No Hx Kidney Stones: No - ENDOCRINE/METABOLIC Hx Endocrine Disorders: No Hx Hyperthyroidism: No Hx Hypothyroidism: No - HEMATOLOGICAL/ONCOLOGICAL Hx Blood Disorders: No Hx Anemia: No Hx Human Immunodeficiency Virus (HIV): No Hx Sickle Cell Disease: No - INTEGUMENTARY Hx Dermatological Problems: Yes Other/Comment: mid abd open wound 2cm round wound bed red with yellowish thick purulent drainage, 3 small red dry round wounds 1 on right of wound and 2 on left of wound amanda no dng - MUSCULOSKELETAL/RHEUMATOLOGICAL Hx Musculoskeletal Disorders: Yes Hx Arthritis: Yes Hx Falls: No Hx Fractures: No Hx Osteoporosis: No - GASTROINTESTINAL Hx Gastrointestinal Disorders: Yes Hx Crohn's Disease: No Hx Diverticulitis: No Hx Gall Bladder Disease: Yes Hx Pancreatitis: No - GENITOURINARY/GYNECOLOGICAL Hx Genitourinary Disorders: No Hx Sexually Transmitted Disorders: No - PSYCHIATRIC Hx Psychophysiologic Disorder: No Hx Anxiety: No Hx Bipolar Disorder: No Hx Depression: No Hx Paranoia: No Hx Post Traumatic Stress Disorder: No Hx Schizophrenia: No Hx Substance Use: No - SURGICAL HISTORY Hx Surgeries: Yes Hx Appendectomy: No Hx Cholecystectomy: Yes (open cholecystectomy with CBD exploration 2012) Hx Coronary Stent: Yes - ANESTHESIA Hx Anesthesia: Yes Hx Anesthesia Reactions: No Hx Malignant Hyperthermia: No Meds Allergies/Adverse Reactions: Allergies Allergy/AdvReac Type Severity Reaction Status Date / Time No Known Allergies Allergy Verified 06/25/18 07:42 - Medications Medications: Current Medications Carvedilol (Coreg) 3.125 mg PO BID [facility] Last Admin: 11/27/18 09:28 Dose: 3.125 mg Docusate Sodium (Colace) 100 mg PO BID [facility] Last Admin: 11/27/18 09:28 Dose: 100 mg Heparin Sodium (Porcine) (Heparin) 5,000 units SC Q12 [facility] Last Admin: 11/27/18 09:28 Dose: 5,000 units Sodium Chloride (Sodium Chloride 0.9%) 1,000 mls @ 70 mls/hr IV .[id number] [facility] Last Admin: 11/27/18 13:10 Dose: Not Given Piperacillin Sod/Tazobactam Sod (Zosyn 3.375 Gm Iv Premix) 3.375 gm in 50 mls @ 100 mls/hr IVPB Q8H [facility]; Protocol Last Admin: 11/27/18 09:41 Dose: 100 mls/hr Vancomycin HCl 1,000 mg/ (Sodium Chloride) 250 mls @ 166.6 mls/hr IVPB Q12H [facility]; Protocol Last Admin: 11/27/18 07:24 Dose: 166.6 mls/hr Morphine Sulfate (Morphine) 2 mg IVP Q4 PRN PRN Reason: Pain, moderate (4-7) Last Admin: 11/27/18 14:05 Dose: 2 mg Ondansetron HCl (Zofran Inj) 4 mg IVP Q6H PRN PRN Reason: Nausea/Vomiting Last Admin: 11/27/18 05:00 Dose: 4 mg Physical Exam - Constitutional Appears: No Acute Distress - Head Exam Head Exam: ATRAUMATIC, NORMAL INSPECTION, NORMOCEPHALIC - Eye Exam Eye Exam: EOMI, Normal appearance. absent: Scleral icterus - ENT Exam ENT Exam: Mucous Membranes Moist, Normal Oropharynx - Neck Exam Neck exam: Positive for: Full Rom. Negative for: Tenderness, Thyromegaly - Respiratory Exam Respiratory Exam: Clear to Auscultation Bilateral, NORMAL BREATHING PATTERN. absent: Rhonchi, Wheezes - Cardiovascular Exam Cardiovascular Exam: REGULAR RHYTHM, +S1, +S2. absent: Systolic Murmur Additional comments: L. chest wall PPM - GI/Abdominal Exam GI & Abdominal Exam: Normal Bowel Sounds, Soft, Tenderness Additional comments: epigastric wound dressing - Extremities Exam Extremities exam: Positive for: normal inspection, pedal pulses present. Negative for: calf tenderness, pedal edema, tenderness - Neurological Exam Neurological exam: Alert, Oriented x3 - Psychiatric Exam Psychiatric exam: Normal Affect, Normal Mood - Skin Skin Exam: Normal Color, Warm Results - Vital Signs Recent Vital Signs: Last Vital Signs Temp 98.0 F 11/27/18 08:39 Pulse 60 11/27/18 08:39 Resp 20 11/27/18 08:39 BP 140/65 11/27/18 08:39 Pulse Ox 93 L 11/27/18 08:39 - Labs Result Diagrams: 11/27/18 09:31 11/27/18 09:31 Labs: Laboratory Results - last 24 hr 11/26/18 11/27/18 11/27/18 21:10 02:31 07:05 WBC RBC Hgb Hct MCV MCH MCHC RDW Plt Count MPV Neut % (Auto) Lymph % (Auto) [place] % (Auto) Eos % (Auto) Baso % (Auto) Neut # (Auto) Lymph # (Auto) [place] # (Auto) Eos # (Auto) Baso # (Auto) Sodium Potassium Chloride Carbon Dioxide Anion Gap BUN Creatinine Est GFR ( Amer) Est GFR (Non-Af Amer) POC Glucose (mg/dL) 132 H 111 H 110 Random Glucose Calcium Total Bilirubin AST ALT Alkaline Phosphatase Total Protein Albumin Globulin Albumin/Globulin Ratio 11/27/18 11/27/18 11/27/18 09:31 09:31 11:05 WBC 11.3 H RBC 3.75 L Hgb 10.3 L Hct 31.7 L MCV 84.4 MCH 27.5 MCHC 32.6 L RDW 16.1 H Plt Count 198 MPV 10.9 Neut % (Auto) 80.3 H Lymph % (Auto) 14.9 L [place] % (Auto) 4.5 Eos % (Auto) 0.1 Baso % (Auto) 0.2 Neut # (Auto) 9.1 H Lymph # (Auto) 1.7 [place] # (Auto) 0.5 Eos # (Auto) 0.0 Baso # (Auto) 0.0 Sodium 139 Potassium 3.7 Chloride 108 H Carbon Dioxide 21 L Anion Gap 14 BUN 23 H Creatinine 1.0 Est GFR ( Amer) > 60 Est GFR (Non-Af Amer) > 60 POC Glucose (mg/dL) 155 H Random Glucose 202 H D Calcium 8.0 L Total Bilirubin 0.5 AST 39 ALT 21 Alkaline Phosphatase 138 H D Total Protein 6.4 Albumin 3.6 Globulin 2.8 Albumin/Globulin Ratio 1.3 11/27/18 15:43 WBC RBC Hgb Hct MCV MCH MCHC RDW Plt Count MPV Neut % (Auto) Lymph % (Auto) [place] % (Auto) Eos % (Auto) Baso % (Auto) Neut # (Auto) Lymph # (Auto) [place] # (Auto) Eos # (Auto) Baso # (Auto) Sodium Potassium Chloride Carbon Dioxide Anion Gap BUN Creatinine Est GFR ( Amer) Est GFR (Non-Af Amer) POC Glucose (mg/dL) 121 H Random Glucose Calcium Total Bilirubin AST ALT Alkaline Phosphatase Total Protein Albumin Globulin Albumin/Globulin Ratio - EKG Data EKG Interpreted by: Myself - Imaging and Cardiology Chest x-ray Status: Image reviewed by me Assessment & Plan - Assessment and Plan (Free Text) Assessment: Multiple medical problems Known hx of CAD/PCI with residual mild-mod LV systolic dysfunction and apical akinesia c/w ischemic cardiomyopathy: which is compensated and stable echo: 06/2018: mild-mod LV systolic dysfunctin with aneurysmal apex (images directly viewed by me) Stress test 06/2018: fixed apical defect, no reversible ischemia, low-normal LVEF (images directly viewed by me) EK11/26/18: Atrial-ventricular paced rhythm Preop for GI wound corrective surgery: Mild anemia no gross bleeding Normal creat Mild HTN on coreg only No volume overload No active CP or evidence of ischemia Appropriately AV paced Based on above: patient may proceed with non-cardiac non-vascular surgery with acceptable risk. No additional cardiac w/u is necessary Monitor BP and HR Consider ACE_I or ARB if additional BP control needed DVT prophylaxis Optimize medical therapy for chronic CAD with ASA, statin, coreg, DENZEL-I or ARB, ranexa.
--- NOTE | 2018-11-27 21:57 | CP.PCM.CON ---
History of Present Illness - History of Present Illness History of Present Illness: 83yo M admitted for evaluation of diffuse abdominal pain . 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 He had an open CBD exploration with sphincteroplasty and ventral hernia repair with mesh performed by Dr. Guadalupe in 2012. He states that he has had a midline abdominal wound infection since. Multiple admissioins for infections and related complicated ID consulted for antibiotic management PMHx: CAD, CHF, HLD, HTN, COPD, Emphysema, OA, Complete heart block, gastritis, hiatal hernia, gastroparesis, diverticulosis, hx lung CA PSHx: Coronay stents, celiac plexus ablation (2012), VATS w/upper lobectomy (2012), ex-lap w/cholecystectomy w/IOC, CBD exploration w/sphincteroplasty (2012 w/Anayeli), Billroth II, Pacemaker (2017) Family Hx: non-contributory Social Hx: Admits to prior Tobacco use; Denies ETOH use; Denies illicit drug use. NKDA Review of Systems - Review of Systems All systems: reviewed and no additional remarkable complaints except - Constitutional Constitutional: As Per HPI - EENT Eyes: absent: As Per HPI, Blind Spots, Blurred Vision, Change in Vision, Decreased Night Vision, Diplopia, Discharge, Dry Eye, Exophthalmos, Floaters, Irritation, Itchy Eyes, Loss of Peripheral Vision, Pain, Photophobia, Requires Corrective Lenses, Sees Flashes, Spots in Vision, Tunnel Vision, Other Visual Disturbances, Loss of Vision, Other Ears: absent: As Per HPI, Decreased Hearing, Ear Discharge, Ear Pain, Tinnitus, Abnormal Hearing, Disequilibrium, Dizziness, Other Nose/Mouth/Throat: absent: As Per HPI, Epistaxis, Nasal Congestion, Nasal Discharge, Nasal Obstruction, Nasal Trauma, Nose Pain, Post Nasal Drip, Sinus Pain, Sinus Pressure, Bleeding Gums, Change in Voice, Dental Pain, Dry Mouth, Dysphagia, Halitosis, Hoarsness, Lip Swelling, Mouth Lesions, Mouth Pain, Odynophagia, Sore Throat, Throat Swelling, Tongue Swelling, Facial Pain, Neck Pain, Neck Mass, Other - Cardiovascular Cardiovascular: As Per HPI - Respiratory Respiratory: absent: As Per HPI, Cough, Dyspnea, Hemoptysis, Dyspnea on Exer tion, Wheezing, Snoring, Stridor, Pain on Inspiration, Chest Congestion, Excessive Mucous Production, Change in Mucous Color, Pain with Coughing, Other - Gastrointestinal Gastrointestinal: As Per HPI - Genitourinary Genitourinary: absent: As Per HPI, Change in Urinary Stream, Difficulty Urinating, Dysuria, Flank Pain, Hematuria, Pyuria, Nocturia, Urinary Incontinence, Urinary Frequency, Urinary Hesitance, Urinary Urgency, Voiding Freq/Small Amts, Freq UTI, Hx Renal/Bladder Calculi, Hx /Renal Surgery, Bladder Distension, Other - Musculoskeletal Musculoskeletal: absent: As Per HPI, Abnormal Gait, Arthralgias, Atrophy, Back Pain, Deformity, Joint Swelling, Limited Range of Motion, Loss of Height, Muscle Cramps, Muscle Weakness, Myalgias, Neck Pain, Numbness, Radiating Pain into Limb, Stiffness, Tingling, Other - Integumentary Integumentary: As Per HPI, Skin Pain, Wounds - Neurological Neurological: absent: As Per HPI, Abnormal Gait, Abnormal Hearing, Abnormal Movements, Abnormal Speech, Behavioral Changes, Burning Sensations, Confusion, Convulsions, Disequilibrium, Dizziness, Numbness, Focal Weakness, Frequent Falls, Headaches, Lack of Coordination, Loss of Vision, Memory Loss, Paresthes ias, Radicular Pain, Restless Legs, Sensory Deficit, Syncope, Tingling, Tremor, Vertigo, Weakness, Other Visual Disturbances, Other - Psychiatric Psychiatric: As Per HPI - Endocrine Endocrine: absent: As Per HPI, Change in Body Appearance, Change in Libido, Cold Intolorance, Deepening of Voice, Excessive Sweating, Fatigue, Flushing, Heat Intolorance, Increase in Ring/Shoe/Hat Size, Palpitations, Polydipsia, Polyphagia, Polyuria, Other - Hematologic/Lymphatic Hematologic: absent: As Per HPI, Easy Bleeding, Easy Bruising, Lymphadenopathy, Other Past Patient History - Infectious Disease Hx of Infectious Diseases: None - Tetanus Immunizations Tetanus Immunization: Unknown - Past Medical History & Family History Past Medical History?: Yes - Past Social History Smoking Status: Former Smoker - CARDIAC Hx Cardiac Disorders: Yes Hx Cardia Arrhythmia: No Hx Congestive Heart Failure: Yes Hx Hypercholesterolemia: Yes Hx Hypertension: Yes Hx Mitral Valve Prolapse: No Hx Pacemaker: Yes Hx Peripheral Edema: No - PULMONARY Hx Respiratory Disorders: Yes Hx Asthma: Yes Hx Bronchitis: No Hx Chronic Obstructive Pulmonary Disease (COPD): Yes Hx Emphysema: Yes Hx Pneumonia: Yes Hx Sleep Apnea: Yes - NEUROLOGICAL Hx Neurological Disorder: No Hx Dementia: No Hx Migraine: No Hx Parkinson's Disease: No Hx Seizures: No Hx Transient Ischemic Attacks (TIA): No - HEENT Hx HEENT Problems: No Hx Blind: No Hx Cataracts: No Hx Deafness: No Hx Difficulty Chewing: No Hx Epistaxis: No Hx Glaucoma: No Hx Macular Degeneration: No - RENAL Hx Chronic Kidney Disease: No Hx Kidney Stones: No - ENDOCRINE/METABOLIC Hx Endocrine Disorders: No Hx Hyperthyroidism: No Hx Hypothyroidism: No - HEMATOLOGICAL/ONCOLOGICAL Hx Blood Disorders: No Hx Anemia: No Hx Human Immunodeficiency Virus (HIV): No Hx Sickle Cell Disease: No - INTEGUMENTARY Hx Dermatological Problems: Yes Other/Comment: mid abd open wound 2cm round wound bed red with yellowish thick purulent drainage, 3 small red dry round wounds 1 on right of wound and 2 on left of wound amanda no dng - MUSCULOSKELETAL/RHEUMATOLOGICAL Hx Musculoskeletal Disorders: Yes Hx Arthritis: Yes Hx Falls: No Hx Fractures: No Hx Osteoporosis: No - GASTROINTESTINAL Hx Gastrointestinal Disorders: Yes Hx Crohn's Disease: No Hx Diverticulitis: No Hx Gall Bladder Disease: Yes Hx Pancreatitis: No - GENITOURINARY/GYNECOLOGICAL Hx Genitourinary Disorders: No Hx Sexually Transmitted Disorders: No - PSYCHIATRIC Hx Psychophysiologic Disorder: No Hx Anxiety: No Hx Bipolar Disorder: No Hx Depression: No Hx Paranoia: No Hx Post Traumatic Stress Disorder: No Hx Schizophrenia: No Hx Substance Use: No - SURGICAL HISTORY Hx Surgeries: Yes Hx Appendectomy: No Hx Cholecystectomy: Yes (open cholecystectomy with CBD exploration 2012) Hx Coronary Stent: Yes - ANESTHESIA Hx Anesthesia: Yes Hx Anesthesia Reactions: No Hx Malignant Hyperthermia: No Meds Allergies/Adverse Reactions: Allergies Allergy/AdvReac Type Severity Reaction Status Date / Time No Known Allergies Allergy Verified 06/25/18 07:42 - Medications Medications: Current Medications Carvedilol (Coreg) 3.125 mg PO BID [facility] Last Admin: 11/27/18 09:28 Dose: 3.125 mg Docusate Sodium (Colace) 100 mg PO BID [facility] Last Admin: 11/27/18 09:28 Dose: 100 mg Heparin Sodium (Porcine) (Heparin) 5,000 units SC Q12 [facility] Last Admin: 11/27/18 09:28 Dose: 5,000 units Sodium Chloride (Sodium Chloride 0.9%) 1,000 mls @ 70 mls/hr IV .[id number] [facility] Last Admin: 11/27/18 13:10 Dose: Not Given Piperacillin Sod/Tazobactam Sod (Zosyn 3.375 Gm Iv Premix) 3.375 gm in 50 mls @ 100 mls/hr IVPB Q8H [facility]; Protocol Last Admin: 11/27/18 09:41 Dose: 100 mls/hr Vancomycin HCl 1,000 mg/ (Sodium Chloride) 250 mls @ 166.6 mls/hr IVPB Q12H [facility]; Protocol Last Admin: 11/27/18 07:24 Dose: 166.6 mls/hr Morphine Sulfate (Morphine) 2 mg IVP Q4 PRN PRN Reason: Pain, moderate (4-7) Last Admin: 11/27/18 14:05 Dose: 2 mg Ondansetron HCl (Zofran Inj) 4 mg IVP Q6H PRN PRN Reason: Nausea/Vomiting Last Admin: 11/27/18 05:00 Dose: 4 mg Physical Exam - Constitutional Appears: Toxic, In Acute Distress, Agitated, Chronically Ill - Head Exam Head Exam: ATRAUMATIC, NORMOCEPHALIC - Eye Exam Eye Exam: EOMI, PERRL. absent: Scleral icterus Pupil Exam: NORMAL ACCOMODATION - ENT Exam ENT Exam: Mucous Membranes Dry, Normal External Ear Exam - Neck Exam Neck exam: Negative for: Lymphadenopathy - Respiratory Exam Respiratory Exam: Decreased Breath Sounds, Clear to Auscultation Bilateral - Cardiovascular Exam Cardiovascular Exam: REGULAR RHYTHM, +S1, +S2 - GI/Abdominal Exam GI & Abdominal Exam: Diminished Bowel Sounds, Distended, Guarding, Tenderness. absent: Rebound Additional comments: wound with severe ulceration and pus from site of previously described mesh placement - Rectal Exam Rectal Exam: Deferred - Exam Exam: NORMAL INSPECTION - Extremities Exam Extremities exam: Positive for: pedal edema, pedal pulses present. Negative for: calf tenderness - Back Exam Back exam: absent: CVA tenderness (L), CVA tenderness (R) - Neurological Exam Neurological exam: Alert, Altered, CN II-XII Intact - Psychiatric Exam Psychiatric exam: Depressed - Skin Skin Exam: Dry Results - Vital Signs Recent Vital Signs: Last Vital Signs Temp 98.0 F 11/27/18 08:39 Pulse 60 11/27/18 08:39 Resp 20 11/27/18 08:39 BP 140/65 11/27/18 08:39 Pulse Ox 93 L 11/27/18 08:39 - Labs Result Diagrams: 11/27/18 09:31 11/27/18 09:31 Labs: Laboratory Results - last 24 hr 11/26/18 11/26/18 11/27/18 16:18 21:10 02:31 WBC RBC Hgb Hct MCV MCH MCHC RDW Plt Count MPV Neut % (Auto) Lymph % (Auto) [place] % (Auto) Eos % (Auto) Baso % (Auto) Neut # (Auto) Lymph # (Auto) [place] # (Auto) Eos # (Auto) Baso # (Auto) Sodium Potassium Chloride Carbon Dioxide Anion Gap BUN Creatinine Est GFR ( Amer) Est GFR (Non-Af Amer) POC Glucose (mg/dL) 131 H 132 H 111 H Random Glucose Calcium Total Bilirubin AST ALT Alkaline Phosphatase Total Protein Albumin Globulin Albumin/Globulin Ratio 11/27/18 11/27/18 11/27/18 07:05 09:31 09:31 WBC 11.3 H RBC 3.75 L Hgb 10.3 L Hct 31.7 L MCV 84.4 MCH 27.5 MCHC 32.6 L RDW 16.1 H Plt Count 198 MPV 10.9 Neut % (Auto) 80.3 H Lymph % (Auto) 14.9 L [place] % (Auto) 4.5 Eos % (Auto) 0.1 Baso % (Auto) 0.2 Neut # (Auto) 9.1 H Lymph # (Auto) 1.7 [place] # (Auto) 0.5 Eos # (Auto) 0.0 Baso # (Auto) 0.0 Sodium 139 Potassium 3.7 Chloride 108 H Carbon Dioxide 21 L Anion Gap 14 BUN 23 H Creatinine 1.0 Est GFR ( Amer) > 60 Est GFR (Non-Af Amer) > 60 POC Glucose (mg/dL) 110 Random Glucose 202 H D Calcium 8.0 L Total Bilirubin 0.5 AST 39 ALT 21 Alkaline Phosphatase 138 H D Total Protein 6.4 Albumin 3.6 Globulin 2.8 Albumin/Globulin Ratio 1.3 11/27/18 11/27/18 11:05 15:43 WBC RBC Hgb Hct MCV MCH MCHC RDW Plt Count MPV Neut % (Auto) Lymph % (Auto) [place] % (Auto) Eos % (Auto) Baso % (Auto) Neut # (Auto) Lymph # (Auto) [place] # (Auto) Eos # (Auto) Baso # (Auto) Sodium Potassium Chloride Carbon Dioxide Anion Gap BUN Creatinine Est GFR ( Amer) Est GFR (Non-Af Amer) POC Glucose (mg/dL) 155 H 121 H Random Glucose Calcium Total Bilirubin AST ALT Alkaline Phosphatase Total Protein Albumin Globulin Albumin/Globulin Ratio Assessment & Plan (1) Pseudomonas aeruginosa infection Status: Acute (2) Bacteremia due to methicillin resistant Staphylococcus aureus Status: Acute (3) Abdominal pain Status: Acute (4) Open abdominal wall wound Status: Acute (5) Small bowel obstruction Status: Acute (6) Abdominal infection Status: Acute (7) Abdominal wall pain Status: Acute (8) Bacteremia Status: Acute (9) Chronic abdominal wound infection Status: Acute (10) History of lung cancer Status: Acute (11) MRSA (methicillin resistant staph aureus) culture positive Status: Acute (12) Wound cellulitis Status: Acute (13) Wound, open, abdominal wall, anterior Status: Acute - Assessment and Plan (Free Text) Assessment: severe sepsis secondary to chronically infected wound of abdomen with adherent bowel and possible fistula would require extensive surgery and may perish due to this- refused surgery before cont iv antibiotics and consider palliative care / hospice eval if surgery cannot be performed
[2018-11-28] MEDS: Piperacill/Tazo 3.375gm in Dex 3.375 GM/50 ML BAG IVPB SCH ×3 (02:15→17:10)
[2018-11-28] MEDS: Sodium Chloride 0.9% 1,000 ML IV SCH ×3 (04:05→21:32)
[2018-11-28 07:58] LABS: BASO % 0.3 % (0.0-2.0); EOS % 0.1 % (0.0-4.0); HEMOGLOBIN 10.1 g/dL (12.0-18.0); LYMPH # 1.7 K/uL (1.0-4.3); LYMPH % 17.3 % (20.0-40.0); MEAN CELL VOLUME 85.1 fL (80.0-94.0); MEAN CORPUSCULAR HEMOGLOBIN 27.6 pg (27.0-31.0); MEAN CORPUSCULAR HGB CONC 32.4 g/dL (33.0-37.0); MEAN PLATELET VOLUME 10.8 fL (7.2-11.7); MONO # 0.6 K/uL (0.0-0.8); MONO % 5.6 % (0.0-10.0); NEUT # 7.7 K/uL (1.8-7.0); NEUT % 76.7 % (50.0-75.0); RBC 3.66 Mil/uL (4.40-5.90); RED CELL DISTRIBUTION WIDTH 16.1 % (11.5-14.5)
[2018-11-28 08:15] LABS: ALB/GLOB RATIO 1.3 (1.0-2.1); ALBUMIN 3.5 g/dL (3.5-5.0); ALT/SGPT 26 U/L (21-72); AST/SGOT 31 U/L (17-59); BLOOD UREA NITROGEN 22 mg/dL (9-20); CALCIUM 8.2 mg/dl (8.6-10.4); GFR NON-AFRICAN AMERICAN > 60
--- NOTE | 2018-11-28 10:33 | CP.PCM.PN ---
Subjective - Date & Time of Evaluation Date of Evaluation: 11/28/18 Time of Evaluation: 10:30 - Subjective Subjective: pt seen oob no vomiting tolrating diet no iv acces need jugular line Objective - Vital Signs/Intake and Output Vital Signs (last 24 hours): Temp Pulse Resp BP Pulse Ox 98.1 F 60 20 159/82 H 98 11/28/18 07:00 11/28/18 07:00 11/28/18 07:00 11/28/18 07:00 11/28/18 07:00 Intake and Output: 11/28/18 11/28/18 06:59 18:59 Intake Total 1745 Balance 1745 - Medications Medications: Current Medications Carvedilol (Coreg) 3.125 mg PO BID [facility] Last Admin: 11/28/18 10:12 Dose: 3.125 mg Docusate Sodium (Colace) 100 mg PO BID [facility] Last Admin: 11/28/18 10:12 Dose: 100 mg Heparin Sodium (Porcine) (Heparin) 5,000 units SC Q12 [facility] Last Admin: 11/28/18 10:12 Dose: 5,000 units Sodium Chloride (Sodium Chloride 0.9%) 1,000 mls @ 70 mls/hr IV .[id number] [facility] Last Admin: 11/28/18 04:05 Dose: 70 mls/hr Piperacillin Sod/Tazobactam Sod (Zosyn 3.375 Gm Iv Premix) 3.375 gm in 50 mls @ 100 mls/hr IVPB Q8H [facility]; Protocol Last Admin: 11/28/18 10:13 Dose: Not Given Vancomycin HCl 1,000 mg/ (Sodium Chloride) 250 mls @ 166.6 mls/hr IVPB Q12H [facility]; Protocol Last Admin: 11/28/18 09:00 Dose: Not Given Linezolid (Zyvox) 600 mg PO BID [facility]; Protocol Last Admin: 11/28/18 10:12 Dose: 600 mg Morphine Sulfate (Morphine) 2 mg IVP Q4 PRN PRN Reason: Pain, moderate (4-7) Last Admin: 11/28/18 08:05 Dose: 2 mg Ondansetron HCl (Zofran Inj) 4 mg IVP Q6H PRN PRN Reason: Nausea/Vomiting Last Admin: 11/28/18 02:45 Dose: 4 mg Ondansetron HCl (Zofran Odt) 8 mg PO Q8H PRN PRN Reason: Nausea/Vomiting Oxycodone/Acetaminophen (Percocet 5/325 Mg Tab) 1 tab PO Q4H PRN PRN Reason: Pain, moderate (4-7) Stop: 12/01/18 10:29 - Labs Labs: 11/28/18 07:46 11/28/18 07:46 PT 13.3 SECONDS (9.7-12.2) H 11/25/18 12:29 INR 1.2 11/25/18 12:29 APTT 55 SECONDS (21-34) H 11/25/18 12:29 - Constitutional Appears: No Acute Distress - Head Exam Head Exam: NORMAL INSPECTION - Eye Exam Eye Exam: Normal appearance Pupil Exam: NORMAL ACCOMODATION - ENT Exam ENT Exam: Normal Exam - Neck Exam Neck Exam: Full ROM - Respiratory Exam Respiratory Exam: NORMAL BREATHING PATTERN - Cardiovascular Exam Cardiovascular Exam: REGULAR RHYTHM - GI/Abdominal Exam GI & Abdominal Exam: Normal Bowel Sounds Additional comments: abd wound infection - Exam Exam: NORMAL INSPECTION - Extremities Exam Extremities Exam: Normal Inspection - Back Exam Back Exam: NORMAL INSPECTION - Neurological Exam Neurological Exam: Awake, Normal Gait, Oriented x3 - Psychiatric Exam Psychiatric exam: Normal Affect - Skin Skin Exam: Normal Color Assessment and Plan - Assessment and Plan (Free Text) Assessment: abdominal wound infection mrsa Plan: cont as per orders
--- NOTE | 2018-11-28 12:37 | CP.PCM.PN ---
Subjective - Date & Time of Evaluation Date of Evaluation: 11/28/18 Time of Evaluation: 07:00 - Subjective Subjective: C/O PAIN CULTURES + NEEDS IV ACCESS Objective - Vital Signs/Intake and Output Vital Signs (last 24 hours): Temp Pulse Resp BP Pulse Ox 98.1 F 60 20 159/82 H 98 11/28/18 07:00 11/28/18 07:00 11/28/18 07:00 11/28/18 07:00 11/28/18 07:00 Intake and Output: 11/28/18 11/28/18 06:59 18:59 Intake Total 1745 Balance 1745 - Medications Medications: Current Medications Carvedilol (Coreg) 3.125 mg PO BID [facility] Last Admin: 11/28/18 10:12 Dose: 3.125 mg Docusate Sodium (Colace) 100 mg PO BID [facility] Last Admin: 11/28/18 10:12 Dose: 100 mg Heparin Sodium (Porcine) (Heparin) 5,000 units SC Q12 [facility] Last Admin: 11/28/18 10:12 Dose: 5,000 units Sodium Chloride (Sodium Chloride 0.9%) 1,000 mls @ 70 mls/hr IV .[id number] [facility] Last Admin: 11/28/18 04:05 Dose: 70 mls/hr Piperacillin Sod/Tazobactam Sod (Zosyn 3.375 Gm Iv Premix) 3.375 gm in 50 mls @ 100 mls/hr IVPB Q8H [facility]; Protocol Last Admin: 11/28/18 10:13 Dose: Not Given Vancomycin HCl 1,000 mg/ (Sodium Chloride) 250 mls @ 166.6 mls/hr IVPB Q12H [facility]; Protocol Last Admin: 11/28/18 09:00 Dose: Not Given Linezolid (Zyvox) 600 mg PO BID [facility]; Protocol Last Admin: 11/28/18 10:12 Dose: 600 mg Morphine Sulfate (Morphine) 2 mg IVP Q4 PRN PRN Reason: Pain, moderate (4-7) Last Admin: 11/28/18 08:05 Dose: 2 mg Ondansetron HCl (Zofran Inj) 4 mg IVP Q6H PRN PRN Reason: Nausea/Vomiting Last Admin: 11/28/18 02:45 Dose: 4 mg Ondansetron HCl (Zofran Odt) 8 mg PO Q8H PRN PRN Reason: Nausea/Vomiting Oxycodone/Acetaminophen (Percocet 5/325 Mg Tab) 1 tab PO Q4H PRN PRN Reason: Pain, moderate (4-7) Stop: 12/01/18 11:01 - Labs Labs: 11/28/18 07:46 11/28/18 07:46 PT 13.3 SECONDS (9.7-12.2) H 11/25/18 12:29 INR 1.2 11/25/18 12:29 APTT 55 SECONDS (21-34) H 11/25/18 12:29 - Constitutional Appears: Confused, Cachectic, Chronically Ill - Head Exam Head Exam: NORMOCEPHALIC - Eye Exam Eye Exam: absent: Scleral icterus - ENT Exam ENT Exam: Mucous Membranes Dry - Neck Exam Neck Exam: absent: Lymphadenopathy - Respiratory Exam Respiratory Exam: Decreased Breath Sounds - Cardiovascular Exam Cardiovascular Exam: REGULAR RHYTHM - GI/Abdominal Exam GI & Abdominal Exam: Distended, Tenderness - Rectal Exam Rectal Exam: Deferred - Exam Exam: NORMAL INSPECTION Assessment and Plan (1) Pseudomonas aeruginosa infection Status: Acute (2) Bacteremia due to methicillin resistant Staphylococcus aureus Status: Acute (3) Abdominal pain Status: Acute (4) Open abdominal wall wound Status: Acute (5) Small bowel obstruction Status: Acute (6) Abdominal infection Status: Acute (7) Abdominal wall pain Status: Acute (8) Bacteremia Status: Acute (9) Chronic abdominal wound infection Status: Acute (10) History of lung cancer Status: Acute (11) MRSA (methicillin resistant staph aureus) culture positive Status: Acute (12) Wound cellulitis Status: Acute (13) Wound, open, abdominal wall, anterior Status: Acute - Assessment and Plan (Free Text) Assessment: CONT 4RX SEPSIS/ ABD WALL INFECTION FOR OR DEBRIDEMENT
--- NOTE | 2018-11-28 13:40 | CARD ---
APPROVED REPORT Date of service: 11/25/2018 EKG Measurement Heart [id number] <Conclusion> Sinus rhythm with 1st degree AV block Ventricular demand pacing Abnormal ECG
[2018-11-28] MEDS: Oxycodone/Acetaminophen 5/325 mg Tab PO PRN (15:32)
[2018-11-29] MEDS: Oxycodone/Acetaminophen 5/325 mg Tab PO PRN (00:30)
[2018-11-29] MEDS: Piperacill/Tazo 3.375gm in Dex 3.375 GM/50 ML BAG IVPB SCH (02:00)
[2018-11-29 08:08] LABS: BASO % 0.3 % (0.0-2.0); EOS % 0.3 % (0.0-4.0); HEMOGLOBIN 9.9 g/dL (12.0-18.0); LYMPH # 1.5 K/uL (1.0-4.3); LYMPH % 18.2 % (20.0-40.0); MEAN CELL VOLUME 84.6 fL (80.0-94.0); MEAN CORPUSCULAR HGB CONC 33.1 g/dL (33.0-37.0); MEAN PLATELET VOLUME 10.9 fL (7.2-11.7); MONO # 0.5 K/uL (0.0-0.8); MONO % 6.4 % (0.0-10.0); NEUT # 6.2 K/uL (1.8-7.0); NEUT % 74.8 % (50.0-75.0); RBC 3.52 Mil/uL (4.40-5.90); RED CELL DISTRIBUTION WIDTH 16.5 % (11.5-14.5); WHITE BLOOD COUNT 8.3 K/uL (4.8-10.8)
--- NOTE | 2018-11-29 08:41 | CP.PCM.PN ---
<Leeroy Roa - Last Filed: 11/29/18 08:22> Subjective - Date & Time of Evaluation Date of Evaluation: 11/29/18 Time of Evaluation: 06:45 - Subjective Subjective: General Surgery Pt seen and examined. No acute events overnight. Aware of surgery tomorrow. Objective - Vital Signs/Intake and Output Vital Signs (last 24 hours): Temp Pulse Resp BP Pulse Ox 98.3 F 60 20 158/77 H 96 11/29/18 07:48 11/29/18 07:48 11/29/18 07:48 11/29/18 07:48 11/29/18 07:48 Intake and Output: 11/29/18 11/29/18 06:59 18:59 Intake Total 2195 Balance 2195 - Medications Medications: Current Medications Carvedilol (Coreg) 3.125 mg PO BID [facility] Last Admin: 11/28/18 17:10 Dose: 3.125 mg Docusate Sodium (Colace) 100 mg PO BID [facility] Last Admin: 11/28/18 17:10 Dose: 100 mg Heparin Sodium (Porcine) (Heparin) 5,000 units SC Q12 [facility] Last Admin: 11/28/18 21:07 Dose: 5,000 units Vancomycin HCl 1,000 mg/ (Sodium Chloride) 250 mls @ 166.6 mls/hr IVPB Q12H [facility]; Protocol Last Admin: 11/29/18 08:14 Dose: 166.6 mls/hr Morphine Sulfate (Morphine) 2 mg IVP Q4 PRN PRN Reason: Pain, moderate (4-7) Last Admin: 11/29/18 08:11 Dose: 2 mg Ondansetron HCl (Zofran Inj) 4 mg IVP Q6H PRN PRN Reason: Nausea/Vomiting Last Admin: 11/28/18 02:45 Dose: 4 mg Ondansetron HCl (Zofran Odt) 8 mg PO Q8H PRN PRN Reason: Nausea/Vomiting Last Admin: 11/29/18 04:35 Dose: 8 mg Oxycodone/Acetaminophen (Percocet 5/325 Mg Tab) 1 tab PO Q4H PRN PRN Reason: Pain, moderate (4-7) Stop: 12/01/18 11:01 Last Admin: 11/29/18 00:30 Dose: 1 tab - Labs Labs: 11/29/18 07:53 11/28/18 07:46 PT 13.3 SECONDS (9.7-12.2) H 11/25/18 12:29 INR 1.2 11/25/18 12:29 APTT 55 SECONDS (21-34) H 11/25/18 12:29 - Constitutional Appears: Non-toxic, No Acute Distress - Head Exam Head Exam: ATRAUMATIC, NORMOCEPHALIC - Eye Exam Eye Exam: EOMI. absent: Scleral icterus - Respiratory Exam Respiratory Exam: NORMAL BREATHING PATTERN. absent: Respiratory Distress - GI/Abdominal Exam GI & Abdominal Exam: Soft, Tenderness (mild ). absent: Distended, Firm, Guarding, Rigid Additional comments: chronic open midline infected wound with exposed mesh noted. surrounding erythema and purulent discharge present. - Extremities Exam Extremities Exam: Normal Capillary Refill. absent: Joint Swelling - Neurological Exam Neurological Exam: Alert, Awake - Skin Skin Exam: Dry, Warm Assessment and Plan - Assessment and Plan (Free Text) Assessment: 83M with chronic midline abdominal infected wound and mesh. Plan: NPO p MN IVF p MN AM labs OR tomorrow D/W Dr. Soraya Roa PGY4 <Gavino Lira - Last Filed: 12/08/18 20:16> Objective - Vital Signs/Intake and Output Vital Signs (last 24 hours): Temp Pulse Resp BP Pulse Ox 97.3 F L 68 20 116/70 99 12/07/18 16:02 12/07/18 16:02 12/07/18 16:02 12/07/18 16:02 12/07/18 16:02 - Labs Labs: 12/05/18 11:29 12/05/18 11:29 PT 13.3 SECONDS (9.7-12.2) H 11/25/18 12:29 INR 1.2 11/25/18 12:29 APTT 55 SECONDS (21-34) H 11/25/18 12:29 Attending/Attestation - Attestation I have personally seen and examined this patient.: Yes I have fully participated in the care of the patient.: Yes I have reviewed all pertinent clinical information, including history, physical exam and plan: Yes Notes (Text): Pt was seen and examined at bedside Agree with above note and assessment Pt with Infected exposed mesh OR tomorrow for Abdominal wound debridement and removal of mesh Consent NPO, IVF IV antibiotics Medical clearance appreciated Plan d.w pt in detail Risk and benefit explained in detail.
[2018-11-29 08:52] LABS: ALB/GLOB RATIO 1.2 (1.0-2.1); ALBUMIN 3.2 g/dL (3.5-5.0); ALT/SGPT 25 U/L (21-72); BLOOD UREA NITROGEN 17 mg/dL (9-20); CALCIUM 7.9 mg/dl (8.6-10.4); GFR NON-AFRICAN AMERICAN > 60
[2018-11-29 09:14] LABS: AST/SGOT 27 U/L (17-59)
--- NOTE | 2018-11-29 10:34 | CP.PCM.PN ---
Subjective - Date & Time of Evaluation Date of Evaluation: 11/29/18 Time of Evaluation: 10:31 - Subjective Subjective: has pain infected abd wound Objective - Vital Signs/Intake and Output Vital Signs (last 24 hours): Temp Pulse Resp BP Pulse Ox 98.3 F 60 20 158/77 H 96 11/29/18 07:48 11/29/18 07:48 11/29/18 07:48 11/29/18 07:48 11/29/18 07:48 Intake and Output: 11/29/18 11/29/18 06:59 18:59 Intake Total 2195 Balance 2195 - Medications Medications: Current Medications Carvedilol (Coreg) 3.125 mg PO BID [facility] Last Admin: 11/29/18 10:11 Dose: 3.125 mg Docusate Sodium (Colace) 100 mg PO BID [facility] Last Admin: 11/29/18 10:11 Dose: 100 mg Heparin Sodium (Porcine) (Heparin) 5,000 units SC Q12 [facility] Last Admin: 11/29/18 10:12 Dose: Not Given Vancomycin HCl 1,000 mg/ (Sodium Chloride) 250 mls @ 166.6 mls/hr IVPB Q12H [facility]; Protocol Last Admin: 11/29/18 08:14 Dose: 166.6 mls/hr Morphine Sulfate (Morphine) 2 mg IVP Q4 PRN PRN Reason: Pain, moderate (4-7) Last Admin: 11/29/18 08:11 Dose: 2 mg Ondansetron HCl (Zofran Inj) 4 mg IVP Q6H PRN PRN Reason: Nausea/Vomiting Last Admin: 11/29/18 10:24 Dose: 4 mg Ondansetron HCl (Zofran Odt) 8 mg PO Q8H PRN PRN Reason: Nausea/Vomiting Last Admin: 11/29/18 04:35 Dose: 8 mg Oxycodone/Acetaminophen (Percocet 5/325 Mg Tab) 1 tab PO Q4H PRN PRN Reason: Pain, moderate (4-7) Stop: 12/01/18 11:01 Last Admin: 11/29/18 00:30 Dose: 1 tab - Labs Labs: 11/29/18 07:53 11/29/18 07:54 PT 13.3 SECONDS (9.7-12.2) H 11/25/18 12:29 INR 1.2 11/25/18 12:29 APTT 55 SECONDS (21-34) H 11/25/18 12:29 - Constitutional Appears: Non-toxic, In Acute Distress - Head Exam Head Exam: ATRAUMATIC - Eye Exam Eye Exam: Normal appearance Pupil Exam: NORMAL ACCOMODATION - ENT Exam ENT Exam: Mucous Membranes Moist - Neck Exam Neck Exam: Full ROM - Respiratory Exam Respiratory Exam: Clear to Ausculation Bilateral - Cardiovascular Exam Cardiovascular Exam: REGULAR RHYTHM - GI/Abdominal Exam GI & Abdominal Exam: Tenderness, Normal Bowel Sounds Additional comments: ifected ulcer abd wall - Exam Exam: NORMAL INSPECTION External exam: NORMAL EXTERNAL EXAM - Extremities Exam Extremities Exam: Normal Inspection - Back Exam Back Exam: NORMAL INSPECTION - Neurological Exam Neurological Exam: Alert, Awake, Normal Gait, Oriented x3 - Psychiatric Exam Psychiatric exam: Normal Affect - Skin Skin Exam: Normal Color Assessment and Plan - Assessment and Plan (Free Text) Assessment: infected abd ulcer mrsa dmpace maker Plan: as per orders
--- NOTE | 2018-11-29 11:37 | CP.PCM.PN ---
Subjective - Date & Time of Evaluation Date of Evaluation: 11/29/18 Time of Evaluation: 08:00 - Subjective Subjective: events noted for OR in am Objective - Vital Signs/Intake and Output Vital Signs (last 24 hours): Temp Pulse Resp BP Pulse Ox 98.3 F 60 20 158/77 H 96 11/29/18 07:48 11/29/18 07:48 11/29/18 07:48 11/29/18 07:48 11/29/18 07:48 Intake and Output: 11/29/18 11/29/18 06:59 18:59 Intake Total 2195 Balance 2195 - Medications Medications: Current Medications Carvedilol (Coreg) 3.125 mg PO BID [facility] Last Admin: 11/29/18 10:11 Dose: 3.125 mg Docusate Sodium (Colace) 100 mg PO BID [facility] Last Admin: 11/29/18 10:11 Dose: 100 mg Heparin Sodium (Porcine) (Heparin) 5,000 units SC Q12 [facility] Last Admin: 11/29/18 10:12 Dose: Not Given Vancomycin HCl 1,000 mg/ (Sodium Chloride) 250 mls @ 166.6 mls/hr IVPB Q12H [facility]; Protocol Last Admin: 11/29/18 08:14 Dose: 166.6 mls/hr Morphine Sulfate (Morphine) 2 mg IVP Q4 PRN PRN Reason: Pain, moderate (4-7) Last Admin: 11/29/18 08:11 Dose: 2 mg Ondansetron HCl (Zofran Inj) 4 mg IVP Q6H PRN PRN Reason: Nausea/Vomiting Last Admin: 11/29/18 10:24 Dose: 4 mg Ondansetron HCl (Zofran Odt) 8 mg PO Q8H PRN PRN Reason: Nausea/Vomiting Last Admin: 11/29/18 04:35 Dose: 8 mg Oxycodone/Acetaminophen (Percocet 5/325 Mg Tab) 1 tab PO Q4H PRN PRN Reason: Pain, moderate (4-7) Stop: 12/01/18 11:01 Last Admin: 11/29/18 00:30 Dose: 1 tab - Labs Labs: 11/29/18 07:53 11/29/18 07:54 PT 13.3 SECONDS (9.7-12.2) H 11/25/18 12:29 INR 1.2 11/25/18 12:29 APTT 55 SECONDS (21-34) H 11/25/18 12:29 - Constitutional Appears: Non-toxic, Chronically Ill - Head Exam Head Exam: NORMOCEPHALIC - Eye Exam Eye Exam: absent: Scleral icterus - ENT Exam ENT Exam: Mucous Membranes Dry - Neck Exam Neck Exam: absent: Lymphadenopathy - Respiratory Exam Respiratory Exam: Decreased Breath Sounds - Cardiovascular Exam Cardiovascular Exam: REGULAR RHYTHM - GI/Abdominal Exam GI & Abdominal Exam: Distended, Tenderness - Rectal Exam Rectal Exam: Deferred - Exam Exam: NORMAL INSPECTION - Extremities Exam Extremities Exam: absent: Pedal Edema - Back Exam Back Exam: absent: CVA tenderness (L), CVA tenderness (R) - Neurological Exam Neurological Exam: Alert, Awake Assessment and Plan (1) Pseudomonas aeruginosa infection Status: Acute (2) Bacteremia due to methicillin resistant Staphylococcus aureus Status: Acute (3) Abdominal pain Status: Acute (4) Open abdominal wall wound Status: Acute (5) Small bowel obstruction Status: Acute (6) Abdominal infection Status: Acute (7) Abdominal wall pain Status: Acute (8) Bacteremia Status: Acute (9) Chronic abdominal wound infection Status: Acute (10) History of lung cancer Status: Acute (11) MRSA (methicillin resistant staph aureus) culture positive Status: Acute (12) Wound cellulitis Status: Acute (13) Wound, open, abdominal wall, anterior Status: Acute - Assessment and Plan (Free Text) Assessment: cont iv rx and wound care for OR in am
[2018-11-29] MEDS ORDERED: Potassium Chloride 20 mEq ER Tab PO ONE (13:30)
[2018-11-29] MEDS: Cefepime IV 1 gm in Dextrose 1 GM/50 ML BAG IVPB SCH (13:34)
[2018-11-29] MEDS: Morphine 4 MG/ML VIAL IVP PRN ×2 (16:23→21:45)
--- NOTE | 2018-11-29 18:16 | CARD ---
APPROVED REPORT Date of service: 11/26/2018 EKG Measurement Heart [id number] [place] 190P [id number] <Conclusion> Atrial-paced rhythm Left axis deviation Left ventricular hypertrophy with QRS widening and repolarization abnormality Possible Lateral infarct, age undetermined Inferior infarct, age undetermined Abnormal ECG
[2018-11-29] MEDS: Sodium Chloride 0.9% 1,000 ML IV SCH (22:45)
[2018-11-30] MEDS: Oxycodone/Acetaminophen 5/325 mg Tab PO PRN (00:14)
[2018-11-30] MEDS: Cefepime IV 1 gm in Dextrose 1 GM/50 ML BAG IVPB SCH ×2 (00:25→13:05)
[2018-11-30] MEDS: Morphine 4 MG/ML VIAL IVP PRN ×5 (03:05→23:35)
[2018-11-30 07:31] LABS: EOS # 0.1 K/uL (0.0-0.7); HEMOGLOBIN 10.4 g/dL (12.0-18.0); MEAN CELL VOLUME 84.8 fL (80.0-94.0); MONO # 0.5 K/uL (0.0-0.8); RBC 3.74 Mil/uL (4.40-5.90)
[2018-11-30 07:38] LABS: BASO # 0.1 K/uL (0.0-0.2); BASO % 0.6 % (0.0-2.0); EOS % 0.5 % (0.0-4.0); LYMPH # 1.6 K/uL (1.0-4.3); LYMPH % 16.7 % (20.0-40.0); MEAN CORPUSCULAR HEMOGLOBIN 27.9 pg (27.0-31.0); MEAN CORPUSCULAR HGB CONC 32.9 g/dL (33.0-37.0); MEAN PLATELET VOLUME 10.9 fL (7.2-11.7); MONO % 5.5 % (0.0-10.0); NEUT # 7.5 K/uL (1.8-7.0); NEUT % 76.7 % (50.0-75.0); NRBC % 0.9 % (0.0-2.0); RED CELL DISTRIBUTION WIDTH 16.5 % (11.5-14.5); WHITE BLOOD COUNT 9.8 K/uL (4.8-10.8)
[2018-11-30 07:42] LABS: ALB/GLOB RATIO 1.3 (1.0-2.1); ALBUMIN 3.5 g/dL (3.5-5.0); ALT/SGPT 24 U/L (21-72); AST/SGOT 30 U/L (17-59); BLOOD UREA NITROGEN 13 mg/dL (9-20); CALCIUM 8.2 mg/dl (8.6-10.4); GFR NON-AFRICAN AMERICAN > 60
[2018-11-30] MEDS ORDERED: Propofol 10 mg/ml Inj (20 ML) ONE (11:30)
[2018-11-30] MEDS ORDERED: HYDROmorphone 0.5 mg/0.5 ml ISec IVP PRN (11:36)
--- NOTE | 2018-11-30 11:36 | PCM.SURG1 ---
Surgeon's Initial Post Op Note - Surgeon's Notes Surgeon: Dr. Lira Machine Oiler: Dr. Cotter PGY1 Type of Anesthesia: General Endo Pre-Operative Diagnosis: Infected abdominal wound Operative Findings: see operative dictation Post-Operative Diagnosis: same Operation Performed: Debridement of abdominal wound, removal of infected mesh, placement of wound vac Specimen/Specimens Removed: mesh Estimated Blood Loss: EBL {In ML}: 20 Blood Products Given: N/A Drains Used: Wound Vac Post-Op Condition: Good Date of Surgery/Procedure: 11/30/18 Time of Surgery/Procedure: 11:36
[2018-11-30] MEDS ORDERED: Potassium Chloride 20 mEq ER Tab PO ONE (13:00)
[2018-11-30] MEDS: Sodium Chloride 0.9% 1,000 ML IV SCH (14:39)
[2018-11-30 16:42] VITALS: RESP 20
--- NOTE | 2018-11-30 18:35 | CP.PCM.PN ---
Subjective - Date & Time of Evaluation Date of Evaluation: 11/30/18 Time of Evaluation: 08:00 - Subjective Subjective: c/o pain awake alert no fever wound vac in place Objective - Vital Signs/Intake and Output Vital Signs (last 24 hours): Temp Pulse Resp BP Pulse Ox 98.5 F 66 20 137/68 97 11/30/18 16:00 11/30/18 16:00 11/30/18 16:00 11/30/18 16:00 11/30/18 16:00 Intake and Output: 11/30/18 11/30/18 06:59 18:59 Intake Total 1644 Balance 1644 - Medications Medications: Current Medications Carvedilol (Coreg) 3.125 mg PO BID [facility] Last Admin: 11/30/18 17:10 Dose: 3.125 mg Docusate Sodium (Colace) 100 mg PO BID [facility] Last Admin: 11/30/18 17:10 Dose: 100 mg Heparin Sodium (Porcine) (Heparin) 5,000 units SC Q12 [facility] Last Admin: 11/30/18 10:24 Dose: Not Given Vancomycin HCl 1,000 mg/ (Sodium Chloride) 250 mls @ 166.6 mls/hr IVPB Q12H [facility]; Protocol Last Admin: 11/30/18 08:08 Dose: 166.6 mls/hr Cefepime HCl (Maxipime Iv 1 Gm Premix) 1 gm in 50 mls @ 100 mls/hr IVPB Q12H [facility]; Protocol Last Admin: 11/30/18 13:05 Dose: 100 mls/hr Sodium Chloride (Sodium Chloride 0.9%) 1,000 mls @ 63 mls/hr IV .[id number] [facility] Last Admin: 11/30/18 14:39 Dose: 63 mls/hr Morphine Sulfate (Morphine) 2 mg IVP Q4 PRN PRN Reason: Pain, moderate (4-7) Last Admin: 11/30/18 14:38 Dose: 2 mg Ondansetron HCl (Zofran Inj) 4 mg IVP Q6H PRN PRN Reason: Nausea/Vomiting Last Admin: 11/30/18 00:14 Dose: 4 mg Ondansetron HCl (Zofran Odt) 8 mg PO Q8H PRN PRN Reason: Nausea/Vomiting Last Admin: 11/29/18 04:35 Dose: 8 mg Oxycodone/Acetaminophen (Percocet 5/325 Mg Tab) 1 tab PO Q4H PRN PRN Reason: Pain, moderate (4-7) Stop: 12/01/18 11:01 Last Admin: 11/30/18 00:14 Dose: 1 tab - Labs Labs: 11/30/18 07:02 11/30/18 07:02 PT 13.3 SECONDS (9.7-12.2) H 11/25/18 12:29 INR 1.2 11/25/18 12:29 APTT 55 SECONDS (21-34) H 11/25/18 12:29 - Constitutional Appears: Non-toxic, Cachectic, Chronically Ill - Head Exam Head Exam: NORMOCEPHALIC - Eye Exam Eye Exam: absent: Scleral icterus - ENT Exam ENT Exam: Mucous Membranes Dry - Neck Exam Neck Exam: absent: Lymphadenopathy - Respiratory Exam Respiratory Exam: Decreased Breath Sounds, Rhonchi - Cardiovascular Exam Cardiovascular Exam: REGULAR RHYTHM, +S1, +S2 - GI/Abdominal Exam GI & Abdominal Exam: Distended, Soft - Rectal Exam Rectal Exam: Deferred - Exam Exam: NORMAL INSPECTION - Extremities Exam Extremities Exam: absent: Pedal Edema - Back Exam Back Exam: absent: CVA tenderness (L), CVA tenderness (R) Assessment and Plan (1) Pseudomonas aeruginosa infection Status: Acute (2) Bacteremia due to methicillin resistant Staphylococcus aureus Status: Acute (3) Abdominal pain Status: Acute (4) Open abdominal wall wound Status: Acute (5) Small bowel obstruction Status: Acute (6) Abdominal infection Status: Acute (7) Abdominal wall pain Status: Acute (8) Bacteremia Status: Acute (9) Chronic abdominal wound infection Status: Acute (10) History of lung cancer Status: Acute (11) MRSA (methicillin resistant staph aureus) culture positive Status: Acute (12) Wound cellulitis Status: Acute (13) Wound, open, abdominal wall, anterior Status: Acute - Assessment and Plan (Free Text) Assessment: s/p Debridement of abdominal wound, removal of infected mesh, placement of wound vac IV antibiotic renewed
[2018-12-01] MEDS: Oxycodone/Acetaminophen 5/325 mg Tab PO PRN ×2 (00:52→09:35)
[2018-12-01] MEDS: Cefepime IV 1 gm in Dextrose 1 GM/50 ML BAG IVPB SCH ×2 (00:52→12:22)
--- NOTE | 2018-12-01 01:21 | CP.PCM.PCO ---
Physician Communication Note - Physician Communication Note Physician Communication Note: Called to evaluate suicidal statement; no threat of self/other harm
[2018-12-01] MEDS: Morphine 4 MG/ML VIAL IVP PRN ×5 (03:30→21:20)
--- NOTE | 2018-12-01 12:07 | CP.PCM.PN ---
<Queenie Gusman - Last Filed: 12/01/18 12:04> Subjective - Date & Time of Evaluation Date of Evaluation: 12/01/18 Time of Evaluation: 06:45 - Subjective Subjective: Surgery: Dr. Lira Pt seen and examined. No acute overnight events. Pt states he feels ok but continues to have pain all over his body. He admits to feeling down about his health. Tolerating diet and having BMs. Denies fevers/chills, nausea/vomiting. Objective - Vital Signs/Intake and Output Vital Signs (last 24 hours): Temp Pulse Resp BP Pulse Ox 98.5 F 60 20 161/78 H 98 12/01/18 07:00 12/01/18 07:00 12/01/18 07:00 12/01/18 07:00 12/01/18 07:00 Intake and Output: 12/01/18 12/01/18 06:59 18:59 Intake Total 350 Balance 350 - Medications Medications: Current Medications Carvedilol (Coreg) 3.125 mg PO BID [facility] Last Admin: 12/01/18 09:35 Dose: 3.125 mg Docusate Sodium (Colace) 100 mg PO BID [facility] Last Admin: 12/01/18 09:35 Dose: 100 mg Heparin Sodium (Porcine) (Heparin) 5,000 units SC Q12 [facility] Last Admin: 12/01/18 09:35 Dose: 5,000 units Vancomycin HCl 1,000 mg/ (Sodium Chloride) 250 mls @ 166.6 mls/hr IVPB Q12H [facility]; Protocol Last Admin: 12/01/18 10:06 Dose: 166.6 mls/hr Cefepime HCl (Maxipime Iv 1 Gm Premix) 1 gm in 50 mls @ 100 mls/hr IVPB Q12H [facility]; Protocol Last Admin: 12/01/18 00:52 Dose: 100 mls/hr Morphine Sulfate (Morphine) 2 mg IVP Q4 PRN PRN Reason: Pain, moderate (4-7) Last Admin: 12/01/18 07:26 Dose: 2 mg Ondansetron HCl (Zofran Inj) 4 mg IVP Q6H PRN PRN Reason: Nausea/Vomiting Last Admin: 12/01/18 00:52 Dose: 4 mg Ondansetron HCl (Zofran Odt) 8 mg PO Q8H PRN PRN Reason: Nausea/Vomiting Last Admin: 11/29/18 04:35 Dose: 8 mg - Labs Labs: 11/30/18 07:02 11/30/18 07:02 PT 13.3 SECONDS (9.7-12.2) H 11/25/18 12:29 INR 1.2 11/25/18 12:29 APTT 55 SECONDS (21-34) H 11/25/18 12:29 - Constitutional Appears: Well, No Acute Distress - Head Exam Head Exam: ATRAUMATIC, NORMOCEPHALIC - Eye Exam Eye Exam: Normal appearance - ENT Exam ENT Exam: Mucous Membranes Moist - Respiratory Exam Respiratory Exam: NORMAL BREATHING PATTERN - Cardiovascular Exam Cardiovascular Exam: RRR - GI/Abdominal Exam GI & Abdominal Exam: Soft, Tenderness. absent: Distended, Guarding, Rebound Additional comments: midline wound with wound vac in place; functioning well - Neurological Exam Neurological Exam: Alert, Awake, Oriented x3 - Skin Skin Exam: Dry, Warm Assessment and Plan - Assessment and Plan (Free Text) Assessment: 83M s/p washout/debridement of abdominal wound with wound vac placement; POD#1 Plan: - vac change on Wednesday - arrange for home vac to be placed on Wednesday with DC planning - d/w Dr. Soraya Gusman <Gavino Lira - Last Filed: 12/08/18 20:17> Objective - Vital Signs/Intake and Output Vital Signs (last 24 hours): Temp Pulse Resp BP Pulse Ox 97.3 F L 68 20 116/70 99 12/07/18 16:02 12/07/18 16:02 12/07/18 16:02 12/07/18 16:02 12/07/18 16:02 - Labs Labs: 12/05/18 11:29 12/05/18 11:29 PT 13.3 SECONDS (9.7-12.2) H 11/25/18 12:29 INR 1.2 11/25/18 12:29 APTT 55 SECONDS (21-34) H 11/25/18 12:29 Attending/Attestation - Attestation I have personally seen and examined this patient.: Yes I have fully participated in the care of the patient.: Yes I have reviewed all pertinent clinical information, including history, physical exam and plan: Yes Notes (Text): Pt was seen and examined at bedside Agree with above note and assessment Pt is improving clinically Pain is controlled IV antibiotics Plan d.w pt in detail
--- NOTE | 2018-12-01 14:24 | CP.PCM.PCO ---
Physician Communication Note - Physician Communication Note Physician Communication Note: Wound Vac settings: 125mmHg, continuous
--- NOTE | 2018-12-01 19:16 | CP.PCM.PN ---
Subjective - Date & Time of Evaluation Date of Evaluation: 12/01/18 Time of Evaluation: 19:13 - Subjective Subjective: feels fatigue in pain no desire for any activity Objective - Vital Signs/Intake and Output Vital Signs (last 24 hours): Temp Pulse Resp BP Pulse Ox 98.4 F 62 20 163/74 H 96 12/01/18 16:00 12/01/18 16:00 12/01/18 16:00 12/01/18 16:00 12/01/18 16:00 Intake and Output: 12/01/18 12/02/18 18:59 06:59 Intake Total 770 Balance 770 - Medications Medications: Current Medications Carvedilol (Coreg) 3.125 mg PO BID [facility] Last Admin: 12/01/18 18:21 Dose: 3.125 mg Docusate Sodium (Colace) 100 mg PO BID [facility] Last Admin: 12/01/18 18:21 Dose: 100 mg Heparin Sodium (Porcine) (Heparin) 5,000 units SC Q12 [facility] Last Admin: 12/01/18 09:35 Dose: 5,000 units Vancomycin HCl 1,000 mg/ (Sodium Chloride) 250 mls @ 166.6 mls/hr IVPB Q12H [facility]; Protocol Last Admin: 12/01/18 10:06 Dose: 166.6 mls/hr Cefepime HCl (Maxipime Iv 1 Gm Premix) 1 gm in 50 mls @ 100 mls/hr IVPB Q12H [facility]; Protocol Last Admin: 12/01/18 12:22 Dose: 100 mls/hr Morphine Sulfate (Morphine) 2 mg IVP Q4 PRN PRN Reason: Pain, moderate (4-7) Last Admin: 12/01/18 17:23 Dose: 2 mg Ondansetron HCl (Zofran Inj) 4 mg IVP Q6H PRN PRN Reason: Nausea/Vomiting Last Admin: 12/01/18 00:52 Dose: 4 mg Ondansetron HCl (Zofran Odt) 8 mg PO Q8H PRN PRN Reason: Nausea/Vomiting Last Admin: 11/29/18 04:35 Dose: 8 mg - Labs Labs: 11/30/18 07:02 11/30/18 07:02 PT 13.3 SECONDS (9.7-12.2) H 11/25/18 12:29 INR 1.2 11/25/18 12:29 APTT 55 SECONDS (21-34) H 11/25/18 12:29 - Constitutional Appears: Non-toxic - Head Exam Head Exam: NORMAL INSPECTION - Eye Exam Eye Exam: Normal appearance Pupil Exam: NORMAL ACCOMODATION - ENT Exam ENT Exam: Mucous Membranes Moist - Neck Exam Neck Exam: Full ROM - Respiratory Exam Respiratory Exam: Clear to Ausculation Bilateral - Cardiovascular Exam Cardiovascular Exam: REGULAR RHYTHM - GI/Abdominal Exam GI & Abdominal Exam: Tenderness Additional comments: wound dressing intact - Exam Exam: NORMAL INSPECTION External exam: NORMAL EXTERNAL EXAM - Extremities Exam Extremities Exam: Normal Inspection - Back Exam Back Exam: NORMAL INSPECTION - Neurological Exam Neurological Exam: Alert, Awake, Oriented x3 - Psychiatric Exam Psychiatric exam: Depressed - Skin Skin Exam: Normal Color Assessment and Plan - Assessment and Plan (Free Text) Assessment: s/p debriedment abd wound MRSA INFECTIOD depression generalised weekness Plan: cont treament spych consult
--- NOTE | 2018-12-01 20:00 | CP.PCM.PN ---
Subjective - Date & Time of Evaluation Date of Evaluation: 12/01/18 Time of Evaluation: 08:00 - Subjective Subjective: IGV Vanco renewed doses adjusted afeb c/o pain\ vac in place wound + MRSA cont iv rx Objective - Vital Signs/Intake and Output Vital Signs (last 24 hours): Temp Pulse Resp BP Pulse Ox 98.4 F 62 20 163/74 H 96 12/01/18 16:00 12/01/18 16:00 12/01/18 16:00 12/01/18 16:00 12/01/18 16:00 Intake and Output: 12/01/18 12/02/18 18:59 06:59 Intake Total 770 Balance 770 - Medications Medications: Current Medications Carvedilol (Coreg) 3.125 mg PO BID [facility] Last Admin: 12/01/18 18:21 Dose: 3.125 mg Docusate Sodium (Colace) 100 mg PO BID [facility] Last Admin: 12/01/18 18:21 Dose: 100 mg Heparin Sodium (Porcine) (Heparin) 5,000 units SC Q12 [facility] Last Admin: 12/01/18 09:35 Dose: 5,000 units Vancomycin HCl 1,000 mg/ (Sodium Chloride) 250 mls @ 166.6 mls/hr IVPB Q12H [facility]; Protocol Last Admin: 12/01/18 19:52 Dose: 166.6 mls/hr Cefepime HCl (Maxipime Iv 1 Gm Premix) 1 gm in 50 mls @ 100 mls/hr IVPB Q12H [facility]; Protocol Last Admin: 12/01/18 12:22 Dose: 100 mls/hr Morphine Sulfate (Morphine) 2 mg IVP Q4 PRN PRN Reason: Pain, moderate (4-7) Last Admin: 12/01/18 17:23 Dose: 2 mg Ondansetron HCl (Zofran Inj) 4 mg IVP Q6H PRN PRN Reason: Nausea/Vomiting Last Admin: 12/01/18 00:52 Dose: 4 mg Ondansetron HCl (Zofran Odt) 8 mg PO Q8H PRN PRN Reason: Nausea/Vomiting Last Admin: 11/29/18 04:35 Dose: 8 mg - Labs Labs: 11/30/18 07:02 11/30/18 07:02 PT 13.3 SECONDS (9.7-12.2) H 11/25/18 12:29 INR 1.2 11/25/18 12:29 APTT 55 SECONDS (21-34) H 11/25/18 12:29 Assessment and Plan (1) Pseudomonas aeruginosa infection Status: Acute (2) Bacteremia due to methicillin resistant Staphylococcus aureus Status: Acute (3) Abdominal pain Status: Acute (4) Open abdominal wall wound Status: Acute (5) Small bowel obstruction Status: Acute (6) Abdominal infection Status: Acute (7) Abdominal wall pain Status: Acute (8) Bacteremia Status: Acute (9) Chronic abdominal wound infection Status: Acute (10) History of lung cancer Status: Acute (11) MRSA (methicillin resistant staph aureus) culture positive Status: Acute (12) Wound cellulitis Status: Acute (13) Wound, open, abdominal wall, anterior Status: Acute
[2018-12-02] MEDS: Cefepime IV 1 gm in Dextrose 1 GM/50 ML BAG IVPB SCH ×2 (00:24→14:08)
[2018-12-02] MEDS: Morphine 4 MG/ML VIAL IVP PRN ×2 (00:24→05:16)
--- NOTE | 2018-12-02 08:43 | CP.PCM.PN ---
<VaheAmandeep - Last Filed: 12/02/18 08:40> Subjective - Date & Time of Evaluation Date of Evaluation: 12/02/18 Time of Evaluation: 08:40 - Subjective Subjective: General Surgery Progress Note for Dr. Lira 83M seen and evaluated at bedside this morning. No acute events overnight. No complaints this morning. Wound vac intact, on suction, no leaks. Denies f/c, n/v/d, SOB, CP, or urinary symptoms. Objective - Vital Signs/Intake and Output Vital Signs (last 24 hours): Temp Pulse Resp BP Pulse Ox 98.3 F 60 20 167/80 H 97 12/02/18 07:31 12/02/18 07:31 12/02/18 07:31 12/02/18 07:31 12/02/18 07:31 Intake and Output: 12/02/18 12/02/18 06:59 18:59 Intake Total 600 350 Balance 600 350 - Medications Medications: Current Medications Carvedilol (Coreg) 3.125 mg PO BID [facility] Last Admin: 12/01/18 18:21 Dose: 3.125 mg Docusate Sodium (Colace) 100 mg PO BID [facility] Last Admin: 12/01/18 18:21 Dose: 100 mg Heparin Sodium (Porcine) (Heparin) 5,000 units SC Q12 [facility] Last Admin: 12/01/18 21:21 Dose: 5,000 units Cefepime HCl (Maxipime Iv 1 Gm Premix) 1 gm in 50 mls @ 100 mls/hr IVPB Q12H [facility]; Protocol Last Admin: 12/02/18 00:24 Dose: 100 mls/hr Vancomycin HCl 750 mg/ Sodium (Chloride) 250 mls @ 166.6 mls/hr IVPB Q12H [facility]; Protocol Morphine Sulfate (Morphine) 2 mg IVP Q4 PRN PRN Reason: Pain, moderate (4-7) Last Admin: 12/02/18 05:16 Dose: 2 mg Ondansetron HCl (Zofran Inj) 4 mg IVP Q6H PRN PRN Reason: Nausea/Vomiting Last Admin: 12/01/18 00:52 Dose: 4 mg Ondansetron HCl (Zofran Odt) 8 mg PO Q8H PRN PRN Reason: Nausea/Vomiting Last Admin: 11/29/18 04:35 Dose: 8 mg - Labs Labs: 11/30/18 07:02 11/30/18 07:02 PT 13.3 SECONDS (9.7-12.2) H 11/25/18 12:29 INR 1.2 11/25/18 12:29 APTT 55 SECONDS (21-34) H 11/25/18 12:29 - Constitutional Appears: Well, Non-toxic, No Acute Distress - Head Exam Head Exam: ATRAUMATIC, NORMAL INSPECTION, NORMOCEPHALIC - Eye Exam Eye Exam: EOMI - ENT Exam ENT Exam: Mucous Membranes Moist - Respiratory Exam Respiratory Exam: NORMAL BREATHING PATTERN. absent: Respiratory Distress - Cardiovascular Exam Cardiovascular Exam: REGULAR RHYTHM. absent: Tachycardia - GI/Abdominal Exam GI & Abdominal Exam: Soft, Normal Bowel Sounds. absent: Tenderness - Neurological Exam Neurological Exam: Alert, Awake - Psychiatric Exam Psychiatric exam: Normal Affect, Normal Mood - Skin Skin Exam: Dry, Intact, Normal Color, Warm Assessment and Plan - Assessment and Plan (Free Text) Assessment: 83M s/p debridement of infected mesh POD2 Plan: Continue wound vac management - continuous suction, 125mmHg, monitor for leaks Analgesics PRN Encourage OOBTC and ambulation Encourage IS use F/u social work recommendations on portable wound vac D/w Dr. Soraya Cotter PGY1 <Gavino Lira B - Last Filed: 12/08/18 20:18> Objective - Vital Signs/Intake and Output Vital Signs (last 24 hours): Temp Pulse Resp BP Pulse Ox 97.3 F L 68 20 116/70 99 12/07/18 16:02 12/07/18 16:02 12/07/18 16:02 12/07/18 16:02 12/07/18 16:02 - Labs Labs: 12/05/18 11:29 12/05/18 11:29 PT 13.3 SECONDS (9.7-12.2) H 11/25/18 12:29 INR 1.2 11/25/18 12:29 APTT 55 SECONDS (21-34) H 11/25/18 12:29 Attending/Attestation - Attestation I have personally seen and examined this patient.: Yes I have fully participated in the care of the patient.: Yes I have reviewed all pertinent clinical information, including history, physical exam and plan: Yes Notes (Text): Pt was seen and examined at bedside Agree with above note and assessment Pt is doing well OOB to walk DC plan with home wound vac Plan elizabeth pt in detail
--- NOTE | 2018-12-02 10:38 | CP.PCM.PN ---
Subjective - Date & Time of Evaluation Date of Evaluation: 12/02/18 Time of Evaluation: 10:35 - Subjective Subjective: pt c/o of pain generalised weekness depresion Objective - Vital Signs/Intake and Output Vital Signs (last 24 hours): Temp Pulse Resp BP Pulse Ox 98.3 F 60 20 167/80 H 97 12/02/18 07:31 12/02/18 07:31 12/02/18 07:31 12/02/18 07:31 12/02/18 07:31 Intake and Output: 12/02/18 12/02/18 06:59 18:59 Intake Total 600 350 Balance 600 350 - Medications Medications: Current Medications Carvedilol (Coreg) 3.125 mg PO BID [facility] Last Admin: 12/02/18 10:08 Dose: 3.125 mg Docusate Sodium (Colace) 100 mg PO BID [facility] Last Admin: 12/02/18 10:08 Dose: 100 mg Heparin Sodium (Porcine) (Heparin) 5,000 units SC Q12 [facility] Last Admin: 12/02/18 10:08 Dose: 5,000 units Cefepime HCl (Maxipime Iv 1 Gm Premix) 1 gm in 50 mls @ 100 mls/hr IVPB Q12H [facility]; Protocol Last Admin: 12/02/18 00:24 Dose: 100 mls/hr Vancomycin HCl 750 mg/ Sodium (Chloride) 250 mls @ 166.6 mls/hr IVPB Q12H [facility]; Protocol Morphine Sulfate (Morphine) 1 mg IV Q4 [facility] Ondansetron HCl (Zofran Inj) 4 mg IVP Q6H PRN PRN Reason: Nausea/Vomiting Last Admin: 12/01/18 00:52 Dose: 4 mg Ondansetron HCl (Zofran Odt) 8 mg PO Q8H PRN PRN Reason: Nausea/Vomiting Last Admin: 11/29/18 04:35 Dose: 8 mg - Labs Labs: 11/30/18 07:02 11/30/18 07:02 PT 13.3 SECONDS (9.7-12.2) H 11/25/18 12:29 INR 1.2 11/25/18 12:29 APTT 55 SECONDS (21-34) H 11/25/18 12:29 - Constitutional Appears: Non-toxic - Head Exam Head Exam: ATRAUMATIC - Eye Exam Eye Exam: Normal appearance Pupil Exam: NORMAL ACCOMODATION - ENT Exam ENT Exam: Normal Exam - Neck Exam Neck Exam: Full ROM - Respiratory Exam Respiratory Exam: Clear to Ausculation Bilateral - Cardiovascular Exam Cardiovascular Exam: REGULAR RHYTHM - GI/Abdominal Exam GI & Abdominal Exam: Normal Bowel Sounds Additional comments: abdominal wound vacume in place - Rectal Exam Rectal Exam: NORMAL INSPECTION - Exam Exam: NORMAL INSPECTION - Extremities Exam Extremities Exam: Normal Inspection - Back Exam Back Exam: NORMAL INSPECTION - Neurological Exam Neurological Exam: Alert, Awake, Oriented x3 - Psychiatric Exam Psychiatric exam: Normal Affect - Skin Skin Exam: Normal Color Assessment and Plan - Assessment and Plan (Free Text) Assessment: abdominal wound infection s/p debridment fatige possible depression Plan: cont treatment
[2018-12-02] MEDS ORDERED: Morphine 4 MG/ML VIAL IV SCH ×2 (12:00→16:00)
[2018-12-02] MEDS ORDERED: Morphine 4 MG/ML VIAL IV ONE (12:00)
--- NOTE | 2018-12-02 19:21 | CP.PCM.PN ---
Subjective - Date & Time of Evaluation Date of Evaluation: 12/02/18 Time of Evaluation: 09:00 - Subjective Subjective: afeb alert pain controlled IV rx in progress Objective - Vital Signs/Intake and Output Vital Signs (last 24 hours): Temp Pulse Resp BP Pulse Ox 97.4 F L 62 20 148/76 99 12/02/18 16:45 12/02/18 16:45 12/02/18 16:45 12/02/18 16:45 12/02/18 16:45 Intake and Output: 12/02/18 12/03/18 18:59 06:59 Intake Total 1150 Balance 1150 - Medications Medications: Current Medications Alprazolam (Xanax) 0.5 mg PO Q8H [facility] Last Admin: 12/02/18 14:08 Dose: 0.5 mg Carvedilol (Coreg) 3.125 mg PO BID [facility] Last Admin: 12/02/18 17:06 Dose: 3.125 mg Docusate Sodium (Colace) 100 mg PO BID [facility] Last Admin: 12/02/18 17:06 Dose: 100 mg Heparin Sodium (Porcine) (Heparin) 5,000 units SC Q12 [facility] Last Admin: 12/02/18 10:08 Dose: 5,000 units Cefepime HCl (Maxipime Iv 1 Gm Premix) 1 gm in 50 mls @ 100 mls/hr IVPB Q12H [facility]; Protocol Last Admin: 12/02/18 14:08 Dose: 100 mls/hr Vancomycin HCl 750 mg/ Sodium (Chloride) 250 mls @ 166.6 mls/hr IVPB Q12H [facility]; Protocol Last Admin: 12/02/18 10:58 Dose: 166.6 mls/hr Morphine Sulfate (Morphine) 1 mg IV Q4 PRN PRN Reason: Pain, severe (8-10) Ondansetron HCl (Zofran Inj) 4 mg IVP Q6H PRN PRN Reason: Nausea/Vomiting Last Admin: 12/01/18 00:52 Dose: 4 mg Ondansetron HCl (Zofran Odt) 8 mg PO Q8H PRN PRN Reason: Nausea/Vomiting Last Admin: 11/29/18 04:35 Dose: 8 mg Zolpidem Tartrate (Ambien) 5 mg PO HS PRN PRN Reason: Insomnia - Labs Labs: 11/30/18 07:02 11/30/18 07:02 PT 13.3 SECONDS (9.7-12.2) H 11/25/18 12:29 INR 1.2 11/25/18 12:29 APTT 55 SECONDS (21-34) H 11/25/18 12:29 - Constitutional Appears: Non-toxic, Chronically Ill - Head Exam Head Exam: NORMOCEPHALIC - Eye Exam Eye Exam: absent: Scleral icterus - ENT Exam ENT Exam: Mucous Membranes Dry - Neck Exam Neck Exam: absent: Lymphadenopathy - Respiratory Exam Respiratory Exam: Decreased Breath Sounds - Cardiovascular Exam Cardiovascular Exam: REGULAR RHYTHM - GI/Abdominal Exam GI & Abdominal Exam: Distended, Soft - Rectal Exam Rectal Exam: Deferred - Exam Exam: NORMAL INSPECTION - Extremities Exam Extremities Exam: absent: Pedal Edema - Back Exam Back Exam: absent: CVA tenderness (L), CVA tenderness (R) Assessment and Plan (1) Pseudomonas aeruginosa infection Status: Acute (2) Bacteremia due to methicillin resistant Staphylococcus aureus Status: Acute (3) Abdominal pain Status: Acute (4) Open abdominal wall wound Status: Acute (5) Small bowel obstruction Status: Acute (6) Abdominal infection Status: Acute (7) Abdominal wall pain Status: Acute (8) Bacteremia Status: Acute (9) Chronic abdominal wound infection Status: Acute (10) History of lung cancer Status: Acute (11) MRSA (methicillin resistant staph aureus) culture positive Status: Acute (12) Wound cellulitis Status: Acute (13) Wound, open, abdominal wall, anterior Status: Acute - Assessment and Plan (Free Text) Assessment: cont Vac + IV antibiotics
--- NOTE | 2018-12-02 23:45 | CON ---
DATE: 12/02/2018 PSYCHIATRIC CONSULTATION CHIEF COMPLAINT AND REASON FOR CONSULTATION: The patient was referred by Dr. Garnett for comanagement of anxiety and the patient's multiple somatic complaints. The patient has history of generalized anxiety in the past and was taking Xanax regularly and Ambien. HISTORY OF PRESENT ILLNESS: This is a case of 83-year-old male who lives with his . The patient was admitted here complaining of abdominal pain. The patient has history of surgery before and had a non-healing surgical wound from previous cholecystectomy five years ago. The patient has been having fever, body ache and constipation, who is also having severe pain. He is having suicidal ideation but denying any. The patient reports that he has been followed by Dr. Schmid and was given narcotics in the past as well as Xanax 0.5 mg which he takes three times a day for 10 years as well as taking Ambien as needed when he cannot sleep. The patient has been off this medication for a week and seems to be very anxious, restless and not sleeping and going through benzodiazepine withdrawal. The patient wants to resume his anxiety medication so he can sleep. He has been complaining of increased abdominal pain. The patient went to the OR recently but still complaining of pain. He is currently taking the following medications, for pain the patient is getting Morphine 1 mg IV every 4 hours p.r.n. and then he is also on vancomycin. Psych harry, he is not taking any psych medications at this time and seems to be going through the benzodiazepine withdrawal well. PAST PSYCHIATRIC HISTORY: History of anxiety, depression, chronic insomnia and was taking Xanax and Ambien before. PAST MEDICAL HISTORY: History of previous cholecystectomy, history of non-healing wound as well as history of other medical problems, abdominal pain, alcohol dependence, chronic pain, diabetes, hypertension, UTI, pneumonia, history of CAD, history of low back pain, history of COPD, and history of pseudomonas infection. PSYCHOSOCIAL HISTORY: He lives with his . He is retired now. DRUG AND ALCOHOL HISTORY: Denies any. ALLERGIES: NO KNOWN ALLERGIES. PHYSICAL EXAMINATION: VITAL SIGNS: Temperature 98.3, pulse 60, blood pressure 167/80, respirations 20, and oxygen saturations 97%. LABORATORY DATA: Review of his labs, the patient's blood sugar is 194 and vancomycin trough is 20.4. REVIEW OF SYSTEMS: GENERAL: He is alert and oriented x3, somatic, anxious, restless. He said he is having so much pain and was expressing some suicidal ideation but no active plan. SKIN: No diaphoresis. HEENT: No headache. No dizziness. NECK: Supple. RESPIRATORY: No dyspnea. CARDIOVASCULAR: No chest pain. GASTROINTESTINAL: Having abdominal pain. No nausea, no vomiting. EXTREMITIES: Moving extremities. MUSCULOSKELETAL: Feels weak. NEUROLOGIC: Alert and oriented x3. The patient seems to be restless and uncomfortable, he wants to resume his meds. He did mention to me that he was at home, he was taking oxycodone for pain but the patient is only receiving morphine for now. GENITOURINARY: No dysuria. MENTAL STATUS EXAMINATION: Elderly male who looks stated age. Alert and oriented x3. Mood is anxious, depressed, somatic. Affect is reactive. Speech is spontaneous. Thought process is coherent. Thought content, the patient wants to resume his psych medications especially the anxiety medication and sleeping pill as well as to continue his pain medications. No psychosis. No suicidal or homicidal ideation. Although the patient is having past history of suicidal ideation, there is no active plan and the patient seems to be having the symptoms just he was getting desperate that the patient's anxiety medication was discontinued abruptly after taking it for 10 years. The patient is able to contract for safety. Attention and memory seems to be fair. Insight and judgment fair. Impulse control is fair. IMPRESSION: History of generalized anxiety disorder as well as possible benzodiazepine dependence, history of chronic insomnia, the patient's history of abdominal wound infection.Consider benzodiazepine withdrawal. PLAN AND RECOMMENDATION: The patient is seen. Meds reviewed. We will resume Xanax at 0.5 mg every eight hours standing as well as Ambien 5 mg at bedtime p.r.n. The patient may continue his morphine p.r.n. for pain. Surgical followup and continue treatment plan as outlined. Osman Owens MD [facility]
[2018-12-03] MEDS: Morphine 4 MG/ML VIAL IV PRN ×4 (00:20→21:54)
[2018-12-03] MEDS: Cefepime IV 1 gm in Dextrose 1 GM/50 ML BAG IVPB SCH ×2 (00:21→12:40)
[2018-12-03 08:28] LABS: BASO % 0.4 % (0.0-2.0); EOS # 0.1 K/uL (0.0-0.7); EOS % 0.9 % (0.0-4.0); HEMOGLOBIN 10.1 g/dL (12.0-18.0); LYMPH # 1.6 K/uL (1.0-4.3); LYMPH % 17.3 % (20.0-40.0); MEAN CELL VOLUME 84.7 fL (80.0-94.0); MEAN CORPUSCULAR HGB CONC 33.1 g/dL (33.0-37.0); MEAN PLATELET VOLUME 10.3 fL (7.2-11.7); MONO # 0.6 K/uL (0.0-0.8); MONO % 6.6 % (0.0-10.0); NEUT % 74.8 % (50.0-75.0); RBC 3.6 Mil/uL (4.40-5.90); RED CELL DISTRIBUTION WIDTH 16.2 % (11.5-14.5); WHITE BLOOD COUNT 9.4 K/uL (4.8-10.8)
[2018-12-03 09:10] LABS: BLOOD UREA NITROGEN 23 mg/dL (9-20); CALCIUM 8.3 mg/dl (8.6-10.4); GFR NON-AFRICAN AMERICAN > 60
--- NOTE | 2018-12-03 11:32 | CP.PCM.PN ---
Subjective - Date & Time of Evaluation Date of Evaluation: 12/03/18 Time of Evaluation: 11:29 - Subjective Subjective: still c/o of pain abdomen has vacume in on iv antibiotiscs refuse rehab Objective - Vital Signs/Intake and Output Vital Signs (last 24 hours): Temp Pulse Resp BP Pulse Ox 97.9 F 69 20 150/77 99 12/03/18 08:00 12/03/18 08:00 12/03/18 08:00 12/03/18 08:00 12/03/18 08:00 Intake and Output: 12/03/18 12/03/18 06:59 18:59 Intake Total 350 Balance 350 - Medications Medications: Current Medications Alprazolam (Xanax) 0.5 mg PO Q8H [facility] Last Admin: 12/03/18 06:26 Dose: 0.5 mg Carvedilol (Coreg) 3.125 mg PO BID [facility] Last Admin: 12/03/18 09:41 Dose: 3.125 mg Docusate Sodium (Colace) 100 mg PO BID [facility] Last Admin: 12/03/18 09:41 Dose: 100 mg Heparin Sodium (Porcine) (Heparin) 5,000 units SC Q12 [facility] Last Admin: 12/03/18 09:41 Dose: 5,000 units Cefepime HCl (Maxipime Iv 1 Gm Premix) 1 gm in 50 mls @ 100 mls/hr IVPB Q12H [facility]; Protocol Last Admin: 12/03/18 00:21 Dose: 100 mls/hr Vancomycin HCl 750 mg/ Sodium (Chloride) 250 mls @ 166.6 mls/hr IVPB Q12H [facility]; Protocol Last Admin: 12/03/18 10:44 Dose: 166.6 mls/hr Morphine Sulfate (Morphine) 1 mg IV Q4 PRN PRN Reason: Pain, severe (8-10) Last Admin: 12/03/18 06:29 Dose: 1 mg Ondansetron HCl (Zofran Inj) 4 mg IVP Q6H PRN PRN Reason: Nausea/Vomiting Last Admin: 12/01/18 00:52 Dose: 4 mg Ondansetron HCl (Zofran Odt) 8 mg PO Q8H PRN PRN Reason: Nausea/Vomiting Last Admin: 11/29/18 04:35 Dose: 8 mg Zolpidem Tartrate (Ambien) 5 mg PO HS PRN PRN Reason: Insomnia Last Admin: 12/03/18 00:20 Dose: 5 mg - Labs Labs: 12/03/18 08:20 12/03/18 08:20 PT 13.3 SECONDS (9.7-12.2) H 11/25/18 12:29 INR 1.2 11/25/18 12:29 APTT 55 SECONDS (21-34) H 11/25/18 12:29 - Constitutional Appears: Non-toxic - Head Exam Head Exam: NORMAL INSPECTION - Eye Exam Eye Exam: Normal appearance Pupil Exam: NORMAL ACCOMODATION - ENT Exam ENT Exam: Normal Exam - Neck Exam Neck Exam: Full ROM - Respiratory Exam Respiratory Exam: NORMAL BREATHING PATTERN - Cardiovascular Exam Cardiovascular Exam: REGULAR RHYTHM - GI/Abdominal Exam GI & Abdominal Exam: Tenderness Additional comments: vacume on the wound - Rectal Exam Rectal Exam: Deferred - Exam Exam: NORMAL INSPECTION - Extremities Exam Extremities Exam: Normal Inspection - Back Exam Back Exam: NORMAL INSPECTION - Neurological Exam Neurological Exam: Alert, Awake, Oriented x3 - Psychiatric Exam Psychiatric exam: Normal Mood - Skin Skin Exam: Normal Color Assessment and Plan - Assessment and Plan (Free Text) Assessment: s/p debridement abd woung infection abd pain chf stable Plan: cont treatmen arrangement plan of discharge home with izabella
[2018-12-03] MEDS: Oxycodone/Acetaminophen 5/325 mg Tab PO PRN (14:30)
--- NOTE | 2018-12-03 17:53 | CP.PCM.PN ---
<Erica Kochnay - Last Filed: 12/03/18 17:50> Subjective - Date & Time of Evaluation Date of Evaluation: 12/03/18 Time of Evaluation: 16:25 - Subjective Subjective: Surgery Progress note. Dr. Lira Pt seen and examined. Still c/o abdominal pain however, it is controlled. Denies any N/V/D. No F/C. No new complaints. Objective - Vital Signs/Intake and Output Vital Signs (last 24 hours): Temp Pulse Resp BP Pulse Ox 98.0 F 66 20 131/75 98 12/03/18 17:00 12/03/18 17:00 12/03/18 17:00 12/03/18 17:00 12/03/18 17:00 Intake and Output: 12/03/18 12/03/18 06:59 18:59 Intake Total 1130 Balance 1130 - Medications Medications: Current Medications Alprazolam (Xanax) 0.5 mg PO Q8H [facility] Last Admin: 12/03/18 13:29 Dose: 0.5 mg Carvedilol (Coreg) 3.125 mg PO BID [facility] Last Admin: 12/03/18 17:44 Dose: 3.125 mg Docusate Sodium (Colace) 100 mg PO BID [facility] Last Admin: 12/03/18 17:44 Dose: 100 mg Heparin Sodium (Porcine) (Heparin) 5,000 units SC Q12 [facility] Last Admin: 12/03/18 09:41 Dose: 5,000 units Cefepime HCl (Maxipime Iv 1 Gm Premix) 1 gm in 50 mls @ 100 mls/hr IVPB Q12H [facility]; Protocol Last Admin: 12/03/18 12:40 Dose: 100 mls/hr Vancomycin HCl 750 mg/ Sodium (Chloride) 250 mls @ 166.6 mls/hr IVPB Q12H [facility]; Protocol Last Admin: 12/03/18 10:44 Dose: 166.6 mls/hr Morphine Sulfate (Morphine) 1 mg IV Q4 PRN PRN Reason: Pain, severe (8-10) Last Admin: 12/03/18 17:47 Dose: 1 mg Ondansetron HCl (Zofran Inj) 4 mg IVP Q6H PRN PRN Reason: Nausea/Vomiting Last Admin: 12/01/18 00:52 Dose: 4 mg Ondansetron HCl (Zofran Odt) 8 mg PO Q8H PRN PRN Reason: Nausea/Vomiting Last Admin: 11/29/18 04:35 Dose: 8 mg Oxycodone/Acetaminophen (Percocet 5/325 Mg Tab) 1 tab PO Q6H PRN PRN Reason: Pain, moderate (4-7) Stop: 12/06/18 11:34 Last Admin: 12/03/18 14:30 Dose: 1 tab Zolpidem Tartrate (Ambien) 5 mg PO HS PRN PRN Reason: Insomnia Last Admin: 12/03/18 00:20 Dose: 5 mg - Labs Labs: 12/03/18 08:20 12/03/18 08:20 PT 13.3 SECONDS (9.7-12.2) H 11/25/18 12:29 INR 1.2 11/25/18 12:29 APTT 55 SECONDS (21-34) H 11/25/18 12:29 - Constitutional Appears: Well, Non-toxic, No Acute Distress - Head Exam Head Exam: ATRAUMATIC, NORMAL INSPECTION, NORMOCEPHALIC - Eye Exam Eye Exam: EOMI, Normal appearance - ENT Exam ENT Exam: Mucous Membranes Moist - Respiratory Exam Respiratory Exam: NORMAL BREATHING PATTERN. absent: Accessory Muscle Use, Respiratory Distress - Cardiovascular Exam Cardiovascular Exam: absent: JVD - GI/Abdominal Exam GI & Abdominal Exam: Soft. absent: Distended, Firm, Guarding Additional comments: Wound vac in place. To good suction. Mild ruben-wound tenderness to palpation - Extremities Exam Extremities Exam: Normal Inspection. absent: Calf Tenderness - Neurological Exam Neurological Exam: Alert, Awake, Oriented x3 - Psychiatric Exam Psychiatric exam: Anxious Assessment and Plan - Assessment and Plan (Free Text) Assessment: 83yo M s/p debridement of abdominal wound w infected mesh. POD 3 Plan: - Pain management - Will change Abdominal Wound vac today. Will change to home wound vac on Wednesday once d/c w home health services have been approved and patient is ready to be discharged - Continue medical mgmt as per Primary team - Abx as per ID team Further recs as per Dr. Soraya Koch PGY2 surgery <Gavino Lira - Last Filed: 12/08/18 20:20> Objective - Vital Signs/Intake and Output Vital Signs (last 24 hours): Temp Pulse Resp BP Pulse Ox 97.3 F L 68 20 116/70 99 12/07/18 16:02 12/07/18 16:02 12/07/18 16:02 12/07/18 16:02 12/07/18 16:02 - Labs Labs: 12/05/18 11:29 12/05/18 11:29 PT 13.3 SECONDS (9.7-12.2) H 11/25/18 12:29 INR 1.2 11/25/18 12:29 APTT 55 SECONDS (21-34) H 11/25/18 12:29 Attending/Attestation - Attestation I have fully participated in the care of the patient.: Yes I have reviewed all pertinent clinical information, including history, physical exam and plan: Yes Notes (Text): Wound vac change today C.w IV antibiotics DC plan Plan d.w pt in detail
--- NOTE | 2018-12-03 20:51 | PN ---
DATE: 12/03/2018 SUBJECTIVE: The patient is seen. He is doing much better with resumption of Xanax, although the patient was upset that he did not get it right away. The patient is refusing rehab. He has chronic abdominal wound infection, but he states he is feeling much better. The patient is eating when seen. PHYSICAL EXAMINATION: VITAL SIGNS: Temperature 97.9, pulse 69, blood pressure 150/77, respirations 20, and oxygen saturations 99%. MEDICATIONS: Review of his meds. The patient has been taking his Ambien 5 mg at bedtime and then he is also on morphine 1 mg IV every 4 and also on Percocet 1 tab every 6 p.r.n. and Xanax 0.5 mg p.o. every 8 hours. The patient has been taking Xanax for 10 years and needs to take it regularly to avoid having benzodiazepine withdrawal symptoms. REVIEW OF SYSTEMS: GENERAL: Alert, oriented x3. Seen in his room sitting, was eating sandwich, complaining of abdominal pain. He states he does want to take morphine. SKIN: No diaphoresis. HEENT: No headache. No dizziness. NECK: Supple. RESPIRATORY: No dyspnea. CARDIOVASCULAR: No chest pain. GASTROINTESTINAL: The patient still has abdominal pain, but does not want morphine. He was on Percocet and is eating. No nausea, no vomiting. EXTREMITIES: Moving extremities. MUSCULOSKELETAL: Feels weak. NEUROLOGIC: Alert and oriented x3. GENITOURINARY: No dysuria. MENTAL STATUS EXAMINATION: Elderly male,in hospital gown, oriented x3. Mood is still irritable. Affect is reactive. Speech is spontaneous. Thought process is coherent. Thought content, no psychosis. No suicidal or homicidal ideation. The patient is doing much better with resumption of his Xanax 0.5 every 8 which he has been taking for long time. Attention and memory seem to be fair. Insight and judgment fair. Impulse control is fair. IMPRESSION: History of generalized anxiety disorder, history of benzodiazepine dependence, benzodiazepine withdrawal, mood disorder, history of chronic abdominal wound infection. PLAN AND RECOMMENDATION: The patient is seen. Meds reviewed. We will continue Ambien and Xanax as ordered. Continue pain medicine as ordered. Psychwise, the patient does not want to go to subacute rehab. If the patient does not want to go to subacute rehab, he can go home. Follow up with his primary care doctor, Dr. Schmid If he will be discharge, he may continue the Ambien and Xanax as ordered. Osman Owens MD [facility]
[2018-12-04] MEDS: Cefepime IV 1 gm in Dextrose 1 GM/50 ML BAG IVPB SCH ×2 (01:17→13:27)
[2018-12-04] MEDS: Oxycodone/Acetaminophen 5/325 mg Tab PO PRN ×2 (01:25→08:03)
--- NOTE | 2018-12-04 08:05 | CP.PCM.PN ---
<VaheAmandeep - Last Filed: 12/04/18 08:01> Subjective - Date & Time of Evaluation Date of Evaluation: 12/04/18 Time of Evaluation: 08:01 - Subjective Subjective: General Surgery Progress Note for Dr. Lira 83M seen and evaluated at bedside this morning. No acute events overnight. No complaints this morning. Wound vac in place, no leaks. Denies f/c, n/v/d, SOB, CP, palpitations, or urinary symptoms. Objective - Vital Signs/Intake and Output Vital Signs (last 24 hours): Temp Pulse Resp BP Pulse Ox 97.9 F 65 20 146/73 98 12/04/18 00:04 12/04/18 00:04 12/04/18 00:04 12/04/18 00:04 12/04/18 00:04 Intake and Output: 12/04/18 12/04/18 06:59 18:59 Intake Total 600 500 Output Total 600 750 Balance 0 -250 - Medications Medications: Current Medications Alprazolam (Xanax) 0.5 mg PO Q8H [facility] Last Admin: 12/04/18 05:48 Dose: 0.5 mg Carvedilol (Coreg) 3.125 mg PO BID [facility] Last Admin: 12/03/18 17:44 Dose: 3.125 mg Docusate Sodium (Colace) 100 mg PO BID [facility] Last Admin: 12/03/18 17:44 Dose: 100 mg Cefepime HCl (Maxipime Iv 1 Gm Premix) 1 gm in 50 mls @ 100 mls/hr IVPB Q12H [facility]; Protocol Last Admin: 12/04/18 01:17 Dose: 100 mls/hr Vancomycin HCl 750 mg/ Sodium (Chloride) 250 mls @ 166.6 mls/hr IVPB Q12H [facility]; Protocol Last Admin: 12/03/18 22:00 Dose: 166.6 mls/hr Morphine Sulfate (Morphine) 1 mg IV Q4 PRN PRN Reason: Pain, severe (8-10) Last Admin: 12/03/18 21:54 Dose: 1 mg Ondansetron HCl (Zofran Inj) 4 mg IVP Q6H PRN PRN Reason: Nausea/Vomiting Last Admin: 12/01/18 00:52 Dose: 4 mg Ondansetron HCl (Zofran Odt) 8 mg PO Q8H PRN PRN Reason: Nausea/Vomiting Last Admin: 11/29/18 04:35 Dose: 8 mg Oxycodone/Acetaminophen (Percocet 5/325 Mg Tab) 1 tab PO Q6H PRN PRN Reason: Pain, moderate (4-7) Stop: 12/06/18 11:34 Last Admin: 12/04/18 01:25 Dose: 1 tab Zolpidem Tartrate (Ambien) 5 mg PO HS PRN PRN Reason: Insomnia Last Admin: 12/04/18 01:57 Dose: 5 mg - Labs Labs: 12/03/18 08:20 12/03/18 08:20 PT 13.3 SECONDS (9.7-12.2) H 11/25/18 12:29 INR 1.2 11/25/18 12:29 APTT 55 SECONDS (21-34) H 11/25/18 12:29 - Constitutional Appears: Well, Non-toxic, No Acute Distress - Head Exam Head Exam: ATRAUMATIC, NORMAL INSPECTION, NORMOCEPHALIC - Eye Exam Eye Exam: EOMI - ENT Exam ENT Exam: Mucous Membranes Moist - Respiratory Exam Respiratory Exam: NORMAL BREATHING PATTERN. absent: Respiratory Distress - GI/Abdominal Exam GI & Abdominal Exam: Soft, Normal Bowel Sounds. absent: Tenderness - Neurological Exam Neurological Exam: Alert, Awake - Psychiatric Exam Psychiatric exam: Normal Affect, Normal Mood - Skin Additional comments: Upper abdominal wound vac in place, no leak Nonerythematous Assessment and Plan - Assessment and Plan (Free Text) Assessment: 83M s/p debridement of infected mesh of the upper abdominal wall POD4 Plan: Analgesics and antiemetics PRN Encourage ambulation and IS use Aggressive physical therapy Will change wound vac tomorrow (Wednesday) prior to patient being discharged with portable wound vac Abdominal Wound dimensions: 9.5cm x 5cm x 1cm D/w Dr. Soraya Cotter PGY1 <Gavino Lira - Last Filed: 12/08/18 20:22> Objective - Vital Signs/Intake and Output Vital Signs (last 24 hours): Temp Pulse Resp BP Pulse Ox 97.3 F L 68 20 116/70 99 12/07/18 16:02 12/07/18 16:02 12/07/18 16:02 12/07/18 16:02 12/07/18 16:02 - Labs Labs: 12/05/18 11:29 12/05/18 11:29 PT 13.3 SECONDS (9.7-12.2) H 11/25/18 12:29 INR 1.2 11/25/18 12:29 APTT 55 SECONDS (21-34) H 11/25/18 12:29 Attending/Attestation - Attestation I have fully participated in the care of the patient.: Yes I have reviewed all pertinent clinical information, including history, physical exam and plan: Yes Notes (Text): Pt is doing well DC home tomorrow with home wound vac f.u as out pt Plan d.w pt in detail
--- NOTE | 2018-12-04 10:22 | CP.PCM.PN ---
Subjective - Date & Time of Evaluation Date of Evaluation: 12/04/18 Time of Evaluation: 10:18 - Subjective Subjective: pt still c/o of pain Objective - Vital Signs/Intake and Output Vital Signs (last 24 hours): Temp Pulse Resp BP Pulse Ox 97.7 F 73 20 141/70 99 12/04/18 08:00 12/04/18 08:00 12/04/18 08:00 12/04/18 08:00 12/04/18 08:00 Intake and Output: 12/04/18 12/04/18 06:59 18:59 Intake Total 600 500 Output Total 600 750 Balance 0 -250 - Medications Medications: Current Medications Alprazolam (Xanax) 0.5 mg PO Q8H [facility] Last Admin: 12/04/18 05:48 Dose: 0.5 mg Calcium/Vitamin D (Oscal-D 250 Mg-125 Units Tab) 1 tab PO DAILY [facility] Carvedilol (Coreg) 3.125 mg PO BID [facility] Last Admin: 12/03/18 17:44 Dose: 3.125 mg Docusate Sodium (Colace) 100 mg PO BID [facility] Last Admin: 12/03/18 17:44 Dose: 100 mg Cefepime HCl (Maxipime Iv 1 Gm Premix) 1 gm in 50 mls @ 100 mls/hr IVPB Q12H [facility]; Protocol Last Admin: 12/04/18 01:17 Dose: 100 mls/hr Vancomycin HCl 750 mg/ Sodium (Chloride) 250 mls @ 166.6 mls/hr IVPB Q12H [facility]; Protocol Last Admin: 12/03/18 22:00 Dose: 166.6 mls/hr Morphine Sulfate (Morphine) 1 mg IV Q4 PRN PRN Reason: Pain, severe (8-10) Last Admin: 12/03/18 21:54 Dose: 1 mg Ondansetron HCl (Zofran Inj) 4 mg IVP Q6H PRN PRN Reason: Nausea/Vomiting Last Admin: 12/01/18 00:52 Dose: 4 mg Ondansetron HCl (Zofran Odt) 8 mg PO Q8H PRN PRN Reason: Nausea/Vomiting Last Admin: 11/29/18 04:35 Dose: 8 mg Oxycodone/Acetaminophen (Percocet 5/325 Mg Tab) 1 tab PO Q6H PRN PRN Reason: Pain, moderate (4-7) Stop: 12/06/18 11:34 Last Admin: 12/04/18 08:03 Dose: 1 tab Zolpidem Tartrate (Ambien) 5 mg PO HS PRN PRN Reason: Insomnia Last Admin: 12/04/18 01:57 Dose: 5 mg - Labs Labs: 12/03/18 08:20 12/03/18 08:20 PT 13.3 SECONDS (9.7-12.2) H 11/25/18 12:29 INR 1.2 11/25/18 12:29 APTT 55 SECONDS (21-34) H 11/25/18 12:29 - Constitutional Appears: Non-toxic - Head Exam Head Exam: NORMAL INSPECTION - Eye Exam Eye Exam: Normal appearance Pupil Exam: NORMAL ACCOMODATION - ENT Exam ENT Exam: Mucous Membranes Moist - Neck Exam Neck Exam: Full ROM - Respiratory Exam Respiratory Exam: Clear to Ausculation Bilateral - Cardiovascular Exam Cardiovascular Exam: REGULAR RHYTHM - GI/Abdominal Exam GI & Abdominal Exam: Tenderness Additional comments: vacume in place for infection draining - Rectal Exam Rectal Exam: Deferred - Exam Exam: NORMAL INSPECTION - Extremities Exam Extremities Exam: Normal Inspection - Back Exam Back Exam: NORMAL INSPECTION - Neurological Exam Neurological Exam: Normal Gait - Psychiatric Exam Psychiatric exam: Normal Affect - Skin Skin Exam: Pallor Assessment and Plan - Assessment and Plan (Free Text) Assessment: s/p wound infection debridment aneamia dm s/p hx of chf Plan: cont all med will discuss with surgery plan of discharge
[2018-12-04] MEDS: Calcium-Vit D 250 mg-125 Units Tab UD PO SCH (10:49)
--- NOTE | 2018-12-04 14:24 | CP.PCM.PN ---
Subjective - Date & Time of Evaluation Date of Evaluation: 12/04/18 Time of Evaluation: 07:00 - Subjective Subjective: afebrile awake alert less pain Objective - Vital Signs/Intake and Output Vital Signs (last 24 hours): Temp Pulse Resp BP Pulse Ox 97.7 F 73 20 141/70 99 12/04/18 08:00 12/04/18 08:00 12/04/18 08:00 12/04/18 08:00 12/04/18 08:00 Intake and Output: 12/04/18 12/04/18 06:59 18:59 Intake Total 600 500 Output Total 600 750 Balance 0 -250 - Medications Medications: Current Medications Alprazolam (Xanax) 0.5 mg PO Q8H [facility] Last Admin: 12/04/18 13:28 Dose: 0.5 mg Calcium/Vitamin D (Oscal-D 250 Mg-125 Units Tab) 1 tab PO DAILY [facility] Last Admin: 12/04/18 10:49 Dose: 1 tab Carvedilol (Coreg) 3.125 mg PO BID [facility] Last Admin: 12/04/18 10:46 Dose: 3.125 mg Docusate Sodium (Colace) 100 mg PO BID [facility] Last Admin: 12/04/18 10:46 Dose: 100 mg Cefepime HCl (Maxipime Iv 1 Gm Premix) 1 gm in 50 mls @ 100 mls/hr IVPB Q12H [facility]; Protocol Last Admin: 12/04/18 13:27 Dose: 100 mls/hr Vancomycin HCl 750 mg/ Sodium (Chloride) 250 mls @ 166.6 mls/hr IVPB Q12H [facility]; Protocol Last Admin: 12/04/18 11:43 Dose: 166.6 mls/hr Morphine Sulfate (Morphine) 1 mg IV Q4 PRN PRN Reason: Pain, severe (8-10) Last Admin: 12/03/18 21:54 Dose: 1 mg Ondansetron HCl (Zofran Inj) 4 mg IVP Q6H PRN PRN Reason: Nausea/Vomiting Last Admin: 12/01/18 00:52 Dose: 4 mg Ondansetron HCl (Zofran Odt) 8 mg PO Q8H PRN PRN Reason: Nausea/Vomiting Last Admin: 11/29/18 04:35 Dose: 8 mg Oxycodone/Acetaminophen (Percocet 5/325 Mg Tab) 1 tab PO Q6H PRN PRN Reason: Pain, moderate (4-7) Stop: 12/06/18 11:34 Last Admin: 12/04/18 08:03 Dose: 1 tab Zolpidem Tartrate (Ambien) 5 mg PO HS PRN PRN Reason: Insomnia Last Admin: 12/04/18 01:57 Dose: 5 mg - Labs Labs: 12/03/18 08:20 12/03/18 08:20 PT 13.3 SECONDS (9.7-12.2) H 11/25/18 12:29 INR 1.2 11/25/18 12:29 APTT 55 SECONDS (21-34) H 11/25/18 12:29 - Constitutional Appears: Non-toxic, Chronically Ill - Head Exam Head Exam: NORMOCEPHALIC - Eye Exam Eye Exam: absent: Scleral icterus - ENT Exam ENT Exam: Mucous Membranes Dry - Neck Exam Neck Exam: absent: Lymphadenopathy - Respiratory Exam Respiratory Exam: Decreased Breath Sounds - Cardiovascular Exam Cardiovascular Exam: REGULAR RHYTHM - GI/Abdominal Exam GI & Abdominal Exam: Distended, Soft, Tenderness - Rectal Exam Rectal Exam: Deferred - Exam Exam: NORMAL INSPECTION - Extremities Exam Extremities Exam: absent: Pedal Edema - Back Exam Back Exam: absent: CVA tenderness (L), CVA tenderness (R) - Neurological Exam Neurological Exam: Alert, Awake, CN II-XII Intact, Oriented x3 - Psychiatric Exam Psychiatric exam: Depressed - Skin Skin Exam: Dry Assessment and Plan (1) Pseudomonas aeruginosa infection Status: Acute (2) Bacteremia due to methicillin resistant Staphylococcus aureus Status: Acute (3) Abdominal pain Status: Acute (4) Open abdominal wall wound Status: Acute (5) Small bowel obstruction Status: Acute (6) Abdominal infection Status: Acute (7) Abdominal wall pain Status: Acute (8) Bacteremia Status: Acute (9) Chronic abdominal wound infection Status: Acute (10) History of lung cancer Status: Acute (11) MRSA (methicillin resistant staph aureus) culture positive Status: Acute (12) Wound cellulitis Status: Acute (13) Wound, open, abdominal wall, anterior Status: Acute - Assessment and Plan (Free Text) Assessment: cont wound care and IV antibiotics for 3 weeks total
[2018-12-04] MEDS: Morphine 4 MG/ML VIAL IV PRN ×2 (15:39→19:37)
--- NOTE | 2018-12-05 01:05 | PN ---
DATE: 12/04/2018 SUBJECTIVE: The patient is seen. The patient is doing much better, resting comfortably in bed. He wants to go home. The patient is still on IV antibiotics. I told him that if he wants to go for subacute rehab, I would like to recommend him that may go to [facility] with Dr. Schmid, his former PMD. He is currently having admission privileges. PHYSICAL EXAMINATION: VITAL SIGNS: Temperature 97.7, pulse 73, blood pressure 141/70, respirations 20, and oxygen saturations 99%. Reviewed his labs. The patient is taking his vancomycin for his wound infection. He is on Ambien 5 mg at bedtime p.r.n. and Xanax 0.5 mg every 8 hours p.r.n. He has been taking Percocet for pain and also morphine p.r.n. REVIEW OF SYSTEMS: GENERAL: Alert, oriented x3. Seen in his room, much calmer and rested. SKIN: No diaphoresis. HEENT: No headache. No dizziness. NECK: Supple. RESPIRATORY: No dyspnea. CARDIOVASCULAR: No chest pain. Now, the patient is on cefepime and on vancomycin. GASTROINTESTINAL: Still has abdominal pain. No nausea or vomiting. EXTREMITIES: Moving extremities. MUSCULOSKELETAL: Feels weak. NEUROLOGIC: Alert and oriented x3. GENITOURINARY: No urinary problems. MENTAL STATUS EXAMINATION: Elderly male who looks stated age. Alert and oriented x3. Mood is much calmer, less somatic. Affect is reactive. Speech is spontaneous. Thought process is coherent. Thought content, the patient is still reluctant to go for subacute rehab. The patient is less medication seeking. Attention and memory seem to be fair. Insight and judgment are fair. Impulse control is fair. IMPRESSION AND PLAN: Continue present psychiatric medications as ordered. I did advise him if he wants to go for subacute rehab, he may go [facility],. The patient is doing much better at this time. Osman Owens MD [facility]
[2018-12-05] MEDS: Cefepime IV 1 gm in Dextrose 1 GM/50 ML BAG IVPB SCH ×2 (01:08→12:17)
[2018-12-05] MEDS: Morphine 4 MG/ML VIAL IV PRN ×4 (04:15→20:35)
[2018-12-05] MEDS: Calcium-Vit D 250 mg-125 Units Tab UD PO SCH (10:00)
[2018-12-05 11:40] LABS: BASO # 0.1 K/uL (0.0-0.2); BASO % 0.7 % (0.0-2.0); EOS # 0.1 K/uL (0.0-0.7); EOS % 1.1 % (0.0-4.0); HEMOGLOBIN 10.1 g/dL (12.0-18.0); LYMPH # 1.6 K/uL (1.0-4.3); LYMPH % 17.4 % (20.0-40.0); MEAN CORPUSCULAR HEMOGLOBIN 28.6 pg (27.0-31.0); MEAN CORPUSCULAR HGB CONC 33.6 g/dL (33.0-37.0); MEAN PLATELET VOLUME 10.2 fL (7.2-11.7); MONO # 0.7 K/uL (0.0-0.8); MONO % 7.3 % (0.0-10.0); NEUT # 6.8 K/uL (1.8-7.0); NEUT % 73.5 % (50.0-75.0); RBC 3.54 Mil/uL (4.40-5.90); RED CELL DISTRIBUTION WIDTH 16.7 % (11.5-14.5); WHITE BLOOD COUNT 9.3 K/uL (4.8-10.8)
[2018-12-05 12:00] LABS: BLOOD UREA NITROGEN 29 mg/dL (9-20); CALCIUM 8.7 mg/dl (8.6-10.4); GFR NON-AFRICAN AMERICAN > 60
--- NOTE | 2018-12-05 12:15 | CP.PCM.PN ---
Subjective - Date & Time of Evaluation Date of Evaluation: 12/05/18 Time of Evaluation: 10:00 - Subjective Subjective: afeb nad Objective - Vital Signs/Intake and Output Vital Signs (last 24 hours): Temp Pulse Resp BP Pulse Ox 97.6 F 67 20 152/82 H 96 12/05/18 07:33 12/05/18 07:33 12/05/18 07:33 12/05/18 07:33 12/05/18 07:33 Intake and Output: 12/05/18 12/05/18 06:59 18:59 Intake Total 600 540 Output Total 750 700 Balance -150 -160 - Medications Medications: Current Medications Alprazolam (Xanax) 0.5 mg PO Q8H [facility] Last Admin: 12/05/18 05:37 Dose: 0.5 mg Calcium/Vitamin D (Oscal-D 250 Mg-125 Units Tab) 1 tab PO DAILY [facility] Last Admin: 12/05/18 10:00 Dose: 1 tab Carvedilol (Coreg) 3.125 mg PO BID [facility] Last Admin: 12/05/18 10:00 Dose: 3.125 mg Docusate Sodium (Colace) 100 mg PO BID [facility] Last Admin: 12/05/18 10:00 Dose: 100 mg Cefepime HCl (Maxipime Iv 1 Gm Premix) 1 gm in 50 mls @ 100 mls/hr IVPB Q12H [facility]; Protocol Last Admin: 12/05/18 01:08 Dose: 100 mls/hr Vancomycin HCl 750 mg/ Sodium (Chloride) 250 mls @ 166.6 mls/hr IVPB Q12H [facility]; Protocol Last Admin: 12/05/18 10:00 Dose: 166.6 mls/hr Morphine Sulfate (Morphine) 1 mg IV Q4 PRN PRN Reason: Pain, severe (8-10) Last Admin: 12/05/18 10:11 Dose: 1 mg Ondansetron HCl (Zofran Inj) 4 mg IVP Q6H PRN PRN Reason: Nausea/Vomiting Last Admin: 12/01/18 00:52 Dose: 4 mg Ondansetron HCl (Zofran Odt) 8 mg PO Q8H PRN PRN Reason: Nausea/Vomiting Last Admin: 11/29/18 04:35 Dose: 8 mg Oxycodone/Acetaminophen (Percocet 5/325 Mg Tab) 1 tab PO Q6H PRN PRN Reason: Pain, moderate (4-7) Stop: 12/06/18 11:34 Last Admin: 12/04/18 08:03 Dose: 1 tab Zolpidem Tartrate (Ambien) 5 mg PO HS PRN PRN Reason: Insomnia Last Admin: 12/05/18 01:14 Dose: 5 mg - Labs Labs: 12/05/18 11:29 12/05/18 11:29 PT 13.3 SECONDS (9.7-12.2) H 11/25/18 12:29 INR 1.2 11/25/18 12:29 APTT 55 SECONDS (21-34) H 11/25/18 12:29 - Constitutional Appears: Non-toxic - Head Exam Head Exam: NORMOCEPHALIC - Eye Exam Eye Exam: absent: Scleral icterus - ENT Exam ENT Exam: Mucous Membranes Dry - Neck Exam Neck Exam: absent: Lymphadenopathy - Respiratory Exam Respiratory Exam: Decreased Breath Sounds - Cardiovascular Exam Cardiovascular Exam: REGULAR RHYTHM - GI/Abdominal Exam GI & Abdominal Exam: Distended, Soft - Rectal Exam Rectal Exam: Deferred Assessment and Plan (1) Pseudomonas aeruginosa infection Status: Acute (2) Bacteremia due to methicillin resistant Staphylococcus aureus Status: Acute (3) Abdominal pain Status: Acute (4) Open abdominal wall wound Status: Acute (5) Small bowel obstruction Status: Acute (6) Abdominal infection Status: Acute (7) Abdominal wall pain Status: Acute (8) Bacteremia Status: Acute (9) Chronic abdominal wound infection Status: Acute (10) History of lung cancer Status: Acute (11) MRSA (methicillin resistant staph aureus) culture positive Status: Acute (12) Wound cellulitis Status: Acute (13) Wound, open, abdominal wall, anterior Status: Acute - Assessment and Plan (Free Text) Assessment: cont iv antibiotics and wound care
--- NOTE | 2018-12-05 12:35 | CP.PCM.PN ---
<Leeroy Roa - Last Filed: 12/05/18 12:33> Subjective - Date & Time of Evaluation Date of Evaluation: 12/05/18 Time of Evaluation: 06:30 - Subjective Subjective: General Surgery Pt seen and examined. No acute events overnight. No new complaints, will place new wound vac today prior to DC. Objective - Vital Signs/Intake and Output Vital Signs (last 24 hours): Temp Pulse Resp BP Pulse Ox 97.6 F 67 20 152/82 H 96 12/05/18 07:33 12/05/18 07:33 12/05/18 07:33 12/05/18 07:33 12/05/18 07:33 Intake and Output: 12/05/18 12/05/18 06:59 18:59 Intake Total 600 540 Output Total 750 700 Balance -150 -160 - Medications Medications: Current Medications Alprazolam (Xanax) 0.5 mg PO Q8H [facility] Last Admin: 12/05/18 05:37 Dose: 0.5 mg Calcium/Vitamin D (Oscal-D 250 Mg-125 Units Tab) 1 tab PO DAILY [facility] Last Admin: 12/05/18 10:00 Dose: 1 tab Carvedilol (Coreg) 3.125 mg PO BID [facility] Last Admin: 12/05/18 10:00 Dose: 3.125 mg Docusate Sodium (Colace) 100 mg PO BID [facility] Last Admin: 12/05/18 10:00 Dose: 100 mg Cefepime HCl (Maxipime Iv 1 Gm Premix) 1 gm in 50 mls @ 100 mls/hr IVPB Q12H [facility]; Protocol Last Admin: 12/05/18 12:17 Dose: 100 mls/hr Vancomycin HCl 750 mg/ Sodium (Chloride) 250 mls @ 166.6 mls/hr IVPB Q12H [facility]; Protocol Last Admin: 12/05/18 10:00 Dose: 166.6 mls/hr Morphine Sulfate (Morphine) 1 mg IV Q4 PRN PRN Reason: Pain, severe (8-10) Last Admin: 12/05/18 10:11 Dose: 1 mg Ondansetron HCl (Zofran Inj) 4 mg IVP Q6H PRN PRN Reason: Nausea/Vomiting Last Admin: 12/01/18 00:52 Dose: 4 mg Ondansetron HCl (Zofran Odt) 8 mg PO Q8H PRN PRN Reason: Nausea/Vomiting Last Admin: 11/29/18 04:35 Dose: 8 mg Oxycodone/Acetaminophen (Percocet 5/325 Mg Tab) 1 tab PO Q6H PRN PRN Reason: Pain, moderate (4-7) Stop: 12/06/18 11:34 Last Admin: 12/04/18 08:03 Dose: 1 tab Zolpidem Tartrate (Ambien) 5 mg PO HS PRN PRN Reason: Insomnia Last Admin: 12/05/18 01:14 Dose: 5 mg - Labs Labs: 12/05/18 11:29 12/05/18 11:29 PT 13.3 SECONDS (9.7-12.2) H 11/25/18 12:29 INR 1.2 11/25/18 12:29 APTT 55 SECONDS (21-34) H 11/25/18 12:29 - Constitutional Appears: Non-toxic, No Acute Distress - Head Exam Head Exam: ATRAUMATIC, NORMOCEPHALIC - Eye Exam Eye Exam: EOMI. absent: Scleral icterus - Respiratory Exam Respiratory Exam: NORMAL BREATHING PATTERN. absent: Respiratory Distress - GI/Abdominal Exam GI & Abdominal Exam: Soft. absent: Distended, Tenderness Additional comments: Abdominal Wound dimensions: 9.5cm x 5cm x 1cm wound vac in place in midepigastrum - Extremities Exam Extremities Exam: Normal Capillary Refill. absent: Calf Tenderness - Neurological Exam Neurological Exam: Alert, Awake - Skin Skin Exam: Dry, Warm Assessment and Plan - Assessment and Plan (Free Text) Assessment: 83 M s/p debridement of abdominal wound w infected mesh. POD 5 Plan: - Will change to home wound vac Today Prior to DC once home health services have been approved and patient is ready to be discharged - Continue medical mgmt as per Primary team - Abx as per ID team D/W Dr. Soraya Roa PGY4 <Gavino Lira - Last Filed: 12/08/18 20:23> Objective - Vital Signs/Intake and Output Vital Signs (last 24 hours): Temp Pulse Resp BP Pulse Ox 97.3 F L 68 20 116/70 99 12/07/18 16:02 12/07/18 16:02 12/07/18 16:02 12/07/18 16:02 12/07/18 16:02 - Labs Labs: 12/05/18 11:29 12/05/18 11:29 PT 13.3 SECONDS (9.7-12.2) H 11/25/18 12:29 INR 1.2 11/25/18 12:29 APTT 55 SECONDS (21-34) H 11/25/18 12:29 Attending/Attestation - Attestation I have personally seen and examined this patient.: Yes I have fully participated in the care of the patient.: Yes I have reviewed all pertinent clinical information, including history, physical exam and plan: Yes Notes (Text): Pt was seen and examined at bedside Agree with above note and assessment Pt is improved clinically Wound is much smaller DC home with home wound vac IV antibiotics as per ID Plan d.w pt in detail Risk and benefit explained in detail.
--- NOTE | 2018-12-05 18:02 | CP.PCM.PN ---
Subjective - Date & Time of Evaluation Date of Evaluation: 12/05/18 Time of Evaluation: 18:00 - Subjective Subjective: pt had new wound vacume suitable for home need potocath will be don in am Objective - Vital Signs/Intake and Output Vital Signs (last 24 hours): Temp Pulse Resp BP Pulse Ox 98.6 F 64 20 138/74 96 12/05/18 17:04 12/05/18 17:04 12/05/18 17:04 12/05/18 17:04 12/05/18 17:04 Intake and Output: 12/05/18 12/05/18 06:59 18:59 Intake Total 600 1040 Output Total 750 700 Balance -150 340 - Medications Medications: Current Medications Alprazolam (Xanax) 0.5 mg PO Q8H [facility] Last Admin: 12/05/18 12:34 Dose: 0.5 mg Calcium/Vitamin D (Oscal-D 250 Mg-125 Units Tab) 1 tab PO DAILY [facility] Last Admin: 12/05/18 10:00 Dose: 1 tab Carvedilol (Coreg) 3.125 mg PO BID [facility] Last Admin: 12/05/18 10:00 Dose: 3.125 mg Docusate Sodium (Colace) 100 mg PO BID [facility] Last Admin: 12/05/18 10:00 Dose: 100 mg Cefepime HCl (Maxipime Iv 1 Gm Premix) 1 gm in 50 mls @ 100 mls/hr IVPB Q12H [facility]; Protocol Last Admin: 12/05/18 12:17 Dose: 100 mls/hr Vancomycin HCl 750 mg/ Sodium (Chloride) 250 mls @ 166.6 mls/hr IVPB Q12H [facility]; Protocol Last Admin: 12/05/18 10:00 Dose: 166.6 mls/hr Morphine Sulfate (Morphine) 1 mg IV Q4 PRN PRN Reason: Pain, severe (8-10) Last Admin: 12/05/18 16:08 Dose: 1 mg Ondansetron HCl (Zofran Inj) 4 mg IVP Q6H PRN PRN Reason: Nausea/Vomiting Last Admin: 12/01/18 00:52 Dose: 4 mg Ondansetron HCl (Zofran Odt) 8 mg PO Q8H PRN PRN Reason: Nausea/Vomiting Last Admin: 11/29/18 04:35 Dose: 8 mg Oxycodone/Acetaminophen (Percocet 5/325 Mg Tab) 1 tab PO Q6H PRN PRN Reason: Pain, moderate (4-7) Stop: 12/06/18 11:34 Last Admin: 12/04/18 08:03 Dose: 1 tab Zolpidem Tartrate (Ambien) 5 mg PO HS PRN PRN Reason: Insomnia Last Admin: 12/05/18 01:14 Dose: 5 mg - Labs Labs: 12/05/18 11:29 12/05/18 11:29 PT 13.3 SECONDS (9.7-12.2) H 11/25/18 12:29 INR 1.2 11/25/18 12:29 APTT 55 SECONDS (21-34) H 11/25/18 12:29 - Constitutional Appears: Non-toxic - Head Exam Head Exam: ATRAUMATIC - Eye Exam Eye Exam: Normal appearance Pupil Exam: NORMAL ACCOMODATION - ENT Exam ENT Exam: Mucous Membranes Moist - Neck Exam Neck Exam: Full ROM - Respiratory Exam Respiratory Exam: Clear to Ausculation Bilateral - Cardiovascular Exam Cardiovascular Exam: REGULAR RHYTHM - GI/Abdominal Exam GI & Abdominal Exam: Tenderness, Normal Bowel Sounds - Extremities Exam Extremities Exam: Normal Inspection - Neurological Exam Neurological Exam: Alert, Awake, Normal Gait, Oriented x3 - Psychiatric Exam Psychiatric exam: Normal Mood - Skin Skin Exam: Dry Assessment and Plan - Assessment and Plan (Free Text) Assessment: abdominal wounds infection s/p debridment MRSA infection dm Plan: cont as per orders
--- NOTE | 2018-12-05 19:26 | PN ---
DATE: 12/05/2018 SUBJECTIVE: The patient is seen. The patient is back to his baseline. He wants to go home. I discussed with the staff. The patient will be going home today with wound VAC. He is psych-harry doing well on Xanax and Ambien. No behavioral problems noted. His was present when seen. PHYSICAL EXAMINATION: VITAL SIGNS: Temperature 97.6, pulse 67, blood pressure 152/82, respirations 20, oxygen saturation 96%. GENERAL: No behavioral problems noted. REVIEW OF SYSTEMS: CONSTITUTIONAL: Alert, oriented x3. Seen in his room, resting. Seems very comfortable. The patient states he wants to go home with his . SKIN: No diaphoresis. HEENT: No headache. No dizziness. NECK: Supple. RESPIRATORY: No dyspnea. CARDIOVASCULAR: No chest pain. GASTROINTESTINAL: The patient is eating well. Has chronic abdominal infection, but not complaining of pain. EXTREMITIES: The patient is ambulatory. MUSCULOSKELETAL: Feels weak. NEUROLOGIC: Alert, oriented x3. GENITOURINARY: No dysuria. MENTAL STATUS EXAMINATION: Elderly male, who looks stated age. Alert, oriented x3. Mood is calmer. Affect is reactive. Speech spontaneous. The patient is reluctant to go for subacute rehab. No psychosis. No suicidal thought or ideation. Attention and memory seem to be fair. Insight and judgment fair. Impulse control is fair. IMPRESSION: History of generalized anxiety disorder, benzodiazepine withdrawal resolved, history of mood disorder secondary to medical problems, history of chronic abdominal infection. PLAN AND RECOMMENDATION: The patient is seen. Meds reviewed. Psych-harry, he is stable to go home with his . The patient will be discharged later today. The patient to continue Xanax as well as his sleeping pill. The patient advised the next time he comes to the hospital, to ask the doctor to put him back on his Xanax regularly as the patient has been on benzodiazepines for many years and chances are if the medicine will be stopped, he will go into benzodiazepine withdrawal, which is what happened in this case. The patient is doing much better now that he has resumed taking the Xanax as well as the Ambien. Osman Owens MD [facility] # [id number]
[2018-12-06] MEDS: Cefepime IV 1 gm in Dextrose 1 GM/50 ML BAG IVPB SCH ×2 (00:09→13:03)
[2018-12-06] MEDS: Oxycodone/Acetaminophen 5/325 mg Tab PO PRN (00:25)
[2018-12-06] MEDS: Morphine 4 MG/ML VIAL IV PRN ×2 (04:50→19:40)
[2018-12-06] MEDS: Calcium-Vit D 250 mg-125 Units Tab UD PO SCH (10:15)
--- NOTE | 2018-12-06 10:41 | CP.PCM.PN ---
Subjective - Date & Time of Evaluation Date of Evaluation: 12/06/18 Time of Evaluation: 10:38 - Subjective Subjective: pt awaite potocath to be don today Objective - Vital Signs/Intake and Output Vital Signs (last 24 hours): Temp Pulse Resp BP Pulse Ox 97.9 F 67 20 138/76 98 12/06/18 08:00 12/06/18 08:00 12/06/18 08:00 12/06/18 08:00 12/06/18 08:00 Intake and Output: 12/06/18 12/06/18 06:59 18:59 Intake Total 900 Balance 900 - Medications Medications: Current Medications Alprazolam (Xanax) 0.5 mg PO Q8H [facility] Last Admin: 12/06/18 05:36 Dose: 0.5 mg Calcium/Vitamin D (Oscal-D 250 Mg-125 Units Tab) 1 tab PO DAILY [facility] Last Admin: 12/06/18 10:15 Dose: Not Given Carvedilol (Coreg) 3.125 mg PO BID [facility] Last Admin: 12/06/18 10:00 Dose: 3.125 mg Docusate Sodium (Colace) 100 mg PO BID [facility] Last Admin: 12/06/18 10:00 Dose: 100 mg Cefepime HCl (Maxipime Iv 1 Gm Premix) 1 gm in 50 mls @ 100 mls/hr IVPB Q12H [facility]; Protocol Last Admin: 12/06/18 00:09 Dose: 100 mls/hr Vancomycin HCl 750 mg/ Sodium (Chloride) 250 mls @ 166.6 mls/hr IVPB Q12H [facility]; Protocol Last Admin: 12/06/18 10:01 Dose: 166.6 mls/hr Morphine Sulfate (Morphine) 1 mg IV Q4 PRN PRN Reason: Pain, severe (8-10) Last Admin: 12/06/18 04:50 Dose: 1 mg Ondansetron HCl (Zofran Inj) 4 mg IVP Q6H PRN PRN Reason: Nausea/Vomiting Last Admin: 12/01/18 00:52 Dose: 4 mg Ondansetron HCl (Zofran Odt) 8 mg PO Q8H PRN PRN Reason: Nausea/Vomiting Last Admin: 11/29/18 04:35 Dose: 8 mg Oxycodone/Acetaminophen (Percocet 5/325 Mg Tab) 1 tab PO Q6H PRN PRN Reason: Pain, moderate (4-7) Stop: 12/06/18 11:34 Last Admin: 12/06/18 00:25 Dose: 1 tab Zolpidem Tartrate (Ambien) 5 mg PO HS PRN PRN Reason: Insomnia Last Admin: 12/06/18 00:08 Dose: 5 mg - Labs Labs: 12/05/18 11:29 12/05/18 11:29 PT 13.3 SECONDS (9.7-12.2) H 11/25/18 12:29 INR 1.2 11/25/18 12:29 APTT 55 SECONDS (21-34) H 11/25/18 12:29 - Constitutional Appears: Non-toxic - Head Exam Head Exam: ATRAUMATIC - Eye Exam Eye Exam: Normal appearance Pupil Exam: NORMAL ACCOMODATION - ENT Exam ENT Exam: Normal Exam - Neck Exam Neck Exam: Full ROM - Respiratory Exam Respiratory Exam: NORMAL BREATHING PATTERN - Cardiovascular Exam Cardiovascular Exam: REGULAR RHYTHM - GI/Abdominal Exam GI & Abdominal Exam: Tenderness Additional comments: vacume on the wound - Rectal Exam Rectal Exam: Deferred - Exam Exam: NORMAL INSPECTION - Back Exam Back Exam: NORMAL INSPECTION - Neurological Exam Neurological Exam: Alert, Awake - Skin Skin Exam: Normal Color Assessment and Plan - Assessment and Plan (Free Text) Assessment: s/p debridement abd wound MRSA infection chf dm will cont as per orders Plan: as ordered
--- NOTE | 2018-12-06 20:41 | OP ---
PROCEDURE DATE: 11/30/2018 PREOPERATIVE DIAGNOSES: 1. Open abdominal wound with necrosis. 2. Abdominal wall abscess. 3. Infected protruding old mesh. 4. Sepsis. POSTOPERATIVE DIAGNOSES: 1. Open abdominal wound with necrosis. 2. Abdominal wall abscess. 3. Infected protruding old mesh. 4. Sepsis. PROCEDURES DONE: 1. Abdominal wall debridement, deep, approximately 10 x 6 cm in size. 2. Incision and drainage of abdominal wall abscess. 3. Removal of old mesh and suture granuloma. 4. Negative pressure wound VAC therapy placement. 5. Pulse irrigation of the wound with washout. SURGEON: Gavino Lira MD GUN MECHANIC: Tommy, PGY-1 resident. ANESTHESIA: General endotracheal tube anesthesia. ESTIMATED BLOOD LOSS: Around 20 mL. DRAINS: The wound VAC was placed a drain. COMPLICATIONS: None. INTRAOPERATIVE FINDINGS: The patient had extremely irregular-looking upper abdominal wound with necrosis and pus and infected material with exposed mesh, and partial removal of the mesh was done of approximately 70% with complete debridement of the wound. DESCRIPTION OF PROCEDURE: On intraoperative steps, this 83-year-old male was diagnosed with infected abdominal wound with abscess and sepsis with exposed old mesh that was placed five years ago at by Dr. Guadalupe, and the patient was consented for the abdominal wound debridement, drainage as well as the removal of old mesh. The patient was brought to the OR and placed supine on the operating table. After induction of the anesthesia, the abdomen was prepped and draped in the usual sterile fashion. First, the abdominal wound was debrided. All the necrotic tissue was taken out, and the underlying abscess was drained, and there was a deep pocket that was also drained. The patient had multiple areas of exposed infected mesh that was also removed. There was a suture granuloma that was also removed. The underlying fascia as well as the preperitoneal fat appeared to be intact, and the dissection was kept superficial to prevent any intentional injury, and the mesh was partially removed up to 60% to 70%, and then the pulse irrigation of the wound was done. After cleaning of the wound and proper hemostasis, the negative pressure wound VAC therapy was applied and the wound VAC was placed to suction, and dry sterile dressing was applied. The patient tolerated the procedure well. The patient was extubated in the OR and sent to the postanesthesia care unit in stable condition. Gavino Lira MD
--- NOTE | 2018-12-06 23:38 | PN ---
DATE: 12/06/2018 SUBJECTIVE: The patient is seen. The patient is doing much better with the resumption of Xanax. No behavioral problems. He has been ambulating around the unit. Today, he was trying to weigh himself. The patient just awaiting PICC line placement before discharge to home. He is still on vancomycin and doing well with Xanax 0.5 mg every 8 hours and Ambien p.r.n. which he has been taking from time to time. REVIEW OF SYSTEMS: GENERAL: Alert, oriented x3. He is seen in his room ambulating and in the hallway also. SKIN: No diaphoresis. HEENT: No headache. No dizziness. NECK: Supple. RESPIRATORY: No dyspnea. CARDIOVASCULAR: No chest pain. GASTROINTESTINAL: He is eating. EXTREMITIES: The patient is ambulatory. He was walking with a walker extremely. NEUROLOGIC: Alert, oriented x3. GENITOURINARY: No dysuria. MENTAL STATUS: Elderly male of [place] descent, oriented x3. Mood is much calmer, less irritable, less somatic, less anxious. Affect is reactive. Speech spontaneous. Thought process coherent. Thought content, the patient wants to go home. He does not want to go for subacute rehab, and the patient seems to be ambulating better. Stating no psychosis. No suicidal or homicidal ideation. Attention and memory seem to be fair. Insight and judgment fair. Impulse control is fair. IMPRESSION: History of mood disorder, generalized anxiety disorder as well as benzodiazepine withdrawal that has resolved, as well as chronic abdominal infection. PLAN AND RECOMMENDATION: The patient is seen. Meds reviewed. Continue Ambien p.r.n. and Xanax as ordered. The patient is awaiting PICC line placement. Psych-harry, he is stable to be discharged to home once medically cleared. The patient states he wants to follow up with Dr. Schmid, his former doctor. Osman Owens MD [facility]
[2018-12-07] MEDS: Morphine 4 MG/ML VIAL IV PRN ×2 (00:16→08:18)
[2018-12-07] MEDS: Cefepime IV 1 gm in Dextrose 1 GM/50 ML BAG IVPB SCH ×2 (00:18→13:07)
[2018-12-07] MEDS ORDERED: Oxycodone/Acetaminophen 5/325 mg Tab PO ONE (03:44)
[2018-12-07] MEDS: Calcium-Vit D 250 mg-125 Units Tab UD PO SCH (09:44)
--- NOTE | 2018-12-07 11:12 | CP.PCM.PN ---
Subjective - Date & Time of Evaluation Date of Evaluation: 12/07/18 Time of Evaluation: 11:09 - Subjective Subjective: c/o pain all over body awaite potocath to be don Objective - Vital Signs/Intake and Output Vital Signs (last 24 hours): Temp Pulse Resp BP Pulse Ox 97.9 F 79 20 143/84 98 12/07/18 08:07 12/07/18 08:07 12/07/18 08:07 12/07/18 08:07 12/07/18 08:07 Intake and Output: 12/07/18 12/07/18 06:59 18:59 Intake Total 430 Balance 430 - Medications Medications: Current Medications Alprazolam (Xanax) 0.5 mg PO Q8H [facility] Last Admin: 12/07/18 05:34 Dose: 0.5 mg Calcium/Vitamin D (Oscal-D 250 Mg-125 Units Tab) 1 tab PO DAILY [facility] Last Admin: 12/07/18 09:44 Dose: 1 tab Carvedilol (Coreg) 3.125 mg PO BID [facility] Last Admin: 12/07/18 09:38 Dose: 3.125 mg Docusate Sodium (Colace) 100 mg PO BID [facility] Last Admin: 12/07/18 09:38 Dose: 100 mg Cefepime HCl (Maxipime Iv 1 Gm Premix) 1 gm in 50 mls @ 100 mls/hr IVPB Q12H [facility]; Protocol Last Admin: 12/07/18 00:18 Dose: 100 mls/hr Vancomycin HCl 750 mg/ Sodium (Chloride) 250 mls @ 166.6 mls/hr IVPB Q12H [facility]; Protocol Last Admin: 12/07/18 11:00 Dose: 166.6 mls/hr Morphine Sulfate (Morphine) 1 mg IV Q4 PRN PRN Reason: Pain, severe (8-10) Last Admin: 12/07/18 08:18 Dose: 1 mg Ondansetron HCl (Zofran Inj) 4 mg IVP Q6H PRN PRN Reason: Nausea/Vomiting Last Admin: 12/01/18 00:52 Dose: 4 mg Ondansetron HCl (Zofran Odt) 8 mg PO Q8H PRN PRN Reason: Nausea/Vomiting Last Admin: 11/29/18 04:35 Dose: 8 mg Zolpidem Tartrate (Ambien) 5 mg PO HS PRN PRN Reason: Insomnia Last Admin: 12/06/18 23:50 Dose: 5 mg - Labs Labs: 12/05/18 11:29 12/05/18 11:29 PT 13.3 SECONDS (9.7-12.2) H 11/25/18 12:29 INR 1.2 11/25/18 12:29 APTT 55 SECONDS (21-34) H 11/25/18 12:29 - Constitutional Appears: Non-toxic - Head Exam Head Exam: ATRAUMATIC - Eye Exam Eye Exam: Normal appearance Pupil Exam: NORMAL ACCOMODATION - ENT Exam ENT Exam: Mucous Membranes Moist - Neck Exam Neck Exam: Full ROM - Respiratory Exam Respiratory Exam: Decreased Breath Sounds - Cardiovascular Exam Cardiovascular Exam: REGULAR RHYTHM - GI/Abdominal Exam GI & Abdominal Exam: Tenderness, Normal Bowel Sounds Additional comments: wound vac in place - Exam External exam: NORMAL EXTERNAL EXAM - Extremities Exam Extremities Exam: Normal Capillary Refill, Normal Inspection - Neurological Exam Neurological Exam: Alert, Awake, Oriented x3 - Psychiatric Exam Psychiatric exam: Normal Affect - Skin Skin Exam: Intact Assessment and Plan - Assessment and Plan (Free Text) Assessment: infected abd wound s/p debridement MRSA infection dm Plan: cont as per orders
--- NOTE | 2018-12-07 15:13 | PCM.SURG1 ---
Surgeon's Initial Post Op Note - Surgeon's Notes Surgeon: Lai Covington MD Service Greeter: NONE Type of Anesthesia: Local Pre-Operative Diagnosis: Infection Operative Findings: Unable to advance guidewire into SVC secondary to subclavian stenosis or occlusion. Post-Operative Diagnosis: Infection, central venous occlusion/stenosis Operation Performed: Placement of single lumen picc, 20 cm, with tip in subclavian vein. Specimen/Specimens Removed: NONE Estimated Blood Loss: EBL {In ML}: 2 Blood Products Given: N/A Drains Used: No Drains Post-Op Condition: Fair Date of Surgery/Procedure: 12/07/18 Time of Surgery/Procedure: 15:00
--- NOTE | 2018-12-07 15:21 | RAD ---
PROCEDURE: Date of procedure: 12/07/2018 Procedure: 1. Placement of a right arm PICC with ultrasound and fluoroscopic guidance, CPT 73430 2. PICC tip confirmation with spot radiograph and is in the superior vena cava Medications: 3CC 1 percent lidocaine Total Fluoro time: 5.8 Seconds Radiation: 0.73 MGy EBL: 2 cc HISTORY: Infection requiring long-term IV antibiotics TECHNIQUE: Following informed consent and procedure time-out, the patient was placed supine on the interventional table and the right arm prepped and draped in the usual sterile fashion. Ultrasound showed a patent and compressible right basilic vein. After the skin was anesthetized with lidocaine, the basilic vein was accessed with micro micropuncture technique using ultrasound guidance. An image documenting ultrasound guidance for vascular access was permanently saved. A guidewire could not be advanced into the superior vena cava secondary to a subclavian vein stenosis or occlusion. The length of the single-lumen 5 Italian PICC was trimmed to 20 centimeters and advanced through a peel-away sheath. The PICC was position with tip of PICC confirm a spot radiograph the mid subclavian vein. The PICC was secured to the patient's skin. The PICC was flushed. A biopatch and sterile dressing was applied. IMPRESSION: Placement of a single-lumen 5 Italian PICC trimmed to 20 centimeters via right basilic vein. The tip of the PICC is confirmed with spot radiograph and is in the subclavian vein. The PICC could not be advanced into the superior vena cava secondary to subclavian vein stenosis or occlusion. PICC is functional and may be used for antibiotics.
--- NOTE | 2018-12-07 15:40 | CP.PCM.PN ---
Subjective - Date & Time of Evaluation Date of Evaluation: 12/07/18 Time of Evaluation: 15:41 - Subjective Subjective: alert, awake, able to walk with walker, NAD. Objective - Vital Signs/Intake and Output Vital Signs (last 24 hours): Temp Pulse Resp BP Pulse Ox 97.9 F 79 20 143/84 98 12/07/18 08:07 12/07/18 08:07 12/07/18 08:07 12/07/18 08:07 12/07/18 08:07 Intake and Output: 12/07/18 12/07/18 06:59 18:59 Intake Total 430 800 Balance 430 800 - Medications Medications: Current Medications Alprazolam (Xanax) 0.5 mg PO Q8H [facility] Last Admin: 12/07/18 13:07 Dose: 0.5 mg Calcium/Vitamin D (Oscal-D 250 Mg-125 Units Tab) 1 tab PO DAILY [facility] Last Admin: 12/07/18 09:44 Dose: 1 tab Carvedilol (Coreg) 3.125 mg PO BID [facility] Last Admin: 12/07/18 09:38 Dose: 3.125 mg Docusate Sodium (Colace) 100 mg PO BID [facility] Last Admin: 12/07/18 09:38 Dose: 100 mg Cefepime HCl (Maxipime Iv 1 Gm Premix) 1 gm in 50 mls @ 100 mls/hr IVPB Q12H [facility]; Protocol Last Admin: 12/07/18 13:07 Dose: 100 mls/hr Vancomycin HCl 750 mg/ Sodium (Chloride) 250 mls @ 166.6 mls/hr IVPB Q12H [facility]; Protocol Last Admin: 12/07/18 11:00 Dose: 166.6 mls/hr Morphine Sulfate (Morphine) 1 mg IV Q4 PRN PRN Reason: Pain, severe (8-10) Last Admin: 12/07/18 08:18 Dose: 1 mg Ondansetron HCl (Zofran Inj) 4 mg IVP Q6H PRN PRN Reason: Nausea/Vomiting Last Admin: 12/01/18 00:52 Dose: 4 mg Ondansetron HCl (Zofran Odt) 8 mg PO Q8H PRN PRN Reason: Nausea/Vomiting Last Admin: 11/29/18 04:35 Dose: 8 mg Zolpidem Tartrate (Ambien) 5 mg PO HS PRN PRN Reason: Insomnia Last Admin: 12/06/18 23:50 Dose: 5 mg - Labs Labs: 12/05/18 11:29 12/05/18 11:29 PT 13.3 SECONDS (9.7-12.2) H 11/25/18 12:29 INR 1.2 11/25/18 12:29 APTT 55 SECONDS (21-34) H 11/25/18 12:29 Assessment and Plan - Assessment and Plan (Free Text) Assessment: 83 year old male admitted with abdominal wall sepsis, seen and examined. Alert and orientedx3, ambulating with walker and assistance. PICC line inserted today, iv vancomycine and cefepime arranged for home infusion for total of [address] Gunderson. Home care, wound care arranged. Discussed with DR Garnett, plan to discharge home today, family agreed. Advised to follow up in the office in 1 wee. Also to follow up with surgery as advised.
--- NOTE | 2018-12-07 16:03 | CP.PCM.PN ---
Subjective - Date & Time of Evaluation Date of Evaluation: 12/07/18 Time of Evaluation: 07:00 - Subjective Subjective: no fever a lot less pain appears comfoirtable NAD woiund vac in place Objective - Vital Signs/Intake and Output Vital Signs (last 24 hours): Temp Pulse Resp BP Pulse Ox 97.9 F 79 20 143/84 98 12/07/18 08:07 12/07/18 08:07 12/07/18 08:07 12/07/18 08:07 12/07/18 08:07 Intake and Output: 12/07/18 12/07/18 06:59 18:59 Intake Total 430 800 Balance 430 800 - Medications Medications: Current Medications Alprazolam (Xanax) 0.5 mg PO Q8H [facility] Last Admin: 12/07/18 13:07 Dose: 0.5 mg Calcium/Vitamin D (Oscal-D 250 Mg-125 Units Tab) 1 tab PO DAILY [facility] Last Admin: 12/07/18 09:44 Dose: 1 tab Carvedilol (Coreg) 3.125 mg PO BID [facility] Last Admin: 12/07/18 09:38 Dose: 3.125 mg Docusate Sodium (Colace) 100 mg PO BID [facility] Last Admin: 12/07/18 09:38 Dose: 100 mg Cefepime HCl (Maxipime Iv 1 Gm Premix) 1 gm in 50 mls @ 100 mls/hr IVPB Q12H [facility]; Protocol Last Admin: 12/07/18 13:07 Dose: 100 mls/hr Vancomycin HCl 750 mg/ Sodium (Chloride) 250 mls @ 166.6 mls/hr IVPB Q12H [facility]; Protocol Last Admin: 12/07/18 11:00 Dose: 166.6 mls/hr Morphine Sulfate (Morphine) 1 mg IV Q4 PRN PRN Reason: Pain, severe (8-10) Last Admin: 12/07/18 08:18 Dose: 1 mg Ondansetron HCl (Zofran Inj) 4 mg IVP Q6H PRN PRN Reason: Nausea/Vomiting Last Admin: 12/01/18 00:52 Dose: 4 mg Ondansetron HCl (Zofran Odt) 8 mg PO Q8H PRN PRN Reason: Nausea/Vomiting Last Admin: 11/29/18 04:35 Dose: 8 mg Zolpidem Tartrate (Ambien) 5 mg PO HS PRN PRN Reason: Insomnia Last Admin: 12/06/18 23:50 Dose: 5 mg - Labs Labs: 12/05/18 11:29 12/05/18 11:29 PT 13.3 SECONDS (9.7-12.2) H 11/25/18 12:29 INR 1.2 11/25/18 12:29 APTT 55 SECONDS (21-34) H 11/25/18 12:29 - Constitutional Appears: Non-toxic, Chronically Ill - Head Exam Head Exam: NORMOCEPHALIC - Eye Exam Eye Exam: absent: Scleral icterus - ENT Exam ENT Exam: Mucous Membranes Dry - Neck Exam Neck Exam: absent: Lymphadenopathy - Respiratory Exam Respiratory Exam: Decreased Breath Sounds - Cardiovascular Exam Cardiovascular Exam: REGULAR RHYTHM - GI/Abdominal Exam GI & Abdominal Exam: Distended, Soft - Rectal Exam Rectal Exam: Deferred - Exam Exam: NORMAL INSPECTION - Extremities Exam Extremities Exam: absent: Pedal Edema - Back Exam Back Exam: absent: CVA tenderness (L), CVA tenderness (R) - Neurological Exam Neurological Exam: Alert, Awake, CN II-XII Intact - Psychiatric Exam Psychiatric exam: Depressed - Skin Skin Exam: Dry Assessment and Plan (1) Pseudomonas aeruginosa infection Status: Acute (2) Bacteremia due to methicillin resistant Staphylococcus aureus Status: Acute (3) Abdominal pain Status: Acute (4) Open abdominal wall wound Status: Acute (5) Small bowel obstruction Status: Acute (6) Abdominal infection Status: Acute (7) Abdominal wall pain Status: Acute (8) Bacteremia Status: Acute (9) Chronic abdominal wound infection Status: Acute (10) History of lung cancer Status: Acute (11) MRSA (methicillin resistant staph aureus) culture positive Status: Acute (12) Wound cellulitis Status: Acute (13) Wound, open, abdominal wall, anterior Status: Acute - Assessment and Plan (Free Text) Assessment: cont iv antibiotics and wound care
[2018-12-07 16:04] VITALS: BP 116/70; PULSE 68; TEMP 97.3; O2SAT 99
--- NOTE | 2018-12-07 18:05 | PN ---
DATE: 12/07/2018 SUBJECTIVE: The patient continues to improve clinically, just awaiting for PICC line placement before discharge. Behavior harry, he is doing much better, much calmer, seen today eating his lunch with his . The patient also still does not want to go for subacute rehab. Other than that his behavior is back to baseline, much calmer and cooperative, was seen earlier yesterday ambulating around the unit, eating well, sleeping well. No extrasomatic complaints. OBJECTIVE: VITAL SIGNS: Temperature 97.9, 143/84, respirations 20, oxygen saturation 98%. REVIEW OF SYSTEMS: GENERAL: The patient is alert, oriented x3, much close to baseline, calm, cooperative, seen in his room, sitting, eating his meals with his , not in acute respiratory distress, oriented x3. SKIN: No diaphoresis. HEENT: No headache. No dizziness. RESPIRATORY: No dyspnea. CARDIOVASCULAR: No chest pain. GASTROINTESTINAL: He is eating well, not complaining of abdominal pain. EXTREMITIES: Ambulating with walker. MUSCULOSKELETAL: Feels weak, but improving. NEURO: Alert and oriented x3. GENITOURINARY: No problems. MENTAL STATUS: Elderly male of [place] descent, oriented x3. Mood is much calmer. Affect is reactive. Speech is dazed. Thought process coherent. Thought content, no overt psychosis. No suicidal ideation. Attention and memory seem to be fair. Insight and judgement fair. Impulse control is fair. IMPRESSION: History of generalized anxiety disorder, benzodiazepine withdrawal, mood disorder, history of chronic abdominal infection. PLAN AND RECOMMENDATIONS: The patient is seen, meds reviewed. The patient awaiting PICC line placement as stated by the nurse practitioner, after that the patient may go home and to continue his antibiotics. Psych harry he is stable for discharge once medically cleared. Osman Owens MD
== END 2018-12-07 17:18 | disposition home health service (06) | DRG 856 ==
LOC: C.ER 10:42 → C.9E 16:49 → C.3T 23:07
PROVIDERS: ADMIT Internal Medicine; ATTEND Internal Medicine
PROC: 0WPF0JZ Removal of Synthetic Substitute from Abdominal Wall, Open Approach (ICD-10-PCS; 2018-11-30)
PROC: 0W9F0ZZ Drainage of Abdominal Wall, Open Approach (ICD-10-PCS; 2018-11-30)
PROC: 2W13X6Z Compression of Abdominal Wall using Pressure Dressing (ICD-10-PCS; 2018-11-30)
PROC: 0WBF0ZZ Excision of Abdominal Wall, Open Approach (ICD-10-PCS; principal; 2018-11-30 13:45)
DX: T81.41XA Infection following a procedure, superficial incisional surgical site, initial encounter (principal); A41.9 Sepsis, unspecified organism; R65.20 Severe sepsis without septic shock; T85.79XA Infection and inflammatory reaction due to other internal prosthetic devices, implants and grafts, initial encounter; K56.609 Unspecified intestinal obstruction, unspecified as to partial versus complete obstruction; I44.2 Atrioventricular block, complete; L02.211 Cutaneous abscess of abdominal wall; L03.311 Cellulitis of abdominal wall; B95.62 Methicillin resistant Staphylococcus aureus infection as the cause of diseases classified elsewhere; B96.5 Pseudomonas (aeruginosa) (mallei) (pseudomallei) as the cause of diseases classified elsewhere; F13.239 Sedative, hypnotic or anxiolytic dependence with withdrawal, unspecified; R45.851 Suicidal ideations; D64.9 Anemia, unspecified; E11.43 Type 2 diabetes mellitus with diabetic autonomic (poly)neuropathy; I11.0 Hypertensive heart disease with heart failure; I25.10 Atherosclerotic heart disease of native coronary artery without angina pectoris; I25.5 Ischemic cardiomyopathy; I50.9 Heart failure, unspecified; J43.9 Emphysema, unspecified; K31.84 Gastroparesis; N40.0 Benign prostatic hyperplasia without lower urinary tract symptoms; Y83.2 Surgical operation with anastomosis, bypass or graft as the cause of abnormal reaction of the patient, or of later complication, without mention of misadventure at the time of the procedure; E78.5 Hyperlipidemia, unspecified; E78.00 Pure hypercholesterolemia, unspecified; F41.1 Generalized anxiety disorder; F39 Unspecified mood [affective] disorder; G47.30 Sleep apnea, unspecified; Z85.118 Personal history of other malignant neoplasm of bronchus and lung; Z87.01 Personal history of pneumonia (recurrent); Z90.49 Acquired absence of other specified parts of digestive tract; Z95.0 Presence of cardiac pacemaker; Z95.5 Presence of coronary angioplasty implant and graft; Z87.891 Personal history of nicotine dependence; Z79.899 Other long term (current) drug therapy; Z79.891 Long term (current) use of opiate analgesic

== ENCOUNTER 2018-12-28 01:24 | Observation (INO) | payer MEDICARE, MEDICAID ==
[2018-12-28 01:25] VITALS: BMI 27.3
[2018-12-28 02:19] LABS: BASO % 0.7 % (0.0-2.0); EOS # 0.2 K/uL (0.0-0.7); EOS % 2.8 % (0.0-4.0); HEMOGLOBIN 9.4 g/dL (12.0-18.0); LYMPH # 1.8 K/uL (1.0-4.3); LYMPH % 30.7 % (20.0-40.0); MEAN CELL VOLUME 83.6 fL (80.0-94.0); MEAN CORPUSCULAR HEMOGLOBIN 27.1 pg (27.0-31.0); MEAN CORPUSCULAR HGB CONC 32.4 g/dL (33.0-37.0); MEAN PLATELET VOLUME 9.9 fL (7.2-11.7); MONO # 0.5 K/uL (0.0-0.8); MONO % 8.6 % (0.0-10.0); NEUT # 3.4 K/uL (1.8-7.0); NEUT % 57.2 % (50.0-75.0); NRBC % 0.1 % (0.0-2.0); RBC 3.46 Mil/uL (4.40-5.90); RED CELL DISTRIBUTION WIDTH 16.2 % (11.5-14.5)
[2018-12-28] MEDS ORDERED: Iohexol 240 (50 ml) PO STA (02:20)
--- NOTE | 2018-12-28 02:21 | C.PDOC ---
History Of Present Illness The patient is an 83-year-old male with multiple past medical problems. Patient was recently admitted and discharged on December 07, 2018 after repair of a long- standing non-healing wound infection and evaluation for constipation. Patient returns to the ED today complaining of persistent abdominal pain. He denies fever, chills, nausea, vomiting. Time Seen by Provider: 12/28/18 01:52 Chief Complaint (Nursing): Abdominal Pain History Per: Patient History/Exam Limitations: no limitations Onset/Duration Of Symptoms: Persistent Current Symptoms Are (Timing): Still Present Location Of Pain/Discomfort: Diffuse Quality Of Discomfort: "Pain" Associated Symptoms: denies: Fever, Chills, Nausea, Vomiting Additional History Per: Patient Past Medical History Reviewed: Historical Data, Nursing Documentation, Vital Signs Vital Signs: Last Vital Signs Temp 97.9 F 12/28/18 01:39 Pulse 74 12/28/18 01:39 Resp 20 12/28/18 01:39 BP 109/65 12/28/18 01:30 Pulse Ox 98 12/28/18 01:39 - Medical History PMH: Arthritis, Asthma, Benign Prostatic Hyperplasia, CAD, CHF, COPD, Diabetes, Emphysema, Gall Bladder Disease, Hiatal Hernia, HTN, Hypercholesterolemia, Hyperlipidemia, Pneumonia, Sleep Apnea, Chronic Pain (Left chest/abdomen) Denies: Anemia, Anxiety, Bipolar Disorder, Bronchitis, Cardia Arrhythmia, Crohn's Disease, Dementia, Depression, Diverticulitis, Fibromyalgia, Fractures, Gastrointestinal Ulcer, HIV, Hyperthyroidism, Hypothyroidism, Kidney Stones, Migraine, Mitral Valve Prolapse, Osteoporosis, Pancreatitis, Paranoia, Parkinson's Disease, Peripheral Edema, Post Traumatic Stress Disorder, Chronic Kidney Disease, Schizophrenia, Seizures, Sickle Cell Disease, Sexually Transmitted Disease, TIA Surgical History: Cholecystectomy (open cholecystectomy with CBD exploration 2012), Coronary Stent, Hernia Repair, Pacemaker Denies: Appendectomy - [facility] Procedures ANESTH INJECT SYMP NERVE (05/12/13) C & S-INTEGUMENT (08/27/14) CENTRAL VENOUS CATHETER PLACEMENT WITH GUIDANCE (07/18/15) CHOLECYSTECTOMY (10/16/13) CLOSED ENDOSCOPIC BIOPSY OF LARGE INTESTINE (09/01/13) CLOSED [PERCUTANEOUS] [NEEDLE] BIOPSY OF LUNG (06/21/13) COMMON DUCT EXPLORATION (10/16/13) COMPRESSION OF ABDOMINAL WALL USING PRESSURE DRESSING (11/25/18) CONTINUOUS INVASIVE MECHANICAL VENTILATION <96 CONSEC HRS (11/05/14) CORONAR ARTERIOGR-2 CATH (09/05/02) CYSTOSCOPY NEC (07/14/13) DRAINAGE OF ABDOMINAL WALL, OPEN APPROACH (11/25/18) DX ULTRASOUND-DIGESTIVE (08/21/12) ENDOSCOPIC BRONCHIAL BX (07/28/13) ENTERAL INFUSION OF CONCENTRATED NUT. SUBSTANCES (11/05/14) ESOPHAGOGASTRODUODENOSCOPY [EGD] W/CLOSED BIOPSY (10/06/13) EXCISION OF ABDOMINAL WALL, OPEN APPROACH (11/25/18) EXCISION OF STOMACH, ENDO, DIAGN (08/23/16) FLUOROSCOPY OF SUPERIOR VENA CAVA, GUIDANCE (07/13/16) GASTROTOMY (07/29/06) INFLUENZA VACCINATION (11/05/14) INJECT/INFUSE ELECTROLYT (05/29/14) INJECT/INFUSE NEC (01/29/15) INSERT ENDOTRACHEAL TUBE (11/05/14) INSERT INFUSION DEV IN R INT JUGULAR VEIN, PERC (05/14/18) INSERT INTERCOSTAL CATH (09/01/13) INSERT PACE. DUAL CHARITY IN CHEST SUBCU/FASCIA, OPEN (05/14/18) INSERTION OF INFUSION DEV INTO R INNOM VEIN, PERC APPROACH (10/05/15) INSERTION OF INFUSION DEV INTO SUP VENA CAVA, PERC APPROACH (08/23/16) INSERTION OF PACEMAKER LEAD INTO R VENTRICLE, PERC APPROACH (05/14/18) INSERTION OF PACEMAKER LEAD INTO RIGHT ATRIUM, PERC APPROACH (05/14/18) INTRODUCE OF OTH THERAP SUBST INTO RESP TRACT, VIA OPENING (12/18/16) INTRODUCE OTH ANTI-INFECT IN CENTRAL VEIN, PERC (10/05/15) LEFT HEART CARDIAC CATH (09/05/02) LT HEART ANGIOCARDIOGRAM (09/05/02) MAGNETIC RESONANCE IMAGING OF SPINAL CANAL (10/16/13) NEBULIZER THERAPY (09/12/14) NON-INVASIVE MECHANICAL VENTILATION (07/14/13) OTH LYSIS-PERITONEAL ADHES (10/16/13) OTHER ENDOSCOPY OF SM INTEST (10/12/14) OTHER SKIN & SUBQ I D (04/30/14) PACKED CELL TRANSFUSION (10/30/13) PANCREAT SPHINCTEROPLAS (10/16/13) PART GASTREC W JEJ ANAST (07/29/06) PERCUTAN NEEDLE BIOPSY OF PROSTATE (09/01/13) PERFORMANCE OF CARDIAC PACING, CONTINUOUS (05/14/18) REMOVAL OF SYNTHETIC SUBSTITUTE FROM ABD WALL, OPEN APPROACH (11/25/18) REPAIR OF INTESTINE NEC (10/16/13) SM-TO-SM BOWEL ANASTOM (07/29/06) THORACOSCOPIC LOBECTOMY OF LUNG (07/28/13) TRANSURETHRAL PROSTATECTOMY ([place]) (07/14/13) ULTRASONOGRAPHY OF RIGHT JUGULAR VEINS, GUIDANCE (05/14/18) URETHRAL DILATION (09/01/13) VACCINATION NEC (11/05/14) VENOUS CATHETERIZATION NEC (11/05/14) Family History: States: Unknown Family Hx - Social History Hx Tobacco Use: Yes Hx Alcohol Use: No Hx Substance Use: No - Immunization History Hx Tetanus Toxoid Vaccination: Yes Hx Influenza Vaccination: Yes Hx Pneumococcal Vaccination: Yes Review Of Systems Constitutional: Negative for: Fever, Chills Gastrointestinal: Positive for: Abdominal Pain. Negative for: Nausea, Vomiting Physical Exam - Physical Exam Appears: Non-toxic, No Acute Distress, Chronically Ill Skin: Normal Color, Warm, Dry Head: Atraumatic, Normacephalic Eye(s): bilateral: Normal Inspection Oral Mucosa: Moist Neck: Supple Chest: Symmetrical, No Deformity, No Tenderness, Other (pacemaker to left upper chest wall ) Cardiovascular: Rhythm Regular, No Murmur Respiratory: Other (scattered coarse breath sounds ) Gastrointestinal/Abdominal: Bowel Sounds (good ), Soft, Tenderness (left abdomen ), No Distention, No Guarding, No Rebound, Other (old surgical scar to right upper quadrant, there is a sponge-like device attached to wound around mid-abdo men) Extremity: Normal ROM, Capillary Refill (less than 2 seconds ) Neurological/Psych: Oriented x3, Normal Speech, Normal Cognition ED Course And Treatment - Laboratory Results Result Diagrams: 12/28/18 02:16 12/28/18 02:16 O2 Sat by Pulse Oximetry: 98 - CT Scan/US CT A/P Other Rad Studies (CT/US): Read By Radiologist, Radiology Report Reviewed CT/US Interpretation: CT SCAN OF THE ABDOMEN AND PELVIS WITHOUT ORAL OR IV CONTRAST. CLINICAL INDICATION: Abdominal pain. TECHNIQUE: Axial and reformatted sagittal and coronal images of the abdomen pelvis obtained without I V contrast administration. Patient ingested oral contrast. COMPARISON: 11/25/18. FINDINGS: Interval appearance of subsegmental atelectatic airspace disease in the left lower lobe. Associated minimal groundglass densities. Mild cardiomegaly, unchanged. Small sliding hiatal hernia. Pneumobilia is noted. Unchanged. Surgical changes of anterior abdominal wall. Moderate amount of fecal residue in the large bowels. Uncomplicated colonic diverticulosis. Free passage of contrast in the distal small bowel. Mild bilateral fullness of the collecting systems is unchanged. Normal unenhanced liver. Absent gallbladder and non dilated extrahepatic biliary system. Unchanged mildly enlarged unenha nced spleen. Normal pancreas. . Normal bilateral adrenal glands. Normal size of the right kidney. There is no right renal mass. There are no right renal calculi. Normal size of the left kidney. There is no left renal mass. There are no left renal calculi. There is no demonstrated peritoneal fluid. Calcified atheromatous plaques of the abdominal aorta. Normal inferior vena cava. Normal retroperitoneum. . Normal urinary bladder. There is no pelvic mass lesion or lymphadenopathy. There is no pelvic fluid. Mildly thickened appendix without associated inflammatory changes. Unchanged. . Surgical changes of anterior abdominal wall. Moderate diffuse spondylosis. IMPRESSION: Interval appearance of a groundglass densities in the left lower lobe. Subsegmental atelectasis and/or developing pneumonia. Constipation. Mild ileus. Surgical changes of the stomach and the small bowels. Medical Decision Making Medical Decision Making: Impression: 83 year old male with abdominal pain Progress: Bloodwork, urinalysis, CT A/P, CXR ordered and reviewed. Albuterol INH, Morphine IVP, and IV Fluids given. Patient able to have a bowel movement in the ED, reports relief of abdominal pain. rn reports pt told her he ran out of oxycodone and has not had a bm recent;yBuffy will staff auditor aware reviewed; pt was prescribed 120 tablets of oxycodone 30 mg on 12/17/18, a 20-day prescription. 0620: attempted to call Dr. Kenzie Garnett's cell phone without answer. Unable to leave voice message since her mailbox is full 0623: contacted Dr. Garnett's service. pending callback. 0630: case discussed with Dr. Garnett. Disposition Discussed With : Carol Garnett Doctor Will See Patient In The: Hospital - Disposition Disposition Time: 06:45 Forms: [facility] ([facility]) - Clinical Impression Clinical Impression: Pulmonary infiltrate, COPD exacerbation, Abdominal pain - PA / SOFTLIN[employer] SUPERVISOR / Resident Statement MD/DO has reviewed & agrees with the documentation as recorded. - Scribe Statement The provider has reviewed the documentation as recorded by the Scribe (Cinda Campoverde) All medical record entries made by the Scribe were at my direction and personally dictated by me. I have reviewed the chart and agree that the record accurately reflects my personal performance of the history, physical exam, medical decision making, and the department course for this patient. I have also personally directed, reviewed, and agree with the discharge instructions and disposition.
[2018-12-28] MEDS ORDERED: Iohexol 240 (50 ml) ONE (02:29)
[2018-12-28 02:48] LABS: ALB/GLOB RATIO 1.3 (1.0-2.1); ALT/SGPT 33 U/L (21-72); AST/SGOT 56 U/L (17-59); BLOOD UREA NITROGEN 32 mg/dL (9-20); CALCIUM 8.1 mg/dl (8.6-10.4); GFR NON-AFRICAN AMERICAN 53; LIPASE 25 U/L (23-300)
[2018-12-28 03:26] LABS: SQUAMOUS EPITHIAL 1 /hpf (0-5); URINE BILIRUBIN NEGATIVE (NEGATIVE); URINE BLOOD NEGATIVE (NEGATIVE); URINE CLARITY Clear (Clear); URINE COLOR Yellow (YELLOW); URINE GLUCOSE (UA) NORMAL (Normal); URINE LEUKOCYTE ESTERASE NEG Leu/uL (Negative); URINE PROTEIN NEGATIVE (NEGATIVE); URINE UROBILINOGEN NORMAL mg/dL (0.2-1.0)
[2018-12-28] MEDS: Sodium Chloride 0.9% 1,000 ML IV SCH ×2 (04:05→14:23)
[2018-12-28] MEDS ORDERED: Iodixanol 320 MG/ML 100 ML BOTTLE IV ONE (04:10)
[2018-12-28] MEDS ORDERED: Albuterol-Ipratrop 3 mg / 0.5 (3 ml) UD INH STA (05:22)
[2018-12-28] MEDS ORDERED: Albuterol-Ipratrop 3 mg / 0.5 (3 ml) UD ONE ×2 (05:57→11:24)
[2018-12-28] MEDS ORDERED: cefTRIAXone IV 1 gm in Dextros 50 ML IVPB ONE (06:17)
[2018-12-28] MEDS ORDERED: Azithromycin 500mg/250ML NS 500 MG/250 ML BAG IVPB STA (06:18)
[2018-12-28] MEDS ORDERED: Azithromycin 500mg/250ML NS 500 MG/250 ML BAG IVPB ONE (06:36)
[2018-12-28] MEDS ORDERED: MethylPREDNISolone 40 mg Vial IVP STA (06:43)
[2018-12-28] MEDS ORDERED: Albuterol-Ipratrop 3 mg / 0.5 (3 ml) UD INH SCH (10:00)
--- NOTE | 2018-12-28 10:01 | CT ---
Date of service: 12/28/2018 PROCEDURE: CT Abdomen and Pelvis with contrast HISTORY: abd pain COMPARISON: Abdomen and pelvis CT without contrast 11/25/2018. CT angio chest 03/14/2018. TECHNIQUE: Helical CT of the abdomen and pelvis was performed following oral contrast administration only. Intravenous contrast was not administered as per referring physician request. Coronal and sagittal reformats were generated. Radiation dose: Total exam DLP = 812.0 mGy-cm. This CT exam was performed using one or more of the following dose reduction techniques: Automated exposure control, adjustment of the mA and/or kV according to patient size, and/or use of iterative reconstruction technique. FINDINGS: LOWER THORAX: Stable left lower lobe subpleural nodule 4.5 mm with reticular markings remaining across increased at the left lower lobe as well. Cardiomegaly is stable. Pacemaker leads now evident at the right heart with prior coronary artery stents reiterated. LIVER: Nondependent pneumobilia reiterated as well as right hepatic lobe granuloma or other calcification. Pneumobilia again evident in common bile and hepatic ducts with likely dilatation reiterated. GALLBLADDER AND BILE DUCTS: Prior cholecystectomy reiterated. PANCREAS: Unremarkable. No gross lesion or ductal dilatation. SPLEEN: Unremarkable. ADRENALS: Unremarkable. No mass. KIDNEYS AND URETERS: A small cyst is again seen exophytic off the upper pole left kidney posteriorly with the right kidney appearing unremarkable at this time. No obstructive uropathy bilaterally. VASCULATURE: Nonaneurysmal abdominal aortic calcific atherosclerotic changes are identified. BOWEL: Postop change identified at the stomach and central small bowel suggestive of prior gastric bypass procedure. Clinically correlate. No definite bowel obstruction appreciable. No obstruction. No gross mural thickening. Prominent fecal loading seen throughout the colon suggestive of probable moderate constipation. APPENDIX: Normal appendix. PERITONEUM: Prior ventral abdominal hernia appreciated once again. Unremarkable. No free fluid. No free air. LYMPH NODES: Unremarkable. No enlarged lymph nodes. BLADDER: Unremarkable. REPRODUCTIVE: Unremarkable. BONES: Multiple chronic compression fractures are identified at the inferior thoracic spine including T11-T12 and likely T8, T9-T10 although these 3 more cephalad vertebral bodies are not captured in the prior CT limiting comparison. OTHER FINDINGS: None. IMPRESSION: 1. Prior gastric bypass surgery or possible partial gastrectomy and additional small-bowel surgery with moderate constipation suspected. No bowel obstruction appreciable. 2. Stable prominent appendix without acute interval changes. 3. Pneumobilia status post cholecystectomy. 4. Other lesser abdominal findings as discussed above. 5. Stable left lower lobe nodule identified. Preliminary report provided by Drew, 11/27/2018, 5:03 a.m..
--- NOTE | 2018-12-28 10:02 | RAD ---
Date of service: 12/28/2018 PROCEDURE: CHEST RADIOGRAPH, 1 VIEW HISTORY: oct left COMPARISON: 11/25/2018. FINDINGS: LUNGS: The right lung is well inflated and clear. There is redemonstration of low volume the left with postsurgical changes region. There is mild haziness in the left lower lobe. PLEURA: No pneumothorax or pleural effusion. CARDIOVASCULAR: The heart is normal in size. Stable position of left-sided dual lead transvenous permanent pacing device. No aortic atherosclerotic calcifications present. OSSEOUS STRUCTURES: Within normal limits for the patient's age. VISUALIZED UPPER ABDOMEN: Normal. OTHER FINDINGS: Chronic elevation of the left hemidiaphragm. IMPRESSION: Haziness in the left lower lobe may represent atelectasis however superimposed pneumonia cannot be excluded. Stable postoperative changes in the left lung. Follow-up after medical management is recommended to ensure complete resolution.
--- NOTE | 2018-12-28 10:56 | CP.PCM.HP ---
History of Present Illness - History of Present Illness History of Present Illness: pt came for abdominal pain wound open cough and new lung infi;ltrate Present on Admission - Present on Admission Any Indicators Present on Admission: Yes Review of Systems - Review of Systems Systems not reviewed;Unavailable: Acuity of Condition - Constitutional Constitutional: Fatigue - EENT Eyes: As Per HPI Ears: As Per HPI Nose/Mouth/Throat: As Per HPI - Cardiovascular Cardiovascular: Dyspnea - Respiratory Respiratory: Cough, Wheezing, Pain with Coughing - Gastrointestinal Gastrointestinal: Abdominal Pain, Bloating, Constipation - Genitourinary Genitourinary: As Per HPI - Reproductive: Male Reproductive:Male: As Per HPI - Musculoskeletal Musculoskeletal: Joint Swelling, Stiffness Additional comments: both knees - Integumentary Integumentary: As Per HPI - Neurological Neurological: As Per HPI - Psychiatric Psychiatric: Depression, Irritability - Endocrine Endocrine: As Per HPI - Hematologic/Lymphatic Hematologic: As Per HPI Past Patient History - Infectious Disease Hx of Infectious Diseases: None - Tetanus Immunizations Tetanus Immunization: Unknown - Past Medical History & Family History Past Medical History?: Yes - Past Social History Smoking Status: Former Smoker - CARDIAC Hx Cardia Arrhythmia: No Hx Congestive Heart Failure: Yes Hx Hypercholesterolemia: Yes Hx Hypertension: Yes Hx Mitral Valve Prolapse: No Hx Pacemaker: Yes Hx Peripheral Edema: No - PULMONARY Hx Asthma: Yes Hx Bronchitis: No Hx Chronic Obstructive Pulmonary Disease (COPD): Yes Hx Emphysema: Yes Hx Pneumonia: Yes Hx Sleep Apnea: Yes - NEUROLOGICAL Hx Dementia: No Hx Migraine: No Hx Parkinson's Disease: No Hx Seizures: No Hx Transient Ischemic Attacks (TIA): No - HEENT Hx HEENT Problems: No Hx Blind: No Hx Cataracts: No Hx Deafness: No Hx Difficulty Chewing: No Hx Epistaxis: No Hx Glaucoma: No Hx Macular Degeneration: No - RENAL Hx Chronic Kidney Disease: No Hx Kidney Stones: No - ENDOCRINE/METABOLIC Hx Hyperthyroidism: No Hx Hypothyroidism: No - HEMATOLOGICAL/ONCOLOGICAL Hx Anemia: No Hx Human Immunodeficiency Virus (HIV): No Hx Sickle Cell Disease: No - INTEGUMENTARY Hx Dermatological Problems: Yes Other/Comment: mid abd open wound 2cm round wound bed red with yellowish thick purulent drainage, 3 small red dry round wounds 1 on right of wound and 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 - MUSCULOSKELETAL/RHEUMATOLOGICAL Hx Arthritis: Yes Hx Fractures: No Hx Osteoporosis: No - GASTROINTESTINAL Hx Crohn's Disease: No Hx Diverticulitis: No Hx Gall Bladder Disease: Yes Hx Pancreatitis: No - GENITOURINARY/GYNECOLOGICAL Hx Sexually Transmitted Disorders: No - PSYCHIATRIC Hx Anxiety: No Hx Bipolar Disorder: No Hx Depression: No Hx Paranoia: No Hx Post Traumatic Stress Disorder: No Hx Schizophrenia: No Hx Substance Use: No - SURGICAL HISTORY Hx Appendectomy: No Hx Cholecystectomy: Yes (open cholecystectomy with CBD exploration 2012) Hx Coronary Stent: Yes - ANESTHESIA Hx Anesthesia: Yes Hx Anesthesia Reactions: No Hx Malignant Hyperthermia: No Meds Allergies/Adverse Reactions: Allergies Allergy/AdvReac Type Severity Reaction Status Date / Time No Known Allergies Allergy Verified 06/25/18 07:42 Physical Exam - Constitutional Appears: In Acute Distress - Head Exam Head Exam: ATRAUMATIC - Eye Exam Eye Exam: Normal appearance Pupil Exam: NORMAL ACCOMODATION - ENT Exam ENT Exam: Mucous Membranes Moist - Neck Exam Neck exam: Positive for: Normal Inspection - Respiratory Exam Respiratory Exam: Rales - Cardiovascular Exam Cardiovascular Exam: REGULAR RHYTHM - GI/Abdominal Exam GI & Abdominal Exam: Tenderness Additional comments: abdominal wound didnot heale open and cleane - Rectal Exam Rectal Exam: Deferred - Exam Exam: NORMAL INSPECTION - Extremities Exam Extremities exam: Positive for: joint swelling Additional comments: knee - Back Exam Back exam: NORMAL INSPECTION - Neurological Exam Neurological exam: Alert, Oriented x3 - Psychiatric Exam Psychiatric exam: Anxious, Depressed - Skin Skin Exam: Normal Color Results - Vital Signs Recent Vital Signs: Last Vital Signs Temp 97.9 F 12/28/18 01:39 Pulse 85 12/28/18 09:30 Resp 16 12/28/18 09:30 BP 130/59 L 12/28/18 09:30 Pulse Ox 96 12/28/18 09:30 - Labs Result Diagrams: 12/28/18 02:16 12/28/18 02:16 Labs: Laboratory Results - last 24 hr 12/28/18 12/28/18 12/28/18 02:16 02:16 03:12 WBC 6.0 RBC 3.46 L Hgb 9.4 L Hct 28.9 L MCV 83.6 MCH 27.1 MCHC 32.4 L RDW 16.2 H Plt Count 169 MPV 9.9 Neut % (Auto) 57.2 Lymph % (Auto) 30.7 Nelson % (Auto) 8.6 Eos % (Auto) 2.8 Baso % (Auto) 0.7 Neut # (Auto) 3.4 Lymph # (Auto) 1.8 Nelson # (Auto) 0.5 Eos # (Auto) 0.2 Baso # (Auto) 0.0 Sodium 138 Potassium 5.3 H Chloride 107 Carbon Dioxide 20 L Anion Gap 16 BUN 32 H Creatinine 1.3 Est GFR ( Amer) > 60 Est GFR (Non-Af Amer) 53 Random Glucose 120 H Calcium 8.1 L Total Bilirubin 0.4 AST 56 ALT 33 Alkaline Phosphatase 198 H D Total Protein 7.1 Albumin 4.0 Globulin 3.2 Albumin/Globulin Ratio 1.3 Lipase 25 Urine Color Yellow Urine Clarity Clear Urine pH 5.0 Ur Specific [place] 1.016 Urine Protein Negative Urine Glucose (UA) Normal Urine Ketones Negative Urine Blood Negative Urine Nitrate Negative Urine Bilirubin Negative Urine Urobilinogen Normal Ur Leukocyte Esterase Neg Urine WBC (Auto) 2 Urine RBC (Auto) < 1 Ur Squamous Epith Cells 1 Assessment & Plan - Assessment and Plan (Free Text) Assessment: ac cough pulmonary infiltrate abdomina pain abdominal wound Plan: as per order - Date & Time Date: 12/28/18 Time: 11:01 Decision To Admit - Pt Status Changed To: Hospital Disposition Of: Inpatient - Admit Certification Admit to Inpatient:: After my assessment, the patient will require hospitalization for at least two midnights. This is because of the severity of symptoms shown, intensity of services needed, and/or the medical risk in this patient being treated as an outpatient. - InPatient: Physician Admission Certification:: pt very uncomfortable will neede iv antibiotics and surgical evaluation - . Bed Request Type: Regular
--- NOTE | 2018-12-28 11:16 | CP.PCM.CON ---
<Octavio Manzo D - Last Filed: 12/28/18 11:17> History of Present Illness - History of Present Illness History of Present Illness: SURGERY CONSULT NOTE FOR DR. LIRA Reason: s/p surgery 83M presents to hospital for pain around abdominal wound. Patient states he has always had pain there but he wanted it evaluated now because he didn't want to stand it anymore. Patient has an abdominal wound that was being treated with wound vac at home. He tolerates diet, denies nausea or vomiting, denies fevers or chills. Having normal bowel function. Patient had an abdominal debridement with mesh removal last month. PMHx: CAD, CHF, HLD, HTN, COPD, Emphysema, OA, Complete heart block, gastritis, hiatal hernia, gastroparesis, diverticulosis, hx lung CA PSHx: Coronay stents, celiac plexus ablation (2012), VATS w/upper lobectomy (2012), ex-lap w/cholecystectomy w/IOC, CBD exploration w/sphincteroplasty (2012 w/Anayeli), Billroth II, Pacemaker (2017) Family Hx: non-contributory Social Hx: Admits to prior Tobacco use; Denies ETOH use; Denies illicit drug use. NKDA Past Patient History - Infectious Disease Hx of Infectious Diseases: None - Tetanus Immunizations Tetanus Immunization: Unknown - Past Medical History & Family History Past Medical History?: Yes - Past Social History Smoking Status: Former Smoker - CARDIAC Hx Cardia Arrhythmia: No Hx Congestive Heart Failure: Yes Hx Hypercholesterolemia: Yes Hx Hypertension: Yes Hx Mitral Valve Prolapse: No Hx Pacemaker: Yes Hx Peripheral Edema: No - PULMONARY Hx Asthma: Yes Hx Bronchitis: No Hx Chronic Obstructive Pulmonary Disease (COPD): Yes Hx Emphysema: Yes Hx Pneumonia: Yes Hx Sleep Apnea: Yes - NEUROLOGICAL Hx Dementia: No Hx Migraine: No Hx Parkinson's Disease: No Hx Seizures: No Hx Transient Ischemic Attacks (TIA): No - HEENT Hx HEENT Problems: No Hx Blind: No Hx Cataracts: No Hx Deafness: No Hx Difficulty Chewing: No Hx Epistaxis: No Hx Glaucoma: No Hx Macular Degeneration: No - RENAL Hx Chronic Kidney Disease: No Hx Kidney Stones: No - ENDOCRINE/METABOLIC Hx Hyperthyroidism: No Hx Hypothyroidism: No - HEMATOLOGICAL/ONCOLOGICAL Hx Anemia: No Hx Human Immunodeficiency Virus (HIV): No Hx Sickle Cell Disease: No - INTEGUMENTARY Hx Dermatological Problems: Yes Other/Comment: mid abd open wound 2cm round wound bed red with yellowish thick purulent drainage, 3 small red dry round wounds 1 on right of wound and 2 on left of wound amanda no dng - MUSCULOSKELETAL/RHEUMATOLOGICAL Hx Arthritis: Yes Hx Fractures: No Hx Osteoporosis: No - GASTROINTESTINAL Hx Crohn's Disease: No Hx Diverticulitis: No Hx Gall Bladder Disease: Yes Hx Pancreatitis: No - GENITOURINARY/GYNECOLOGICAL Hx Sexually Transmitted Disorders: No - PSYCHIATRIC Hx Anxiety: No Hx Bipolar Disorder: No Hx Depression: No Hx Paranoia: No Hx Post Traumatic Stress Disorder: No Hx Schizophrenia: No Hx Substance Use: No - SURGICAL HISTORY Hx Appendectomy: No Hx Cholecystectomy: Yes (open cholecystectomy with CBD exploration 2012) Hx Coronary Stent: Yes - ANESTHESIA Hx Anesthesia: Yes Hx Anesthesia Reactions: No Hx Malignant Hyperthermia: No Meds Allergies/Adverse Reactions: Allergies Allergy/AdvReac Type Severity Reaction Status Date / Time No Known Allergies Allergy Verified 06/25/18 07:42 - Medications Medications: Current Medications Albuterol/Ipratropium (Duoneb 3 Mg/0.5 Mg (3 Ml) Ud) 3 ml INH QID [facility] Aspirin (Ecotrin) 81 mg PO DAILY [facility] Docusate Sodium (Colace) 100 mg PO TID [facility] Sodium Chloride (Sodium Chloride 0.9%) 1,000 mls @ 100 mls/hr IV .Q10H [facility] Last Admin: 12/28/18 04:05 Dose: 100 mls/hr Ceftriaxone Sodium 1 gm/ (Dextrose) 100 mls @ 50 mls/30 min IVPB DAILY [facility]; Protocol Azithromycin (Zithromax 500mg In Ns Addvantage) 500 mg in 250 mls @ 167 mls/hr IVPB DAILY [facility]; Protocol Metformin HCl (Glucophage) 500 mg PO BID [facility] Morphine Sulfate (Morphine) 2 mg IVP Q6 PRN PRN Reason: Pain, moderate (4-7) Last Admin: 12/28/18 09:28 Dose: 2 mg Rosuvastatin Calcium (Crestor) 10 mg PO HS [facility] Physical Exam - Constitutional Appears: Non-toxic, No Acute Distress - ENT Exam ENT Exam: Mucous Membranes Moist - Respiratory Exam Respiratory Exam: Clear to Auscultation Bilateral, NORMAL BREATHING PATTERN - Cardiovascular Exam Cardiovascular Exam: REGULAR RHYTHM, +S1, +S2 - GI/Abdominal Exam GI & Abdominal Exam: Rebound, Soft, Tenderness. absent: Firm, Rigid Additional comments: abdominal wound has clean beefy base, with granulation tissue - clean edges - Extremities Exam Extremities exam: Negative for: pedal edema, tenderness - Neurological Exam Neurological exam: Alert - Skin Skin Exam: Dry, Intact, Normal Color, Warm Results - Vital Signs Recent Vital Signs: Last Vital Signs Temp 97.9 F 12/28/18 01:39 Pulse 85 12/28/18 09:30 Resp 16 12/28/18 09:30 BP 130/59 L 12/28/18 09:30 Pulse Ox 96 12/28/18 09:30 - Labs Result Diagrams: 12/28/18 02:16 12/28/18 02:16 Labs: Laboratory Results - last 24 hr 12/28/18 12/28/18 12/28/18 02:16 02:16 03:12 WBC 6.0 RBC 3.46 L Hgb 9.4 L Hct 28.9 L MCV 83.6 MCH 27.1 MCHC 32.4 L RDW 16.2 H Plt Count 169 MPV 9.9 Neut % (Auto) 57.2 Lymph % (Auto) 30.7 Hand % (Auto) 8.6 Eos % (Auto) 2.8 Baso % (Auto) 0.7 Neut # (Auto) 3.4 Lymph # (Auto) 1.8 Hand # (Auto) 0.5 Eos # (Auto) 0.2 Baso # (Auto) 0.0 Sodium 138 Potassium 5.3 H Chloride 107 Carbon Dioxide 20 L Anion Gap 16 BUN 32 H Creatinine 1.3 Est GFR ( Amer) > 60 Est GFR (Non-Af Amer) 53 Random Glucose 120 H Calcium 8.1 L Total Bilirubin 0.4 AST 56 ALT 33 Alkaline Phosphatase 198 H D Total Protein 7.1 Albumin 4.0 Globulin 3.2 Albumin/Globulin Ratio 1.3 Lipase 25 Urine Color Yellow Urine Clarity Clear Urine pH 5.0 Ur Specific [place] 1.016 Urine Protein Negative Urine Glucose (UA) Normal Urine Ketones Negative Urine Blood Negative Urine Nitrate Negative Urine Bilirubin Negative Urine Urobilinogen Normal Ur Leukocyte Esterase Neg Urine WBC (Auto) 2 Urine RBC (Auto) < 1 Ur Squamous Epith Cells 1 Assessment & Plan - Assessment and Plan (Free Text) Assessment: 83M with clean abdominal wound Plan: pain control patient needs to continue wound vac dressing which will be brought from home wet to dry dressing in mean time Further recs discuss with Dr. Soraya Manzo, PGY3 <Gavino Lira - Last Filed: 01/01/19 20:34> Results - Vital Signs Recent Vital Signs: Last Vital Signs Temp 98.4 F 12/30/18 23:30 Pulse 67 12/30/18 23:30 Resp 20 12/30/18 23:30 BP 153/75 H 12/30/18 23:30 Pulse Ox 97 12/31/18 07:10 - Labs Result Diagrams: 12/28/18 02:16 12/29/18 11:15 Attending/Attestation - Attestation I have personally seen and examined this patient.: Yes I have fully participated in the care of the patient.: Yes I have reviewed all pertinent clinical information: Yes Notes (Text): Pt was seen and examined at bedside Agree with above note and assessment Pt with Pneumonia and nonhealing abdominal wound Abdomen : Soft, ,NT, ND, wound with red granulation tissue Labs and radiology reviewed Ass: Non healing surgical wound Plan: c/w local wound care Wound care consult IV antibiotics C/w current mx Plan d.w pt in detail Risk and benefit explained in detail.
[2018-12-28 12:04] VITALS: RESP 20
[2018-12-28] MEDS: Albuterol-Ipratrop 3 mg / 0.5 (3 ml) UD INH SCH ×2 (15:40→20:59)
[2018-12-28] MEDS: (Novolog) Insulin Aspart, Recombinant 100 u/ml 10 ml vial SC SCH ×2 (18:16→22:34)
[2018-12-28] MEDS: Morphine 4 MG/ML VIAL IVP PRN (20:17)
[2018-12-28] MEDS: oxyCODONE 30 mg Immediate Release Tab PO PRN (23:01)
[2018-12-29] MEDS: Morphine 4 MG/ML VIAL IVP PRN ×3 (02:58→14:59)
[2018-12-29] MEDS: Azithromycin 500mg/250ML NS 500 MG/250 ML BAG IVPB SCH ×2 (05:59→10:54)
[2018-12-29] MEDS: oxyCODONE 30 mg Immediate Release Tab PO PRN ×3 (05:59→18:19)
[2018-12-29] MEDS: (Novolog) Insulin Aspart, Recombinant 100 u/ml 10 ml vial SC SCH ×4 (07:13→22:40)
[2018-12-29] MEDS: cefTRIAXone IV 1 gm in Dextros 50 ML IVPB SCH ×2 (08:00→09:05)
--- NOTE | 2018-12-29 08:48 | CP.PCM.PN ---
<Robert Marx M - Last Filed: 12/29/18 12:03> Subjective - Date & Time of Evaluation Date of Evaluation: 12/29/18 Time of Evaluation: 08:00 - Subjective Subjective: Surgery progress note for Dr. Lira. Patient seen and examined at bedside. No acute events reported overnight. Patient for evaluation for mid-abdoment wound Patient has no complaints. Patient denies nausea vomiting, f/c. Patient has normal bowel movement. Objective - Vital Signs/Intake and Output Vital Signs (last 24 hours): Temp Pulse Resp BP Pulse Ox 97.7 F 74 20 133/75 96 12/29/18 08:14 12/29/18 08:14 12/29/18 08:14 12/29/18 08:14 12/29/18 08:14 - Medications Medications: Current Medications Albuterol/Ipratropium (Duoneb 3 Mg/0.5 Mg (3 Ml) Ud) 3 ml INH RQID [facility] Last Admin: 12/28/18 20:59 Dose: 3 ml Aspirin (Ecotrin) 81 mg PO DAILY [facility] Last Admin: 12/28/18 11:25 Dose: 81 mg Docusate Sodium (Colace) 100 mg PO TID [facility] Last Admin: 12/28/18 18:16 Dose: 100 mg Heparin Sodium (Porcine) (Heparin) 5,000 units SC Q12 [facility] Sodium Chloride (Sodium Chloride 0.9%) 1,000 mls @ 100 mls/hr IV .Q10H [facility] Last Admin: 12/28/18 14:23 Dose: Not Given Ceftriaxone Sodium (Rocephin Iv 1 Gm Duplex) 50 mls @ 50 mls/30 min IVPB DAILY [facility]; Protocol Last Admin: 12/29/18 08:00 Dose: 50 mls/30 min Azithromycin (Zithromax 500mg In Ns Addvantage) 500 mg in 250 mls @ 167 mls/hr IVPB DAILY [facility]; Protocol Last Admin: 12/29/18 05:59 Dose: 167 mls/hr Insulin Aspart (Novolog) 0 unit SC ACHS [facility]; Protocol Last Admin: 12/29/18 07:13 Dose: Not Given Metformin HCl (Glucophage) 500 mg PO BID [facility] Last Admin: 12/28/18 18:16 Dose: 500 mg Morphine Sulfate (Morphine) 2 mg IVP Q6H PRN PRN Reason: Pain, severe (8-10) Last Admin: 12/29/18 02:58 Dose: 2 mg Oxycodone HCl (Oxycodone Immediate Release Tab) 30 mg PO Q6H PRN PRN Reason: Pain, moderate (4-7) Last Admin: 12/29/18 05:59 Dose: 30 mg Rosuvastatin Calcium (Crestor) 10 mg PO HS [facility] Last Admin: 12/28/18 21:36 Dose: 10 mg - Labs Labs: 12/28/18 02:16 12/28/18 02:16 - Constitutional Appears: Non-toxic, No Acute Distress - Head Exam Head Exam: NORMAL INSPECTION - Eye Exam Eye Exam: Normal appearance - Respiratory Exam Respiratory Exam: NORMAL BREATHING PATTERN - GI/Abdominal Exam GI & Abdominal Exam: Soft, Tenderness Additional comments: abdominal wound has clean beefy base, with granulation tissue - clean edges tenderness around edges - Neurological Exam Neurological Exam: Alert, Awake - Psychiatric Exam Psychiatric exam: Normal Affect, Normal Mood - Skin Skin Exam: Dry, Intact, Normal Color, Warm Assessment and Plan - Assessment and Plan (Free Text) Assessment: 83M with clean abdominal wound Plan: pain control wet to dry dressing in mean time F/u wound care d/w Dr. Soraya Marx, PGY1 <Gavino Lira - Last Filed: 01/01/19 20:35> Objective - Vital Signs/Intake and Output Vital Signs (last 24 hours): Temp Pulse Resp BP Pulse Ox 98.4 F 67 20 153/75 H 97 12/30/18 23:30 12/30/18 23:30 12/30/18 23:30 12/30/18 23:30 12/31/18 07:10 - Labs Labs: 12/28/18 02:16 12/29/18 11:15 Attending/Attestation - Attestation I have personally seen and examined this patient.: Yes I have fully participated in the care of the patient.: Yes I have reviewed all pertinent clinical information, including history, physical exam and plan: Yes Notes (Text): Pt was seen and examined at bedside Agree with above note and assessment Pt is improving clinically Can be DC home with Local wound care f.u as out pt Plan d.w pt in detail
[2018-12-29] MEDS: Albuterol-Ipratrop 3 mg / 0.5 (3 ml) UD INH SCH ×4 (08:50→21:13)
[2018-12-29] MEDS: Sodium Chloride 0.9% 1,000 ML IV SCH (09:11)
[2018-12-29 11:34] LABS: BLOOD UREA NITROGEN 24 mg/dL (9-20); CALCIUM 8.4 mg/dl (8.6-10.4); GFR NON-AFRICAN AMERICAN > 60
--- NOTE | 2018-12-29 12:30 | CARD ---
APPROVED REPORT Date of service: 12/28/2018 EKG Measurement Heart [id number] <Conclusion> Sinus rhythm with 1st degree AV block Left axis deviation Left ventricular hypertrophy with QRS widening and repolarization abnormality Possible Lateral infarct, age undetermined Inferior infarct, age undetermined Abnormal ECG
--- NOTE | 2018-12-29 18:19 | CP.PCM.PN ---
Subjective - Date & Time of Evaluation Date of Evaluation: 12/29/18 Time of Evaluation: 18:17 - Subjective Subjective: pt c/o of pain and still coughing unable to sleep Objective - Vital Signs/Intake and Output Vital Signs (last 24 hours): Temp Pulse Resp BP Pulse Ox 98.0 F 70 20 135/75 98 12/29/18 15:00 12/29/18 15:00 12/29/18 15:00 12/29/18 15:00 12/29/18 15:00 - Medications Medications: Current Medications Albuterol/Ipratropium (Duoneb 3 Mg/0.5 Mg (3 Ml) Ud) 3 ml INH RQID [facility] Last Admin: 12/29/18 11:09 Dose: 3 ml Aspirin (Ecotrin) 81 mg PO DAILY [facility] Last Admin: 12/29/18 09:03 Dose: 81 mg Docusate Sodium (Colace) 100 mg PO TID [facility] Last Admin: 12/29/18 13:19 Dose: 100 mg Heparin Sodium (Porcine) (Heparin) 5,000 units SC Q12 [facility] Last Admin: 12/29/18 09:09 Dose: 5,000 units Ceftriaxone Sodium (Rocephin Iv 1 Gm Duplex) 50 mls @ 50 mls/30 min IVPB DAILY [facility]; Protocol Last Admin: 12/29/18 09:05 Dose: Not Given Azithromycin (Zithromax 500mg In Ns Addvantage) 500 mg in 250 mls @ 167 mls/hr IVPB DAILY [facility]; Protocol Last Admin: 12/29/18 10:54 Dose: Not Given Insulin Aspart (Novolog) 0 unit SC ACHS [facility]; Protocol Last Admin: 12/29/18 16:45 Dose: Not Given Metformin HCl (Glucophage) 500 mg PO BID [facility] Last Admin: 12/29/18 09:03 Dose: 500 mg Morphine Sulfate (Morphine) 2 mg IVP Q6H PRN PRN Reason: Pain, severe (8-10) Last Admin: 12/29/18 14:59 Dose: 2 mg Oxycodone HCl (Oxycodone Immediate Release Tab) 30 mg PO Q6H PRN PRN Reason: Pain, moderate (4-7) Last Admin: 12/29/18 13:19 Dose: 30 mg Rosuvastatin Calcium (Crestor) 10 mg PO HS [facility] Last Admin: 12/28/18 21:36 Dose: 10 mg - Labs Labs: 12/28/18 02:16 12/29/18 11:15 - Constitutional Appears: Non-toxic, In Acute Distress - Head Exam Head Exam: ATRAUMATIC - Eye Exam Eye Exam: Normal appearance Pupil Exam: NORMAL ACCOMODATION - ENT Exam ENT Exam: Normal Exam - Neck Exam Neck Exam: Full ROM - Respiratory Exam Respiratory Exam: Decreased Breath Sounds, Rales - Cardiovascular Exam Cardiovascular Exam: REGULAR RHYTHM - GI/Abdominal Exam GI & Abdominal Exam: Normal Bowel Sounds Additional comments: has wound care for skin wound seen by surgean - Rectal Exam Rectal Exam: Deferred - Exam Exam: NORMAL INSPECTION - Extremities Exam Extremities Exam: Normal Capillary Refill - Back Exam Back Exam: NORMAL INSPECTION - Neurological Exam Neurological Exam: Alert, Awake, Oriented x3 - Psychiatric Exam Psychiatric exam: Depressed - Skin Skin Exam: Normal Color Assessment and Plan - Assessment and Plan (Free Text) Assessment: ac bronchitis pnumonia abd pain insomnia anexiety Plan: as oredered
[2018-12-29] MEDS: Morphine 4 MG/ML VIAL IV SCH ×2 (19:39→22:49)
[2018-12-30] MEDS: Morphine 4 MG/ML VIAL IV SCH ×2 (02:38→06:53)
[2018-12-30] MEDS ORDERED: oxyCODONE 30 mg Immediate Release Tab PO PRN (07:09)
[2018-12-30] MEDS: Albuterol-Ipratrop 3 mg / 0.5 (3 ml) UD INH SCH ×4 (07:50→19:15)
[2018-12-30] MEDS: (Novolog) Insulin Aspart, Recombinant 100 u/ml 10 ml vial SC SCH ×4 (08:30→21:12)
[2018-12-30] MEDS: cefTRIAXone IV 1 gm in Dextros 50 ML IVPB SCH (09:29)
--- NOTE | 2018-12-30 10:02 | PCM.PSYCH ---
Initial Psychiatric Evaluation - Initial Psychiatric Evaluation Type of Admission: Voluntary Legal Status: Capacity Chief Complaint (in patient's own words): "I dont feel well" History of Present Illness and Precipitating Events: Patient is seen, chart reviewed, and case discussed. Consult was requested for suicidal ideation. Patient is an 83 -year-old, male who is single, retired, and living in a fpc. Patient is being seen in the hospital for a wound infection. Consult was called because the patient stated that he wanted to kill himself. Upon questioning, patient states that he just said those words in anger and frustration and did not mean them. He currently denies any depressed mood, suicidal ideation, and any hallucinations as well as stating that he feels good. Past Psychiatric History: none Family Psych History: none PMHx: CAD, OA, hernia surgery, peptic ulcer, COPD Allergies: none Current Medications: Active Medications Generic Name Dose Route Start Last Admin Trade Name Freq PRN Reason Stop Dose Admin Albuterol/Ipratropium 3 ml 12/28/18 16:00 12/30/18 07:50 Duoneb 3 Mg/0.5 Mg (3 Ml) Ud INH 3 ml RQID [facility] Administration Aspirin 81 mg 12/28/18 11:00 12/30/18 09:32 Ecotrin PO 81 mg DAILY [facility] Administration Docusate Sodium 100 mg 12/28/18 14:00 12/30/18 09:32 Colace PO 100 mg TID [facility] Administration Heparin Sodium (Porcine) 5,000 units 12/29/18 10:00 12/30/18 09:32 Heparin SC 5,000 units Q12 [facility] Administration Ceftriaxone Sodium 50 mls @ 50 mls/30 min 12/29/18 07:00 12/30/18 09:29 Rocephin Iv 1 Gm Duplex IVPB 50 mls/30 min DAILY [facility] Administration Protocol Azithromycin 500 mg in 250 mls @ 167 mls/hr 12/29/18 07:00 12/29/18 10:54 Zithromax 500mg In Ns Addvantage IVPB Not Given DAILY [facility] Protocol Insulin Aspart 0 unit 12/28/18 16:30 12/30/18 08:30 Novolog SC 1 unit ACHS [facility] Administration Protocol Metformin HCl 500 mg 12/28/18 11:00 12/30/18 09:32 Glucophage PO 500 mg BID [facility] Administration Morphine Sulfate 2 mg 12/30/18 07:15 12/30/18 08:44 Morphine IV 2 mg Q4H [facility] Administration Oxycodone HCl 30 mg 12/30/18 07:09 Oxycodone Immediate Release Tab PO Q8H PRN Pain, moderate (4-7) Rosuvastatin Calcium 10 mg 12/28/18 22:00 12/29/18 22:49 Crestor PO 10 mg HS [facility] Administration Past Psychiatric History - Past Psychiatric History Pertinent Medical Hx (Current Medical&Sleep Prob, Allergies): Allergies Allergy/AdvReac Type Severity Reaction Status Date / Time No Known Allergies Allergy Verified 06/25/18 07:42 Carvedilol [Coreg] 3.125 mg PO BID #0 tab 10/08/15 Clopidogrel [Plavix] 75 mg PO DAILY 12/03/15 metFORMIN [glucOPHAGE] 500 mg PO BID 03/11/16 Docusate [Colace] 100 mg PO TID #30 cap 11/26/16 Albuterol/Ipratropium [Duoneb 3 mg/0.5 mg (3 ml) UD] 3 ml INH RQ6 PRN 05/21/17 oxyCODONE [oxyCODONE Immediate Release Tab] 30 mg PO Q4 PRN 05/21/17 Alprazolam [Xanax] 0.5 mg PO Q4H 05/14/18 Meloxicam 15 mg PO DAILY 05/14/18 Rosuvastatin Calcium [Crestor] 10 mg PO HS 05/14/18 Zolpidem [Ambien] 10 mg PO HS 05/14/18 Aspirin [Ecotrin] 81 mg PO DAILY 06/25/18 Cefepime 1gm in NS 100ml [Maxipime 1gm] 1 gm IVPB Q12H 13 Days bag 12/07/18 Vancomycin [Vancomycin Inj] 750 mg IVPB Q12H vial 12/07/18 DSM 5 DX - DSM 5 DSM 5 Diagnosis: Adjustment disorder with depressed mood - Recommended/Plan of Treatment Treatment Recommendations and Plan of Treatment: Gabapentin for augmentation if needed As needed medications All risks, benefits and alternatives of the meds discussed, and the pt agreed and understood. Attend groups and activities Supportive therapy and psychoeducation [place] for abstinence CBT for relapse prevention Encourage MAT Refer to rehab or IOP, and self-help groups Teach healthy lifestyle methods, i.e. diet, exercise, meditation Smoking cessation with [place] Nicotine patch if needed 34 min Projected ELOS: 4-5 days Prognosis: good with treatment
[2018-12-30] MEDS: Azithromycin 500mg/250ML NS 500 MG/250 ML BAG IVPB SCH (10:27)
--- NOTE | 2018-12-30 11:18 | CP.PCM.PN ---
Subjective - Date & Time of Evaluation Date of Evaluation: 12/30/18 Time of Evaluation: 11:16 - Subjective Subjective: still paian all over vcough Objective - Vital Signs/Intake and Output Vital Signs (last 24 hours): Temp Pulse Resp BP Pulse Ox 98.1 F 71 20 141/69 97 12/30/18 08:00 12/30/18 08:00 12/30/18 08:00 12/30/18 08:00 12/30/18 08:00 - Medications Medications: Current Medications Albuterol/Ipratropium (Duoneb 3 Mg/0.5 Mg (3 Ml) Ud) 3 ml INH RQID [facility] Last Admin: 12/30/18 07:50 Dose: 3 ml Aspirin (Ecotrin) 81 mg PO DAILY [facility] Last Admin: 12/30/18 09:32 Dose: 81 mg Docusate Sodium (Colace) 100 mg PO TID [facility] Last Admin: 12/30/18 09:32 Dose: 100 mg Heparin Sodium (Porcine) (Heparin) 5,000 units SC Q12 [facility] Last Admin: 12/30/18 09:32 Dose: 5,000 units Ceftriaxone Sodium (Rocephin Iv 1 Gm Duplex) 50 mls @ 50 mls/30 min IVPB DAILY [facility]; Protocol Last Admin: 12/30/18 09:29 Dose: 50 mls/30 min Azithromycin 500 mg/ Sodium (Chloride) 250 mls @ 167 mls/hr IVPB DAILY [facility]; Protocol Insulin Aspart (Novolog) 0 unit SC ACHS [facility]; Protocol Last Admin: 12/30/18 08:30 Dose: 1 unit Metformin HCl (Glucophage) 500 mg PO BID [facility] Last Admin: 12/30/18 09:32 Dose: 500 mg Morphine Sulfate (Morphine) 2 mg IV Q4H [facility] Last Admin: 12/30/18 08:44 Dose: 2 mg Oxycodone HCl (Oxycodone Immediate Release Tab) 30 mg PO Q8H PRN PRN Reason: Pain, moderate (4-7) Rosuvastatin Calcium (Crestor) 10 mg PO HS [facility] Last Admin: 12/29/18 22:49 Dose: 10 mg - Labs Labs: 12/28/18 02:16 12/29/18 11:15 - Constitutional Appears: Non-toxic - Head Exam Head Exam: ATRAUMATIC - Eye Exam Eye Exam: Normal appearance, PERRL - ENT Exam ENT Exam: Mucous Membranes Moist - Neck Exam Neck Exam: Full ROM - Respiratory Exam Respiratory Exam: Rales - Cardiovascular Exam Cardiovascular Exam: REGULAR RHYTHM - GI/Abdominal Exam GI & Abdominal Exam: Normal Bowel Sounds - Extremities Exam Extremities Exam: Full ROM - Back Exam Back Exam: NORMAL INSPECTION - Neurological Exam Neurological Exam: Alert, Awake, Normal Gait, Oriented x3 - Psychiatric Exam Psychiatric exam: Anxious - Skin Skin Exam: Normal Color Additional comments: abdominal wound dressing intact Assessment and Plan - Assessment and Plan (Free Text) Assessment: ac bronchitis abd wound pain allover generalised weekness Plan: cont treatment
--- NOTE | 2018-12-30 14:57 | CP.PCM.PN ---
Subjective - Date & Time of Evaluation Date of Evaluation: 12/30/18 Time of Evaluation: 14:57 - Subjective Subjective: PATIENT SEEN AND EXAMINED AT THE BEDSIDE Objective - Vital Signs/Intake and Output Vital Signs (last 24 hours): Temp Pulse Resp BP Pulse Ox 98.1 F 71 20 141/69 98 12/30/18 08:00 12/30/18 08:00 12/30/18 08:00 12/30/18 08:00 12/30/18 11:43 Intake and Output: 12/30/18 12/30/18 06:59 18:59 Intake Total 400 Balance 400 - Medications Medications: Current Medications Albuterol/Ipratropium (Duoneb 3 Mg/0.5 Mg (3 Ml) Ud) 3 ml INH RQID [facility] Last Admin: 12/30/18 11:40 Dose: 3 ml Aspirin (Ecotrin) 81 mg PO DAILY [facility] Last Admin: 12/30/18 09:32 Dose: 81 mg Docusate Sodium (Colace) 100 mg PO TID [facility] Last Admin: 12/30/18 13:11 Dose: 100 mg Heparin Sodium (Porcine) (Heparin) 5,000 units SC Q12 [facility] Last Admin: 12/30/18 09:32 Dose: 5,000 units Ceftriaxone Sodium (Rocephin Iv 1 Gm Duplex) 50 mls @ 50 mls/30 min IVPB DAILY [facility]; Protocol Last Admin: 12/30/18 09:29 Dose: 50 mls/30 min Azithromycin 500 mg/ Sodium (Chloride) 250 mls @ 167 mls/hr IVPB DAILY [facility]; Protocol Insulin Aspart (Novolog) 0 unit SC ACHS [facility]; Protocol Last Admin: 12/30/18 12:12 Dose: 1 unit Metformin HCl (Glucophage) 500 mg PO BID [facility] Last Admin: 12/30/18 09:32 Dose: 500 mg Morphine Sulfate (Morphine) 2 mg IV Q4H [facility] Last Admin: 12/30/18 14:46 Dose: 2 mg Oxycodone HCl (Oxycodone Immediate Release Tab) 30 mg PO Q8H PRN PRN Reason: Pain, moderate (4-7) Rosuvastatin Calcium (Crestor) 10 mg PO HS [facility] Last Admin: 12/29/18 22:49 Dose: 10 mg - Labs Labs: 12/28/18 02:16 12/29/18 11:15 Assessment and Plan - Assessment and Plan (Free Text) Assessment: FOLLOW UP WITH DR ORLANDO ----CALL FOR APPOINTMENT CONTINUE HOME MEDICATION NEW PRESCRIPTION GIVEN AUGMENTIN PO ONE TAB EVERY 12 H FOR 5 DAYS FLORASTOR 250 MG PO ONE TAB BID FOR 5 DAYS ACTIVITY TOLERATED Recommendations are to start medihoney and cover with foam dressing CALL DR ORLANDO OR GO TO THE EMERGENCY ROOM IF SYMPTOM RETURN OR WORSENING
[2018-12-30 15:30] VITALS: TEMP 98.4; O2SAT 97
[2018-12-31 01:00] VITALS: BP 153/75; PULSE 67
[2018-12-31] MEDS: Albuterol-Ipratrop 3 mg / 0.5 (3 ml) UD INH SCH ×2 (07:30→11:50)
[2018-12-31] MEDS: (Novolog) Insulin Aspart, Recombinant 100 u/ml 10 ml vial SC SCH ×2 (07:45→12:20)
[2018-12-31] MEDS: cefTRIAXone IV 1 gm in Dextros 50 ML IVPB SCH (09:28)
[2018-12-31] MEDS ORDERED: Azithromycin 500 MG in Sodium Chloride 0.9% 250 ML IVPB SCH (10:00)
--- NOTE | 2018-12-31 13:19 | CP.PCM.PN ---
Subjective - Date & Time of Evaluation Date of Evaluation: 12/31/18 Time of Evaluation: 13:17 - Subjective Subjective: pt feels beter wants to go home today Objective - Vital Signs/Intake and Output Vital Signs (last 24 hours): Temp Pulse Resp BP Pulse Ox 98.4 F 67 20 153/75 H 97 12/30/18 23:30 12/30/18 23:30 12/30/18 23:30 12/30/18 23:30 12/31/18 07:10 Intake and Output: 12/31/18 12/31/18 06:59 18:59 Intake Total 300 Balance 300 - Labs Labs: 12/28/18 02:16 12/29/18 11:15 - Constitutional Appears: Non-toxic - Head Exam Head Exam: ATRAUMATIC - Eye Exam Eye Exam: Normal appearance Pupil Exam: NORMAL ACCOMODATION - ENT Exam ENT Exam: Mucous Membranes Moist - Neck Exam Neck Exam: Full ROM - Respiratory Exam Respiratory Exam: Clear to Ausculation Bilateral - Cardiovascular Exam Cardiovascular Exam: REGULAR RHYTHM - GI/Abdominal Exam GI & Abdominal Exam: Normal Bowel Sounds Additional comments: dressing intact - Exam External exam: NORMAL EXTERNAL EXAM - Extremities Exam Extremities Exam: Normal Inspection - Back Exam Back Exam: NORMAL INSPECTION - Neurological Exam Neurological Exam: Alert - Psychiatric Exam Psychiatric exam: Normal Affect - Skin Skin Exam: Normal Color Assessment and Plan - Assessment and Plan (Free Text) Assessment: acute bronchitis pnumonia abdominal wound abd pain improved Plan: d/c with med and visiting nurse to f/u
== END 2018-12-31 12:35 | disposition home or self-care (01) ==
LOC: C.ER 01:24 → C.9E 06:43 → C.5S 07:10 → C.9E 07:19 → C.5S 12:17
PROVIDERS: ADMIT Internal Medicine; ATTEND Internal Medicine
DX: J44.0 Chronic obstructive pulmonary disease with (acute) lower respiratory infection (principal); J18.9 Pneumonia, unspecified organism; J20.9 Acute bronchitis, unspecified; J44.1 Chronic obstructive pulmonary disease with (acute) exacerbation; T81.89XD Other complications of procedures, not elsewhere classified, subsequent encounter; I11.0 Hypertensive heart disease with heart failure; I50.9 Heart failure, unspecified; Z95.0 Presence of cardiac pacemaker; I25.10 Atherosclerotic heart disease of native coronary artery without angina pectoris; Z95.5 Presence of coronary angioplasty implant and graft; F43.21 Adjustment disorder with depressed mood; E11.43 Type 2 diabetes mellitus with diabetic autonomic (poly)neuropathy; K31.84 Gastroparesis; E78.2 Mixed hyperlipidemia; G47.30 Sleep apnea, unspecified; Z87.891 Personal history of nicotine dependence; Z85.118 Personal history of other malignant neoplasm of bronchus and lung; Z90.2 Acquired absence of lung [part of]; Z90.49 Acquired absence of other specified parts of digestive tract; Z98.890 Other specified postprocedural states; Z79.84 Long term (current) use of oral hypoglycemic drugs; Z79.82 Long term (current) use of aspirin; Z79.899 Other long term (current) drug therapy; Y83.8 Other surgical procedures as the cause of abnormal reaction of the patient, or of later complication, without mention of misadventure at the time of the procedure
CPT/HCPCS: 36415; 71045; 74176; 80048; 80053; 81001; 82948; 83690; 85025; 87040; 93005; 94640; 96365; 96366; 96367; 96372; 96375; 96376; 97116; 97162; 99285; G0378; G8978; G8979; J0456; J0696; J1644; J2270; J2920; J7030; Q9966; Q9967